=== PATIENT | female | born 1980 | race Caucasian/White ===

== ENCOUNTER 2017-11-26 19:09 | Emergency (ER) | payer SELFPAY ==
[~2017-11-26 19:09] MED LIST: ACE3 PO; CLIN300C99 PO; KET10 PO; METH-543 PO; OXYC-865 PO; PER PO
--- NOTE | 2017-11-26 19:28 | ER Report ---
History and Physical Time Seen By MD: 19:28 Hx. of Stated Complaint: ear infection for a month. been on 3 diff antibiotic and a steroid. nothing helping. too painful to sleep HPI/ROS CHIEF COMPLAINT: ear and throat pain on the right HISTORY OF PRESENT ILLNESS: This is a 37 year old female. She has had neck and right ear pain for a month. She has been on 3 courses of antibiotics, Augmentin , Cefdinir, and Doxycycline as well as some prednisone. Not getting better. Having some increased pain and swelling in right neck/throat area. Too painful to sleep. No drainage from ear. Some pain with movement of the ear. No pain in mouth. No fever or chills now. Having some nausea. REVIEW OF SYSTEMS: Respiratory: No cough, no dyspnea. Cardiovascular: No chest pain, no palpitations. Gastrointestinal: No vomiting, no abdominal pain. Musculoskeletal: No other pain. Allergies: Coded Allergies: hydrocodone (Verified Allergy, Intermediate, MIGRAINE HEADACHES, 11/26/17) Home Meds Active Scripts Ondansetron (ZOFRAN ODT) 4 Mg Tab.rapdis, 4 MG PO Q6H Y for NAUSEA/VOMITING, # 20 TAB.JUSTUS 0 Refills Prov:ANDREWS MCMANUS MD 11/26/17 Oxycodone Hcl/Acetaminophen (PERCOCET 5-325 MG TABLET) 1 Each Tablet, 1 EACH PO Q4H Y for PAIN, #12 TAB 0 Refills Prov:ANDREWS MCMANUS MD 11/26/17 Discontinued Scripts Oxycodone Hcl/Acetaminophen (PERCOCET 5-325 MG TABLET) 1 Each Tablet, 1-2 EACH PO Q4H Y for PAIN, #20 TAB Prov:NICKY ROGERS DO 02/20/16 Methocarbamol (ROBAXIN-750) 750 Mg Tablet, 1-2 MG PO TID Y for muscle spasm relief, #20 Prov:NICKY ROGERS DO 02/20/16 Reviewed Nurses Notes: Yes Hx Smoking: No Smoking Status: Former Smoker Hx Substance Use Disorder: No Hx Alcohol Use: No Constitutional Vital Sign - Last 24 Hours 11/26/17 11/26/17 11/26/17 19:17 20:30 22:00 Temp 98.0 Pulse 85 71 82 Resp 14 16 14 B/P (MAP) 143/98 149/97 (114) 144/96 (112) Pulse Ox 97 95 97 O2 Delivery Room Air Room Air Physical Exam General Appearance: The patient is alert, has no immediate need for airway protection and no current signs of toxicity. Eyes: Pupils equal and round no injection. ENT: Normal oral mucosa. Moist mucous membranes. Normal posterior oropharynx. Normal nasal. Tympanic membranes are normal, no redness, bulging, or drainage. Neck: Neck is supple, tender lymphadenopathy in the right cervical change. Respiratory: Chest is non tender, lungs are clear to auscultation. Cardiac: regular rate and rhythm Musculoskeletal: No musculoskeletal pain. Skin: No rashes or lesions. DIFFERENTIAL DIAGNOSIS: After history and physical exam differential diagnosis was considered for neck and ear pain, suspect infection (bacterial versus viral) , versus other mass or lymphadenopathy. Medical Decision Making Data Points Result Diagram: 11/26/17194811/26/171948 Laboratory Hematology Test 11/26/17 19:49 Red Blood Count 4.70 M/uL (4.17-5.56) Mean Corpuscular Volume 91.4 fL (80.0-96.0) Mean Corpuscular Hemoglobin 32.1 pg (26.0-33.0) Mean Corpuscular Hemoglobin Concent 35.1 g/dL (32.0-36.0) Red Cell Distribution Width 13.4 % (11.5-14.5) Mean Platelet Volume 9.9 fL (7.2-11.1) Neutrophils (%) (Auto) 52.6 % (39.4-72.5) Lymphocytes (%) (Auto) 38.1 % (17.6-49.6) Monocytes (%) (Auto) 6.7 % (4.1-12.4) Eosinophils (%) (Auto) 1.5 % (0.4-6.7) Basophils (%) (Auto) 1.1 % (0.3-1.4) Nucleated RBC Relative Count (auto) 0.0 /100WBC Neutrophils # (Auto) 3.0 K/uL (2.0-7.4) Lymphocytes # (Auto) 2.1 K/uL (1.3-3.6) Monocytes # (Auto) 0.4 K/uL (0.3-1.0) Eosinophils # (Auto) 0.1 K/uL (0.0-0.5) Basophils # (Auto) 0.1 K/uL (0.0-0.1) Nucleated RBC Absolute Count (auto) 0.00 K/uL Sodium Level 138 mmol/L (137-145) Potassium Level 3.6 mmol/L (3.5-5.0) Chloride Level 105 mmol/L (98-107) Carbon Dioxide Level 23 mmol/L (22-31) Blood Urea Nitrogen 8 mg/dl (7-18) Creatinine 0.60 mg/dl (0.52-1.04) Glomerular Filtration Rate Calc > 60.0 Random Glucose 79 mg/dl (75-110) Calcium Level 9.4 mg/dl (8.4-10.2) Total Bilirubin 0.6 mg/dl (0.2-1.3) Aspartate Amino Transf (AST/SGOT) 26 U/L (0-35) Alanine Aminotransferase (ALT/SGPT) 36 U/L (0-56) Alkaline Phosphatase 61 U/L (0-126) Total Protein 7.3 g/dl (6.3-8.2) Albumin 4.0 g/dl (3.5-5.0) Chemistry Test 11/26/17 19:49 White Blood Count 5.6 k/uL (4.5-11.0) Red Blood Count 4.70 M/uL (4.17-5.56) Hemoglobin 15.1 g/dL (12.0-16.0) Hematocrit 43.0 % (34.0-47.0) Mean Corpuscular Volume 91.4 fL (80.0-96.0) Mean Corpuscular Hemoglobin 32.1 pg (26.0-33.0) Mean Corpuscular Hemoglobin Concent 35.1 g/dL (32.0-36.0) Red Cell Distribution Width 13.4 % (11.5-14.5) Platelet Count 223 K/uL (150-450) Mean Platelet Volume 9.9 fL (7.2-11.1) Neutrophils (%) (Auto) 52.6 % (39.4-72.5) Lymphocytes (%) (Auto) 38.1 % (17.6-49.6) Monocytes (%) (Auto) 6.7 % (4.1-12.4) Eosinophils (%) (Auto) 1.5 % (0.4-6.7) Basophils (%) (Auto) 1.1 % (0.3-1.4) Nucleated RBC Relative Count (auto) 0.0 /100WBC Neutrophils # (Auto) 3.0 K/uL (2.0-7.4) Lymphocytes # (Auto) 2.1 K/uL (1.3-3.6) Monocytes # (Auto) 0.4 K/uL (0.3-1.0) Eosinophils # (Auto) 0.1 K/uL (0.0-0.5) Basophils # (Auto) 0.1 K/uL (0.0-0.1) Nucleated RBC Absolute Count (auto) 0.00 K/uL Glomerular Filtration Rate Calc > 60.0 Calcium Level 9.4 mg/dl (8.4-10.2) Total Bilirubin 0.6 mg/dl (0.2-1.3) Aspartate Amino Transf (AST/SGOT) 26 U/L (0-35) Alanine Aminotransferase (ALT/SGPT) 36 U/L (0-56) Alkaline Phosphatase 61 U/L (0-126) Total Protein 7.3 g/dl (6.3-8.2) Albumin 4.0 g/dl (3.5-5.0) EKG/Imaging Imaging EXAMINATION: CT neck with IV contrast HISTORY: Right neck and ear pain. Neck lymphadenopathy/swelling. COMPARISON: None. TECHNIQUE: Spiral scan was obtained from the orbits through the upper chest during injection of nonionic iodinated intravenous contrast. Sagittal and coronal reformatted images are also submitted. CONTRAST: 75 mL of IV Isovue-370 One of the following dose optimization techniques was utilized in the performance of this exam: Automated exposure control; adjustment of the mA and/ or kV according to the patient's size; or use of an iterative reconstruction technique. Specific details can be referenced in the facility's radiology CT exam operational policy. FINDINGS: Masses/lesions: Right neck adenopathy described below. No other discrete soft tissue mass or fluid collection in the neck. No soft tissue gas. The parotid and submandibular glands are unremarkable. Normal CT appearance of the thyroid. Airway: There is mild symmetric enlargement of the palatine tonsils bilaterally , without evidence of intratonsillar or peritonsillar abscess. The airway is patent and normal in caliber. No retropharyngeal soft tissue thickening. Vessels: There is narrowing of the upper right internal jugular vein by adjacent adenopathy. Carotid arteries are patent. Musculoskeletal/body wall: Negative. Normal alignment along the cervical spine. Lymph nodes: There are multiple enlarged right-sided level II cervical nodes, measuring up to 2.0 x 1.4 cm (image 34). There are additional enlarged level III cervical lymph nodes on the right measuring up to 1.9 x 1.0 cm (image 41). There are scattered subcentimeter lymph nodes along the left neck, without any pathologically enlarged lymph nodes on the left. Visualized orbits/brain/paranasal sinuses: The partially visualized intracranial structures are unremarkable. Orbital structures are unremarkable. The paranasal sinuses and mastoid air cells are unopacified. The middle ear cavities are unopacified. Upper chest: Negative. IMPRESSION: 1. There are multiple enlarged right-sided level II and level III lymph nodes which may be reactive but are nonspecific. 2. Mild symmetric enlargement of the palatine tonsils, without evidence of intratonsillar or peritonsillar abscess. Report Dictated By: Kartik Medina MD at 11/26/2017 8:53 PM ED Course/Re-evaluation Clinical Indication for ER IV: Hydration, IV Access ED Course Given Morphine for pain and Zofran for nausea. Labs obtained and negative. CT scan shows lymphadenopathy, but no other problems. Given Percocet and Zofran and will have her see ENT after the weekend. No further antibiotics given at this time. Decision to Disposition Date: Nov 26, 2017 Decision to Disposition Time: 21:44 Depart Departure Latest Vital Signs Vital Signs Date Time Temp Pulse Resp B/P (MAP) Pulse Ox O2 Delivery O2 Flow Rate FiO2 11/26/17 22:00 82 14 144/96 (112) 97 Room Air 11/26/17 19:17 98.0 Impression: Primary Impression: Cervical lymphadenopathy Condition: Condition Unchanged Disposition: HOME OR SELF-CARE Referrals: MARI GOULD MD (PCP) New Scripts Ondansetron (ZOFRAN ODT) 4 Mg Tab.rapdis 4 MG PO Q6H Y for NAUSEA/VOMITING, #20 TAB.JUSTUS 0 Refills Prov: ANDREWS MCMANUS MD 11/26/17 Oxycodone Hcl/Acetaminophen (PERCOCET 5-325 MG TABLET) 1 Each Tablet 1 EACH PO Q4H Y for PAIN, #12 TAB 0 Refills Prov: ANDREWS MCMANUS MD 11/26/17 Patient Instructions: Lymphadenopathy (ED) Additional Instructions: Your pain is caused by some enlarged lymph nodes in your neck. We do not know why they are enlarged and recommend follow-up with ENT. You can call Dr. Medina on Wednesday morning to make an appointment. Take Percocet 5/325, one every 4 hours as needed for pain. Ibuprofen 200mg over the counter tablets, take 4 tablets every 8 hours. Zofran 4mg, one every 6 hours as needed for nausea. Increase fluid intake over the weekend. ANDREWS MCMANUS MD Nov 26, 2017 19:28
[2017-11-26] MEDS ORDERED: NS(*) 0.9% 1000 ML BAG 1,000 ML IV ONE (19:35)
[2017-11-26] MEDS ORDERED: MORPHINE 4 MG/ML SDV IVP ONE (19:35)
[2017-11-26] MEDS ORDERED: ONDANSETRON 4 MG/2 ML VIAL IVP ONE (19:35)
[2017-11-26 19:57] LABS: PLATELET COUNT, AUTOMATED 223 K/uL (150-450)
[2017-11-26] MEDS ORDERED: IOPAMIDOL 76% 75 ML INFUS BTL 75 ML ONE (20:26)
--- NOTE | 2017-11-26 21:11 | RADIOLOGY IMAGING REPORT ---
FACILITY: [facility] PATIENT NAME: Beba Plascencia : 1980 MR: [id number] V: [id number] EXAM DATE: ORDERING PHYSICIAN: ANDREWS MCMANUS TECHNOLOGIST: Location: [facility] Patient: Beba Plascencia : 1980 Visit/Account:[id number] Date of Sevice: 11/26/2017 EXAMINATION: CT neck with IV contrast HISTORY: Right neck and ear pain. Neck lymphadenopathy/swelling. COMPARISON: None. TECHNIQUE: Spiral scan was obtained from the orbits through the upper chest during injection of non ionic iodinated intravenous contrast. Sagittal and coronal reformatted images are also submitted. CONTRAST: 75 mL of IV Isovue-370 One of the following dose optimization techniques was utilized in the performance of this exam: Autom ated exposure control; adjustment of the mA and/or kV according to the patient's size; or use of an i terative reconstruction technique. Specific details can be referenced in the facility's radiology C T exam operational policy. FINDINGS: Masses/lesions: Right neck adenopathy described below. No other discrete soft tissue mass or fluid c ollection in the neck. No soft tissue gas. The parotid and submandibular glands are unremarkable. Nor mal CT appearance of the thyroid. Airway: There is mild symmetric enlargement of the palatine tonsils bilaterally, without evidence of intratonsillar or peritonsillar abscess. The airway is patent and normal in caliber. No retropharyng eal soft tissue thickening. Vessels: There is narrowing of the upper right internal jugular vein by adjacent adenopathy. Carotid arteries are patent. Musculoskeletal/body wall: Negative. Normal alignment along the cervical spine. Lymph nodes: There are multiple enlarged right-sided level II cervical nodes, measuring up to 2.0 x 1 .4 cm (image 34). There are additional enlarged level III cervical lymph nodes on the right measuring up to 1.9 x 1.0 cm (image 41). There are scattered subcentimeter lymph nodes along the left neck, wi thout any pathologically enlarged lymph nodes on the left. Visualized orbits/brain/paranasal sinuses: The partially visualized intracranial structures are unrem arkable. Orbital structures are unremarkable. The paranasal sinuses and mastoid air cells are unopaci fied. The middle ear cavities are unopacified. Upper chest: Negative. IMPRESSION: 1. There are multiple enlarged right-sided level II and level III lymph nodes which may be reactive b ut are nonspecific. 2. Mild symmetric enlargement of the palatine tonsils, without evidence of intratonsillar or peritons illar abscess. Report Dictated By: Kartik Medina MD at 11/26/2017 8:53 PM Report E-Signed By: Kartik Medina MD at 11/26/2017 9:06 PM WSN:[id number]
[2017-11-26] MEDS ORDERED: ONDANSETRON 4 MG ODT TH SL ONE (21:40)
[2017-11-26] MEDS ORDERED: oxyCODONE/ACETAMIN 5/325MG TH 2 TAB/BOTTLE PO ONE (21:40)
[2017-11-26] MEDS ORDERED: OXYC-865 PO (21:47)
[2017-11-26] MEDS ORDERED: ONDA4TAB PO (21:47)
[2017-11-26 22:00] VITALS: BP 144/96
== END 2017-11-26 21:58 | disposition home or self-care (01) ==
LOC: ER 19:15
DX: R59.0 Localized enlarged lymph nodes (principal)
CPT/HCPCS: 70491; 85025; 87040; 96361; 96374; 96375; 99284; J2270; J2405; J7030; Q9967; S0119; 82040; 82247; 82310; 82374; 82435; 82565; 82947; 84075; 84132; 84155; 84295; 84450; 84460; 84520

== ENCOUNTER → 2017-12-30 | Outpatient (CLI) | payer SELFPAY ==
[~2017-12-30] MED LIST changes: +ACET-3017 PO; +IBUP800T37 PO; +ONDA4TAB PO
--- NOTE | 2017-12-30 16:35 | RADIOLOGY IMAGING REPORT ---
FACILITY: [facility] PATIENT NAME: Beba Plascencia : 1980 MR: [id number] V: [id number] EXAM DATE: ORDERING PHYSICIAN: SHIV GALDAMEZ TECHNOLOGIST: Location: [facility] [place] Patient: Beba Plascencia : 1980 Visit/Account:[id number] Date of Sevice: 12/30/2017 EXAMINATION: CT Chest With Contrast 12/30/2017 3:40 PM HISTORY: Malignant neoplasm of tonsil TECHNIQUE: Spiral scan was obtained through the chest during injection of nonionic iodinated intrav enous contrast. Contrast: 75 mL of IV Isovue 370. One of the following dose optimization techniques was utilized in the performance of this exam: Autom ated exposure control; adjustment of the mA and/or kV according to the patient's size; or use of an i terative reconstruction technique. Specific details can be referenced in the facility's radiology C T exam operational policy. COMPARISON STUDIES: CT neck 11/26/2017. FINDINGS: Lungs / pleura: negative Mediastinum / safia: Prevascular tissue density consistent with residual thymus. Heart / pericardium: negative Vessels: negative Musculoskeletal / Body wall: negative Lymph node assessment: 1.1 cm right level 3 cervical lymph node is stable to slightly smaller from neck CT. No mediastinal or hilar adenopathy. Lower neck: negative Upper abdomen: Incidental focal fat or perfusional variation in the left lobe along the fissure for l igamentum teres. Prior cholecystectomy. IMPRESSION: 1. No evidence of metastatic disease in the chest. 2. Visualized right cervical adenopathy is stable to slightly diminished comparing with November. Report Dictated By: Indra Goldsmith MD at 12/30/2017 4:24 PM Report E-Signed By: Indra Goldsmith MD at 12/30/2017 4:31 PM WSN:[email or web address]
== END ==
LOC: RAD 15:29
PROVIDERS: ATTEND Internal Medicine Hematology
DX: R59.0 Localized enlarged lymph nodes (principal)
CPT/HCPCS: 71260

== ENCOUNTER 2018-01-17 10:45 | Outpatient (RCR) | payer SELFPAY ==
--- NOTE | 2018-01-10 14:12 | PT INITIAL EVALUATION ---
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 Pt underwent surgical excision of R tonsils and a large soft tissue mass on the R neck on December 16 including affected lymph nodes. Furthermore, Beba is to start both chemotherapy as well as radiation therapy treatment today (01/10/18) for continued oncological treatment. Pt presents to physical therapy for oncology rehabilitation as well as for treatment of R neck and shoulder pain s/p surgical intervention. Pain is located along R jaw and cheek into the neck and R shoulder and is neuropathic in nature described as shooting and sharp/intense. Pain is worse in the evenings rated as 10/10 at night and then better throughout the day rated between a 1-4/10 never going away completely. Pt reports neck stiffness with difficulty driving from turning head. Pt is starting Cisplatin chemotherapy at a frequency of 1x/week for 7 cycles with radiation daily. Pt is still working throughout treatment for [employer]. Pt enjoys gardening and spending time with her grandchildren. REHAB PROBLEM LIST: Increased Pain Decreased ROM Decreased Strength Decreased Endurance Decreased Function Decreased ADL's Decreased Mobility PREVIOUS MEDICAL HISTORY: See EMR OBJECTIVE: Posture: Forward head posture with decreased head mobility movement of body. ROM: Cervical ROM: flexion: moderate restrictions, ext: moderate restrictions, L SB: 15 degrees, R SB: 29 degrees, L rotation: 42 degrees, R rotation 45 degrees. Shoulder ROM (degrees): flexion: L 160, R 138, abd: L: 170, R 75 with pain in shoulder and neck, ER: L 80, R 62, IR: B T4 spinal level. Strength: R shoulder: flexion: 3+/5, abd: 2/5 Palpation: Pt has incision along the lateral-anterior aspect of the R neck. Incision is healing well without any redness or warmth. Incision has moderate restrictions to mobility throughout. Sensation: Pt has decreased sensation along R neck, cheek and jaw. Special Tests: Head and Neck QOL Questionnaire: moderate restrictions with chewing and mouth and jaw pain, "a lot" of restrictions with shoulder and neck pain. Mobility: ECOG Performance Status: Grade 1 Other Objective Findings: FACT-G: PWB: , SWB: , EWB: , FWB: , Total: 72/108 ASSESSMENT: Beba shows signs and symptoms consistent with diagnosis of SCC of the R cervical and tonsillar region s/p surgical intervention resulting in decreased mobility, pain and overall decreased function as outlined by the above listed deficits. Physical therapy is indicated for this patient to improve functional ability to perform ADL's as well as maintain function with ongoing oncological treatment. It is my impression that this patient would benefit from FOOD SERVER services though secondary to patient preferences with financial burden services were declined unless further decline occurs. Short Term Goals In 4 weeks pt will improve cervical ROM to minimal restrictions in all directions for improved function with ADL's. In 4 weeks pt will improve R shoulder ROM to equal to that of the contralateral side for improved function with ADL's. In 2 MO pt will improve R shoulder strength to equal to that of the contralateral side for improved function with ADL's. In 2 MO pt will maintain ECOG performance status of grade 2 or less for maintained function with ADL's with ongoing oncological care and decreased side -effects of treatment. In 2 MO pt will improve FACT-G to > 80/108 for improved function with ADLs and maintenance of general well-being with ongoing treatment. Patient's Goals Improve shoulder and neck mobility and decrease pain. PLAN: Patient to be seen for Manual Therapy/STM/MET Strengthening/condition Ice/Heat Range of Motion Spinal Stabilization Ultrasound Stretching Iontophoresis Neuromuscular Re-ed Closed Chain Program Electrical Stim Posture/Body mechanics Biofeedback Home Exercise Program Mech./Manual Traction Therapeutic Activities 1x/Week for 2 Months If you have any questions, comments, or concerns about this report or plan, please contact me at . Thank you, Aleshia Rodríguez, PT, DPT, CLT MTDD
[~2018-01-17 10:45] MED LIST changes: +B6/F1TAB ASDIRECTED; +DEXA2TAB7 PO; +DOCU-416 PO; +LORA-1455 PO; +ONDA8TAB91 PO; +PROC10TA4 PO
--- NOTE | 2018-01-31 12:03 | PT PLAN OF CARE ---
Physician: JARETH Ashton, OCN Patient is being seen: 2x/MO Therapist: Aleshia Rodríguez, PT, DPT, CLT Medical Diagnosis: Head and Neck Cancer, Squamous Cell Carcinoma of Right Tonsil and Neck Treatment Diagnosis: Head and Neck Cancer, Squamous Cell Carcinoma of Right Tonsil and Neck Date of Onset: 12/16/17 Date of Initial Evaluation: 01/10/18 Date patient was last seen: 01/31/18 Number of treatments: 3 Number of cancellations/No shows: 0 INTERVENTIONS: Manual Therapy/STM/MET Strengthening/condition Ice/Heat Range of Motion Spinal Stabilization Ultrasound Stretching Iontophoresis Neuromuscular Re-ed Closed Chain Program Electrical Stim Posture/Body mechanics Biofeedback Home Exercise Program Mech./Manual Traction Therapeutic Activities GOALS: In 4 weeks pt will improve cervical ROM to minimal restrictions in all directions for improved function with ADL's. MET In 4 weeks pt will improve R shoulder ROM to equal to that of the contralateral side for improved function with ADL's. In Progress In 2 MO pt will improve R shoulder strength to equal to that of the contralateral side for improved function with ADL's. In Progress In 2 MO pt will maintain ECOG performance status of grade 2 or less for maintained function with ADL's with ongoing oncological care and decreased side -effects of treatment. In Progress In 2 MO pt will improve FACT-G to > 80/108 for improved function with ADLs and maintenance of general well-being with ongoing treatment. In Progress PATIENT'S GOAL: Improve shoulder and neck mobility and decrease pain. Status of Patient's Goals: 1/5 MET, 4/5 Progressing Patient Compliance: Excellent Prognosis: Good Reasons for continuing therapy: Beba shows significant gains in cervical ROM with associated improved mobility and decreased pain. Incisional mobility shows good gains with minimal irritation of the surrounding tissue from radiation. Pt' s spouse educated on assisting with manual stretches to improve mobility as well as pt educated on progressing towards AAROM of the shoulder to initiate strengthening with mobility. Further PT to monitor for shoulder progression as well as maintain ROM in the neck. Posture: Forward head posture with decreased head mobility movement of body. ROM: Cervical ROM: flexion: minimal restrictions, ext: full with stretch, L SB : 45 degrees, R SB: 45 degrees, L rotation: 55 degrees, R rotation 55 degrees. Shoulder ROM (degrees): flexion: L 160, R 145, abd: L: 170, R 142 with pain in neck, ER: L 80, R 72, IR: B T4 spinal level. Strength: R shoulder: flexion: 3+/5, abd: 2/5 Palpation: Pt has incision along the lateral-anterior aspect of the R neck. Incision is healing well without any redness or warmth. Incision has moderate restrictions to mobility throughout. Special Tests: Head and Neck QOL Questionnaire: moderate restrictions with chewing and mouth and jaw pain, "a lot" of restrictions with shoulder and neck pain. Mobility: ECOG Performance Status: Grade 1 Other Objective Findings: FACT-G (EVAL): PWB: , SWB: , EWB: , FWB : , Total: 72/108 FACT-G 01/31/18: PWB: , SWB: , EWB: , FWB: , Total: 74/ 108 If you have any questions, comments, or concerns about this report or plan, please contact me at . Thank you, Aleshia Rodríguez, PT, DPT, CLT MTDD
[2018-02-07] MEDS ORDERED: NYST15PO4 TP (09:00)
[2018-02-07] MEDS ORDERED: AZIT-17 PO (09:00)
[2018-02-07] MEDS ORDERED: FENT1PAT ASDIRECTED (09:00)
[2018-02-07] MEDS ORDERED: FLUC200T56 PO (09:00)
== END 2018-01-17 18:00 | disposition home or self-care (01) ==
LOC: PT 10:45
PROVIDERS: ATTEND Nurse Practitioner Family
DX: C09.9 Malignant neoplasm of tonsil, unspecified (principal); C76.0 Malignant neoplasm of head, face and neck; M25.511 Pain in right shoulder; M43.6 Torticollis; R68.84 Jaw pain
CPT/HCPCS: 97162

== ENCOUNTER 2018-02-15 13:21 | Observation (INO) | payer SELFPAY ==
[~2018-02-15] VITALS: Ht 160 cm; Wt 76.2 kg
[~2018-02-15 13:21] MED LIST changes: +AZIT-17 PO; +FENT1PAT ASDIRECTED; +FLUC200T56 PO; +NYST15PO4 TP
[2018-02-15] MEDS ORDERED: ENOXAPARIN 100 MG/ML SYR SC SCH (13:45)
[2018-02-15] MEDS ORDERED: MORPHINE 4 MG/ML SDV IVP ONE (13:45)
[2018-02-15 14:11] LABS: INR 1.29
--- NOTE | 2018-02-15 14:28 | ER Report ---
History and Physical Time Seen By MD: 13:33 Hx. of Stated Complaint: CLOT IN LEFT LEG HPI/ROS CHIEF COMPLAINT: DVT left lower extremity HISTORY OF PRESENT ILLNESS: Patient is a 38-year-old female who was seen in oncology clinic today scheduled for radiation therapy. She complained of left lower extremity pain and swelling over the past few days. She was sent for a Doppler ultrasound of left lower extremity which revealed an iliofemoral DVT. Patient denies any chest pain or shortness of breath. She denies any dyspnea. No prior history of DVT or PE. Patient is also currently receiving cisplatin chemotherapy which increases risk for hypercoagulability. 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 Cardiovascular: No chest pain, no palpitations. Gastrointestinal: No vomiting, no abdominal pain. Musculoskeletal: No back pain. Lower extremity swelling and pain Allergies: Coded Allergies: hydrocodone (Verified Allergy, Intermediate, MIGRAINE HEADACHES, 11/26/17) Home Meds Active Scripts Nystatin 100,000 Unit/Gm Top Powder (NYSTATIN 100,000 UNIT/GM TOP POWDER) 15 Gm Powder, 15 GM TP 3-4XD for 30 Days, TUBE Prov:ELVIRA EMLTON-Alex, ONC 02/07/18 Fluconazole (FLUCONAZOLE) 200 Mg Tablet, 400 MG PO QDAY for 90 Days, TAB Prov:ELVIRA MELTON, ONC 02/07/18 Fentanyl (Fentanyl) 1 Each Patch.td72, 25 MCG ASDIRECTED DIRECTED for 7 Days Prov:ELVIRA MELTON, ONC 02/07/18 B6/Fa/B12/Co Q10/Herb No.225 (HEALTHY HEART COMPLEX TABLET) 1 Each Tablet, 10 BOT ASDIRECTED 1-2XD for 10 Days, BOTTLE Prov:ELVIRA MELTON, ONC 01/10/18 Docusate Sodium (COLACE) 100 Mg Capsule, 100 MG PO 1-2XD for 30 Days, CAPSULE Prov:ELVIRA MELTON, ONC 01/10/18 Reported Medications Lorazepam (ATIVAN) 0.5 Mg Tablet, 0.5 MG PO Q4-6H, #30 TAB 1 Refill 01/05/18 Ondansetron Hcl (ZOFRAN) 8 Mg Tablet, 8 MG PO Q12H, #30 TAB 3 Refills 01/05/18 Prochlorperazine Maleate (Compazine) 10 Mg Tablet, PO for Nausea, #30 TAB 01/05/18 Ibuprofen (IBUPROFEN) 800 Mg Tablet, 1 TAB PO Q8H, TAB 12/23/17 Acetaminophen With Codeine # 3 (TYLENOL WITH CODEINE #3 TABLET) 1 Each Tablet, 1 EACH PO PRN, TAB 12/23/17 Discontinued Scripts Azithromycin (Z-PACK) 250 Mg Tablet, 0 PO QDAY, #6 DOSE-PACK Prov:ELVIRA MELTON MACHINE MOLDER-C, ONC 02/07/18 Past Medical/Surgical History History of stage IV squamous cell carcinoma that is HPV positive to the t onsillar area currently undergoing chemotherapy and radiation therapy Hx Smoking: Yes Smoking Status: Former Smoker Hx Substance Use Disorder: No Hx Alcohol Use: No Constitutional Vital Sign - Last 24 Hours 02/15/18 13:32 Temp 98.1 Pulse 74 Resp 18 B/P (MAP) 125/71 Pulse Ox 98 O2 Delivery Room Air Physical Exam General Appearance: The patient is alert, has no immediate need for airway protection and no current signs of toxicity. Eyes: Pupils equal and round no injection. Respiratory: Chest is non tender, lungs are clear to auscultation. Cardiac: regular rate and rhythm [ ] Gastrointestinal: Abdomen is soft and non tender, no masses, bowel sounds normal. Musculoskeletal: Neck: Neck is supple and non tender. Extremities have full range of motion; left lower extremity is markedly increased in diameter and tender with positive Homans sign Skin: No rashes or lesions. Medical Decision Making Data Points Laboratory Hematology Test 02/15/18 13:56 Chemistry Test 02/15/18 13:56 Coagulation Test 02/15/18 13:56 ED Course/Re-evaluation ED Course 02/15/2018 2:28:44 pm I spoke with Dr. Bustamante who is on-call for oncology history physical exam was reviewed. Concern is the patient has a fairly large left lower Dennis and the DVT along with her comorbidity of squamous cell cancer. Plan at this time will be 1 m/kg of subcutaneous Lovenox admission to the hospital and further workup Decision to Disposition Date: Feb 15, 2018 Decision to Disposition Time: 14:28 Depart Departure Latest Vital Signs Vital Signs Date Time Temp Pulse Resp B/P (MAP) Pulse Ox O2 Delivery O2 Flow Rate FiO2 02/15/18 13:32 98.1 74 18 125/71 98 Room Air Impression: Primary Impression: DVT (deep venous thrombosis) Condition: Condition Unchanged Disposition: Admitted from ER (to Dr Silverio) Referrals: MINERVA GARCIA MD (PCP) Problem Qualifiers Primary Impression: DVT (deep venous thrombosis) DVT location: lower extremity Affected thrombotic vein of extremity: iliac Chronicity: acute Laterality: left Qualified Codes: I82.422 - Acute embolism and thrombosis of left iliac vein WILFRED HOOK MD Feb 15, 2018 14:28
[2018-02-15 14:34] VITALS: BP 114/69
[2018-02-15] MEDS ORDERED: FLUSH 10 ML SYR IVP PRN (14:50)
[2018-02-15] MEDS ORDERED: ONDANSETRON 4 MG/2 ML VIAL IVP PRN (14:50)
[2018-02-15] MEDS ORDERED: INFLUENZA VIRUS VAC 0.5 ML SYR IM ONLY ONE (14:50)
[2018-02-15] MEDS ORDERED: POTA20TA94 PO (15:14)
[2018-02-15] MEDS ORDERED: [UNRECOGNIZED DRUG - OTHER] PO (15:14)
[2018-02-15] MEDS ORDERED: NYST100016 PO (15:14)
[2018-02-15] MEDS ORDERED: SANCUSOPT TD (15:14)
[2018-02-15] MEDS ORDERED: DEX4 PO (15:14)
[2018-02-15] MEDS ORDERED: ACET12.53 PO (15:14)
[2018-02-15] MEDS ORDERED: MAGN250T34 PO (15:14)
[2018-02-15] MEDS ORDERED: LORazepam 0.5 MG TAB PO PRN (15:30)
[2018-02-15] MEDS ORDERED: ENOX120D5 SQ (15:51)
[2018-02-15] MEDS ORDERED: DEXAMETHASONE 4 MG TAB PO PRN (16:00)
[2018-02-15] MEDS ORDERED: MAGNESIUM OXIDE 400 MG TAB PO ONE (16:00)
[2018-02-15] MEDS ORDERED: ENOXAPARIN 100 MG/ML SYR SC ONE (16:00)
[2018-02-15] MEDS ORDERED: ACETAMINOPHEN 325 MG TAB PO PRN (16:00)
[2018-02-15] MEDS ORDERED: ENOXAPARIN 40 MG/0.4ML SYR SC ONE (16:00)
[2018-02-15] MEDS: POTASSIUM CHL 20 MEQ TABCR PO SCH (16:25)
--- NOTE | 2018-02-15 16:28 | History & Physical ---
History of Present Illness Chief Complaint L leg swelling History of Present Illness 38F presented with several days L leg swelling. PMHx significant for SCC of the throat undergoing cisplatin and radiation therapy. Noted during infusion today that she had decrease in color of L leg in addition to swelling, notified nurse at infusion center who recommended she come to ER. US positive in ER for proximal DVT involving L Femoral and Iliac veins. Admitted for initiation of Lovenox. Pt is self pay and was scheduled to have radiation tomorrow at 0830, discussed with CM from cancer center who arranged for 1230 radiation and will work on getting Lovenox subsidy. She expects 2 weeks at least until this could be completed, sent script to pharmacy for 2 weeks so patient can investigate cost. Denies [place] [facility]. History Problems: (1) Mucositis (ulcerative) due to antineoplastic therapy (2) Squamous cell carcinoma of tonsil Home Meds Active Scripts Enoxaparin Sodium (LOVENOX) 120 Mg/0.8 Ml Disp.syrin, 120 MG SQ DAILY for 14 Days, #14 SYR Prov:MARK JUDD DO 02/15/18 Fluconazole (FLUCONAZOLE) 200 Mg Tablet, 400 MG PO QDAY for 90 Days, TAB Prov:ELVIRA MELTON, ONC 02/07/18 Fentanyl (Fentanyl) 1 Each Patch.td72, 25 MCG ASDIRECTED DIRECTED for 7 Days Prov:ELVIRA MELTON, ONC 02/07/18 B6/Fa/B12/Co Q10/Herb No.225 (HEALTHY HEART COMPLEX TABLET) 1 Each Tablet, 10 BOT ASDIRECTED 1-2XD for 10 Days, BOTTLE Prov:ELVIRA MELTON, ONC 01/10/18 Docusate Sodium (COLACE) 100 Mg Capsule, 100 MG PO 1-2XD for 30 Days, CAPSULE Prov:ELVIRA MELTON, ONC 01/10/18 Reported Medications Magnesium Oxide (MAGNESIUM) 250 Mg Tablet, 250 MG PO DAILY 02/15/18 Potassium Chloride (POTASSIUM CHLORIDE) 20 Meq Tab.er.prt, 1 TAB PO BID 02/15/18 Nystatin (Nystatin) 100,000 Unit/Ml Oral.susp, 4 ML PO TID 02/15/18 [magic mouthwash MCK] No Conflict Check, 15 ML PO Q4H PRN for PAIN lidocaine/maalox 50/50 viscous 02/15/18 Granisetron Hcl (SANCUSO) 3.1 Mg/24 Hr Patch.td24, 3.1 MG TD DAILY supposed to start 02/16 per pt report 02/15/18 Dexamethasone 4 Mg Tab (DEXAMETHASONE 4 MG TAB) 4 Mg Tab, 4 MG PO Q4H PRN for NAUSEA, TAB 02/15/18 Acetaminophen with Codeine (Acetamin-Codein 300-30 mg/12.5) 12.5 Ml Solution, 2- 5 ML PO Q6H PRN for PAIN 02/15/18 Lorazepam (ATIVAN) 0.5 Mg Tablet, 1-2 TAB PO Q6H PRN for ANXIETY, #30 TAB 1 Refill 01/05/18 Prochlorperazine Maleate (Compazine) 10 Mg Tablet, 1 TAB PO Q8H for Nausea, #30 TAB 01/05/18 Ibuprofen (IBUPROFEN) 800 Mg Tablet, 1 TAB PO Q8H, TAB 12/23/17 Discontinued Reported Medications Ondansetron Hcl (ZOFRAN) 8 Mg Tablet, 8 MG PO Q12H, #30 TAB 3 Refills 01/05/18 Acetaminophen With Codeine # 3 (TYLENOL WITH CODEINE #3 TABLET) 1 Each Tablet, 1 EACH PO PRN, TAB 12/23/17 Discontinued Scripts Nystatin 100,000 Unit/Gm Top Powder (NYSTATIN 100,000 UNIT/GM TOP POWDER) 15 Gm Powder, 15 GM TP 3-4XD for 30 Days, TUBE Prov:ELVIRA MELTON, ONC 02/07/18 Azithromycin (Z-PACK) 250 Mg Tablet, 0 PO QDAY, #6 DOSE-PACK Prov:ELVIRA MELTON-Alex, ONC 02/07/18 Allergies: Coded Allergies: hydrocodone (Verified Allergy, Intermediate, MIGRAINE HEADACHES, 11/26/17) Hx Smoking: Yes Smoking Status: Former Smoker Hx Alcohol Use: No Hx Substance Use Disorder: Yes (stopped most 1997; edible THC tried a couple weeks ago) Social Drug Use: Former Social Drugs: Marijuana, Meth, Cocaine Review of Systems All Systems Reviewed/Normal: Yes, Except as Noted Constitutional: Weight Loss; No Fever Gastrointestinal: Constipation, Other (odonophagia) Musculoskeletal: Pain (L leg swelling) Exam Vital Signs Vital Signs Date Time Temp Pulse Resp B/P (MAP) Pulse Ox O2 Delivery O2 Flow Rate FiO2 02/15/18 15:15 95 Room Air 02/15/18 14:34 98.2 72 16 114/69 (84) General Appearance: Alert, Awake, No Acute Distress Neuro: No Gross deficits Eyes: PERRLA ENT: Other (erythema of oropharynx) Neck: No Masses Cardiovascular: Normal Rhythm & Peripheral Pulses Respiratory: No Respiratory Distress, Clear to Auscultation GI: Abd Soft and Non-Tender (+ BS) Lymph: Cervical Nodes Benign Musculoskeletal: No Weakness/Pain (other than L leg) Extremities: Soft and Non Tender, Warm, Pulses, Perfused, Edema (asymetric L) Integumentary: Skin Intact without Lesion / Mass Psych: Alert & Oriented X3, Appropriate Mood & Affect Assessment and Plan Problems: (1) DVT (deep venous thrombosis) Status: Acute Assessment & Plan: US demonstrates extensive proximal DVT of L femoral and iliac veins. Given active cancer and chemotherapy Lovenox is Rx of choice. Begin 1.5mg/kg daily. Coordinate with cancer center to try and assist in funding for Lovenox. Anticipate if Rx available discharge home tomorrow. (2) Thrombocytopenia Assessment & Plan: Likely 2/2 chemotherapy may also be component of activation and depletion from acute DVT. Monitor with initiation anticoagulation therapy. (3) Mucositis (ulcerative) due to antineoplastic therapy Assessment & Plan: Mucositis and inflamation 2/2 radiation and chemotherapy. She is on chronic therapy with magic mouthwash and prophylactic fluconazole. (4) Squamous cell carcinoma of tonsil Assessment & Plan: Undergoing current therapy with cisplatin and radiation. Last chemo today, rescheduled radiation tomorrow from 0830 to 1230 anticipate her going to cancer center after discharge. Outpatient regimen for pain and n/v continued. (5) Hypokalemia Assessment & Plan: Mild. Sequelae of chemotherapy, on chronic supplementation. Venous Thromboembolism Antithrombotics Is Pt On Any Antithrombotics?: Yes Exam Sepsis Risk: No Definite Risk Problem Qualifiers (1) DVT (deep venous thrombosis): DVT location: lower extremity Affected thrombotic vein of extremity: iliac Chronicity: acute Laterality: left Qualified Codes: I82.422 - Acute embolism and thrombosis of left iliac vein MARK JUDD DO Feb 15, 2018 16:28
[2018-02-15] MEDS ORDERED: MAGIC MOUTHWASH PO ONE (17:00)
[2018-02-15] MEDS: DOCUSATE SODIUM 100 MG CAP PO SCH (21:00)
[2018-02-15] MEDS: FLUCONAZOLE 100 MG TAB PO SCH (21:21)
[2018-02-15] MEDS: NYSTATIN 5 ML UDCUP PO SCH (21:21)
[2018-02-15] MEDS: ACETA/CODEIN ELIX 120-12MG/5ML PO PRN (21:26)
[2018-02-15] MEDS: MAGIC MOUTHWASH PO PRN (21:27)
[2018-02-15 21:35] VITALS: BP 122/81
[2018-02-16] MEDS: PROCHLORPERAZINE MAL 5 MG TAB PO PRN ×2 (02:03→10:07)
[2018-02-16] MEDS: MAGIC MOUTHWASH PO PRN ×3 (02:03→10:07)
[2018-02-16 02:07] VITALS: BP 139/98
[2018-02-16] MEDS: ACETA/CODEIN ELIX 120-12MG/5ML PO PRN (05:41)
[2018-02-16 06:20] LABS: PLATELET COUNT, AUTOMATED 95 K/uL (150-450)
[2018-02-16 07:34] VITALS: BP 126/84
[2018-02-16] MEDS: POTASSIUM CHL 20 MEQ TABCR PO SCH (08:00)
--- NOTE | 2018-02-16 08:22 | Hospitalist Depart ---
Discharge Summary Reason for Hosp/Final Diag: (1) DVT (deep venous thrombosis) Status: Acute Hospital Course & Plan: US demonstrated extensive proximal DVT of left femoral and iliac veins. As she has active cancer and current chemotherapy, she was started on subcutaneous Lovenox 1.5mg/kg daily. Oncology may decide to t ransition her to an oral anticoagulant in the future. She was able to obtain a two week supply through her pharmacy and will work on assistance with the [facility]. She will need to have daily CBC for next few days as she has mild thrombocytopenia (most likely related to her chemotherapy). (2) Thrombocytopenia Hospital Course & Plan: Likely secondary to chemotherapy. May also be component of depletion from acute DVT. Monitor with initiation anticoagulation therapy. (3) Mucositis (ulcerative) due to antineoplastic therapy Hospital Course & Plan: Mucositis and inflammation secondary to radiation and chemotherapy. She is on therapy with magic mouthwash and prophylactic fluconazole. (4) Squamous cell carcinoma of tonsil Hospital Course & Plan: Undergoing current therapy with cisplatin and daily radiation. Last chemotherapy yesterday. She will be discharged today and will follow up closely with [facility]/Dr. Addy Box. (5) Hypokalemia Hospital Course & Plan: Mild. She is on chronic supplementation. Monitor lab. Departure Weight (Pounds): 168 Weight (Ounces): 8.0 Result Diagram: 02/16/1855702/16/18557 Item Value Date Time White Blood Count 4.4 k/uL L 02/15/18 08 Hemoglobin 12.3 g/dL 02/15/18 08 Hematocrit 35.0 % 02/15/18 08 Platelet Count 104 K/uL L 02/15/18 0817 Sodium Level 136 mmol/L L 02/15/18 08 Potassium Level 3.4 mmol/L L 02/15/18 08 Chloride Level 100 mmol/L 02/15/18816 Carbon Dioxide Level 25 mmol/L 02/15/18 08 Blood Urea Nitrogen 21 mg/dl H 02/15/18 0817 Creatinine 0.60 mg/dl 02/15/18 08 Glomerular Filtration Rate Calc > 60.0 02/15/18816 Random Glucose 95 mg/dl 02/15/18 08 Calcium Level 9.7 mg/dl 02/15/18 0817 Phosphorus Level 3.2 mg/dl 02/15/18 0817 Magnesium Level 1.9 mg/dl 02/15/18 0817 Total Bilirubin 0.8 mg/dl 02/15/18 0817 Aspartate Amino Transf (AST/SGOT) 21 U/L 02/15/18 0817 Alanine Aminotransferase (ALT/SGPT) 45 U/L 02/15/18 0817 Alkaline Phosphatase 53 U/L 02/15/18 0817 Total Protein 6.8 g/dl 02/15/18 0817 Albumin 4.0 g/dl 02/15/18 0817 Prothrombin Time 16.2 seconds H 02/15/18 1356 Prothromb Time International Ratio 1.29 02/15/18 1356 Activated Partial Thromboplast Time 25 seconds 02/15/18 1356 Imaging PATIENT NAME: Beba Plascencia : 1980 MR: [id number] V: [id number] EXAM DATE: ORDERING PHYSICIAN: JEREMÍAS RUTLEDGE TECHNOLOGIST: Location: [facility] [place] Patient: Beba Plascencia : 1980 Visit/Account:[id number] Date of Sevice: 02/15/2018 Venous Doppler ultrasound left lower extremity Indication: Left leg pain and swelling.. Comparison: None Available Findings: Duplex Doppler and color flow imaging was performed. There is diffuse intraluminal thrombus seen in the deep venous system of the left leg including the distal left iliac, common femoral, femoral, popliteal, posterior tibial, peroneal and anterior tibial veins. No significant blood flow or compressibility. These appear to be occluded. There is also extension into the greater saphenous vein. Subcutaneous tissues are unremarkable. IMPRESSION: 1. Diffuse occluding deep venous thrombus in the left leg from the distal iliac vein through the common femoral, femoral, popliteal and into the veins of the calf. There is extension into the greater saphenous vein. I called report to JEREMÍAS RUTLEDGE at 02/15/2018 2:02 PM. Report Dictated By: Juan Alberto Stanton at 02/15/2018 1:57 PM Report E-Signed By: Juan Alberto Stanton at 02/15/2018 2:03 PM [id number] Condition: Improved Discharge: Home, Self Care Follow-Up Labs: Other (CBC daily for next 5-7 days, BMP in 3-5 days) Time Spent: > 30 min Discharge Instructions Home Meds Active Scripts Enoxaparin Sodium (LOVENOX) 120 Mg/0.8 Ml Disp.syrin, 120 MG SQ DAILY for 14 Days, #14 SYR Prov:MARK JUDD DO 02/15/18 Fluconazole (FLUCONAZOLE) 200 Mg Tablet, 400 MG PO QDAY for 90 Days, TAB Prov:ELVIRA MELTON, ONC 02/07/18 Fentanyl (Fentanyl) 1 Each Patch.td72, 25 MCG ASDIRECTED DIRECTED for 7 Days Prov:ELVIRA MELTON, ONC 02/07/18 Docusate Sodium (COLACE) 100 Mg Capsule, 100 MG PO 1-2XD for 30 Days, CAPSULE Prov:ELVIRA MELTON, ONC 01/10/18 Reported Medications Magnesium Oxide (MAGNESIUM) 250 Mg Tablet, 250 MG PO DAILY 02/15/18 Potassium Chloride (POTASSIUM CHLORIDE) 20 Meq Tab.er.prt, 1 TAB PO BID 02/15/18 Nystatin (Nystatin) 100,000 Unit/Ml Oral.susp, 4 ML PO TID 02/15/18 [magic mouthwash MCK] No Conflict Check, 15 ML PO Q4H PRN for PAIN lidocaine/maalox 50/50 viscous 02/15/18 Granisetron Hcl (SANCUSO) 3.1 Mg/24 Hr Patch.td24, 3.1 MG TD DAILY supposed to start 02/16 per pt report 02/15/18 Dexamethasone 4 Mg Tab (DEXAMETHASONE 4 MG TAB) 4 Mg Tab, 4 MG PO Q4H PRN for NAUSEA, TAB 02/15/18 Acetaminophen with Codeine (Acetamin-Codein 300-30 mg/12.5) 12.5 Ml Solution, 2- 5 ML PO Q6H PRN for PAIN 02/15/18 Lorazepam (ATIVAN) 0.5 Mg Tablet, 1-2 TAB PO Q6H PRN for ANXIETY, #30 TAB 1 Refill 01/05/18 Prochlorperazine Maleate (Compazine) 10 Mg Tablet, 1 TAB PO Q8H for Nausea, #30 TAB 01/05/18 Discontinued Reported Medications Ibuprofen (IBUPROFEN) 800 Mg Tablet, 1 TAB PO Q8H, TAB 12/23/17 Ondansetron Hcl (ZOFRAN) 8 Mg Tablet, 8 MG PO Q12H, #30 TAB 3 Refills 01/05/18 Acetaminophen With Codeine # 3 (TYLENOL WITH CODEINE #3 TABLET) 1 Each Tablet, 1 EACH PO PRN, TAB 12/23/17 Discontinued Scripts B6/Fa/B12/Co Q10/Herb No.225 (HEALTHY HEART COMPLEX TABLET) 1 Each Tablet, 10 BOT ASDIRECTED 1-2XD for 10 Days, BOTTLE Prov:ELVIRA MELTON, ONC 01/10/18 Nystatin 100,000 Unit/Gm Top Powder (NYSTATIN 100,000 UNIT/GM TOP POWDER) 15 Gm Powder, 15 GM TP 3-4XD for 30 Days, TUBE Prov:ELVIRA MELTON, ONC 02/07/18 Azithromycin (Z-PACK) 250 Mg Tablet, 0 PO QDAY, #6 DOSE-PACK Prov:ELVIRA MELTON, ONC 02/07/18 Follow up Referrals: Hematology and Oncology @ [facility] with SHIV GALDAMEZ MD Diet: Regular (as tolerated) Activity: As Tolerated, No Exertion Special Instructions: Elevate left lower extremity several times daily. Copies to: SHIV GALDAMEZ MD; JEREMÍSA RUTLEDGE MD ; Venous Thromboembolism Antithrombotics Is Pt On Any Antithrombotics?: Yes Problem Qualifiers (1) DVT (deep venous thrombosis): DVT location: lower extremity Affected thrombotic vein of extremity: iliac Chronicity: acute Laterality: left Qualified Codes: I82.422 - Acute embo lism and thrombosis of left iliac vein OSWALDO SCHMIDT MD Feb 16, 2018 08:22
[2018-02-16 08:39] VITALS: Ht 160 cm; Wt 76.2 kg
[2018-02-16] MEDS: DOCUSATE SODIUM 100 MG CAP PO SCH (09:00)
[2018-02-16] MEDS ORDERED: ENOXAPARIN 100 MG/ML SYR SC SCH (09:00)
[2018-02-16] MEDS ORDERED: GRANISETRON HCL TD SCH (09:00)
[2018-02-16] MEDS: NYSTATIN 5 ML UDCUP PO SCH (09:00)
[2018-02-16] MEDS: FLUCONAZOLE 100 MG TAB PO SCH (09:00)
[2018-02-16] MEDS ORDERED: ENOXAPARIN SC SCH (11:00)
== END 2018-02-16 08:01 | disposition home or self-care (01) ==
LOC: ER 13:30 → MED 14:10 → INTOOBSV 14:10
PROVIDERS: ADMIT Internal Medicine; ATTEND Internal Medicine
DX: I82.422 Acute embolism and thrombosis of left iliac vein (principal); D69.6 Thrombocytopenia, unspecified; K12.30 Oral mucositis (ulcerative), unspecified; C09.9 Malignant neoplasm of tonsil, unspecified; E87.6 Hypokalemia
CPT/HCPCS: 85025; 85610; 85730; 96374; 99284; G0378; J1650; J2270; Q0164; 82040; 82247; 82310; 82374; 82435; 82565; 82947; 84075; 84132; 84155; 84295; 84450; 84460; 84520

== ENCOUNTER 2018-03-02 08:05 | Outpatient (RCR) | payer SELFPAY ==
--- NOTE | 2017-12-29 10:11 | TOBIN CONSULT ---
EVENT DATE: December 28, 2017 ONCOLOGY DIAGNOSIS Squamous cell carcinoma of the right tonsil, status post right tonsillectomy and selective lymph node excision on 12/16/2017. Tumor is measured at 1.3 cm with perineural invasion. Tumor involvement of the deep and lateral margins. Simultaneous excision of large soft tissue mass from the right neck measuring 2.4 x 1.4 x 1 cm with pathologic evidence of squamous cell carcinoma replacing a lymph node. Stage [id number] (probable IV-A). PET/CT scan is pending later this week. ONCOLOGY HISTORY Patient is a pleasant 37-year-old female from the [facility] who is referred to me by Dr. Castillo and Dr. Smith for oncologic recommendations related to a newly diagnosed head/neck malignancy. According to the patient, she had an atypical episode in 2014 with presentation of right cervical lymphadenopathy. That surprisingly responded to steroids and antibiotics at that juncture. She did have some residual lymph nodes in the right neck. Recently at the end of September 2017, the patient noticed increased swelling of lymph nodes in the right neck. This quickly became the size of a golf ball and according to the patient she could feel multiple lymph nodes in the right neck, which were extremely hard The mass also produced referred ear pain. She was not aware of any throat pain or any visible mass in the back of the throat. The patient had a CT scan of the neck on 11/26 at [facility]. No discrete mass was noted in the area of the tonsil. However, there was some mild asymmetry. Multiple enlarged right sided level 2 cervical lymph nodes were appreciated, measuring 2 x 1.4 cm and level 3 lymph node at 1.9 x 1.0 cm. Multiple smaller lymph nodes were also noted in the neck. Left neck revealed no significant lymphadenopathy. The lymphadenopathy did produce some impingement along the right internal jugular vein. Carotid arteries are patent. The patient was seen by Dr. Smith, who she also saw originally in 2014. He advised the patient to undergo surgery and she subsequently had bilateral tonsillectomy performed on 12/16/2017 as well as excision of the right neck mass. Findings were notable for squamous cell carcinoma measuring 1.3 cm of the right tonsil. This appeared to be HPV mediated. Tumor was extending to the deep and lateral margins and perineural invasion was present. Additional specimen submitted revealed squamous cell carcinoma in the right neck lymph node with replacement of the lymph node and extension into soft tissues. Additional right neck mass was submitted, which was listed as necrotic material. Left tonsil was benign. The patient is recovering from her recent procedure, which was approximately ten days ago. She has seen Dr. Castillo on 12/23/2017 and preparation is underway for radiation and concurrent cisplatin. The patient denies any weight loss. She is presently eating soft foods. She is using Tylenol #3 at night for throat pain and ibuprofen 400 mg every four hours during the day. She has tried Percocet in the past but states this caused nausea and vomiting. She denies any altered taste or xerostomia. She has seen her dentist within the last year and will make contact with her dentist again for fluoride treatment consideration at my request. CURRENT MEDICATIONS 1, Ibuprofen p.r.n. 2. Tylenol #3 liquid at bedtime p.r.n. PAST MEDICAL HISTORY Unremarkable except as listed above. PAST SURGICAL HISTORY * Prior cholecystectomy. * Prior tubal ligation. FAMILY HISTORY Notable for mother who had uterine carcinoma in her 30s; she did well with surgery. Maternal great grandmother had ovarian carcinoma and subsequently . SOCIAL HISTORY The patient is and lives in [place]. She has three children. She is seen in accompaniment with her . 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 She did smoke 1/2 to 1 pack per day for six years; however, quit smoking 15 years ago in 2002. Rare alcohol use. ALLERGIES OXYCODONE (nausea and vomiting). REVIEW OF SYSTEMS No recent weight loss. She does have right ear pain and right neck sensitivity. Right throat sensitivity at this time. She is eating soft foods. No respiratory complaints. No chest pain or palpitations. No GI complaints. No swelling of extremities. She denies anxiety or depression. PHYSICAL EXAMINATION GENERAL: The patient is a pleasant 37-year-old female of medium build. VITALS: Weight 191, blood pressure 134/94, pulse 74, respirations 16, O2 saturation 96% on room air. HEENT: Post surgical changes in the posterior oropharynx with whitish mucosal membranes at the sites of the right and left tonsil as expected at this juncture. Tongue was unremarkable. Buccal mucosa, throat and mouth are unremarkable. NECK: Right neck exam reveals 4-5 cm incision, which is healing nicely. There is soft tissue swelling below the incision at this time. I could not palpate any discrete lymphadenopathy. Left neck was benign. LUNGS: Clear bilaterally. HEART: Regular rate and rhythm, no audible murmur. ABDOMEN: Soft. No gross organomegaly, mass or tenderness. NEUROLOGICAL: Grossly intact. 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 She appears to have stage IV-A disease since she had multiple lymph nodes of the right neck at presentation. This appears to be a T1 tumor in terms of size, which was occult. The tumor has several adverse features including perineural invasion as well as extracapsular extension from the lymph node. PLAN 1. The patient will have a staging PET/CT scan on Wednesday of this week at [facility]. This will be for treatment planning. (not done due to lack of financial resourses I am told, I will see if I can help patient by moving the study to [place].if patient agreeable). 2. Radiation simulation aquaplast mass fabrication will take place over the noon hour today. 3. In two weeks, the patient will start a combination of external beam radiotherapy and weekly cisplatin. 4. I will proceed to 50 Gy covering the regional lymph nodes and primary site in approximately 28 fractions. I will then do two field reductions to take the tumor site and boost areas at risk to approximately 66-70 Gy. The patient was informed the treatment course will take approximately seven to eight weeks to fully complete. The patient was informed of potential acute late side effects. The main side effects include mucositis and xerostomia with altered taste for the first 6 months. Taste should recover within three to nine months. I will use IMRT to decrease dose to opposite parotid gland. She will seek out her dentist for fluoride treatments. I reviewed the details of the typical radiation plan and she appears to be well informed and would like to proceed with therapy. Signed consent was obtained. She is scheduled to have a PICC line placed next Wednesday and laboratory studies. Start in 2-3 weeks to allow further healing. Probability of cure would typically be on the order of 70-80% for this stage of squamous cell carcinoma of the tonsil. Since the tumor is HPV related, the cure rates are commonly 10% higher. Present NCCN up-to-date literature was reviewed as part of the consultation today. I also reviewed her initial diagnostic radiographic studies with her and her today. Thank you for the referral and the excellent records which accompanied the patient today for review. cc: Dr. Luis TINEO
--- NOTE | 2018-01-24 12:03 | Medical Nutrition Therapy ---
Nutrition Anthropometrics Height (Inches): 63 (pt stated) Weight (Pounds): 182 (patient stated, wt prior to surgery 210 lbs) Hx Weight Loss: Yes (lost 8 lbs in past month ) Nutritional Education Nutrition Education Topic: Other (nutrition and cancer treatment ) Learning Readiness: Interested Teaching Methods: Discussion, Handout Response to Teaching: Verbalize understanding Teaching Recipient: Patient Nutrition Counseling: Provided handout on Nutrition and Cancer Treatment, reviewed section on loss appetite and encouraged patient to review other sections that pertain to her nutrition impact symptoms. Patient states she is experiencing issues with constipation, diarrhea, nausea and poor appetite, no taste and jaw pain with eating hard, chewy foods Nutrition Monitoring & Eval Nutrition Goals: Eat 90-100% Meal, Drink > 2 liters/day Nutritional Goals Comment: Patient is trying a whey protein supplement and states she likes it and tolerating it well. Encouraged her to make every bite as nutritionally dense as possible, adding soft foods such as cheese and peanut butter. Nutrition Follow-Up: Taking Snack Supplement, Fair Intake Nutrition Monitoring: I will monitor nutrition impact symptoms and provide additional education and recommendations as needed RD Patient Assessment Time: [address] Assessment Type: RD Education Patient Nutrition Acuity: 2-Moderate Nutritional Comment: I encouraged patient to call or let Cancer Center RN know if she would like to discuss any nutrition questions or issues. SAUNDRA MENESES RDN, VERNA Jan 24, 2018 12:02
[2018-01-27 08:31] VITALS: BP 124/80
--- NOTE | 2018-02-04 10:51 | Medical Nutrition Therapy ---
Nutritional Education Learning Readiness: Interested Teaching Methods: Discussion, Handout Response to Teaching: Verbalize understanding Teaching Recipient: Patient Nutrition Counseling: Provided additional nutrition information on sore mouth and throat issues. Patient states she is mostly getting calories/protein from nutrition supplements, eating very little. Nutrition Monitoring & Eval Nutrition Goals: Eat 90-100% Meal, Drink > 2 liters/day Nutritional Goals Comment: Recommended at least 2000 ariane/day, maintain current weight Nutrition Follow-Up: Taking Snack Supplement, Poor Intake Nutrition Monitoring: patient continues to lose weight, patient states she is taking 3 nutrition drinks/day with little po intake, encouraged her to take 5 nutrition drinks/day if not able to eat due to mouth/throat issues, each nutrition drink is about 200-[address] Patient Assessment Time: [address] Assessment Type: RD Education Patient Nutrition Acuity: 1-High Nutritional Comment: I encouraged patient to call or let Cancer Center staff know if she would like to discuss any nutrition questions or issues. SAUNDRA MENESES RDN, VERNA Feb 04, 2018 10:50
--- NOTE | 2018-02-15 10:00 | Medical Nutrition Therapy ---
Nutrition Monitoring & Eval Nutrition Follow-Up: Taking Snack Supplement Nutrition Monitoring: Patient states she is only gettng calories from her nutrition supplement drinks. She stated she is getting around 600 calories per day (3 drinks/day). RD Patient Assessment Time: 15 minutes (brief visit to discuss PO intake, <5 min ) Patient Nutrition Acuity: 1-High Nutritional Comment: I encouraged patient to call or let Cancer Center staff know if she would like to discuss any nutrition questions or issues. SAUNDRA MENESES RDN, VERNA Feb 15, 2018 10:00
--- NOTE | 2018-02-15 14:07 | RADIOLOGY IMAGING REPORT ---
FACILITY: [facility] PATIENT NAME: Beba Plascencia : 1980 MR: [id number] V: [id number] EXAM DATE: ORDERING PHYSICIAN: JEREMÍAS RUTLEDGE TECHNOLOGIST: Location: [facility] [place] Patient: Beba Plascencia : 1980 Visit/Account:[id number] Date of Sevice: 02/15/2018 Venous Doppler ultrasound left lower extremity Indication: Left leg pain and swelling.. Comparison: None Available Findings: Duplex Doppler and color flow imaging was performed. There is diffuse intraluminal thrombu s seen in the deep venous system of the left leg including the distal left iliac, common femoral, fem oral, popliteal, posterior tibial, peroneal and anterior tibial veins. No significant blood flow or c ompressibility. These appear to be occluded. There is also extension into the greater saphenous vein. Subcutaneous tissues are unremarkable. IMPRESSION: 1. Diffuse occluding deep venous thrombus in the left leg from the distal iliac vein through the comm on femoral, femoral, popliteal and into the veins of the calf. There is extension into the greater s aphenous vein. I called report to JEREMÍAS RUTLEDGE at 02/15/2018 2:02 PM. Report Dictated By: Juan Alberto Stanton at 02/15/2018 1:57 PM Report E-Signed By: Juan Alberto Stanton at 02/15/2018 2:03 PM WSN:[id number]
[2018-02-16 08:39] VITALS: Ht 160 cm; Wt 82.6 kg
--- NOTE | 2018-02-18 16:22 | ONCOLOGY FOLLOW UP NOTE ---
EVENT DATE: February 18, 2018 DIAGNOSIS Right tonsillar squamous cell carcinoma. CHIEF COMPLAINT The patient is here today for her seventh week of cisplatin therapy, concurrent with radiation therapy for the treatment of right tonsillar carcinoma with right neck adenopathy. ONCOLOGY HISTORY Patient is a 37-year-old female who presented in 2014 with right cervical adenopathy, treated with steroid at that time with improvement. For the last few months lately, she presented again with hard right neck mass which was tender and hard in consistency. The patient was found to have asymmetry of the right tonsil. She had excisional biopsy of the deep neck mass and bilateral tonsillectomy done on December 16, 2017, by Dr. Smith. Pathology from surgery came back positive for invasive squamous cell carcinoma present in the edge of the specimen from the right neck mass. 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 There was perineural invasion present. Bilateral soft tissue neck was negative for malignancy, and the left tonsil was also negative for carcinoma. Tumor size was 1.3 cm. Lymph node invasion not identified. The tumor was staged as bT1. According to the pathologist, the soft tissue mass was not clear if those are replaced lymph nodes or not because they are entirely placed. The patient had CT of neck done on November 26, 2017, which showed multiple enlarged, right-sided level 2 and level 3 lymph nodes which could be reactive. There was mild symmetric enlargement of the palatine tonsils without evidence of intratonsillar or peritonsillar abscess. PET CT scan done on the December did reveal abnormal metabolic uptake in the right lingual tonsil, right cervical chain lymph nodes, and soft tissue posterior to the angle of the mandible on the right side, consistent with her squamous cell carcinoma. No evidence of metastasis in the chest, abdomen, and pelvis. Normal appearance of the left side of the neck. Patient started the chemoradiation on the December with weekly cisplatin therapy. HISTORY OF PRESENT ILLNESS Patient is here today for followup of her right tonsillar squamous cell carcinoma on chemoradiation with cisplatin weekly. Patient developed extensive DVT of the left lower extremity recently. She is currently on Lovenox shots. She is complaining of resolving pain in her left lower extremity and swelling. She bruises easily. She has nausea and the patient will start Sancuso patches today. She has also constipation. She has some right back pain lately. PAST MEDICAL HISTORY Insignificant. PAST SURGICAL HISTORY 1. Cholecystectomy. 2. Tubal ligation. FAMILY HISTORY Mother had uterine cancer. Maternal great grandmother had ovarian cancer. SOCIAL HISTORY The patient is with three children. She works in an office for a store. She quit smoking in 2002 after half to one pack a day for six years. She seldom drinks alcohol. No abuse of illicit drugs. CURRENT MEDICATIONS 1. Ibuprofen. 2. Aleve. ALLERGIES HYDROCODONE causes nausea and vomiting. REVIEW OF SYSTEMS CONSTITUTIONAL: No appetite or weight change. No fever, chills, or sweating. No recent infection. HEENT: Ears: No tinnitus or hearing problem. Nose: No nasal discharge or epistaxis. Throat: No sore throat or mouth ulcers. Eyes: No diplopia or visual changes. RESPIRATORY: No shortness of breath. She has cough with mucoid sputum. CARDIOVASCULAR: No chest pain, orthopnea, or paroxysmal nocturnal dyspnea (PND). No edema. No palpitations. GASTROINTESTINAL: She has nausea. No vomiting. She has also constipation. GENITOURINARY: Patient has had heavy periods for years, and she has been seen by a transfer car operator drier, and she was offered uterine ablation, but the patient refused the procedure. As per patient, she has had heavy periods for a total of seven days every month. MUSCULOSKELETAL: No pain in the muscles, joints or bones. She has right back pain. NEUROLOGICAL: No tingling or numbness in the hands or feet. She has occasional headache. No convulsions. HEMATOLOGIC/LYMPHATIC: She bruises easily. She is weak, tired, and fatigued. No enlarged lymph nodes. SKIN: No skin rash or lumps. PSYCHIATRIC: No anxiety or depression. PHYSICAL EXAMINATION GENERAL: Looks stable. Well developed, well nourished, and in no acute distress. VITAL SIGNS: Blood pressure 97/61, pulse 74 per minute, respirations 16 per minute, temperature 98.2, pulse ox 94% on room air. HEENT: Head: Atraumatic. No sinus tenderness to palpation. Eyes: No icterus or conjunctivitis. Mouth and Throat: No oral thrush or mucositis. NECK: Right cervical lymphadenopathy is noted and is getting better. LUNGS: Clear to auscultation and percussion bilaterally. HEART: Regular rate and rhythm. No gallops, murmurs, clicks, or rubs. ABDOMEN: Soft and lax. No tenderness. No hepatosplenomegaly. No masses. EXTREMITIES: No cyanosis, clubbing, or edema. There is swelling in the left lower extremity, but with oft calf. There are some varicosities and bruises noticed in her left lower extremity. LYMPHATICS: No peripheral lymphadenopathy. NEUROLOGICAL: Conscious, alert, and oriented times three. No focal motor or sensory deficits. PSYCHIATRIC: Mood and affect appear normal. SKIN: No skin rash, bruise, or purpuric eruption. DIAGNOSTIC DATA CBC showed white count 3.3, hemoglobin 11.2, hematocrit 31.7, platelets 105,000. Chem panel is totally normal except sodium 134, potassium 3.3, BUN 19, total protein 6. Her magnesium was normal at 1.9. Ultrasound of the left lower extremity on February 15, 2018 showed diffuse occluding thrombus of the left leg from the distal iliac vein through the common femoral, popliteal, into the veins of the calf and the greater saphenous vein. ASSESSMENT 1. Right tonsillar squamous cell carcinoma, human papillomavirus-mediated, with right neck adenopathy, status post excisional biopsy of the soft tissue mass and bilateral tonsillectomy done December 16, 2017. PET/CT scan done on January 07, 2018 did reveal abnormal metabolic uptake in the right lingual tonsil, right cervical chain lymph nodes and soft tissue posterior to the angle of the mandible on the right side. There is no evidence of systemic metastasis, with normal appearance of the left side of the neck. Patient started chemoradiation with cisplatin weekly together with radiation therapy on January 10, 2018. She received six courses so far and she is due for her seventh course on February 21, 2018. Her treatment is complicated with DVT left lower extremity and stomatitis, and electrolyte disturbances, but generally she is tolerated treatment well so far. I am planning to proceed with her chemotherapy s scheduled. I will see her in two weeks from now with CBC, chem panel and magnesium level. 2. Chemistry-induced vomiting. I am planning to start Sancuso patches today to be applied for a week. 3. Deep venous thrombosis, left lower extremity by Doppler ultrasound done on February 15, 2018. I am planning to continue Lovenox b.i.d. for at least three months. 4. Hypopotassemia. I am planning to continue potassium chloride supplement. 20 mEq daily. PLAN 1. Cisplatin week #7.. 2. Patient to return in two weeks with CBC, chem panel, and magnesium level. 3. Patient to contact us for any new concerns or complaints. KANNAND
--- NOTE | 2018-02-28 10:26 | Oncology Progress Note ---
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 - 09/2017 For the last few months lately she presented again with hard right neck mass, which was tender and hard in consistency. The patient was found to have asymmetry of the right tonsil. -- December 16, 2017 She had excisional biopsy of the deep neck mass and bilateral tonsillectomy done on December 16, [address] Smith. Pathology from surgery came back positive for invasive squamous cell carcinoma present in the edge of the specimen from the right neck mass. 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 There was perineural invasion present. Bilateral soft tissue neck was negative for malignancy and the left tonsil was also negative for carcinoma. Tumor size was 1.3 cm. Lymph node invasion not identified. - The tumor was staged as bT1. According to the pathologist, the soft tissue mass was not clear if those are replaced lymph nodes or not because they are entirely placed. - November 26, [address] of neck done on November 26, 2017, which showed multiple enlarged right sided level 2 and level 3 lymph nodes, which could be reactive. There was mild symmetric enlargement of the palatine tonsils without evidence of intratonsillar or peritonsillar abscess. Treatment Treatment Planned is curative weekly Cisplatin and XRT for 7-8 weeks. 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 Currently on treatment with Cisplatin and XRT.Patient completed 7 cycles of cisplatin plus 34 Fx of XRT till date. Goal is to administer one more cycle of cisplatin for a total of 8 cycles to match with the weekly radiation treatment. 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 Patient is seen at infusion clinic for her weekly treatment. She is AAOX4, hemodynamically stable. , afebrile, she reports nausea, vomiting, and stomach upset coupled with the inability to keep any foods/liquids down in the last 4 weeks particularly in the last 2-3 days. She is experiencing ,mucositis, odynophagia, fatigue and nausea. She has had very poor oral intake, weight loss, and " feeling miserable" On exam buccal mucositis accentuated. She was instructed to continue to take nystatin, viscous lidocaine, antinausea, pudding, pain medication, antacid, and fluconazole daily, we will also implement aggressive Iv fluid hydration with D1 NS Daily ( 02/28-03/04/18) in order to stabilize patient for possible treatment of cisplatin on Wednesday03/04/18 as well as aggressive symptom management. Patient had a DVT on 02/18/18 on Lovenox Sc injections daily, she is to to continue thorough oral care. Living Conditions With family. Social/Occupational History Social History: Social History This is a 38 Yr old White female, she is M and has [] Children Hx Smoking: Yes Smoking Status: Former Smoker Allergies & Medications Allergies: Coded Allergies: hydrocodone (Verified Allergy, Intermediate, MIGRAINE HEADACHES, 11/26/17) Home Meds Active Scripts Enoxaparin Sodium (LOVENOX) 120 Mg/0.8 Ml Disp.syrin, 120 MG SQ DAILY for 14 Days, #14 SYR Prov:MARK JUDD DO 02/15/18 Fluconazole (FLUCONAZOLE) 200 Mg Tablet, 400 MG PO QDAY for 90 Days, TAB Prov:ELVIRA MELTON, ONC 02/07/18 Fentanyl (Fentanyl) 1 Each Patch.td72, 25 MCG ASDIRECTED DIRECTED for 7 Days Prov:ELVIRA MELTON, ONC 02/07/18 Docusate Sodium (COLACE) 100 Mg Capsule, 100 MG PO 1-2XD for 30 Days, CAPSULE Prov:ELVIRA MELTON, ONC 01/10/18 Reported Medications Magnesium Oxide (MAGNESIUM) 250 Mg Tablet, 250 MG PO DAILY 02/15/18 Potassium Chloride (POTASSIUM CHLORIDE) 20 Meq Tab.er.prt, 1 TAB PO BID 02/15/18 Nystatin (Nystatin) 100,000 Unit/Ml Oral.susp, 4 ML PO TID 02/15/18 [magic mouthwash MCK] No Conflict Check, 15 ML PO Q4H PRN for PAIN lidocaine/maalox 50/50 viscous 02/15/18 Granisetron Hcl (SANCUSO) 3.1 Mg/24 Hr Patch.td24, 3.1 MG TD DAILY supposed to start 02/16 per pt report 02/15/18 Dexamethasone 4 Mg Tab (DEXAMETHASONE 4 MG TAB) 4 Mg Tab, 4 MG PO Q4H PRN for NAUSEA, TAB 02/15/18 Acetaminophen with Codeine (Acetamin-Codein 300-30 mg/12.5) 12.5 Ml Solution, 2- 5 ML PO Q6H PRN for PAIN 02/15/18 Lorazepam (ATIVAN) 0.5 Mg Tablet, 1-2 TAB PO Q6H PRN for ANXIETY, #30 TAB 1 Refill 01/05/18 Prochlorperazine Maleate (Compazine) 10 Mg Tablet, 1 TAB PO Q8H for Nausea, #30 TAB 01/05/18 Review of Systems Constitution: Positive for Appetite/Weight Change HEENT: THROAT: Sore Throat, THROAT: Mouth Ulcers, OTHER Respiratory: No Cough, No Expectoration, No Hemoptysis, No Shortness of Breath, No OTHER Cardiovascular: No Chest Pain, No Orthopnea, No Edema, No Palpitations, No OTHER Gastrointestinal: Vomitting, Swallowing Difficulties Gentiourinary: No Hematuria, No Dysuria, No Nocturia, No Other Musculoskeletal: No Muscle Pain, No Joint Pain, No Bone Pain, No Other Hematological: Fatigue Skin: Other Psychiatric: Anxiety Vital Signs Vital Signs Temperature: 98.4 Pulse: 66 BP Systolic: 100 BP Diastolic: 80 Respiratory Rate: 16 O2 SAT: 98 O2 Delivery: RAir Height (feet) Height (inches) 63 Weight lb: 182 Weight oz: Weight Kg (Hao): Pain: 5 ( mouth/ odynophagia) ECOG-1 Physical Exam General: Looks Stable, Well Developed, Other HEENT: HEAD:Atraumatic Neck: Other Lungs: Clear to Auscultation, Percussion Bilaterally Heart: Regular Rate and Rhythm Abdomen: Soft and Nontender Skin: Moderate Errythema, Other (with desquamation to right neck area) Breast: No Masses Assessment and Plan Assessment and Plan Beba Plaza is a 37 year old woman who has 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 Currently on treatment with Cisplatin and XRT.Patient completed 7 cycles of cisplatin plus 34 Fx of XRT till date. Goal is to administer one more cycle of cisplatin for a total of 8 cycles to match with the weekly radiation treatment. 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 Patient is seen at infusion clinic for her weekly treatment. She is AAOX4, hemodynamically stable. , afebrile, she reports nausea, vomiting, and stomach upset coupled with the inability to keep any foods/liquids down in the last 4 weeks particularly in the last 2-3 days. She is experiencing ,mucositis, odynophagia, fatigue and nausea. She has had very poor oral intake, significant weight loss, and " feeling miserable" On exam buccal mucositis accentuated. Labs reviewed with cytopenias today. DIAGNOSTIC DATA. Reviewed Per [facility]; within acceptable parameters, cytopenias reveals, and Na+ of 132 ASSESSMENT 1. 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 Currently treatment with weekly Cisplatin s/p C7/D1 today 02/25/2018. goal is curative with symptom management. along with 34/39 Fx of XRT. PLAN 1. Hold today's cisplatin cycle, due to pronounced mucositis/ odynophagia, pain, cytopenias and dehydration, as well as extreme fatigue, and weakness. Patient to receive Fx34/29 XRT today. vigorous Iv hydration D5 [id number] plus 1Liter of NS infuse over 3 hours, total of 2Litres today. 2. Right neck Pain/Odynophagia. on tylenol #3 elixir and tabs Q4hrs PRN. 3. Anticipating acute /delay nausea, vomiting. antiemetic medications at home, we will provide vigorous hydration and antiemetic support. 4. Anticipatory Treatment side effects of Oral mucosa. mucositis, odynophobia, taste changing, xerostomia. ppfx fluconazole, nystatin, Zpack, PPis ( nexium) meticulous and thorough oral care hygiene education provided, viscous lidocaine, and may use aloe vera juice for swish and spit. last inserter on board.. 5. Electrolyte imbalance. labs within acceptable parameters. we will monitor and replete lytes accordingly. Patient receives K+20meq; plus Mag 4 g after cisplatin infusion 6. Elevated Blood Pressure. Resolved 7. Constipation or diarrhea. patient to take Colace or Imodium PRN. 8. PRN IV hydration D5 +NS 1-2 liter PRN while going through poor oral intake this week. If patient nauseated and miserable. please check labs for el ectrolyte imbalance and or Neutropenia. 9. PT on Board 10. Good oral care 11. Dry skin moderate right neck erythema with mild dry desquamation. radiation induced. Initiate Silvadene 1% cream to apply BID#50grams. 12. RTC PRN. -Education, patient instructed to go to ER immediately and or call Clinic if any Difficulty Swallowing, Shortness of Breath, Temp >/=100.4, fevers, chills, cardiac type chest pain, bleeding, excessive bruising, headaches, blurry vision, dizziness, abdominal pain, difficulty swallowing, and pain unrelieved by medication. TIME SPENT: 20 minutes 15 > minutes includes but not limited to discussion, counselling and co-ordination~ of care. Discussion with other health care providers, record review, review of lab work, diagnostic tests. Plan discussed extensively with patient. All the questions answered today. Thank you for the opportunity to be involved in the care of Beba Plascencia. Billing Level: Return visit 3 CC Copies to: ; ELVIRA MELTON, ONC Feb 28, 2018 10:26
[~2018-03-02] VITALS: Ht 160 cm; Wt 82.6 kg
[~2018-03-02 08:05] MED LIST changes: +ACET12.53 PO; +DEX4 PO; +ENOX120D5 SQ; +MAGN250T34 PO; +NYST100016 PO; +POTA20TA94 PO; +SANCUSOPT TD; +[UNRECOGNIZED DRUG - OTHER] PO
[2018-03-05] MEDS ORDERED: FLUC200T56 PO (09:40)
[2018-03-05] MEDS ORDERED: DOCU-416 PO (09:40)
[2018-03-09] MEDS ORDERED: METO-224 PO (16:05)
[2018-03-21] MEDS ORDERED: PROC10TA4 PO (10:20)
[2018-03-21] MEDS ORDERED: ONDA4TAB PO (10:20)
[2018-03-22] MEDS ORDERED: ESOM40CA42 PO (13:11)
[2018-03-22] MEDS ORDERED: SUCR1TAB51 PO (13:16)
[2018-03-22] MEDS ORDERED: LORA-1455 PO (13:16)
== END 2018-03-27 ==
LOC: RAON 08:05
PROVIDERS: ATTEND Radiology Radiation Oncology
DX: Z51.0 Encounter for antineoplastic radiation therapy (principal); C09.9 Malignant neoplasm of tonsil, unspecified; R59.0 Localized enlarged lymph nodes; Z87.891 Personal history of nicotine dependence; I82.422 Acute embolism and thrombosis of left iliac vein
CPT/HCPCS: 77280; 77290; 77300; 77301; 77334; 77336; 77338; 77386

== ENCOUNTER 2018-03-05 06:07 | Inpatient (IN) | payer SELFPAY ==
[~2018-03-05] VITALS: Ht 160 cm; Wt 73.5 kg
--- NOTE | 2018-03-05 06:10 | ER Report ---
History and Physical Time Seen By MD: 06:10 (FRANKIE QUISPE DO) HPI/ROS CHIEF COMPLAINT: Dehydration, nausea, vomiting HISTORY OF PRESENT ILLNESS: Patient is a 38-year-old female here with complaints of nausea, vomiting, dehydration, and the decreased urine output in the setting of radiation and chemotherapy for squamous cell carcinoma of the right tonsil and lymph nodes. Patient reports that she has been unable to keep down any food for the past week and has been unable to keep down small amounts of fluids each day. Reports that her last radiation therapy was last Wednesday and her last protein shake was around that time. She denies fevers, chills, chest pain, shortness breath, abdominal pain but endorses weakness, nausea, vomiting, decreased urine outputs, no significant bowel movements. She also notes that she has been vomiting so many times that she has been having severe irritation and bleeding of her posterior oropharynx. Patient reports that she takes Compazine, Ativan, dexamethasone at home without significant relief of symptoms. She has not taken anything this morning however her last Compazine was taken last night which she vomited. Patient is tachycardic but normotensive at time of reevaluation, mentating appropriately but appearing extremely weak. Patient also reports that she is on Lovenox for DVT treatment. REVIEW OF SYSTEMS: Constitutional: No fever, no chills. Eyes: No discharge. ENT: + sore throat. Cardiovascular: No chest pain, no palpitations. Respiratory: No cough, no shortness of breath. Gastrointestinal: No abdominal pain, + nausea and vomiting. Genitourinary: No hematuria, + decreased urine output Musculoskeletal: No back pain. Skin: No rashes. Neurological: No headache. (FRANKIE QUISPE DO) Allergies: Coded Allergies: hydrocodone (Verified Allergy, Intermediate, MIGRAINE HEADACHES, 11/26/17) Home Meds Active Scripts Enoxaparin Sodium (LOVENOX) 120 Mg/0.8 Ml Disp.syrin, 120 MG SQ DAILY for 14 Days, #14 SYR Prov:SHARRI BRANCHMARK 02/15/18 Reported Medications Fluconazole (FLUCONAZOLE) 200 Mg Tablet, 200 MG PO QODAY 03/05/18 Docusate Sodium (COLACE) 100 Mg Capsule, 100 MG PO BID PRN for CONSTIPATION, CAPSULE 03/05/18 Potassium Chloride (POTASSIUM CHLORIDE) 20 Meq Tab.er.prt, 1 TAB PO BID 02/15/18 Nystatin (Nystatin) 100,000 Unit/Ml Oral.susp, 4 ML PO TID 02/15/18 [magic mouthwash MCK] No Conflict Check, 15 ML PO Q4H PRN for PAIN lidocaine/maalox 50/50 viscous 02/15/18 Dexamethasone 4 Mg Tab (DEXAMETHASONE 4 MG TAB) 4 Mg Tab, 4 MG PO Q4H PRN for NAUSEA, TAB 02/15/18 Acetaminophen with Codeine (Acetamin-Codein 300-30 mg/12.5) 12.5 Ml Solution, 2- 5 ML PO Q6H PRN for PAIN 02/15/18 Lorazepam (ATIVAN) 0.5 Mg Tablet, 1-2 TAB PO Q6H PRN for ANXIETY, #30 TAB 1 Refill 01/05/18 Prochlorperazine Maleate (Compazine) 10 Mg Tablet, 1 TAB PO Q8H for Nausea, #30 TAB 01/05/18 Discontinued Reported Medications Magnesium Oxide (MAGNESIUM) 250 Mg Tablet, 250 MG PO DAILY 02/15/18 Granisetron Hcl (SANCUSO) 3.1 Mg/24 Hr Patch.td24, 3.1 MG TD DAILY supposed to start 02/16 per pt report 02/15/18 Discontinued Scripts Fluconazole (FLUCONAZOLE) 200 Mg Tablet, 400 MG PO QDAY for 90 Days, TAB Prov:ELVIRA MELTON, ONC 02/07/18 Fentanyl (Fentanyl) 1 Each Patch.td72, 25 MCG ASDIRECTED DIRECTED for 7 Days Prov:ELVIRA MELTON, ONC 02/07/18 Docusate Sodium (COLACE) 100 Mg Capsule, 100 MG PO 1-2XD for 30 Days, CAPSULE Prov:ELVIRA MELTON, ONC 01/10/18 Hx Smoking: Yes Smoking Status: Former Smoker Hx Substance Use Disorder: No Hx Alcohol Use: No (FRANKIE QUISPE DO) Constitutional Vital Sign - Last 24 Hours 03/05/18 03/05/18 03/05/18 03/05/18 06:11 06:12 06:37 06:42 Pulse 105 76 70 Resp 14 B/P (MAP) 122/81 (95) 122/81 Pulse Ox 97 94 98 03/05/18 03/05/18 03/05/18 03/05/18 07:00 07:12 07:30 07:33 Temp 98.5 Pulse 73 B/P (MAP) 111/71 (84) 121/72 (88) Pulse Ox 97 03/05/18 03/05/18 07:42 08:00 Pulse 73 B/P (MAP) 124/58 (80) Pulse Ox 98 ([facility], ROSWELLANDREWS MD) Physical Exam General Appearance: The patient is alert, has no immediate need for airway protection and no signs of toxicity. Ill-appearing Eyes: Pupils equal and round no pallor or injection. ENT, Mouth: Dry mucous membranes, blood in the posterior oropharynx Respiratory: There are no retractions, lungs are clear to auscultation. Cardiovascular: Tachycardic, regular rhythm Gastrointestinal: Abdomen is soft and non tender, no masses, bowel sounds normal. Neurological: No focal neurological deficits, generally weak appearing Skin: Warm and dry, no rashes. Musculoskeletal: Neck is supple non tender. Extremities are nontender, nonswollen and have full range of motion. DIFFERENTIAL DIAGNOSIS: After history and physical exam differential diagnosis was considered for dehydration, electrolyte abnormality, pancreatitis, adverse chemotherapy reaction, malignancy effect, infection (FRANKIE QUISPE DO) Medical Decision Making Data Points Result Diagram: 03/05/18 0648 03/05/18 0648 Laboratory Hematology Test 03/05/18 06:24 03/05/18 06:48 Urine Transitional Epithelial Cells Many /LPF (NONE-FEW) Urine Hyaline Casts Many /LPF (NONE-FEW) Red Blood Count 3.01 M/uL (4.17-5.56) Mean Corpuscular Volume 97.5 fL (80.0-96.0) Mean Corpuscular Hemoglobin 33.9 pg (26.0-33.0) Mean Corpuscular Hemoglobin Concent 34.8 g/dL (32.0-36.0) Red Cell Distribution Width 16.9 % (11.5-14.5) Mean Platelet Volume 8.4 fL (7.2-11.1) Neutrophils (%) (Auto) 60.1 % (39.4-72.5) Lymphocytes (%) (Auto) 17.8 % (17.6-49.6) Monocytes (%) (Auto) 20.6 % (4.1-12.4) Eosinophils (%) (Auto) 0.4 % (0.4-6.7) Basophils (%) (Auto) 1.1 % (0.3-1.4) Nucleated RBC Relative Count (auto) 0.1 /100WBC Neutrophils # (Auto) 0.5 K/uL (2.0-7.4) Lymphocytes # (Auto) 0.2 K/uL (1.3-3.6) Monocytes # (Auto) 0.2 K/uL (0.3-1.0) Eosinophils # (Auto) 0.0 K/uL (0.0-0.5) Basophils # (Auto) 0.0 K/uL (0.0-0.1) Nucleated RBC Absolute Count (auto) 0.00 K/uL Peripheral Blood Smear Yes Y/N Prothrombin Time 15.8 seconds (12.0-14.4) Prothromb Time International Ratio 1.25 Activated Partial Thromboplast Time 24 seconds (23-35) Sodium Level 135 mmol/L (137-145) Potassium Level 3.1 mmol/L (3.5-5.0) Chloride Level 101 mmol/L (98-107) Carbon Dioxide Level 22 mmol/L (22-31) Blood Urea Nitrogen 8 mg/dl (7-18) Creatinine 0.50 mg/dl (0.52-1.04) Glomerular Filtration Rate Calc > 60.0 Random Glucose 68 mg/dl (75-110) Calcium Level 8.6 mg/dl (8.4-10.2) Total Bilirubin 0.6 mg/dl (0.2-1.3) Aspartate Amino Transf (AST/SGOT) 19 U/L (0-35) Alanine Aminotransferase (ALT/SGPT) 38 U/L (0-56) Alkaline Phosphatase 54 U/L (0-126) Total Protein 5.7 g/dl (6.3-8.2) Albumin 3.2 g/dl (3.5-5.0) Lipase 76 U/L (23-300) Human Chorionic Gonadotropin, Qual Negative (NEGATIVE) Chemistry Test 03/05/18 06:24 03/05/18 06:48 Urine Transitional Epithelial Cells Many /LPF (NONE-FEW) Urine Hyaline Casts Many /LPF (NONE-FEW) White Blood Count 0.8 k/uL (4.5-11.0) Red Blood Count 3.01 M/uL (4.17-5.56) Hemoglobin 10.2 g/dL (12.0-16.0) Hematocrit 29.3 % (34.0-47.0) Mean Corpuscular Volume 97.5 fL (80.0-96.0) Mean Corpuscular Hemoglobin 33.9 pg (26.0-33.0) Mean Corpuscular Hemoglobin Concent 34.8 g/dL (32.0-36.0) Red Cell Distribution Width 16.9 % (11.5-14.5) Platelet Count 107 K/uL (150-450) Mean Platelet Volume 8.4 fL (7.2-11.1) Neutrophils (%) (Auto) 60.1 % (39.4-72.5) Lymphocytes (%) (Auto) 17.8 % (17.6-49.6) Monocytes (%) (Auto) 20.6 % (4.1-12.4) Eosinophils (%) (Auto) 0.4 % (0.4-6.7) Basophils (%) (Auto) 1.1 % (0.3-1.4) Nucleated RBC Relative Count (auto) 0.1 /100WBC Neutrophils # (Auto) 0.5 K/uL (2.0-7.4) Lymphocytes # (Auto) 0.2 K/uL (1.3-3.6) Monocytes # (Auto) 0.2 K/uL (0.3-1.0) Eosinophils # (Auto) 0.0 K/uL (0.0-0.5) Basophils # (Auto) 0.0 K/uL (0.0-0.1) Nucleated RBC Absolute Count (auto) 0.00 K/uL Peripheral Blood Smear Yes Y/N Prothrombin Time 15.8 seconds (12.0-14.4) Prothromb Time International Ratio 1.25 Activated Partial Thromboplast Time 24 seconds (23-35) Glomerular Filtration Rate Calc > 60.0 Calcium Level 8.6 mg/dl (8.4-10.2) Total Bilirubin 0.6 mg/dl (0.2-1.3) Aspartate Amino Transf (AST/SGOT) 19 U/L (0-35) Alanine Aminotransferase (ALT/SGPT) 38 U/L (0-56) Alkaline Phosphatase 54 U/L (0-126) Total Protein 5.7 g/dl (6.3-8.2) Albumin 3.2 g/dl (3.5-5.0) Lipase 76 U/L (23-300) Human Chorionic Gonadotropin, Qual Negative (NEGATIVE) Coagulation Test 03/05/18 06:48 Prothrombin Time 15.8 seconds Prothromb Time International Ratio 1.25 Activated Partial Thromboplast Time 24 seconds Urinalysis Test 03/05/18 06:24 Urine Transitional Epithelial Cells Many /LPF (NONE-FEW) Urine Hyaline Casts Many /LPF (NONE-FEW) (ANDREWS ARGUELLO MD) Microbiology Microbiology Date/Time Source Procedure Growth Status 03/05/18 08:10 Blood Blood Culture - Preliminary NO GROWTH SO FAR, SET LATE. REINCUBATED Resulted (ANDREWS ARGUELLO MD) ED Course/Re-evaluation ED Course Patient is a 38-year-old female here with complaints of nausea, vomiting, dehydration as she is unable to tolerate oral intake for the past week or so in the setting of squamous cell carcinoma of the tonsillar lymph nodes. Patient reports that she has only been able to tolerate small quantities of water daily. She reports having her last radiation treatment last week. Patient also reports that she is on Lovenox for DVT treatment. Patient does have a PICC line in place. Patient appears significantly dehydrated at time of reevaluation, as she has been unable to keep down food or fluids. Patient was found to be mildly tachycardic at time of evaluation but normotensive. Patient was given initially 1 L normal saline bolus, Magic mouthwash, Zofran. Patient was signed out to Dr. Arguello. (FRANKIE QUISPE DO) Clinical Indication for ER IV: Hydration, IV Access ED Course I reviewed this patient with Dr. Quispe at sign-out at shift change and assumed care. Labs have returned, showing pancytopenia with significant neutropenia toda y, absolute neutrophil count is 480. She is afebrile. She does look like she has urinary tract infection. We'll go ahead and get blood cultures and runny urine culture. We'll start her on Rocephin 1g IV. We'll also provide some morphine for pain relief and given a second liter of normal saline at this time. Discussed the case with Dr. Silverio, who accepted the patient for admission. Decision to Disposition Date: Mar 05, 2018 Decision to Disposition Time: 08:06 (ANDREWS ARGUELLO MD) Depart Departure Latest Vital Signs Vital Signs Date Time Temp Pulse Resp B/P (MAP) Pulse Ox O2 Delivery O2 Flow Rate FiO2 03/05/18 08:00 124/58 (80) 03/05/18 07:42 73 98 03/05/18 07:33 98.5 03/05/18 06:12 14 (ANDREWS ARGUELLO MD) Impression: Primary Impression: Urinary tract infection Additional Impressions: Squamous cell carcinoma of tonsil Neutropenia Pancytopenia due to chemotherapy Condition: Condition Unchanged Disposition: Admitted from ER Referrals: MINERVA GARCIA MD (PCP) Problem Qualifiers Primary Impression: Urinary tract infection Urinary tract infection type: acute cystitis Hematuria presence: without hematuria Qualified Codes: N30.00 - Acute cystitis without hematuria Additional Impressions: Neutropenia Neutropenia type: secondary to cancer chemotherapy Qualified Codes: D70.1 - Agranulocytosis secondary to cancer chemotherapy; T45.1X5A - Adverse effect of antineoplastic and immunosuppressive drugs, initial encounter FRANKIE QUISPE DO Mar 05, 2018 06:10 ANDREWS ARGUELLO MD Mar 05, 2018 07:07
[2018-03-05] MEDS ORDERED: NS(*) 0.9% 1000 ML BAG 1,000 ML IV ONE ×2 (06:18→08:00)
[2018-03-05] MEDS ORDERED: ONDANSETRON 4 MG/2 ML VIAL IVP ONE (06:20)
[2018-03-05] MEDS ORDERED: MAG HYD/AL HYD/SIMETH 30ML UDC PO ONE (06:35)
[2018-03-05] MEDS ORDERED: LIDOCAINE 2% VISC SLN 15ML UDC PO ONE (06:35)
[2018-03-05 06:59] LABS: PLATELET COUNT, AUTOMATED 107 K/uL (150-450)
[2018-03-05 07:08] LABS: INR 1.25
[2018-03-05] MEDS ORDERED: MORPHINE 4 MG/ML SDV IVP ONE (08:00)
[2018-03-05 09:18] VITALS: BP 125/79
[2018-03-05] MEDS ORDERED: DOCU-416 PO (09:40)
[2018-03-05] MEDS ORDERED: FLUC200T56 PO (09:40)
[2018-03-05] MEDS ORDERED: PROCHLORPERAZINE MAL 5 MG TAB PO PRN (09:50)
[2018-03-05] MEDS ORDERED: ENOXAPARIN 100 MG/ML SYR SC SCH (09:50)
[2018-03-05] MEDS ORDERED: DEXAMETHASONE 4 MG TAB PO PRN (09:50)
[2018-03-05] MEDS ORDERED: LORazepam 0.5 MG TAB PO PRN (09:50)
[2018-03-05] MEDS ORDERED: ACETA/CODEIN ELIX 120-12MG/5ML PO PRN (09:50)
[2018-03-05] MEDS ORDERED: FLUSH 10 ML SYR IVP PRN (09:50)
[2018-03-05] MEDS ORDERED: ONDANSETRON 4 MG/2 ML VIAL IVP PRN (09:50)
[2018-03-05] MEDS: NS(*) 0.9% 1000 ML BAG 1,000 ML IV PRN ×2 (10:24→19:48)
[2018-03-05] MEDS: KCL (*) 20 MEQ/100 ML PREMIX 100 ML IV SCH ×2 (10:24→11:46)
[2018-03-05] MEDS: MAGIC MOUTHWASH PO PRN ×2 (11:47→16:54)
[2018-03-05] MEDS ORDERED: KETOROLAC 30 MG/ML VIAL IVP ONE (13:00)
[2018-03-05 13:16] VITALS: Ht 160 cm; Wt 73.5 kg
[2018-03-05] MEDS: NYSTATIN 5 ML UDCUP PO SCH ×2 (13:22→20:51)
[2018-03-05] MEDS: METOCLOPRAMIDE 10 MG/2 ML SDV IVP PRN ×2 (13:34→20:51)
--- NOTE | 2018-03-05 14:27 | Medical Nutrition Therapy ---
Nutrition Anthropometrics Height (Inches): 63.00 Height (Calculated Centimeters: 160.610819 Weight (Pounds): 162 Weight (Calculated Kilograms): 73.709 Guille Nutrition Score: Very Poor Guille Nutrition Risk Score: 18 Dietary Referral Nutrition Risk Factors: Unplanned Loss >10lbs Nutrition Risk Comment: chemo, rad Physical Findings Physical Appearance: Overweight BMI 25-29 Skin Appearance Skin Appearance: Edema Edema Location Modifier: Left Edema Location: Leg Type of Edema: Degree of Edema: Gastrointestinal Symptoms GI Symtoms: Nausea Tube Present: Bowel Sounds: Recent Bowel Pattern: Stool Characteristics: Nutritional Diagnosis Nutritional Risk Acuity 2: Unintended Wt Loss >5%/mo Nutritional Risk Acuity 3: Nausea, Cancer Past Medical History: Hx of mucositis and squamous cell carcinoma of tonsils Nutritional Acuity: 1-High Nutrition Diagnosis: Inadequate Food Intake Nutrition Etiology: Physiological Causes Nutrition Problem/Etiology/Sym: Inadequate oral intake related to physiological causes as evidenced by ongoing nausea, vomiting and sore throat. Energy Requirement: 1918 ([id number] (HB x 1.3-1.5 AF)) Protein Requirement: 73 (73-87 (1-1.2 g/kg)) Fluid Requirement: 2190 (30 ml/kg) Diet Type: Diet as Tolerated ELEAZAR/REG Nutrition Intervention: Cont diet as ordered, Encourage intake Drug/Nutrition Recommendations: Patient Taking K+ Diet Comment To [facility]: OFFER NUTR SUPPL ADD PRO POWDER TO APPROPRIATE FOODS Nutrition Monitoring & Eval RD Patient Assessment Time: [address] Assessment Type: RD Assessment Patient Nutrition Acuity: 1-High Follow Up Date: Mar 06, 2018 Nutritional Comment: 03/05 Pt admitted with N/V and dehydration secondary to treatment for squamous cell carcinoma of the tonsils. Has lost over 27# since December due to radiation treatment of the neck area resulting in sore throat. Most recently she hasn't been able to keep food down. I met with her and Dr. Almazan Still to talk about options for getting nutrition. We talked about trying to swallow the mouth wash to numb her throat as an option to get food down her throat. We also want to try a magic cup and ice cream to see if the temperature will help. We'll try a protein shake tomorrow. Will have [facility]'s add protein poweder to appropriate foods. She says she doesn't tolerate Ensure or Boost, but is willing to try anything that will work. If she is unable to meet nutr needs, may need to consider nutrition support in the form of TF or TPN. Will follow up with pt tomorrow. -LORRAINE GREENE Mar 05, 2018 14:27
--- NOTE | 2018-03-05 16:10 | History & Physical ---
History of Present Illness Chief Complaint N/V, mouth and throat pain, dehydration History of Present Illness 38F presented with n/v, dehydration and throat and mouth pain. 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 Last chemotherapy was cisplatin based completed on 02.21 and radiation therapy 03.04. Progressively worsening n/v and pain not controlled with home medications, noted documented weight loss 27lb and reported weight loss 40lb. Labs demonstrate pancytopenia and dehydration. Urine output reportedly decreased. Of note she is on Lovenox for DVT. History Problems: (1) Mucositis (ulcerative) due to antineoplastic therapy (2) Chemotherapy induced nausea and vomiting (3) Squamous cell carcinoma of tonsil Home Meds Active Scripts Enoxaparin Sodium (LOVENOX) 120 Mg/0.8 Ml Disp.syrin, 120 MG SQ DAILY for 14 Days, #14 SYR Prov:MARK JUDD DO 02/15/18 Reported Medications Fluconazole (FLUCONAZOLE) 200 Mg Tablet, 200 MG PO QODAY 03/05/18 Docusate Sodium (COLACE) 100 Mg Capsule, 100 MG PO BID PRN for CONSTIPATION, CAPSULE 03/05/18 Potassium Chloride (POTASSIUM CHLORIDE) 20 Meq Tab.er.prt, 1 TAB PO BID 02/15/18 Nystatin (Nystatin) 100,000 Unit/Ml Oral.susp, 4 ML PO TID 02/15/18 [magic mouthwash MCK] No Conflict Check, 15 ML PO Q4H PRN for PAIN lidocaine/maalox 50/50 viscous 02/15/18 Dexamethasone 4 Mg Tab (DEXAMETHASONE 4 MG TAB) 4 Mg Tab, 4 MG PO Q4H PRN for NAUSEA, TAB 02/15/18 Acetaminophen with Codeine (Acetamin-Codein 300-30 mg/12.5) 12.5 Ml Solution, 2- 5 ML PO Q6H PRN for PAIN 02/15/18 Lorazepam (ATIVAN) 0.5 Mg Tablet, 1-2 TAB PO Q6H PRN for ANXIETY, #30 TAB 1 Refill 01/05/18 Prochlorperazine Maleate (Compazine) 10 Mg Tablet, 1 TAB PO Q8H for Nausea, #30 TAB 01/05/18 Discontinued Reported Medications Magnesium Oxide (MAGNESIUM) 250 Mg Tablet, 250 MG PO DAILY 02/15/18 Granisetron Hcl (SANCUSO) 3.1 Mg/24 Hr Patch.td24, 3.1 MG TD DAILY supposed to start 02/16 per pt report 02/15/18 Discontinued Scripts Fluconazole (FLUCONAZOLE) 200 Mg Tablet, 400 MG PO QDAY for 90 Days, TAB Prov:EPIFANIOGRISGUSTAVO GRANDEAustin FRIEDMAN, ONC 02/07/18 Fentanyl (Fentanyl) 1 Each Patch.td72, 25 MCG ASDIRECTED DIRECTED for 7 Days Prov:JOHNATHANVANIAHARJINDERELVIRA, ONC 02/07/18 Docusate Sodium (COLACE) 100 Mg Capsule, 100 MG PO 1-2XD for 30 Days, CAPSULE Prov:ELVIRA MELTON ELDER, ONC 01/10/18 Allergies: Coded Allergies: hydrocodone (Verified Allergy, Intermediate, MIGRAINE HEADACHES, 11/26/17) Patient History: FH: HTN (hypertension) Hx Smoking: Yes Smoking Status: Former Smoker Caffeine Intake: Coffee Caffeine/Cups Per Day: 2 Hx Alcohol Use: No Hx Substance Use Disorder: No (stopped most 1997; edible THC tried a couple weeks ago) Social Drug Use: Former Social Drugs: Marijuana, Meth, Cocaine Review of Systems All Systems Reviewed/Normal: Yes, Except as Noted Constitutional: Weight Loss Gastrointestinal: Nausea, Vomiting, Other (odynophagia) Genitourinary: No Dysuria, No Hematuria Exam Vital Signs Vital Signs Date Time Temp Pulse Resp B/P (MAP) Pulse Ox O2 Delivery O2 Flow Rate FiO2 03/05/18 10:44 100 Room Air 03/05/18 09:18 98.8 86 20 125/79 (94) General Appearance: Alert, Awake, No Acute Distress, Afebrile Neuro: No Gross deficits Eyes: PERRLA ENT: Normal (+ erythema ) Neck: No Masses Cardiovascular: Normal Rhythm & Peripheral Pulses Respiratory: No Respiratory Distress GI: Abd Soft and Non-Tender Musculoskeletal: No Weakness/Pain Extremities: Soft and Non Tender, Warm, Pulses, Perfused; No Edema Integumentary: Skin Intact without Lesion / Mass (Erythema of dermis on neck) Psych: Alert & Oriented X3 Medical Decision Making Data Points Result Diagram: 03/05/18 0648 03/05/18 0648 Assessment and Plan Problems: (1) Chemotherapy induced nausea and vomiting Assessment & Plan: Recent cisplatin chemotherapy and radiation. Will begin IV Zofran and Reglan. Progress to olanzapine rescue therapy if refractory. IV fluid hydration. Nutrition to see patient given significant weight loss and nutrition concern. Compazine could be resumed if able to tolerate PO. Holding fluconazole PPx while giving Zofran 2/2 interaction and QT prolongation. (2) Pancytopenia due to chemotherapy Status: Acute Assessment & Plan: ANC 400 WBC 0.8, will monitor. May consider use of Neupogen if slow to respond. Neutropenic precautions, will hold off on Flu vaccine given likely poor immune response. (3) DVT (deep venous thrombosis) Status: Acute Assessment & Plan: Continue 1.5mg/kg Lovenox while inpatient. (4) Mucositis (ulcerative) due to antineoplastic therapy Assessment & Plan: Will use magic mouthwash and nystatin while inpatient. Hold fluconazole as above. (5) Squamous cell carcinoma of tonsil Assessment & Plan: Post chemotherapy and 33 treatments radiation. Reports may be complete with radiation due to intolerance pending CT result. Follow up with heme/onc and rad/onc. (6) Malnutrition Assessment & Plan: Secondary to nausea/vomiting and pain. Nutrition input appreciated. Venous Thromboembolism Antithrombotics Is Pt On Any Antithrombotics?: Yes (therapeutic Lovenox) Exam Sepsis Risk: No Definite Risk HARRELL MARK BRANCH DO Mar 05, 2018 15:43
[2018-03-05 16:55] VITALS: BP 128/84
[2018-03-05] MEDS: ONDANSETRON 4 MG/2 ML VIAL IVP PRN ×2 (18:00→23:57)
[2018-03-05 19:30] VITALS: BP 112/66
[2018-03-05] MEDS: LORazepam 2 MG/ML VIAL IVP PRN (19:34)
[2018-03-05] MEDS: DOCUSATE SODIUM 100 MG CAP PO SCH (20:51)
[2018-03-05] MEDS: HYDROmorphone HCL 2 MG/ML SDV IVP PRN (20:59)
[2018-03-05 23:52] VITALS: BP 116/76
[2018-03-06] MEDS: HYDROmorphone HCL 2 MG/ML SDV IVP PRN ×3 (00:14→22:32)
[2018-03-06] MEDS: METOCLOPRAMIDE 10 MG/2 ML SDV IVP PRN ×4 (03:06→21:13)
[2018-03-06 03:11] VITALS: BP 115/70
[2018-03-06] MEDS: MAGIC MOUTHWASH PO PRN (03:15)
[2018-03-06] MEDS: NS(*) 0.9% 1000 ML BAG 1,000 ML IV PRN ×2 (05:13→20:46)
[2018-03-06] MEDS ORDERED: VANCOMYCIN(*) 1 GM VIAL 2 GM in NS(*) 0.9% 250 ML BAG 250 ML IVPB ONE (05:40)
[2018-03-06] MEDS ORDERED: VANCOMYCIN(*) 1 GM VIAL 2 GM in NS(*) 0.9% 500 ML BAG 500 ML IVPB ONE (05:55)
[2018-03-06 06:00] LABS: PLATELET COUNT, AUTOMATED 94 K/uL (150-450)
[2018-03-06] MEDS: ONDANSETRON 4 MG/2 ML VIAL IVP PRN ×3 (06:07→18:07)
[2018-03-06 07:39] VITALS: BP 117/70
[2018-03-06] MEDS ORDERED: ENOXAPARIN 100 MG/ML SYR SC SCH (09:00)
[2018-03-06] MEDS ORDERED: cefTRIAXone(*) 2 GM VIAL 2 GM in NS(*) 0.9% 100 ML ADDVANT BAG 100 ML IVPB SCH (09:00)
[2018-03-06] MEDS ORDERED: FLUCONAZOLE 200 MG/100ML PRMIX 100 ML IVPB SCH (09:00)
[2018-03-06] MEDS ORDERED: cefTRIAXone 2 GM VIAL IVP SCH (09:00)
[2018-03-06] MEDS: ENOXAPARIN SC SCH (09:18)
[2018-03-06] MEDS: NYSTATIN 5 ML UDCUP PO SCH ×3 (09:19→20:46)
[2018-03-06] MEDS: DOCUSATE SODIUM 100 MG CAP PO SCH ×3 (09:19→21:00)
[2018-03-06] MEDS ORDERED: ACETAMINOPHEN(*)1000 MG/100 ML 100 ML IVPB PRN (09:45)
[2018-03-06] MEDS ORDERED: FILGRASTIM 300 MCG/ML VIAL SC ONE (09:45)
[2018-03-06] MEDS ORDERED: INFLUENZA VIRUS VAC 0.5ML SYR IM ONLY ONE (09:50)
--- NOTE | 2018-03-06 10:03 | Hospitalist Progress Note ---
Subjective Progress Notes Subjective The patient continues to have nausea, but hasn't vomited since admission. She still has too much pain to eat or drink much. Physical Exam Vital Signs Date Time Temp Pulse Resp B/P (MAP) Pulse Ox O2 Delivery O2 Flow Rate FiO2 03/06/18 07:56 96 03/06/18 07:44 Room Air 03/06/18 07:39 98.9 100 14 117/70 (86) 03/06/18 03:11 1.0 Intake and Output 03/06/18 07:00 Intake Total 3590 ml Output Total 200 ml Balance 3390 ml Intake Oral 60 ml IV Total 3530 ml Output Emesis 200 ml # Voids 5 General Appearance: Alert, Awake, No Acute Distress ENT: Other (mild erythema and whitish areas on soft palate. No plaques) Cardiovascular: Regular Rate and Rhythm Respiratory: Clear to Auscultation GI: Soft and Non-Tender (No BS) Result Diagram: 03/06/18 0541 03/06/18 0541 Assessment and Plan Problems: (1) Chemotherapy induced nausea and vomiting Assessment & Plan: Recent cisplatin chemotherapy and radiation. On IV Zofran and Reglan. Continue IV fluid hydration. Nutrition to see patient given significant weight loss and nutrition concern. Compazine could be resumed if able to tolerate PO. Holding fluconazole prophylaxis while giving Zofran 2/2 interaction and QT prolongation. IV Tylenol and Dilaudid for pain. The patient had improvement with Toradol, but because of the full dose Lovenox and thrombocytopenia, she is at too high of a bleeding risk. (2) Pancytopenia due to chemotherapy Status: Acute Assessment & Plan: ANC 600 WBC 0.9, will monitor. Will give a dose of Neupogen. Neutropenic precautions, will hold off on Flu vaccine given likely poor immune response. (3) Gram-positive cocci bacteremia Status: Acute Assessment & Plan: 1 of 2 blood cultures from admission is growing GPC. On Vancomycin, currently. Trough tomorrow. (4) Urinary tract infection Status: Acute Assessment & Plan: Pyuria and hematuria on UA. Culture from ER growing GNR. Asymptomatic and afebrile. Ceftriaxone started secondary to the neutropenia. (5) DVT (deep venous thrombosis) Status: Acute Assessment & Plan: Continue 1.5mg/kg Lovenox while inpatient. (6) Mucositis (ulcerative) due to antineoplastic therapy Assessment & Plan: Will use magic mouthwash and nystatin while inpatient. Hold fluconazole as above. (7) Squamous cell carcinoma of tonsil Assessment & Plan: She received Cisplatin treatments (last on 02/21, per records) and 33-34 treatments radiation. The radiation and possibly the chemotherapy treatments were stopped short secondary to intolerance. (8) Malnutrition Assessment & Plan: Secondary to nausea/vomiting and pain. Nutrition input appreciated. Exam Sepsis Risk: No Definite Risk Problem Qualifiers (1) Urinary tract infection: Urinary tract infection type: acute cystitis Hematuria presence: without hematuria Qualified Codes: N30.00 - Acute cystitis without hematuria STEFFEN SQUIRES MD Mar 06, 2018 10:03
[2018-03-06 12:11] VITALS: BP 117/77
--- NOTE | 2018-03-06 12:24 | Medical Nutrition Therapy ---
Nutrition Anthropometrics Height (Inches): 63.00 Height (Calculated Centimeters: 160.422076 Weight (Pounds): 162 Weight (Calculated Kilograms): 73.709 Guille Nutrition Score: Very Poor Guille Nutrition Risk Score: 18 Dietary Referral Nutrition Risk Factors: Unplanned Loss >10lbs Nutrition Risk Comment: chemo, rad Physical Findings Physical Appearance: Overweight BMI 25-29 Skin Appearance Skin Appearance: Edema Edema Location Modifier: Left Edema Location: Leg Type of Edema: Degree of Edema: Gastrointestinal Symptoms GI Symtoms: Nausea, Vomiting Tube Present: Bowel Sounds: Recent Bowel Pattern: Stool Characteristics: Nutritional Diagnosis Nutritional Risk Acuity 2: Unintended Wt Loss >5%/mo Nutritional Risk Acuity 3: Nausea, Cancer Past Medical History: Hx of mucositis and squamous cell carcinoma of tonsils Nutritional Acuity: 1-High Nutrition Diagnosis: Inadequate Food Intake Nutrition Etiology: Physiological Causes Nutrition Problem/Etiology/Sym: Inadequate oral intake related to physiological causes as evidenced by ongoing nausea, vomiting and sore throat. Energy Requirement: 1918 (2276-9085 (HB x 1.3-1.5 AF)) Protein Requirement: 73 (73-87 (1-1.2 g/kg)) Fluid Requirement: 2190 (30 ml/kg) Diet Type: Diet as Tolerated ELEAZAR/REG Nutrition Intervention: Cont diet as ordered, Encourage intake Drug/Nutrition Recommendations: Patient Taking K+ Diet Comment To [facility]: OFFER NUTR SUPPL-MAGIC CUP ADD PRO POWDER TO APPROPRIATE FOODS Nutrition Monitoring & Eval RD Patient Assessment Time: [address] Assessment Type: RD Re-Assessment Patient Nutrition Acuity: 1-High Follow Up Date: Mar 07, 2018 Nutritional Comment: 03/05 Pt admitted with N/V and dehydration secondary to treatment for squamous cell carcinoma of the tonsils. Has lost over 27# since December due to radiation treatment of the neck area resulting in sore throat. Most recently she hasn't been able to keep food down. I met with her and Dr. Almazan Still to talk about options for getting nutrition. We talked about trying to swallow the mouth wash to numb her throat as an option to get food down her throat. We also want to try a magic cup and ice cream to see if the temperature will help. We'll try a protein shake tomorrow. Will have RSA's add protein poweder to appropriate foods. She says she doesn't tolerate Ensure or Boost, but is willing to try anything that will work. If she is unable to meet nutr needs, may need to consider nutrition support in the form of TF or TPN. Will follow up with pt tomorrow. -ISAAC 03/06 I spent 30-45 minutes with pt trying different foods. She has been tolerating ice chips well and says the cold feels good on her throat. She attempted a chocolate/vanilla shake with me, but the strong flavors were too much. She was only able to get a spoonfull down. We tried a mixed coyle magic cup, which seemed to go better. She is very cautious, but willing to try almost anything. We didn't want to power so I left a cup of plain kittitian yogurt in the med/surg fridge. I'd like her to try that next. She also has vanilla kittitian yogurt and vanilla pudding in the fridge with her name on it. If she is unable to get much down today, I recommend nutrition support. She may not be a good candidate for an NG tube d/t her sensitive throat, so a PEG tube may be the better option. Could also try PPN or TPN, but the risk of infection is a concern. RD will remain available for consult in either direction. -LORRAINE GREENE Mar 06, 2018 12:24
[2018-03-06] MEDS: PANTOPRAZOLE SOD 40 MG IV VIAL IVP SCH (14:18)
[2018-03-06] MEDS ORDERED: VANCOMYCIN(*) 1 GM VIAL 1 GM, VANCOMYCIN (*) 0.5 GM VIAL 0.25 GM in NS(*) 0.9% 250 ML B... IVPB SCH (18:00)
[2018-03-06] MEDS: LORazepam 2 MG/ML VIAL IVP PRN (19:27)
[2018-03-06 19:30] VITALS: BP 117/82
[2018-03-07] MEDS: ONDANSETRON 4 MG/2 ML VIAL IVP PRN ×2 (00:11→06:13)
[2018-03-07 00:14] VITALS: BP 124/84
[2018-03-07] MEDS: METOCLOPRAMIDE 10 MG/2 ML SDV IVP PRN ×3 (03:08→19:55)
[2018-03-07 03:12] VITALS: BP 124/86
[2018-03-07 05:49] LABS: PLATELET COUNT, AUTOMATED 99 K/uL (150-450)
[2018-03-07] MEDS: NS(*) 0.9% 1000 ML BAG 1,000 ML IV PRN (06:13)
[2018-03-07] MEDS ORDERED: VANCOMYCIN(*) 1 GM VIAL 1.75 GM in NS(*) 0.9% 250 ML BAG 250 ML IVPB SCH (07:00)
[2018-03-07 07:17] VITALS: BP 116/78
[2018-03-07] MEDS: LORazepam 2 MG/ML VIAL IVP PRN (07:41)
[2018-03-07] MEDS: KCL/D1/2NS 20 MEQ 1000 ML 1,000 ML IV PRN ×2 (07:41→19:06)
[2018-03-07] MEDS ORDERED: NS(*) 0.9% 250 ML BAG 250 ML ONE (08:06)
[2018-03-07] MEDS: VANCOMYCIN(*) 1 GM VIAL 1.75 GM in NS(*) 0.9% 250 ML BAG 250 ML IVPB SCH ×2 (08:13→19:50)
[2018-03-07] MEDS ORDERED: methylPREDNIS SUCC 125 MG/2ML IVP ONE (08:20)
[2018-03-07] MEDS: DOCUSATE SODIUM 100 MG CAP PO SCH ×2 (09:00→21:40)
[2018-03-07] MEDS: NYSTATIN 5 ML UDCUP PO SCH ×3 (09:02→21:37)
[2018-03-07] MEDS: PANTOPRAZOLE SOD 40 MG IV VIAL IVP SCH (09:02)
[2018-03-07] MEDS: ENOXAPARIN SC SCH (09:03)
--- NOTE | 2018-03-07 09:18 | Hospitalist Progress Note ---
Subjective Progress Notes Subjective This patient presented with a sore throat secondary to radiation therapy. She reports that she still can not swallow anything besides water. Patient Complains of: Cardiovascular: No: Chest Pain Respiratory: No: Shortness of Breath Physical Exam Vital Signs Date Time Temp Pulse Resp B/P (MAP) Pulse Ox O2 Delivery O2 Flow Rate FiO2 03/07/18 07:48 96 03/07/18 07:48 Room Air 03/07/18 07:17 99.3 110 20 116/78 (91) 03/07/18 03:12 1.0 Intake and Output 03/07/18 07:00 Intake Total 2492.5 ml Balance 2492.5 ml Intake Oral 250 ml IV Total 2242.5 ml # Voids 6 # Emeses 1 ENT: Oropharynx Clear, Tonsils Normal Cardiovascular: Regular Rate and Rhythm Respiratory: Clear to Auscultation Result Diagram: 03/07/1851703/07/18517 Item Value Date Time Urine Culture - Final Complete 03/05/18 0810 Clean Catch Midstream Ur Escherichia Coli Blood Culture - Final Resulted 03/05/18 0810 Blood Blood Culture - Preliminary Resulted 03/05/18 0832 Blood NO GROWTH AFTER 1 DAY, REINCUBATED Assessment and Plan Problems: (1) Pharyngitis Assessment & Plan: Her main complaint is sore throat, which is believed to be secondary to radiation treatments. A throat swab was not done at admission. She is using Magic Mouthwash, but not having much symptom relief. We will try a dose of steroids today. (2) Chemotherapy induced nausea and vomiting Assessment & Plan: She did complete a course of cisplatin and radiation therapy. We are treating her with antiemetics. (3) Pancytopenia due to chemotherapy Status: Acute Assessment & Plan: Her counts are improving after a dose of Neupogen. (4) Gram-positive cocci bacteremia Status: Acute Assessment & Plan: One of her blood cultures is showing growth of a gram positive cocci. She is receiving vancomycin. We will continue this for now, but suspect that her culture is contaminated. (5) Urinary tract infection Status: Acute Assessment & Plan: Her initial urine showed large leukocytes, but was a contaminated sample. A repeat urine was also contaminated, but had clearing of the leukocytes. A culture is growing gram negative rods. She received a dose of ceftriaxone yesterday, but this has now been discontinued. She has been asymptomatic from a urinary perspective. (6) DVT (deep venous thrombosis) Status: Acute Assessment & Plan: She is on chronic treatment with warfarin. (7) Squamous cell carcinoma of tonsil Assessment & Plan: She received Cisplatin treatments (last on 02/21, per records) and 33-34 treatments radiation. The radiation and possibly the chemotherapy treatments were stopped short secondary to intolerance. (8) Malnutrition Assessment & Plan: Secondary to nausea/vomiting and pain. Nutrition input appreciated. Exam Sepsis Risk: No Definite Risk Problem Qualifiers (1) Urinary tract infection: Urinary tract infection type: acute cystitis Hematuria presence: without hematuria Qualified Codes: N30.00 - Acute cystitis without hematuria BAILEY FRANCO DO Mar 07, 2018 09:18
[2018-03-07 12:01] VITALS: BP 113/76
--- NOTE | 2018-03-07 13:57 | Medical Nutrition Therapy ---
Nutrition Anthropometrics Height (Inches): 63.00 Height (Calculated Centimeters: 160.070446 Weight (Pounds): 162 Weight (Calculated Kilograms): 73.709 BMI: 28.8 Guille Nutrition Score: Very Poor Guille Nutrition Risk Score: 18 Dietary Referral Nutrition Risk Factors: Unplanned Loss >10lbs Nutrition Risk Comment: chemo, rad Physical Findings Physical Appearance: Overweight BMI 25-29 Skin Appearance Skin Appearance: Edema Edema Location Modifier: Left Edema Location: Leg Type of Edema: Degree of Edema: Gastrointestinal Symptoms GI Symtoms: Nausea Tube Present: Bowel Sounds: Recent Bowel Pattern: Stool Characteristics: Nutrition/Food History Decreased Appetite Nutritional Diagnosis Nutritional Risk Acuity 2: Unintended Wt Loss >5%/mo Nutritional Risk Acuity 3: Nausea, Cancer Past Medical History: Hx of mucositis and squamous cell carcinoma of tonsils Nutritional Acuity: 1-High Nutrition Diagnosis: Inadequate Food Intake Nutrition Etiology: Physiological Causes Nutrition Problem/Etiology/Sym: Inadequate oral intake related to physiological causes as evidenced by ongoing nausea, vomiting and sore throat. Energy Requirement: 1918 (3324-7469 (HB x 1.3-1.5 AF)) Protein Requirement: 73 (73-87 (1-1.2 g/kg)) Fluid Requirement: 2190 (30 ml/kg) Diet Type: Diet as Tolerated ELEAZAR/REG Nutrition Intervention: Cont diet as ordered, Encourage intake Drug/Nutrition Recommendations: Patient Taking K+ Diet Comment To [facility]: OFFER NUTR SUPPL-MAGIC CUP ADD PRO POWDER TO APPROPRIATE FOODS Nutritional Support Recommended Enteral / Parental: TPN Tube Feeding Supplement Streng: Full Recommended Rate: 65ml/hr final rate Recommended Duration: 24 Recommended Calories: 1373 Recommended Protein: 78 Recommended Lipids Calories: 500 Total Recommended Calories: 1873 Nutrition Monitoring & Eval RD Patient Assessment Time: [address] Assessment Type: RD Re-Assessment Patient Nutrition Acuity: 1-High Follow Up Date: Mar 09, 2018 Nutritional Comment: 03/05 Pt admitted with N/V and dehydration secondary to treatment for squamous cell carcinoma of the tonsils. Has lost over 27# since December due to radiation treatment of the neck area resulting in sore throat. Most recently she hasn't been able to keep food down. I met with her and Dr. Almazan Still to talk about options for getting nutrition. We talked about trying to swallow the mouth wash to numb her throat as an option to get food down her throat. We also want to try a magic cup and ice cream to see if the temperature will help. We'll try a protein shake tomorrow. Will have RSA's add protein poweder to appropriate foods. She says she doesn't tolerate Ensure or Boost, but is willing to try anything that will work. If she is unable to meet nutr needs, may need to consider nutrition support in the form of TF or TPN. Will follow up with pt tomorrow. -EK 03/06 I spent 30-45 minutes with pt trying different foods. She has been tolerating ice chips well and says the cold feels good on her throat. She attempted a chocolate/vanilla shake with me, but the strong flavors were too much. She was only able to get a spoonfull down. We tried a mixed coyle magic cup, which seemed to go better. She is very cautious, but willing to try almost anything. We didn't want to power so I left a cup of plain algerian yogurt in the med/surg fridge. I'd like her to try that next. She also has vanilla algerian yogurt and vanilla pudding in the fridge with her name on it. If she is unable to get much down today, I recommend nutrition support. She may not be a good candidate for an NG tube d/t her sensitive throat, so a PEG tube may be the better option. Could also try PPN or TPN, but the risk of infection is a concern. RD will remain available for consult in either direction. -EK 03/07. Spoke with pt. Pt did not want to try algerian yogurt, as her mouth contained gel and did not want to thicken mouth feel further. Reported trying jello this morning, went down fine, but came back up. Pt reports all foods shes tried, she cannot keep down. In addition, pt was given apple sauce today, seemed hesitant to try as she was afraid it would also come up. Mentioned to pt TPN may be considered if she cont to to have poor intake. TF may also be considered via PEG for when pt is discharged from the hospital. Currently, recommend TPN, 65ml/hr final rate. Providing pt with 1373 kcal, plus 500 kcal lipids, for a total of 1873 kcal. This meets 97% kcal needs and 106% protein needs. Pt at high risk for refeeding syndrome due to very low intake over time. Monitor phophorus, potassium magnesium levels when TPN is initiated. Will cont to monitor. TROY VALENTINE Mar 07, 2018 13:05
[2018-03-07 15:05] VITALS: BP 111/80
[2018-03-07 18:41] VITALS: BP 121/82
[2018-03-07] MEDS: HYDROmorphone HCL 2 MG/ML SDV IVP PRN (21:38)
[2018-03-08] MEDS: METOCLOPRAMIDE 10 MG/2 ML SDV IVP PRN (02:18)
[2018-03-08] MEDS: HYDROmorphone HCL 2 MG/ML SDV IVP PRN (02:27)
[2018-03-08 02:34] VITALS: BP 111/76
[2018-03-08 07:07] LABS: PLATELET COUNT, AUTOMATED 111 K/uL (150-450)
[2018-03-08 07:42] VITALS: BP 111/74
[2018-03-08] MEDS: KCL/D1/2NS 20 MEQ 1000 ML 1,000 ML IV PRN ×2 (08:02→18:23)
[2018-03-08] MEDS: PANTOPRAZOLE SOD 40 MG IV VIAL IVP SCH (08:15)
[2018-03-08] MEDS: DOCUSATE SODIUM 100 MG CAP PO SCH (08:16)
[2018-03-08] MEDS: NYSTATIN 5 ML UDCUP PO SCH ×4 (08:16→21:36)
[2018-03-08] MEDS: ENOXAPARIN SC SCH (08:16)
[2018-03-08] MEDS: METOCLOPRAMIDE 10 MG/2 ML SDV IVP SCH ×3 (08:56→21:34)
[2018-03-08] MEDS: DOCUSATE SOD LIQ 100 MG/10 ML UDC PO SCH ×2 (09:00→21:34)
--- NOTE | 2018-03-08 09:06 | Hospitalist Progress Note ---
Subjective Progress Notes Subjective She reports persistent nausea as well as painful swallowing (although some minor improvements). No fever. Physical Exam Vital Signs Date Time Temp Pulse Resp B/P (MAP) Pulse Ox O2 Delivery O2 Flow Rate FiO2 03/08/18 07:45 97 Room Air 03/08/18 07:42 98.6 96 16 111/74 (86) 03/07/18 12:01 1.0 Intake and Output 03/08/18 07:00 Intake Total 1617 ml Balance 1617 ml Intake Oral 100 ml IV Total 1517 ml # Voids 5 # Emeses 1 General Appearance: Alert, Awake Cardiovascular: Regular Rate and Rhythm Respiratory: Clear to Auscultation GI: Soft and Non-Tender Extremities: Warm, Perfused Result Diagram: 03/08/1865503/08/18655 Assessment and Plan Problems: (1) Pharyngitis Assessment & Plan: Her main complaint is continued sore throat, which is believed to be secondary to radiation treatments. Unfortunately, a throat swab was not done at admission. She is using Magic Mouthwash, but not having much symptom relief. We did try a dose of steroids yesterday and she may have had some slight improvements. Will continue with symptomatic therapy. (2) Chemotherapy induced nausea and vomiting Assessment & Plan: She did just complete a course of cisplatin and radiation therapy. Will with antiemetics and IV fluids. If she cannot resume oral intake may need to consider TPN. (3) Pancytopenia due to chemotherapy Status: Acute Assessment & Plan: Her counts are slowly improving after a dose of Neupogen. ANC is now approximately 1500. (4) Gram-positive cocci bacteremia Status: Acute Assessment & Plan: One of her blood cultures is showing growth of a gram positive cocci. She is receiving vancomycin. We will continue this for now, but suspect this is a contaminant. (5) Urinary tract infection Status: Acute Assessment & Plan: Her initial urine showed large leukocytes, but it appears it was a contaminated sample. A repeat urine also appeared to be contaminated, but had clearing of the leukocytes. The initial culture is growing E. coli. She was initially placed on IV Rocephin. She has been asymptomatic from a urinary perspective. (6) DVT (deep venous thrombosis) Status: Acute Assessment & Plan: She is on chronic treatment with Lovenox as per oncology. (7) Squamous cell carcinoma of tonsil Assessment & Plan: She received Cisplatin treatments (last on 02/21, per records ) and 33-34 treatments radiation. (8) Malnutrition Assessment & Plan: Secondary to nausea/vomiting and pain. Nutrition input appreciated. Exam Sepsis Risk: No Definite Risk Problem Qualifiers (1) Urinary tract infection: Urinary tract infection type: acute cystitis Hematuria presence: without hematuria Qualified Codes: N30.00 - Acute cystitis without hematuria OSWALDO SCHMIDT MD Mar 08, 2018 09:06
--- NOTE | 2018-03-08 09:38 | Antimicrobial Stewardship ---
Antimicrobial Time Out Antimicrobial Stewardship MD Service: Hospitalist Indications: Other (Neutropenic, R/O UTI, (+) Blood Cx) Antimicrobial Used Vancomycin + Ceftriaxone Start Date: Mar 06, 2018 Culture Results: Yes (Urine Cx- (+) E.coli--> Contaminated specimen (+ squamous epi), Blood Cx 1 of 2 (+) S. warneri --> contaminant) Eligible for PO Conversion Eligable for PO Conversion: No Reviewed with Provider Reviewed w/ Provider on Rounds: Yes Date Reviewed w/ Provider: Mar 08, 2018 Comments Comments 38 yo F who presented with N/V and inability to swallow or eat secondary to radiation therapy for a squamous cell cancer of the tonsil. She is s/p 6-7 weeks of concurrent radiation and chemotherapy with cisplatin. Pt with significant mucositis and neutropenia without fever. Upon admission a urinalysis and culture were completed along with blood cultures. 1. UTI- Urine culture growing e coli, contaminated specimen. Pt is asymptomatic and afebrile, received one dose of Ceftriaxone and then was discontinued. Mo nitor for symptoms and repeat UA if symptomatic or febrile. WBC increasing with time and one dose of neupogen. 2. Positive Blood Cx - GPC in 1 of 2 cultures, growing S. Warneri, contaminant. Monitor closely. D/C all antibiotics. Suzanne Angel, PharmD, BCOP SUZANNE ANGEL Mar 08, 2018 09:38
[2018-03-08 15:05] VITALS: BP 116/77
[2018-03-08] MEDS: LORazepam 2 MG/ML VIAL IVP PRN (17:52)
[2018-03-08 19:38] VITALS: BP 116/71
[2018-03-09] MEDS: METOCLOPRAMIDE 10 MG/2 ML SDV IVP SCH ×3 (03:18→15:32)
[2018-03-09 03:23] VITALS: BP 124/86
[2018-03-09] MEDS: KCL/D1/2NS 20 MEQ 1000 ML 1,000 ML IV PRN (04:25)
[2018-03-09 06:09] LABS: PLATELET COUNT, AUTOMATED 117 K/uL (150-450)
[2018-03-09 07:21] VITALS: BP 114/70
[2018-03-09] MEDS ORDERED: FILGRASTIM 300 MCG/ML VIAL SC SCH (09:00)
[2018-03-09] MEDS: PANTOPRAZOLE SOD 40 MG IV VIAL IVP SCH (09:45)
[2018-03-09] MEDS: NYSTATIN 5 ML UDCUP PO SCH ×2 (09:45→14:46)
[2018-03-09] MEDS: ENOXAPARIN SC SCH (09:46)
[2018-03-09] MEDS: DOCUSATE SOD LIQ 100 MG/10 ML UDC PO SCH (09:47)
[2018-03-09 10:56] VITALS: BP 108/76
--- NOTE | 2018-03-09 12:19 | Hospitalist Progress Note ---
Subjective Progress Notes Subjective This patient was admitted for difficulty swallowing. She wishes to try oral intake today. Patient Complains of: Cardiovascular: No: Chest Pain Respiratory: No: Shortness of Breath Physical Exam Vital Signs Date Time Temp Pulse Resp B/P (MAP) Pulse Ox O2 Delivery O2 Flow Rate FiO2 03/09/18 10:56 98.6 93 20 108/76 (87) 99 Room Air 03/07/18 12:01 1.0 Intake and Output 03/09/18 07:00 Intake Total 2918 ml Output Total 800 ml Balance 2118 ml IV Total 2918 ml Output Urine Total 800 ml # Voids 4 # Emeses 5 Cardiovascular: Regular Rate and Rhythm Respiratory: Clear to Auscultation Result Diagram: 03/09/18 0603/09/18 06 Assessment and Plan Problems: (1) Pharyngitis Assessment & Plan: Her main complaint is continued sore throat, which is be lieved to be secondary to radiation treatments. Unfortunately, a throat swab was not done at admission. She is using Magic Mouthwash, but not having much symptom relief. We did try a dose of steroids, but this did not help much either. She wishes to try oral intake today. We may consider discharge if she can tolerate this, but may need to consider a form of supplemental nutrition if unsuccessful. (2) Chemotherapy induced nausea and vomiting Assessment & Plan: She did just complete a course of cisplatin and radiation therapy. Her nausea improved with Reglan. (3) Pancytopenia due to chemotherapy Status: Acute Assessment & Plan: Her counts have been low since admission. She received a dose of Neupogen earlier in the admission and we will be repeating this today. (4) Gram-positive cocci bacteremia Status: Acute Assessment & Plan: One of her blood cultures was positive for Staph warneri, which is believed to be a contaminant. (5) Urinary tract infection Status: Acute Assessment & Plan: Her initial urine showed large leukocytes, but it was a contaminated sample. A repeat urine also appeared to be contaminated, but had clearing of the leukocytes. The initial culture is growing E. coli. She received a dose of ceftriaxone, but this has since been discontinued since it does not appear that she is infected. (6) DVT (deep venous thrombosis) Status: Acute Assessment & Plan: She is on chronic treatment with Lovenox as per oncology. (7) Squamous cell carcinoma of tonsil Assessment & Plan: She received Cisplatin treatments (last on 02/21, per records) and 33-34 treatments radiation. (8) Malnutrition Assessment & Plan: Secondary to nausea/vomiting and pain. Nutrition input appreciated. Exam Sepsis Risk: Sepsis Risk Problem Qualifiers (1) Urinary tract infection: Urinary tract infection type: acute cystitis Hematuria presence: without hematuria Qualified Codes: N30.00 - Acute cystitis without hematuria BAILEY FRANCO DO Mar 09, 2018 12:19
[2018-03-09 14:17] VITALS: BP 116/85
[2018-03-09] MEDS ORDERED: METO-224 PO (16:05)
--- NOTE | 2018-03-09 16:09 | Hospitalist Depart ---
Discharge Summary Reason for Hosp/Final Diag: (1) Pharyngitis Hospital Course & Plan: Her main complaint is continued sore throat, which is believed to be secondary to radiation treatments. Unfortunately, a throat swab was not done at admission. She is using Magic Mouthwash, but not having much symptom relief. We did try a dose of steroids, but this did not help much either. She did tolerate oral intake today. (2) Chemotherapy induced nausea and vomiting Hospital Course & Plan: She did just complete a course of cisplatin and radiation therapy. Her nausea improved with Reglan. (3) Pancytopenia due to chemotherapy Status: Acute Hospital Course & Plan: Her counts have been low since admission. She received a dose of Neupogen earlier in the admission and we repeated a dose today. She will need to follow up in the cancer center tomorrow for a CBC, and may require an additional dose of Neupogen. (4) Gram-positive cocci bacteremia Status: Acute Hospital Course & Plan: One of her blood cultures was positive for Staph warneri, which is believed to be a contaminant. (5) Urinary tract infection Status: Acute Hospital Course & Plan: Her initial urine showed large leukocytes, but it was a contaminated sample. A repeat urine also appeared to be contaminated, but had clearing of the leukocytes. The initial culture is growing E. coli. She received a dose of ceftriaxone, but this has since been discontinued since it does not appear that she is infected. (6) DVT (deep venous thrombosis) Status: Acute Hospital Course & Plan: She is on chronic treatment with Lovenox as per oncology. (7) Squamous cell carcinoma of tonsil Hospital Course & Plan: She received Cisplatin treatments (last on 02/21, per records) and 33-34 treatments radiation. (8) Malnutrition Hospital Course & Plan: Secondary to nausea/vomiting and pain. Nutrition input appreciated. Departure Latest Vital Signs Vital Signs 03/07/18 03/09/18 12:01 14:17 Temp 98.5 Pulse 94 Resp 20 B/P (MAP) 116/85 (95) Pulse Ox 97 O2 Delivery Room Air O2 Flow Rate 1.0 Weight (Pounds): 162 Weight (Ounces): 8.0 Result Diagram: 03/09/18 0600 03/09/18 06 Condition: Improved Discharge: Home, Self Care Discharge Instructions Home Meds Active Scripts Metoclopramide Hcl (METOCLOPRAMIDE HCL) 10 Mg Tablet, 10 MG PO Q6H PRN for NAUSEA, #30 TAB Prov:BAILEY FRANCO DO 03/09/18 Enoxaparin Sodium (LOVENOX) 120 Mg/0.8 Ml Disp.syrin, 120 MG SQ DAILY for 14 Days, #14 SYR Prov:MARK JUDD DO 02/15/18 Reported Medications Fluconazole (FLUCONAZOLE) 200 Mg Tablet, 200 MG PO QODAY 03/05/18 Docusate Sodium (COLACE) 100 Mg Capsule, 100 MG PO BID PRN for CONSTIPATION, CAPSULE 03/05/18 Potassium Chloride (POTASSIUM CHLORIDE) 20 Meq Tab.er.prt, 1 TAB PO BID 02/15/18 Nystatin (Nystatin) 100,000 Unit/Ml Oral.susp, 4 ML PO TID 02/15/18 [magic mouthwash MCK] No Conflict Check, 15 ML PO Q4H PRN for PAIN lidocaine/maalox 50/50 viscous 02/15/18 Dexamethasone 4 Mg Tab (DEXAMETHASONE 4 MG TAB) 4 Mg Tab, 4 MG PO Q4H PRN for NAUSEA, TAB 02/15/18 Acetaminophen with Codeine (Acetamin-Codein 300-30 mg/12.5) 12.5 Ml Solution, 2- 5 ML PO Q6H PRN for PAIN 02/15/18 Lorazepam (ATIVAN) 0.5 Mg Tablet, 1-2 TAB PO Q6H PRN for ANXIETY, #30 TAB 1 Refill 01/05/18 Discontinued Reported Medications Prochlorperazine Maleate (Compazine) 10 Mg Tablet, 1 TAB PO Q8H for Nausea, #30 TAB 01/05/18 Magnesium Oxide (MAGNESIUM) 250 Mg Tablet, 250 MG PO DAILY 02/15/18 Granisetron Hcl (SANCUSO) 3.1 Mg/24 Hr Patch.td24, 3.1 MG TD DAILY supposed to start 02/16 per pt report 02/15/18 Discontinued Scripts Fluconazole (FLUCONAZOLE) 200 Mg Tablet, 400 MG PO QDAY for 90 Days, TAB Prov:ELVIRA MELTON, ONC 02/07/18 Fentanyl (Fentanyl) 1 Each Patch.td72, 25 MCG ASDIRECTED DIRECTED for 7 Days Prov:ELVIRA MELTON, ONC 02/07/18 Docusate Sodium (COLACE) 100 Mg Capsule, 100 MG PO 1-2XD for 30 Days, CAPSULE Prov:ELVIRA MELTON ELDER, ONC 01/10/18 Diet: Regular Activity: As Tolerated Copies to: SHIV GALDAMEZ MD ; Venous Thromboembolism Antithrombotics Is Pt On Any Antithrombotics?: Yes (therapeutic Lovenox) Problem Qualifiers (1) Urinary tract infection: Urinary tract infection type: acute cystitis Hematuria presence: without hematuria Qualified Codes: N30.00 - Acute cystitis without hematuria BAILEY FRANCO DO Mar 09, 2018 16:09
== END 2018-03-09 18:00 | disposition home or self-care (01) | DRG 809 ==
LOC: ER 06:46 → MED 08:27
PROVIDERS: ADMIT Internal Medicine; ATTEND Internal Medicine
DX: D61.810 Antineoplastic chemotherapy induced pancytopenia (principal); N30.00 Acute cystitis without hematuria; C77.9 Secondary and unspecified malignant neoplasm of lymph node, unspecified; I82.402 Acute embolism and thrombosis of unspecified deep veins of left lower extremity; E46 Unspecified protein-calorie malnutrition; J02.9 Acute pharyngitis, unspecified; C09.9 Malignant neoplasm of tonsil, unspecified; K12.31 Oral mucositis (ulcerative) due to antineoplastic therapy; T45.1X5A Adverse effect of antineoplastic and immunosuppressive drugs, initial encounter; B96.20 Unspecified Escherichia coli [E. coli] as the cause of diseases classified elsewhere; E86.0 Dehydration; Z68.28 Body mass index [BMI] 28.0-28.9, adult; Z90.49 Acquired absence of other specified parts of digestive tract; Z87.891 Personal history of nicotine dependence
CPT/HCPCS: 36415; 80202; 81001; 82040; 82247; 82310; 82374; 82435; 82565; 82947; 83690; 84075; 84132; 84155; 84295; 84450; 84460; 84520; 84703; 85025; 85610; 85730; 87040; 87077; 87088; 87186; 96361; 96374; 96375; 99284; C9113; J0131; J0696; J1170; J1442; J1650; J1885; J2060; J2270; J2405; J2765; J2930; J3370; J3480; J7030; J7040; J7050; Q0163

== ENCOUNTER 2018-03-21 08:37 | Outpatient (RCR) | payer SELFPAY ==
[2017-12-23 08:44] VITALS: BP 149/97
--- NOTE | 2017-12-23 11:15 | ONCOLOGY CONSULTATION ---
EVENT DATE: December 23, [address] 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 ONCOLOGY HISTORY Patient is a 37-year-old female who presented in 2014 with right cervical adenopathy, treated with steroid at that time with improvement. For the last few months lately she presented again with hard right neck mass, which was tender and hard in consistency. The patient was found to have asymmetry of the right tonsil. She had excisional biopsy of the deep neck mass and bilateral tonsillectomy done on December 16, [address] Smith. Pathology from surgery came back positive for invasive squamous cell carcinoma present in the edge of the specimen from the right neck mass. 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 There was perineural invasion present. Bilateral soft tissue neck was negative for malignancy and the left tonsil was also negative for carcinoma. Tumor size was 1.3 cm. Lymph node invasion not identified. The tumor was staged as bT1. According to the pathologist, the soft tissue mass was not clear if those are replaced lymph nodes or not because they are entirely placed. The patient had CT of neck done on November 26, 2017, which showed multiple enlarged right sided level 2 and level 3 lymph nodes, which could be reactive. There was mild symmetric enlargement of the palatine tonsils without evidence of intratonsillar or peritonsillar abscess. PAST MEDICAL HISTORY Insignificant. PAST SURGICAL HISTORY 1. Cholecystectomy. 2. Tubal ligation. FAMILY HISTORY Mother had uterine cancer. Maternal great grandmother had ovarian cancer. SOCIAL HISTORY The patient is with three children. She works in an office for a store. She quit smoking in 2002 after half to one pack a day for six years. She seldom drinks alcohol. No abuse of illicit drugs. CURRENT MEDICATIONS 1. Ibuprofen. 2. Aleve. ALLERGIES HYDROCODONE (causes nausea and vomiting). REVIEW OF SYSTEMS CONSTITUTIONAL: No appetite or weight change. No fever, chills or sweating. No recent infection. HEENT: Ears: No tinnitus or hearing problem. Nose: No nasal discharge or epistaxis. Throat: She had some sore throat after her recent surgery. No mouth ulcers. Eyes: No diplopia or visual changes. RESPIRATORY: No shortness of breath. No cough, expectoration or hemoptysis. CARDIOVASCULAR: No chest pain, orthopnea, or paroxysmal nocturnal dyspnea (PND) . No edema. No palpitations. GASTROINTESTINAL: No nausea or vomiting. She has diarrhea occasionally after her cholecystectomy. No constipation. No change in bowel movements. No heartburn or swallowing difficulties. No abdominal pain. No jaundice. No hematemesis, melena or rectal bleeding. GENITOURINARY: Patient has had heavy periods for years, and she has been seen by a lucerne farmer, and she was offered uterine ablation, but the patient refused the procedure. As per patient, she has had heavy periods for a total of seven days every month. MUSCULOSKELETAL: No pain in the muscles, joints or bones. NEUROLOGICAL: No tingling or numbness in the hands or feet. She has occasional headache. No convulsions. HEMATOLOGIC/LYMPHATIC: No bleeding or easy bruising. No weakness or fatigue. No enlarged lymph nodes. SKIN: No skin rash or lumps. PSYCHIATRIC: No anxiety or depression. PHYSICAL EXAMINATION GENERAL: Looks stable. Well-developed, well-nourished, and in no acute distress. VITAL SIGNS: Blood pressure 149/97, pulse 92 per minute, respirations 16 per minute, temperature 96.8, pulse ox 95% on room air. HEENT: Head: Atraumatic. No sinus tenderness to palpation. Eyes: No icterus or conjunctivitis. Mouth and Throat: No oral thrush or mucositis. NECK: Supple. No cervical or supraclavicular lymphadenopathy. LUNGS: Clear to auscultation and percussion bilaterally. HEART: Regular rate and rhythm. No gallops, murmurs, clicks or rubs. ABDOMEN: Soft and lax. No tenderness. No hepatosplenomegaly. No masses. EXTREMITIES: No cyanosis, clubbing or edema. LYMPHATICS: No peripheral lymphadenopathy. NEUROLOGICAL: Conscious, alert and oriented times three. No focal motor or sensory deficits. PSYCHIATRIC: Mood and affect appear normal. SKIN: No skin rash, bruise or purpuric eruption. 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 I had a long discussion with the patient today regarding the management, which would include chemoradiation. I am planning to use cisplatin as radiosensitizer during her radiation therapy. I talked to her about weekly cisplatin during radiation therapy. I spent a long time with the patient and her regarding the side effects expected from chemotherapy including nephrotoxicity, autotoxicity, neurotoxicity , electrolyte wasting with the treatment. Nausea and vomiting is also common with cisplatin but we have good antiemetic currently to control that kind of reaction. For administration of chemotherapy, I am planning to place PICC line as the patient will have the treatment only for seven to eight weeks. I am planning to get PET/CT scan and I am planning to refer the patient to the radiation oncologist. I called the radiation oncologist to start chemoradiation whenever they are ready. The patient is only about one week since her surgery and she will be due for her treatment within the next two weeks or so,. I spent a long time with the patient and her and I answered all their questions for their satisfaction today. PLAN 1. PET/CT scan. 2. PICC line prior to starting cisplatin therapy. 3. Cisplatin weekly during radiation therapy. 4. Radiation therapy consultation. 5. CBC, chem panel and magnesium to be done weekly starting the dose of the first dose of chemotherapy. 6. Patient is to return on a weekly basis after starting chemotherapy with CBC , chem panel and magnesium level. 7. Patient is to contact us for any new concerns or complaints. MTDD
--- NOTE | 2018-01-05 15:44 | RADIOLOGY IMAGING REPORT ---
FACILITY: [facility] PATIENT NAME: Beba Plascencia : 1980 MR: [id number] V: [id number] EXAM DATE: ORDERING PHYSICIAN: SHIV GALDAMEZ TECHNOLOGIST: Location: [facility] [place] Patient: Beba Plascencia : 1980 Visit/Account:[id number] Date of Sevice: 01/05/2018 Exam type: PICC LINE PLACEMENT, PICC LINE INSERTION History: Need for IV chemotherapy Comparison: None. Findings: Informed consent was obtained. Patient's left arm was prepped and draped in usual sterile fashion. Local anesthesia was accomplished with 1% lidocaine. Utilizing both sonographic and fluoroscopic gabriella dance a 38 cm long trimmed 4 Arabic single lumen power PICC was inserted via the patent left basilic vein with the distal tip resting in superior vena cava. The PICC line was flushed with 5 mL of salin e flush. Proximal portion PICC line was adhered to the patient's arm the sterile dressing. The proc edure was accomplished without apparent complication. Sonographic images were saved to PACS. The fl uoroscopy dose area product was 24.87 micro-Griffith per meter squared IMPRESSION: 1. Successful placement of a 38 cm long trimmed 4 Arabic single lumen power PICC inserted via the pa tent left basilic vein with the distal tip in superior vena cava. Report Dictated By: Corinna Arizmendi MD at 01/05/2018 3:36 PM Report E-Signed By: Corinna Arizmendi MD at 01/05/2018 3:39 PM WSN:[email or web address]
--- NOTE | 2018-01-05 15:45 | RADIOLOGY IMAGING REPORT ---
FACILITY: [facility] - [place] PATIENT NAME: Beba Plascencia : 1980 MR: [id number] V: [id number] EXAM DATE: ORDERING PHYSICIAN: SHIV GALDAMEZ TECHNOLOGIST: Location: Patient: Beba Plascencia : 1980 Visit/Account:[id number] Date of Sevice: 01/05/2018 Exam type: PICC LINE PLACEMENT, PICC LINE INSERTION History: Need for IV chemotherapy Comparison: None. Findings: Informed consent was obtained. Patient's left arm was prepped and draped in usual sterile fashion. Local anesthesia was accomplished with 1% lidocaine. Utilizing both sonographic and fluoroscopic gabriella dance a 38 cm long trimmed 4 Japanese single lumen power PICC was inserted via the patent left basilic vein with the distal tip resting in superior vena cava. The PICC line was flushed with 5 mL of salin e flush. Proximal portion PICC line was adhered to the patient's arm the sterile dressing. The proc edure was accomplished without apparent complication. Sonographic images were saved to PACS. The fl uoroscopy dose area product was 24.87 micro-Griffith per meter squared IMPRESSION: 1. Successful placement of a 38 cm long trimmed 4 Japanese single lumen power PICC inserted via the pa tent left basilic vein with the distal tip in superior vena cava. Report Dictated By: Corinna Arizmendi MD at 01/05/2018 3:36 PM Report E-Signed By: Corinna Arizmendi MD at 01/05/2018 3:39 PM WSN:[email or web address]
--- NOTE | 2018-01-05 18:07 | Pharmacy Note ---
Pharmacy Note Note: Clinical Pharmacist Note: Chemotherapy Education Visit Date: 01/05/18 Chemotherapy Regimen: Cisplatin weekly x 7 weeks with Concurrent Radiation therapy The regimen includes cisplatin. The schedule of treatment administration was explained in detail to the patient in regards to lab visits, timing and sequence of premedications and chemotherapy , followed by any supportive medications to be given. Discussed the purpose of the PICC and why we administer chemotherapy through a PICC. PICC to be placed on January 05, 2018. Patient's diagnosis, treatment plan, and intent of treatment along with goals are outlined on the signed consent form, that was reviewed and signed at the end of this appointment. The goal is curative treatment (recovery from disease) . The potential for drug/drug interaction and drug/food interactions were explained to the patient. Patient was instructed to report any new medications to the office. A medication reconciliation was reviewed by the pharmacist today. Recommend discontinuing ibuprofen and aleve while undergoing therapy. We reviewed and discussed toxicities of supportive care medications and how to appropriately use supportive medications including the schedule of anti- emetics. These medications include the following: Take home medications: dexamethasone, ondansetron, prochlorperazine, lorazepam Pre-medications: fosaprepitant, palonosetron, dexamethasone We have also discussed the potential for long and short term side effects of chemotherapy including, but not limited to the side effects outlined below: -Low WBCs or neutropenia: Patient may experience bone marrow toxicity that would increase their risk for infection. Patient is aware to look for signs and symptoms of infection (e.g. fever of higher than 100.4F, chills, sore throat , etc.) and knows what number to call and when to contact the clinic. Advised patient of things they can do such as wash hands with soap and water often, avoid people who are sick, and avoid crowds during times of low blood counts ( typically 7-10 days post chemotherapy). Discussed the need for pegfilgrastim with dose dense AC to reduce the risk of neutropenia. - Low RBCs or anemia: Anemia is when you don't have enough red blood cells to carry oxygen through your body, which causes fatigue, weakness, lightheadedness , pale skin, SOB, or headaches. Discussed the importance of getting enough restful sleep at night and eating a diet rich in iron. Lab values will be closely monitored to check your RBCs. Advised patient to contact the clinic if they have a fast heart rate, dizziness, or lightheadedness. -Low platelet counts or thrombocytopenia: Patient may experience low platelets which can lead to increased risk of bleeding, easy bruising, black or bloody stools, or small red or purple spots on the skin. Platelets help blood to clot and if your platelets are low enough, bleeding may not stop after a few minutes. Excessive bleeding or bruising, red spots on your skin or new onset headaches require a phone call to the clinic. - Fatigue (feeling tired): Some patients may experience fatigue, or feel tired , weak, low energy, drained or exhausted. You will experience fatigue after chemotherapy, but the amounts for each person and chemotherapy will differ. Advised patient to stay active as much as they can with light exercise, take short naps if needed, get a restful night of sleep, and eat a well-balanced diet. Call the clinic if you are unable to get out of bed or do typical daily activities, have shortness of breath, or have trouble walking small distances. -Nausea or vomiting: Most patients may experience some level of nausea ( feeling queasy or sick to your stomach) or vomiting. Advised patient to take their anti-nausea medications as prescribed, drink plenty of fluids, eat several small meals throughout the day, eat bland easy to digest foods, and speak to our marine architect if they have questions. Call the clinic if the nausea or vomiting is not eased by your medications and lasts 12 hours or longer, or if unable to eat or drink, or keep medicines down. - Appetite changes (eating less or more): You may experience a decrease or increase in your appetite that might last a day, weeks or months. Advised patient to set a schedule for eating and drink high protein drinks to maintain calories. Ask your doctor or nurse for a marine architect consult to help manage your appetite changes or if you have concerns about your appetite changes. Contact the clinic if you notice a change in weight and if you are unable to take in more than a few bites of food or sips of liquid at mealtimes. Favorite foods may also taste different or may not be pleasing. -Hair loss or alopecia: Hair loss typically begins 2-3 weeks after the first chemotherapy treatment and can range from thinning to full body hair loss, and can occur anywhere on your body. Your hair may come out a little at a time or in clumps and your scalp may feel tender before the hair falls out. In the meantime, you can cut your hair or choose a wig- protect your head and wear sunscreen and mild shampoo and brushes. The hair will usually grow back about 2 -3 months after you finish chemotherapy and may be a different texture or color when it returns. -Mouth sores and oral care (mucositis or stomatitis): Patient was informed that they may experience taste changes, dry mouth, and potential mouth sores due to the chemotherapy. The best way to prevent and treat mouth sores is to do routine mouth care each day. If mouth sores occur, use mouth rinses with baking soada, alst and warm water after meals and before bed (dissolve 2 TBSP of baking soda and 1/2 tsp of salt in 8 oz of warm water--swish and spit). Avoid mouthwashes with alcohol and spicy food if mouth sores exist. If dry mouth occurs, sucking on ice chips or sugar free hard candy can help. -Neuropathy (numbness-pins and needles-tingling): Patient may experience acute and chronic neuropathy that can potentially be irreversible due to the chemotherapy. The patient is advised to report symptoms to the clinic if they experience burning, tingling, and numbness in the hands, feet, face or mouth. -Sexual and Reproductive Health: There is an increased risk of chemotherapy exposure to your partner when you are on chemo. When sexually active, wear a protective barrier while on chemotherapy. It is important to use control measures while on chemotherapy. Ask your provider when it might be safe again to try for . If you are , consult with your provider to determine if it is safe to breastfeed. -Infertility: Risk for infertility secondary to chemotherapy was screened at today's appointment. Infertility was briefly discussed and was of no concern to the patient at this time. Pt has a history of tubal ligation. -Hepatotoxicity: There is a risk of toxicity to your liver. Your lab work will be watched closely to determine if this is occurring and any required dose adjustments will be made at that time. -Secondary Malignancies: There is a risk of secondary malignancies such as acute myelogenous leukemia (AML) and myelodysplastic syndromes (MDS) and typically occurs within 1-3 years of treatment, but may occur at any time. -Extravasation: The patient is receiving a vesicant as part of her chemotherapy regimen. While the risk of extravasation with a PICC is very low, there is still a risk. Discussed what a vesicant is and that extravasation of a vesicant can lead to severe local tissue injury and necrosis requiring surgical intervention and possible skin grafting. Patient was educated to report any pain or burning at the PICC site ASHISH. -Other Toxicities: Electrolyte changes, nephrotoxicity. Patient will be monitored closely for toxicities listed. Lab work will be reviewed weekly and the patient will be notified with these changes and if there are changes, may need additional follow up and testing. Patient was given the Standard Chemotherapy Education Binder with appropriate phone numbers and we reviewed symptoms that would prompt a call to the clinic. Upcoming appointments were discussed and patient knows to follow up at the help desk consultant to get print outs of their schedule and the processes to change/ cancel an appointment. Consent was reviewed with the patient and signed in my presence. The treating physician will review and sign the consent. Allergies were reviewed: hydrocodone At the end of this discussion, the patient verbalized understanding of the provided education and information and all of her questions were answered to her satisfaction. Patient knows how to reach me if further questions or concerns come up. Time spent with the patient: 90 minutes, with all 90 minutes being spent counseling on the detailed information above. Suzanne Angel, PharmD, BCOP SUZANNE ANGEL Dec 30, 2017 15:16
[2018-01-06 11:36] VITALS: BP 131/85
[2018-01-06 11:44] LABS: PLATELET COUNT, AUTOMATED 250 K/uL (150-450)
[2018-01-10 08:30] VITALS: BP 146/92
[2018-01-10] MEDS: NS(*) 0.9% 1000 ML BAG 1,000 ML IV PRN (08:50)
[2018-01-10] MEDS: PALONOSETRON 0.25 MG/5 ML VIAL IVP PRN (09:50)
[2018-01-10] MEDS: DEXAMETHASONE SOD(*) 10MG/ML 10 MG in NS(*) 0.9% 50 ML BAG 50 ML IVP PRN (09:51)
[2018-01-10] MEDS: FOSAPREPITANT DIM 150 MG/5 ML 150 MG in NS(*) 0.9% 250 ML BAG 245 ML IVPB PRN (10:16)
[2018-01-10] MEDS: MAGNESIUM SUL IV PRN (12:07)
[2018-01-10] MEDS: KCL IV PRN (12:07)
[2018-01-10] MEDS: [UNRECOGNIZED DRUG - OTHER] IV PRN (12:07)
[2018-01-10 14:21] VITALS: BP 144/93
--- NOTE | 2018-01-10 14:37 | Oncology Progress Note ---
History of Present Illness Evaluation Evaluation Date: Jan 10, 2018 Evaluation Time: 09:45 Primary Care Provider Primary Care Provider: Luis Burrows PA-C Accompanied by Accompanied by: Friend-Coworker Last seen by : Charu 12/23/2017 Chief Complaint Chief Complaint Initiation of cisplatin treatment C1/D1 for Squamous cell carcinoma of the right tonsil with right neck adenopathy Oncology History Oncology History - 2014 Patient is a 37-year-old female who presented in 2014 with right cervical adenopathy, treated with steroid at that time with improvement. - 09/2017 For the last few months lately she presented again with hard right neck mass, which was tender and hard in consistency. The patient was found to have asymmetry of the right tonsil. -- December 16, 2017 She had excisional biopsy of the deep neck mass and bilateral tonsillectomy done on December 16, [address] Smith. Pathology from surgery came back positive for invasive squamous cell carcinoma present in the edge of the specimen from the right neck mass. 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 There was perineural invasion present. Bilateral soft tissue neck was negative for malignancy and the left tonsil was also negative for carcinoma. Tumor size was 1.3 cm. Lymph node invasion not identified. - The tumor was staged as bT1. According to the pathologist, the soft tissue mass was not clear if those are replaced lymph nodes or not because they are entirely placed. - November 26, [address] of neck done on November 26, 2017, which showed multiple enlarged right sided level 2 and level 3 lymph nodes, which could be reactive. There was mild symmetric enlargement of the palatine tonsils without evidence of intratonsillar or peritonsillar abscess. Treatment Treatment - Planned is curative weekly Cisplatin and XRT for 7-8 weeks. - 01/10/2018 Cisplatin C1/D1 HPI HPI Beba Plaza is a 37 year old woman who has Right tonsillar squamous cell carcinoma with right neck adenopathy 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 Currently initiating treatment with weekly Cisplatin and XRT. 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 Patient is seen at infusion clinic for her first dose of Cisplatin chemotherapy today, accompany by her friend. She is awake, alert, oriented to time, place, date and person. She reports being in her usual state of health. except tingling, numbness, and pain to the right neck. On physical exam, surgical incision site clean dry intact, minor swelling and erythema s/p bilateral tonsillectomy on 12/16/2017. Patient denies any fevers at home, night sweats, chills, no easy bruising, no bleeding, no dark stools, no dizziness, no headaches, reports some discomfort swallowing, and pain to right neck level 10 (0-10 scale) mostly at night alleviated by narcotic, tylenol#3 elixir. She denies any hematuria, no odynophagia, and reports minor constipation. no changes in weight baseline. we reviewed her recent CT scan prior to initiating treatment, a copy of report given to patient, she had insightful questions in regards to treatment plan and expected side effects, which I believe were answered to her satisfaction. other than tubal ligation and cholecystectomy, no other PMH. off note, per patient approximately 2-3 months ago a hard tender mass appeared on her right neck She reports the mass was originally the size of a golf-ball. Initially patient presented in 2014 with right cervical adenopathy which was treated with steroids and antibiotics at the time which significant improvement. The patient was found to have asymmetry of the right tonsil. 2018 Pathology from surgery came back positive for invasive squamous cell carcinoma present in the edge of the specimen from the right neck mass. 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 There was perineural invasion present. Bilateral soft tissue neck was negative for malignancy and the left tonsil was also negative for carcinoma. Tumor size was 1.3 cm. Lymph node invasion not identified. The tumor was staged [id number]. According to the pathologist, the soft tissue mass was not clear if those are replaced lymph nodes or not because they are entirely placed. The patient had CT of neck done on November 26, 2017, which showed multiple enlarged right sided level 2 and level 3 lymph nodes, which could be reactive. There was mild symmetric enlargement of the palatine tonsils without evidence of intratonsillar or peritonsillar abscess. Living Conditions Lives with her and three children. aged 22,20,14 years old. Diagnostic Studies Result Diagram: 01/06/18 1130 01/06/18 1130 Social/Occupational History Social History: Social History This is a 37 Yr old White female, she is M and has [] Children Hx Smoking: Yes Smoking Status: Former Smoker Allergies & Medications Allergies: Coded Allergies: hydrocodone (Verified Allergy, Intermediate, MIGRAINE HEADACHES, 11/26/17) Home Meds Active Scripts B6/Fa/B12/Co Q10/Herb No.225 (HEALTHY HEART COMPLEX TABLET) 1 Each Tablet, 10 BOT ASDIRECTED 1-2XD for 10 Days, BOTTLE Prov:ELVIRA MELTON, ONC 01/10/18 Docusate Sodium (COLACE) 100 Mg Capsule, 100 MG PO 1-2XD for 30 Days, CAPSULE Prov:ELVIRA MELTON, ONC 01/10/18 Reported Medications Lorazepam (ATIVAN) 0.5 Mg Tablet, 0.5 MG PO Q4-6H, #30 TAB 1 Refill 01/05/18 Ondansetron Hcl (ZOFRAN) 8 Mg Tablet, 8 MG PO Q12H, #30 TAB 3 Refills 01/05/18 Prochlorperazine Maleate (Compazine) 10 Mg Tablet, PO for Nausea, #30 TAB 01/05/18 Ibuprofen (IBUPROFEN) 800 Mg Tablet, 1 TAB PO Q8H, TAB 12/23/17 Acetaminophen With Codeine # 3 (TYLENOL WITH CODEINE #3 TABLET) 1 Each Tablet, 1 EACH PO PRN, TAB 12/23/17 Discontinued Reported Medications Dexamethasone (DEXAMETHASONE) 2 Mg Tablet, 4 MG PO 2 TABS PO DAILY ON D, #6 TAB 3 Refills 01/05/18 Discontinued Scripts Ondansetron (ZOFRAN ODT) 4 Mg Tab.rapdis, 4 MG PO Q6H Y for NAUSEA/VOMITING, # 20 TAB.JUSTUS 0 Refills Prov:ANDREWS MCMANUS MD 11/26/17 Review of Systems Constitution: Denies Appetite/Weight Change, Denies Fever/Chills/Sweating, Denies Recent Infection, Denies Other HEENT: OTHER (right neck pain) Respiratory: No Cough, No Expectoration, No Hemoptysis, No Shortness of Breath , No OTHER Cardiovascular: No Chest Pain, No Orthopnea, No Edema, No Palpitations, No OTHER Gastrointestinal: No Nausea, No Vomitting, No Diarrehea, Constipation, No Heart Burn, No Swallowing Difficulties, No Abdominal Pain, No Other Gentiourinary: No Hematuria, No Dysuria, No Nocturia, No Other Musculoskeletal: No Muscle Pain, No Joint Pain, No Bone Pain, No Other Hematological: No Bleeding, No Weakness, No Enlarged Lyph Nodes, No Bruising, No Fatigue, No Other Skin: No Skin Rash, No Lumps, No Erythema, No Dry Skin, No Moist Skin, No Other Psychiatric: Anxiety Vital Signs Vital Signs Temperature: 97.6 Pulse: 71 BP Systolic: 146 BP Diastolic: 92 Respiratory Rate: 14 O2 SAT: 97 O2 Delivery: Height (feet) Height (inches) 63.20 Weight lb: 220 Weight oz: Weight Kg (Hao): Pain: 2 Physical Exam General: Looks Stable, Well Developed, Well Nourished, Other (In no acute distress) HEENT: HEAD:Atraumatic, No EYES: Conjuctivitis, No EYES: Icterus, No MOUTH: Mucocitis, No MOUTH: Oral Thrush, No SINUS: Tenderness to Palpation, No Other Neck: Other (right neck adenopathy) Lungs: Clear to Auscultation, Percussion Bilaterally Heart: Regular Rate and Rhythm, No Gallops, No Murmurs, No Clicks, No Rubs, No Other Abdomen: Soft and Nontender, No Hepatosplenomegaly, No Masses, No Other Extremities: No Cyanosis, No Clubbing, No Edema, No Other Lymphatics: No Peripheral Lymphadenopathy, No Other Psychiatric: No Mood appears normal, No Affect appears normal, No Other Skin: No Skin Rashes, No Bruising, No Purpura, No Moist Desquamation, No Dry Desquamation, No Errythema, No Mild Errythema, No Moderate Errythema, No Severe Errythema, No Induration, No Other Breast: No No Masses, No No Nipple Discharge, No No Skin Changes, No Other Assessment and Plan Assessment and Plan Beba Plaza is a 37 year old woman who has Right tonsillar squamous cell carcinoma with right neck adenopathy 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 Currently initiating treatment with weekly Cisplatin and XRT. 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 Smith. Patient is seen at infusion clinic today for her first cycle of weekly cisplatin +XRT. She is Hemodynamically stable, no complains besides right neck numbness, and pain at night. DIAGNOSTIC DATA 01/06/2018 WBC 5.0; hemoglobin 14.0; hematocrit 39.6; ANC 3.2; E UN 12; creatinine 0.60; calcium 9.2; magnesium 2.0; potassium 3.9; LFTs within normal limits EXAMINATION: CT neck with IV contrast 11/26/2017 HISTORY: Right neck and ear pain. Neck lymphadenopathy/swelling. COMPARISON: None. TECHNIQUE: Spiral scan was obtained from the orbits through the upper chest during injection of nonionic iodinated intravenous contrast. Sagittal and coronal reformatted images are also submitted. CONTRAST: 75 mL of IV Isovue-[id number] One of the following dose optimization techniques was utilized in the performance of this exam: Automated exposure control; adjustment of the mA and/ or kV according to the patient's size; or use of an iterative reconstruction technique. Specific details can be referenced in the facility's radiology CT exam operational policy. FINDINGS: Masses/lesions: Right neck adenopathy described below. No other discrete soft tissue mass or fluid collection in the neck. No soft tissue gas. The parotid and submandibular glands are unremarkable. Normal CT appearance of the thyroid. Airway: There is mild symmetric enlargement of the palatine tonsils bilaterally , without evidence of intratonsillar or peritonsillar abscess. The airway is patent and normal in caliber. No retropharyngeal soft tissue thickening. Vessels: There is narrowing of the upper right internal jugular vein by adjacent adenopathy. Carotid arteries are patent. Musculoskeletal/body wall: Negative. Normal alignment along the cervical spine. Lymph nodes: There are multiple enlarged right-sided level II cervical nodes, measuring up to 2.0 x 1.4 cm (image 34). There are additional enlarged level III cervical lymph nodes on the right measuring up to 1.9 x 1.0 cm (image 41). There are scattered subcentimeter lymph nodes along the left neck, without any pathologically enlarged lymph nodes on the left. Visualized orbits/brain/paranasal sinuses: The partially visualized intracranial structures are unremarkable. Orbital structures are unremarkable. The paranasal sinuses and mastoid air cells are unopacified. The middle ear cavities are unopacified. Upper chest: Negative. IMPRESSION: 1. There are multiple enlarged right-sided level II and level III lymph nodes which may be reactive but are nonspecific. 2. Mild symmetric enlargement of the palatine tonsils, without evidence of intratonsillar or peritonsillar abscess. Report Dictated By: Kartik Medina MD at 11/26/2017 8:53 PM ASSESSMENT 1. 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 Currently initiating treatment with weekly Cisplatin C/D1 today 01/10/2018. goal is curative with symptom management. 2. Right neck Pain. on tylenol #3 elixir and tabs Q4hrs PRN. 3. Anticipating acute /delay nausea, vomiting. antiemetic medications at home, we will provide vigorous hydration and antiemetic support. 4. Anticipatory Treatment side effects of Oral mucosa. mucositis, odynophobia, taste changing, xerostomia. ppfx fluconazole, meticulous and thorough oralcare hygiene education provided, nutrition consult on board. 5. Constipation or diarrhea. patient to take Colace or Imodium PRN. 6. Elevated Blood Pressure. today's Bp is 146/92-71, we will continue to monitor closely Plan #1 the goal of treatment is curative patient will be having cisplatin weekly plus radiation therapy #2 CBC, chem panel and magnesium #2a. Pain management. with Tylenol #3 both tabs and elixir. #3 Management of nausea, vomiting. #4 preventing mucositis with prophylaxis of fluconazole and thorough oral hygiene, she has viscous lidocaine, and may use aloe vera juice for swish and spit. #5 nutrition consult for education on types of foods to eat during the treatment #6 patient to continue to keep hydrated and take sips of water in between meals to prevent xerostomia, and increase dehydration #7 Meticulous oral hygiene and oral care #8 Maintain a regular bowel regimen with colace, sennokot, miralax daily PRN #9 Patient was instructed to check and record Blood Pressure and antiemetic intake of medications at home. #10 RTC PRN. -Education, patient instructed to go to ER immediately and or call Clinic if any Difficulty Swallowing, Shortness of Breath, Temp >/=100.4, fevers, chills, cardiac type chest pain, bleeding, excessive bruising, headaches, blurry vision , dizziness, abdominal pain, difficulty swallowing, and pain unrelieved by medication. TIME SPENT: 45 minutes 40 > minutes includes but not limited to discussion, counselling and co-ordination~ of care. Discussion with other health care providers, record review, review of lab work, diagnostic tests. Plan discussed extensively with patient. All the questions answered today. Thank you for the opportunity to be involved in the care of Billing Level: Return visit 5 CC Copies to: SHIV GALDAMEZ MD-ELVIRA CHANDRA, ONC Jan 10, 2018 14:37
[2018-01-11] MEDS: KCL IV PRN (09:24)
[2018-01-11] MEDS: [UNRECOGNIZED DRUG - OTHER] IV PRN (09:24)
[2018-01-11] MEDS: MAGNESIUM SUL IV PRN (09:24)
[2018-01-11 09:30] VITALS: BP 138/91
[2018-01-11 12:20] VITALS: BP 143/104
--- NOTE | 2018-01-12 13:39 | Oncology Note ---
Social/Occupational History Social History: Social History This is a 37 Yr old White female, she is M and has [] Children Hx Smoking: Yes Smoking Status: Former Smoker Allergies & Medications Allergies: Coded Allergies: hydrocodone (Verified Allergy, Intermediate, MIGRAINE HEADACHES, 11/26/17) Home Meds Active Scripts B6/Fa/B12/Co Q10/Herb No.225 (HEALTHY HEART COMPLEX TABLET) 1 Each Tablet, 10 BOT ASDIRECTED 1-2XD for 10 Days, BOTTLE Prov:ELVIRA MELTON-Alex, ONC 01/10/18 Docusate Sodium (COLACE) 100 Mg Capsule, 100 MG PO 1-2XD for 30 Days, CAPSULE Prov:ELVIRA MELTON, ONC 01/10/18 Reported Medications Lorazepam (ATIVAN) 0.5 Mg Tablet, 0.5 MG PO Q4-6H, #30 TAB 1 Refill 01/05/18 Ondansetron Hcl (ZOFRAN) 8 Mg Tablet, 8 MG PO Q12H, #30 TAB 3 Refills 01/05/18 Prochlorperazine Maleate (Compazine) 10 Mg Tablet, PO for Nausea, #30 TAB 01/05/18 Ibuprofen (IBUPROFEN) 800 Mg Tablet, 1 TAB PO Q8H, TAB 12/23/17 Acetaminophen With Codeine # 3 (TYLENOL WITH CODEINE #3 TABLET) 1 Each Tablet, 1 EACH PO PRN, TAB 12/23/17 Discontinued Reported Medications Dexamethasone (DEXAMETHASONE) 2 Mg Tablet, 4 MG PO 2 TABS PO DAILY ON D, #6 TAB 3 Refills 01/05/18 Discontinued Scripts Ondansetron (ZOFRAN ODT) 4 Mg Tab.rapdis, 4 MG PO Q6H Y for NAUSEA/VOMITING, # 20 TAB.JUSTUS 0 Refills Prov:ANDREWS MCMANUS MD 11/26/17 Evaluation Date: Jan 11, 2018 Evaluation Time: 08:10 Primary Care Provider Primary Care Provider: Luis Burrows PA-C HPI Beba Plaza is a 37 year old woman who has 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 s/p C1/D1 Cisplatin and XRT. 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 Patient is seen at infusion clinic for her first dose of Cisplatin chemotherapy today, accompany by her friend. She is awake, alert, oriented to time, place, date and person. She presents to clinic today with extreme nausea, not relieved by compazine that she took this am. She denies vomiting, Vitals stable. AAOX4, hemodynamically stable.Patient denies any fevers at home, night sweats, chills, no easy bruising, no bleeding, no dark stools, no dizziness, no headaches, reports some discomfort swallowing, and pain to right neck level 10 (0-10 scale) mostly at night alleviated by narcotic , tylenol#3 elixir. She denies any hematuria, no odynophagia, and reports minor constipation.other than tubal ligation and cholecystectomy, no other PMH. off note, per patient approximately 2-3 months ago a hard tender mass appeared on her right neck She reports the mass was originally the size of a golf-ball. Initially patient presented in 2014 with right cervical adenopathy which was treated with steroids and antibiotics at the time which significant improvement. The patient was found to have asymmetry of the right tonsil. 2018 Pathology from surgery came back positive for invasive squamous cell carcinoma present in the edge of the specimen from the right neck mass. 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 There was perineural invasion present. Bilateral soft tissue neck was negative for malignancy and the left tonsil was also negative for carcinoma. Tumor size was 1.3 cm. Lymph node invasion not identified. The tumor was staged [id number]. According to the pathologist, the soft tissue mass was not clear if those are replaced lymph nodes or not because they are entirely placed. The patient had CT of neck done on November 26, 2017, which showed multiple enlarged right sided level 2 and level 3 lymph nodes, which could be reactive. There was mild symmetric enlargement of the palatine tonsils without evidence of intratonsillar or peritonsillar abscess. ASSESSMENT 1. 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 Currently initiating treatment with weekly Cisplatin C/D1 today 01/10/2018. goal is curative with symptom management. 2. Right neck Pain. on tylenol #3 elixir and tabs Q4hrs PRN. 3. Anticipating acute /delay nausea, vomiting. antiemetic medications at home, we will provide vigorous hydration and antiemetic support. 4. Anticipatory Treatment side effects of Oral mucosa. mucositis, odynophobia, taste changing, xerostomia. ppfx fluconazole, meticulous and thorough oralcare hygiene education provided, nutrition consult on board. 5. Constipation or diarrhea. patient to take Colace or Imodium PRN. 6. Elevated Blood Pressure. today's Bp is 131/98-91, respiration 16, O2 sat 93 % Room Air.we will continue to monitor closely Plan #1 the goal of treatment is curative patient will be having cisplatin weekly plus radiation therapy #2 HARVEY. Please admin 1Liter NS +20meq, Reglan 10mg IV x1 dose. infuse reglan over 15 minutes.Lorazepam 1mg IV x1 Now. for nausea management. patient Please take dexamethasone for nausea in the next 48 hours as prescribed. #2a. Continue Pain management. with Tylenol #3 both tabs and elixir. #3 Management of nausea, vomiting. #4 preventing mucositis with prophylaxis of fluconazole and thorough oral hygiene, she has viscous lidocaine, and may use aloe vera juice for swish and spit. #5 nutrition consult for education on types of foods to eat during the treatment #6 patient to continue to keep hydrated and take sips of water in between meals to prevent xerostomia, and increase dehydration #7 Meticulous oral hygiene and oral care #8 Maintain a regular bowel regimen with colace, sennokot, miralax daily PRN #9 Patient was instructed to check and record Blood Pressure and antiemetic intake of medications at home. #10. PT and Nutrition consult tito bañuelos. #11. RTC PRN. -Education, patient instructed to go to ER immediately and or call Clinic if any Difficulty Swallowing, Shortness of Breath, Temp >/=100.4, fevers, chills, cardiac type chest pain, bleeding, excessive bruising, headaches, blurry vision , dizziness, abdominal pain, difficulty swallowing, and pain unrelieved by medication. TIME SPENT: 20 minutes 15 > minutes includes but not limited to discussion, counselling and co-ordination~ of care. Discussion with other health care providers, record review, review of lab work, diagnostic tests. Plan discussed extensively with patient. All the questions answered today. Thank you for the opportunity to be involved in the care of Billing Level: Return visit 3 ELVIRA MELTON, ONC Jan 12, 2018 13:39
[2018-01-13 08:51] VITALS: BP 145/115
[2018-01-13 09:02] VITALS: BP 138/92
[2018-01-14 09:49] VITALS: BP 149/93
--- NOTE | 2018-01-14 14:41 | [facility] ONCOLOGY NOTE ---
EVENT DATE: January 14, 2018 DIAGNOSIS Right tonsillar squamous cell carcinoma. CHIEF COMPLAINT The patient is here today for her second week of cisplatin concurrent with radiation therapy for the treatment of her right tonsillar carcinoma with right neck adenopathy. ONCOLOGY HISTORY Patient is a 37-year-old female who presented in 2014 with right cervical adenopathy, treated with steroid at that time with improvement. For the last few months lately, she presented again with hard right neck mass which was tender and hard in consistency. The patient was found to have asymmetry of the right tonsil. She had excisional biopsy of the deep neck mass and bilateral tonsillectomy done on December 16, 2017, by Dr. Smith. Pathology from surgery came back positive for invasive squamous cell carcinoma present in the edge of the specimen from the right neck mass. The right tonsil showed human papillomavirus -mediated squamous cell carcinoma, and the tumor was present in the deep and lateral margins. There was perineural invasion present. Bilateral soft tissue neck was negative for malignancy, and the left tonsil was also negative for carcinoma. Tumor size was 1.3 cm. Lymph node invasion not identified. The tumor was staged as bT1. According to the pathologist, the soft tissue mass was not clear if those are replaced lymph nodes or not because they are entirely placed. The patient had CT of neck done on November 26, 2017, which showed multiple enlarged, right-sided level 2 and level 3 lymph nodes which could be reactive. There was mild symmetric enlargement of the palatine tonsils without evidence of intratonsillar or peritonsillar abscess. PET CT scan done on the December did reveal abnormal metabolic uptake in the right lingual tonsil, right cervical chain lymph nodes, and soft tissue posterior to the angle of the mandible on the right side, consistent with her squamous cell carcinoma. No evidence of metastasis in the chest, abdomen, and pelvis. Normal appearance of the left side of the neck. Patient started the chemoradiation on the December with weekly cisplatin therapy. HISTORY OF PRESENT ILLNESS Patient is here today for her week #2 of cisplatin concurrent with radiation therapy for her right tonsillar carcinoma. She did fine after her first dose of chemotherapy except for some nausea. She has also nasal discharge and sneezing. She has cough with mucoid sputum. She has also occasional diarrhea. Other than that she is really doing very well so far. PAST MEDICAL HISTORY Insignificant. PAST SURGICAL HISTORY 1. Cholecystectomy. 2. Tubal ligation. FAMILY HISTORY Mother had uterine cancer. Maternal great grandmother had ovarian cancer. SOCIAL HISTORY The patient is with three children. She works in an office for a store. She quit smoking in 2002 after half to one pack a day for six years. She seldom drinks alcohol. No abuse of illicit drugs. CURRENT MEDICATIONS 1. Ibuprofen. 2. Aleve. ALLERGIES HYDROCODONE (causes nausea and vomiting). REVIEW OF SYSTEMS CONSTITUTIONAL: No appetite or weight change. No fever, chills, or sweating. No recent infection. HEENT: Ears: No tinnitus or hearing problem. Nose: She has nasal discharge and sneezing. Throat: She had some sore throat after her recent surgery. No mouth ulcers. Eyes: No diplopia or visual changes. RESPIRATORY: No shortness of breath. She has cough with mucoid sputum. CARDIOVASCULAR: No chest pain, orthopnea, or paroxysmal nocturnal dyspnea (PND) . No edema. No palpitations. GASTROINTESTINAL: She has occasional nausea and diarrhea. No constipation. No change in bowel movements. No heartburn or swallowing difficulties. No abdominal pain. No jaundice. No hematemesis, melena or rectal bleeding. GENITOURINARY: Patient has had heavy periods for years, and she has been seen by a site acquisition specialist, and she was offered uterine ablation, but the patient refused the procedure. As per patient, she has had heavy periods for a total of seven days every month. MUSCULOSKELETAL: No pain in the muscles, joints or bones. NEUROLOGICAL: No tingling or numbness in the hands or feet. She has occasional headache. No convulsions. HEMATOLOGIC/LYMPHATIC: No bleeding or easy bruising. No weakness or fatigue. No enlarged lymph nodes. SKIN: No skin rash or lumps. PSYCHIATRIC: No anxiety or depression. PHYSICAL EXAMINATION GENERAL: Looks stable. Well developed, well nourished, and in no acute distress. VITAL SIGNS: Blood pressure 149/93, pulse 79 per minute, respirations 16 per minute, temperature 96.9, pulse ox 96% on room air. HEENT: Head: Atraumatic. No sinus tenderness to palpation. Eyes: No icterus or conjunctivitis. Mouth and Throat: No oral thrush or mucositis. NECK: Right cervical lymphadenopathy is noted and is getting better. LUNGS: Clear to auscultation and percussion bilaterally. HEART: Regular rate and rhythm. No gallops, murmurs, clicks, or rubs. ABDOMEN: Soft and lax. No tenderness. No hepatosplenomegaly. No masses. EXTREMITIES: No cyanosis, clubbing or edema. LYMPHATICS: No peripheral lymphadenopathy. NEUROLOGICAL: Conscious, alert, and oriented times three. No focal motor or sensory deficits. PSYCHIATRIC: Mood and affect appear normal. SKIN: No skin rash, bruise, or purpuric eruption. DIAGNOSTIC DATA CBC showed white count 5, hemoglobin 14, hematocrit 39.6, platelets 250,000. Chem panel is totally normal as well as magnesium level. ASSESSMENT Right tonsillar squamous cell carcinoma, human papillomavirus-mediated, with right neck adenopathy, status post excisional biopsy of the soft tissue mass and bilateral tonsillectomy done December 16, 2017. PET CT scan done on the December did reveal abnormal metabolic uptake in the right lingual tonsil, right cervical chain lymph nodes, and soft tissue posterior to the angle of the mandible on the right side. No evidence of systemic metastasis with normal appearance of the left side of the neck. Patient started chemoradiation with cisplatin weekly together with radiation therapy on the December. She tolerated the first week very well except for frequent nausea. She is using antiemetic with control. I am planning to proceed with her second week of cisplatin as per schedule. I will see her in a week with CBC, chem panel, and magnesium level. PLAN 1. Cisplatin week #2. 2. Patient returning in one week with CBC, chem panel, and magnesium level. 3. Patient to contact us for any new concerns or complaints. MTDD
[2018-01-17] MEDS: NS(*) 0.9% 1000 ML BAG 1,000 ML IV PRN (08:22)
[2018-01-17 08:23] VITALS: BP 113/88
[2018-01-17] MEDS: PALONOSETRON 0.25 MG/5 ML VIAL IVP PRN (09:20)
[2018-01-17] MEDS: DEXAMETHASONE SOD(*) 10MG/ML 10 MG in NS(*) 0.9% 50 ML BAG 50 ML IVP PRN (09:20)
[2018-01-17] MEDS: NS(*) 0.9% 500 ML BAG 500 ML IV PRN (09:21)
[2018-01-17] MEDS: FOSAPREPITANT DIM 150 MG/5 ML 150 MG in NS(*) 0.9% 250 ML BAG 245 ML IVPB PRN (09:47)
[2018-01-17] MEDS: MAGNESIUM SUL IV PRN (11:47)
[2018-01-17] MEDS: [UNRECOGNIZED DRUG - OTHER] IV PRN (11:47)
[2018-01-17] MEDS: KCL IV PRN (11:47)
[2018-01-20 09:26] VITALS: BP 125/89
[2018-01-24 08:19] VITALS: BP 126/64
[2018-01-24] MEDS: DEXAMETHASONE SOD(*) 10MG/ML 10 MG in NS(*) 0.9% 50 ML BAG 50 ML IVP PRN (09:11)
[2018-01-24] MEDS: PALONOSETRON 0.25 MG/5 ML VIAL IVP PRN (09:12)
[2018-01-24] MEDS: NS(*) 0.9% 1000 ML BAG 1,000 ML IV PRN (09:13)
--- NOTE | 2018-01-24 09:28 | Oncology Progress Note ---
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 - 09/2017 For the last few months lately she presented again with hard right neck mass, which was tender and hard in consistency. The patient was found to have asymmetry of the right tonsil. -- December 16, 2017 She had excisional biopsy of the deep neck mass and bilateral tonsillectomy done on December 16, [address] Smith. Pathology from surgery came back positive for invasive squamous cell carcinoma present in the edge of the specimen from the right neck mass. 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 There was perineural invasion present. Bilateral soft tissue neck was negative for malignancy and the left tonsil was also negative for carcinoma. Tumor size was 1.3 cm. Lymph node invasion not identified. - The tumor was staged as bT1. According to the pathologist, the soft tissue mass was not clear if those are replaced lymph nodes or not because they are entirely placed. - November 26, [address] of neck done on November 26, 2017, which showed multiple enlarged right sided level 2 and level 3 lymph nodes, which could be reactive. There was mild symmetric enlargement of the palatine tonsils without evidence of intratonsillar or peritonsillar abscess. Treatment Treatment - Planned is curative weekly Cisplatin and XRT for 7-8 weeks. 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 C3/D1 Cisplatin and XRT. 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 Patient is seen at infusion clinic for her weekly treatment. She is AAOX4, hemodynamically stable. reports being in her usual state of health. She had some visual changes, seeing floaters, she was instructed to see and Military Technology Manager she informs me that she has an appointment today.No changes in her baseline, nausea, bowel regimen and pain well controlled per treatment plan. She reports no new issues. On exam oral mucositis noted. She was instructed to continue to take fluconazole daily. Off note, per patient approximately 2-3 months ago a hard tender mass appeared on her right neck She reports the mass was originally the size of a golf-ball. Initially patient presented in 2014 with right cervical adenopathy which was treated with steroids and antibiotics at the time which significant improvement. The patient was found to have asymmetry of the right tonsil. 2018 Pathology from surgery came back positive for invasive squamous cell carcinoma present in the edge of the specimen from the right neck mass. 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 There was perineural invasion present. Bilateral soft tissue neck was negative for malignancy and the left tonsil was also negative for carcinoma. Tumor size was 1.3 cm. Lymph node invasion not identified. The tumor was staged [id number]. According to the pathologist, the soft tissue mass was not clear if those are replaced lymph nodes or not because they are entirely placed. The patient had CT of neck done on November 26, 2017, which showed multiple enlarged right sided level 2 and level 3 lymph nodes, which could be reactive. There was mild symmetric enlargement of the palatine tonsils without evidence of intratonsillar or peritonsillar abscess. Living Conditions Lives with kids, and grandkids. Diagnostic Studies Result Diagram: 01/24/18 0815 01/24/18 0815 Social/Occupational History Social History: Social History This is a 37 Yr old White female, she is M and has [] Children Hx Smoking: Yes Smoking Status: Former Smoker Allergies & Medications Allergies: Coded Allergies: hydrocodone (Verified Allergy, Intermediate, MIGRAINE HEADACHES, 11/26/17) Home Meds Active Scripts B6/Fa/B12/Co Q10/Herb No.225 (HEALTHY HEART COMPLEX TABLET) 1 Each Tablet, 10 BOT ASDIRECTED 1-2XD for 10 Days, BOTTLE Prov:ELVIRA MELTON, ONC 01/10/18 Docusate Sodium (COLACE) 100 Mg Capsule, 100 MG PO 1-2XD for 30 Days, CAPSULE Prov:ELVIRA MELTON MANAGER ANALYSIS-C, ONC 01/10/18 Reported Medications Lorazepam (ATIVAN) 0.5 Mg Tablet, 0.5 MG PO Q4-6H, #30 TAB 1 Refill 01/05/18 Ondansetron Hcl (ZOFRAN) 8 Mg Tablet, 8 MG PO Q12H, #30 TAB 3 Refills 01/05/18 Prochlorperazine Maleate (Compazine) 10 Mg Tablet, PO for Nausea, #30 TAB 01/05/18 Ibuprofen (IBUPROFEN) 800 Mg Tablet, 1 TAB PO Q8H, TAB 12/23/17 Acetaminophen With Codeine # 3 (TYLENOL WITH CODEINE #3 TABLET) 1 Each Tablet, 1 EACH PO PRN, TAB 12/23/17 Review of Systems Constitution: Denies Appetite/Weight Change, Denies Fever/Chills/Sweating, Denies Recent Infection, Denies Other HEENT: OTHER (peeling sensation of mouth) Respiratory: No Cough, No Expectoration, No Hemoptysis, No Shortness of Breath , No OTHER Cardiovascular: No Chest Pain, No Orthopnea, No Edema, No Palpitations, No OTHER Gastrointestinal: No Nausea, No Vomitting, No Diarrehea, Constipation, No Heart Burn, No Swallowing Difficulties, No Abdominal Pain, No Other Gentiourinary: No Hematuria, No Dysuria, No Nocturia, No Other Musculoskeletal: No Muscle Pain, No Joint Pain, No Bone Pain, No Other Hematological: No Bleeding, No Weakness, No Enlarged Lyph Nodes, No Bruising, No Fatigue, No Other Skin: No Skin Rash, No Lumps, No Erythema, No Dry Skin, No Moist Skin, No Other Psychiatric: Anxiety Vital Signs Vital Signs Temperature: 98.6 Pulse: 87 BP Systolic: 126 BP Diastolic: 64 Respiratory Rate: 16 O2 SAT: 96 O2 Delivery: Height (feet) Height (inches) 63.20 Weight lb: 220 Weight oz: Weight Kg (Hao): Pain: 1 Physical Exam General: Looks Stable, Well Developed, Well Nourished, Other (In no acute distress) HEENT: HEAD:Atraumatic, No EYES: Conjuctivitis, No EYES: Icterus, No MOUTH: Mucocitis, No MOUTH: Oral Thrush, No SINUS: Tenderness to Palpation, Other ( mucositis) Neck: Other (right neck adenopathy) Lungs: Clear to Auscultation, Percussion Bilaterally Heart: Regular Rate and Rhythm, No Gallops, No Murmurs, No Clicks, No Rubs, No Other Abdomen: Soft and Nontender, No Hepatosplenomegaly, No Masses, No Other Extremities: No Cyanosis, No Clubbing, No Edema, No Other Lymphatics: No Peripheral Lymphadenopathy, No Other Psychiatric: No Mood appears normal, No Affect appears normal, No Other Skin: No Skin Rashes, No Bruising, No Purpura, No Moist Desquamation, No Dry Desquamation, No Errythema, No Mild Errythema, No Moderate Errythema, No Severe Errythema, No Induration, No Other Breast: No No Masses, No No Nipple Discharge, No No Skin Changes, No Other Assessment and Plan Assessment and Plan Beba Plaza is a 37 year old woman who has 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 C3/D1 Cisplatin and XRT. 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 Patient is seen at infusion clinic for her weekly treatment. She is AAOX4, hemodynamically stable. reports being in her usual state of health. She had some visual changes, seeing floaters ( long standing history of myopia, and uses corrective glasses, she was instructed to see and Military Technology Manager last Wednesday, she informs me that she has an appointment today.No changes in her baseline, nausea, bowel regimen and pain well controlled per treatment plan. She reports no new issues. On exam oral mucositis noted. She was instructed to continue to take fluconazole daily. patient is doing very well with inor side effects toxicities, she does take zofran, compazine, ativan and Dexamethaosne for nausea especially the day after cisplatin. Appetite and weight with no changes. No signs of infections, no abdominal pain. She continues to work, and perform al her ADLS with no restrictions. ASSESSMENT 1. 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 Currently initiating treatment with weekly Cisplatin C3/D1 today 01/24/2018. goal is curative with symptom management. 2. Right neck Pain. on tylenol #3 elixir and tabs Q4hrs PRN. patient only taking pain medication at night once daily. 3. Anticipating acute /delay nausea, vomiting. antiemetic medications at home, we will provide vigorous hydration and antiemetic support. 4. Anticipatory Treatment side effects of Oral mucosa. mucositis, odynophobia, taste changing, xerostomia. ppfx fluconazole, PPis ( nexium) meticulous and thorough oralcare hygiene education provided, nutrition consult on board. 5. Electrolyte imbalance. labs within acceptable parameters. K=3.4; we will monitor and replete lytes accordingly. patient to have K+20meq; plus Mag 4 g after cisplatin infusion 6. Elevated Blood Pressure. Resolving. today's Bp is 126/64-87, respiration 16 , O2 sat 94% Room Air.we will continue to monitor closely 7. Constipation or diarrhea. patient to take Colace or Imodium PRN. Plan #1 Proceed with weekly cisplatin plus radiation therapy. C3/D1 today 2017. #2 HARVEY. Please admin 1Liter NS +20meq, Reglan 10mg IV x1 dose. infuse reglan over 15 minutes.Lorazepam 1mg IV x1 Now. for nausea management. patient Please take dexamethasone for nausea in the next 48 hours as prescribed. #2a. Continue Pain management. with Tylenol #3 both tabs and elixir. #3 Management of nausea, vomiting. #4 preventing mucositis with prophylaxis of fluconazole and thorough oral hygiene, she has viscous lidocaine, and may use aloe vera juice for swish and spit. #5 nutrition consult for education on types of foods to eat during the treatment #6 patient to continue to keep hydrated and take sips of water in between meals to prevent xerostomia, and increase dehydration #7 Meticulous oral hygiene and oral care #8 Maintain a regular bowel regimen with colace, sennokot, miralax daily PRN #9 Patient to take Nexium with dexamethasone #10. PT on Board #11. Nutrition consult pending, patient was given printed and verbal information in regards to nutrition and prevention and management of expected side effects #12. RN to cath flow Picc PRN #13. Patient to take fluconzaole daily, take Mag supplement OTC daily, and take Potassium chloride 10meq Daily. 14.Patient to see an guitar instructor today 315. RTC PRN. -Education, patient instructed to go to ER immediately and or call Clinic if any Difficulty Swallowing, Shortness of Breath, Temp >/=100.4, fevers, chills, cardiac type chest pain, bleeding, excessive bruising, headaches, blurry vision , dizziness, abdominal pain, difficulty swallowing, and pain unrelieved by medication. TIME SPENT: 20 minutes 15 > minutes includes but not limited to discussion, counselling and co-ordination~ of care. Discussion with other health care providers, record review, review of lab work, diagnostic tests. Plan discussed extensively with patient. All the questions answered today. Thank you for the opportunity to be involved in the care of Billing Level: Return visit 3 ELVIRA MELTON, ONC Jan 24, 2018 09:27
[2018-01-24] MEDS: FOSAPREPITANT DIM 150 MG/5 ML 150 MG in NS(*) 0.9% 250 ML BAG 245 ML IVPB PRN (09:34)
[2018-01-24] MEDS: [UNRECOGNIZED DRUG - OTHER] IV PRN (11:23)
[2018-01-24] MEDS: MAGNESIUM SUL IV PRN (11:23)
[2018-01-24] MEDS: KCL IV PRN (11:23)
[2018-01-28 08:49] VITALS: BP 115/86
--- NOTE | 2018-01-28 14:17 | [facility] ONCOLOGY NOTE ---
EVENT DATE: January 28, 2018 DIAGNOSIS Right tonsillar squamous cell carcinoma. CHIEF COMPLAINT The patient is here today for her fourth week of cisplatin therapy concurrent with radiation therapy for the treatment of her right tonsillar carcinoma with right neck adenopathy. ONCOLOGY HISTORY Patient is a 37-year-old female who presented in 2014 with right cervical adenopathy, treated with steroid at that time with improvement. For the last few months lately, she presented again with hard right neck mass which was tender and hard in consistency. The patient was found to have asymmetry of the right tonsil. She had excisional biopsy of the deep neck mass and bilateral tonsillectomy done on December 16, 2017, by Dr. Smith. Pathology from surgery came back positive for invasive squamous cell carcinoma present in the edge of the specimen from the right neck mass. The right tonsil showed human papillomavirus -mediated squamous cell carcinoma, and the tumor was present in the deep and lateral margins. There was perineural invasion present. Bilateral soft tissue neck was negative for malignancy, and the left tonsil was also negative for carcinoma. Tumor size was 1.3 cm. Lymph node invasion not identified. The tumor was staged as bT1. According to the pathologist, the soft tissue mass was not clear if those are replaced lymph nodes or not because they are entirely placed. The patient had CT of neck done on November 26, 2017, which showed multiple enlarged, right-sided level 2 and level 3 lymph nodes which could be reactive. There was mild symmetric enlargement of the palatine tonsils without evidence of intratonsillar or peritonsillar abscess. PET CT scan done on the December did reveal abnormal metabolic uptake in the right lingual tonsil, right cervical chain lymph nodes, and soft tissue posterior to the angle of the mandible on the right side, consistent with her squamous cell carcinoma. No evidence of metastasis in the chest, abdomen, and pelvis. Normal appearance of the left side of the neck. Patient started the chemoradiation on the December with weekly cisplatin therapy. HISTORY OF PRESENT ILLNESS Patient is here today for week #4 of cisplatin concurrent with radiation therapy for her right tonsillar carcinoma. She is doing very well currently. Her right neck mass is shrinking very well currently. She is complaining of occasional nausea, under control with antinausea pills. She has some fatigue, but other than that, she is really doing very well so far. PAST MEDICAL HISTORY Insignificant. PAST SURGICAL HISTORY 1. Cholecystectomy. 2. Tubal ligation. FAMILY HISTORY Mother had uterine cancer. Maternal great grandmother had ovarian cancer. SOCIAL HISTORY The patient is with three children. She works in an office for a store. She quit smoking in 2002 after half to one pack a day for six years. She seldom drinks alcohol. No abuse of illicit drugs. CURRENT MEDICATIONS 1. Ibuprofen. 2. Aleve. ALLERGIES HYDROCODONE causes nausea and vomiting. REVIEW OF SYSTEMS CONSTITUTIONAL: No appetite or weight change. No fever, chills, or sweating. No recent infection. HEENT: Ears: No tinnitus or hearing problem. Nose: She has nasal discharge and sneezing. Throat: She had some sore throat after her recent surgery. No mouth ulcers. Eyes: No diplopia or visual changes. RESPIRATORY: No shortness of breath. She has cough with mucoid sputum. CARDIOVASCULAR: No chest pain, orthopnea, or paroxysmal nocturnal dyspnea (PND) . No edema. No palpitations. GASTROINTESTINAL: Patient has occasional nausea. No constipation. No change in bowel movements. No heartburn or swallowing difficulties. No abdominal pain. No jaundice. No hematemesis, melena or rectal bleeding. GENITOURINARY: Patient has had heavy periods for years, and she has been seen by a explosion welder, and she was offered uterine ablation, but the patient refused the procedure. As per patient, she has had heavy periods for a total of seven days every month. MUSCULOSKELETAL: No pain in the muscles, joints or bones. NEUROLOGICAL: No tingling or numbness in the hands or feet. She has occasional headache. No convulsions. HEMATOLOGIC/LYMPHATIC: No bleeding or easy bruising. She is weak, tired, and fatigued. No enlarged lymph nodes. SKIN: No skin rash or lumps. PSYCHIATRIC: No anxiety or depression. PHYSICAL EXAMINATION GENERAL: Looks stable. Well developed, well nourished, and in no acute distress. VITAL SIGNS: Blood pressure 115/86, pulse 78 per minute, respirations 16 per minute, temperature 97.5, pulse ox 98% on room air. HEENT: Head: Atraumatic. No sinus tenderness to palpation. Eyes: No icterus or conjunctivitis. Mouth and Throat: No oral thrush or mucositis. NECK: Right cervical lymphadenopathy is noted and is getting better. LUNGS: Clear to auscultation and percussion bilaterally. HEART: Regular rate and rhythm. No gallops, murmurs, clicks, or rubs. ABDOMEN: Soft and lax. No tenderness. No hepatosplenomegaly. No masses. EXTREMITIES: No cyanosis, clubbing, or edema. LYMPHATICS: No peripheral lymphadenopathy. NEUROLOGICAL: Conscious, alert, and oriented times three. No focal motor or sensory deficits. PSYCHIATRIC: Mood and affect appear normal. SKIN: No skin rash, bruise, or purpuric eruption. DIAGNOSTIC DATA CBC showed white count 6.4, hemoglobin 13.5, hematocrit 37.8, platelets 196, 000. Chem panel is totally normal except potassium 3.4. Magnesium is normal at 1.9. ASSESSMENT Right tonsillar squamous cell carcinoma, human papillomavirus-mediated, with right neck adenopathy, status post excisional biopsy of the soft tissue mass and bilateral tonsillectomy done December 16, 2017. PET/CT scan done on the December did reveal abnormal metabolic uptake in the right lingual tonsil, right cervical chain lymph nodes, and soft tissue posterior to the angle of the mandible on the right side. There is no evidence of systemic metastasis with normal appearance of the left side of the neck. Patient started chemoradiation with cisplatin weekly together with radiation therapy on the December. She finished three courses so far of cisplatin, and she is due for her fourth course on the January. She responded very well to treatment so far , her right neck mass nearly about to disappear. I am planning to proceed with her fourth course as scheduled. I will see her in a week with CBC, chemistry panel, and magnesium level. She is doing really very well currently. PLAN 1. Cisplatin week #4. 2. Patient to return in one week with CBC, chem panel, and magnesium level. 3. Patient to contact us for any new concern or complaints. MTDD
[2018-01-31] MEDS: NS(*) 0.9% 1000 ML BAG 1,000 ML IV PRN (09:24)
[2018-01-31 09:29] VITALS: BP 122/71
[2018-01-31] MEDS: PALONOSETRON 0.25 MG/5 ML VIAL IVP PRN (10:09)
[2018-01-31] MEDS: DEXAMETHASONE SOD(*) 10MG/ML 10 MG in NS(*) 0.9% 50 ML BAG 50 ML IVP PRN (10:12)
[2018-01-31] MEDS: FOSAPREPITANT DIM 150 MG/5 ML 150 MG in NS(*) 0.9% 250 ML BAG 245 ML IVPB PRN (10:33)
[2018-01-31] MEDS: MAGNESIUM SUL IV PRN (12:22)
[2018-01-31] MEDS: KCL IV PRN (12:22)
[2018-01-31] MEDS: [UNRECOGNIZED DRUG - OTHER] IV PRN (12:22)
[2018-01-31 14:30] VITALS: BP 121/69
[2018-02-07] MEDS: NS(*) 0.9% 1000 ML BAG 1,000 ML IV PRN (08:23)
[2018-02-07 08:24] VITALS: BP 111/77
[2018-02-07 08:35] LABS: PLATELET COUNT, AUTOMATED 109 K/uL (150-450)
--- NOTE | 2018-02-07 09:16 | Oncology Progress Note ---
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 - 09/2017 For the last few months lately she presented again with hard right neck mass, which was tender and hard in consistency. The patient was found to have asymmetry of the right tonsil. -- December 16, 2017 She had excisional biopsy of the deep neck mass and bilateral tonsillectomy done on December 16, [address] Smith. Pathology from surgery came back positive for invasive squamous cell carcinoma present in the edge of the specimen from the right neck mass. 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 There was perineural invasion present. Bilateral soft tissue neck was negative for malignancy and the left tonsil was also negative for c arcinoma. Tumor size was 1.3 cm. Lymph node invasion not identified. - The tumor was staged as bT1. According to the pathologist, the soft tissue mass was not clear if those are replaced lymph nodes or not because they are entirely placed. - November 26, [address] of neck done on November 26, 2017, which showed multiple enlarged right sided level 2 and level 3 lymph nodes, which could be reactive. There was mild symmetric enlargement of the palatine tonsils without evidence of intratonsillar or peritonsillar abscess. Treatment Treatment - Planned is curative weekly Cisplatin and XRT for 7-8 weeks. 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 C5/D1 Cisplatin and XRT. 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 Patient is seen at infusion clinic for her weekly treatment. She is AAOX4, hemodynamically stable. , afebrile, she reports being in her usual state of health, experiencing ,mucositis, fatigue and nausea. She had some visual changes, seeing floaters, she recently saw an an Accessibility Lift Technician and all is good, she is picking up her Rx glasses today.No changes in her baseline, nausea, bowel regimen and pain well controlled per treatment plan. She reports no new issues. On exam buccal mucositis accentuated. She was instructed to continue to take fluconazole daily, we will also add nystatin, Zpack, and to continue thorough oral care. Off note, per patient approximately 2-3 months ago a hard tender mass appeared on her right neck She reports the mass was originally the size of a golf-ball. Initially patient presented in 2014 with right cervical adenopathy which was treated with steroids and antibiotics at the time which significant improvement. The patient was found to have asymmetry of the right tonsil. 2018 Pathology from surgery came back positive for invasive squamous cell carcinoma present in the edge of the specimen from the right neck mass. 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 There was perineural invasion present. Bilateral soft tissue neck was negative for malignancy and the left tonsil was also negative for carcinoma. Tumor size was 1.3 cm. Lymph node invasion not identified. The tumor was staged [id number]. According to the pathologist, the soft tissue mass was not clear if those are replaced lymph nodes or not because they are entirely placed. The patient had CT of neck done on November 26, 2017, which showed multiple enlarged right sided level 2 and level 3 lymph nodes, which could be reactive. There was mild symmetric enlargement of the palatine tonsils without evidence of intratonsillar or peritonsillar abscess. Diagnostic Studies Result Diagram: 02/07/1881502/07/1816 Social/Occupational History Social History: Social History This is a 37 Yr old White female, she is M and has [] Children Hx Smoking: Yes Smoking Status: Former Smoker Allergies & Medications Allergies: Coded Allergies: hydrocodone (Verified Allergy, Intermediate, MIGRAINE HEADACHES, 11/26/17) Home Meds Active Scripts Nystatin 100,000 Unit/Gm Top Powder (NYSTATIN 100,000 UNIT/GM TOP POWDER) 15 Gm Powder, 15 GM TP 3-4XD for 30 Days, TUBE Prov:ELVIRA MELTON ELDER, ONC 02/07/18 Azithromycin (Z-PACK) 250 Mg Tablet, 0 PO QDAY, #6 DOSE-PACK Prov:ELVIRA MELTON ELDER, ONC 02/07/18 Fluconazole (FLUCONAZOLE) 200 Mg Tablet, 400 MG PO QDAY for 90 Days, TAB Prov:ELVIRA MELTON RAFI-Alex, ONC 02/07/18 Fentanyl (Fentanyl) 1 Each Patch.td72, 25 MCG ASDIRECTED DIRECTED for 7 Days Prov:ELVIRA MELTON ELDER, ONC 02/07/18 B6/Fa/B12/Co Q10/Herb No.225 (HEALTHY HEART COMPLEX TABLET) 1 Each Tablet, 10 BOT ASDIRECTED 1-2XD for 10 Days, BOTTLE Prov:ELVIRA MELTON ELDER, ONC 01/10/18 Docusate Sodium (COLACE) 100 Mg Capsule, 100 MG PO 1-2XD for 30 Days, CAPSULE Prov:ELVIRA MELTON ELDER, ONC 01/10/18 Reported Medications Lorazepam (ATIVAN) 0.5 Mg Tablet, 0.5 MG PO Q4-6H, #30 TAB 1 Refill 01/05/18 Ondansetron Hcl (ZOFRAN) 8 Mg Tablet, 8 MG PO Q12H, #30 TAB 3 Refills 01/05/18 Prochlorperazine Maleate (Compazine) 10 Mg Tablet, PO for Nausea, #30 TAB 01/05/18 Ibuprofen (IBUPROFEN) 800 Mg Tablet, 1 TAB PO Q8H, TAB 12/23/17 Acetaminophen With Codeine # 3 (TYLENOL WITH CODEINE #3 TABLET) 1 Each Tablet, 1 EACH PO PRN, TAB 12/23/17 Review of Systems Constitution: Denies Appetite/Weight Change, Denies Fever/Chills/Sweating, Denies Recent Infection, Denies Other HEENT: OTHER (mouth sores) Respiratory: No Cough, No Expectoration, No Hemoptysis, No Shortness of Breath, No OTHER Cardiovascular: No Chest Pain, No Orthopnea, No Edema, No Palpitations, No OTHER Gastrointestinal: No Nausea, No Vomitting, No Diarrehea; Constipation; No Heart Burn, No Swallowing Difficulties, No Abdominal Pain, No Other Gentiourinary: No Hematuria, No Dysuria, No Nocturia, No Other Musculoskeletal: No Muscle Pain, No Joint Pain, No Bone Pain, No Other Hematological: No Bleeding, No Weakness, No Enlarged Lyph Nodes, No Bruising, No Fatigue, No Other Skin: No Skin Rash, No Lumps, No Erythema, No Dry Skin, No Moist Skin, No Other Psychiatric: Anxiety Vital Signs Vital Signs Temperature: 98.6 Pulse: 81 BP Systolic: 111 BP Diastolic: 77 Respiratory Rate: 16 O2 SAT: 96 O2 Delivery: Height (feet) Height (inches) 63.20 Weight lb: 182 Weight oz: Weight Kg (Hao): Pain: 5 Physical Exam General: Looks Stable, Well Developed, Well Nourished, Other (In no acute distress) HEENT: HEAD:Atraumatic; No EYES: Conjuctivitis, No EYES: Icterus, No MOUTH: Mucocitis, No MOUTH: Oral Thrush, No SINUS: Tenderness to Palpation; Other (mucositis) Neck: Other (right neck adenopathy) Lungs: Clear to Auscultation, Percussion Bilaterally Heart: Regular Rate and Rhythm; No Gallops, No Murmurs, No Clicks, No Rubs, No Other Abdomen: Soft and Nontender; No Hepatosplenomegaly, No Masses, No Other Extremities: No Cyanosis, No Clubbing, No Edema, No Other Lymphatics: No Peripheral Lymphadenopathy, No Other Psychiatric: No Mood appears normal, No Affect appears normal, No Other Skin: No Skin Rashes, No Bruising, No Purpura, No Moist Desquamation, No Dry Desquamation, No Errythema, No Mild Errythema, No Moderate Errythema, No Severe Errythema, No Induration, No Other Breast: No No Masses, No No Nipple Discharge, No No Skin Changes, No Other Assessment and Plan Assessment and Plan Beba Plaza is a 37 year old woman who has 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 C5/D1 Cisplatin and XRT. 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 Patient is seen at infusion clinic for her weekly treatment. She is AAOX4, hemodynamically stable. , afebrile, she reports being in her usual state of health, experiencing ,mucositis, fatigue and nausea. She had some visual changes, seeing floaters, she recently saw an an Accessibility Lift Technician and all is good, she is picking up her Rx glasses today.No changes in her baseline, nausea, bowel regimen and pain well controlled per treatment plan. She reports no new issues. On exam buccal mucositis accentuated on right buccal mucosa and hard palate. She was instructed to continue to take fluconazole daily, we will also add nystatin, Zpack, and to continue thorough oral care. DIAGNOSTIC DATA. Reviewed Per [employer]; within acceptable parameters except platelets of 109K. ASSESSMENT 1. 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 Currently initiating treatment with weekly Cisplatin C5/D1 today 02/07/2018. goal is curative with symptom management. PLAN 2. Right neck Pain. on tylenol #3 elixir and tabs Q4hrs PRN. patient only taking pain medication at night once daily. patient was also started on fentanyl patch 25m Q [address] Bustamante. she has not have to use it. 3. Anticipating acute /delay nausea, vomiting. antiemetic medications at home, we will provide vigorous hydration and antiemetic support. 4. Anticipatory Treatment side effects of Oral mucosa. mucositis, odynophobia, taste changing, xerostomia. ppfx fluconazole, nystatin, Zpack, PPis ( nexium) meticulous and thorough oral care hygiene education provided, viscous lidocaine, and may use aloe vera juice for swish and spit. employment instructional associate saw patient last wek . 5. Electrolyte imbalance. labs within acceptable parameters. we will monitor and replete lytes accordingly. patient receives K+20meq; plus Mag 4 g after cisplatin infusion 6. Elevated Blood Pressure. Resolved 7. Constipation or diarrhea. patient to take Colace or Imodium PRN. 8. PRN IV hydration 1 liter NS on 02/09/18; and IV hydration 1liter Ns=20meq On Wednesday02/11/18. If patient nauseated and miserable. please check labs for electrolyte imbalance and or Neutropenia. 9. PT on Board 10. Good oral assessment and mentoring. 11. RTC PRN. -Education, patient instructed to go to ER immediately and or call Clinic if any Difficulty Swallowing, Shortness of Breath, Temp >/=100.4, fevers, chills, ca rdiac type chest pain, bleeding, excessive bruising, headaches, blurry vision, dizziness, abdominal pain, difficulty swallowing, and pain unrelieved by medication. TIME SPENT: 20 minutes 15 > minutes includes but not limited to discussion, counselling and co-ordination~ of care. Discussion with other health care providers, record review, review of lab work, diagnostic tests. Plan discussed extensively with patient. All the questions answered today. Thank you for the opportunity to be involved in the care of Beba Plascencia. Billing Level: Return visit 3 ELVIRA MELTON, ONC Feb 07, 2018 09:16
[2018-02-07] MEDS: PALONOSETRON 0.25 MG/5 ML VIAL IVP PRN (09:17)
[2018-02-07] MEDS: DEXAMETHASONE SOD(*) 10MG/ML 10 MG in NS(*) 0.9% 50 ML BAG 50 ML IVP PRN (09:18)
[2018-02-07] MEDS: NS(*) 0.9% 500 ML BAG 500 ML IV PRN (09:19)
[2018-02-07] MEDS: FOSAPREPITANT DIM 150 MG/5 ML 150 MG in NS(*) 0.9% 250 ML BAG 245 ML IVPB PRN (09:42)
[2018-02-07] MEDS: KCL IV PRN (11:26)
[2018-02-07] MEDS: MAGNESIUM SUL IV PRN (11:26)
[2018-02-07] MEDS: [UNRECOGNIZED DRUG - OTHER] IV PRN (11:26)
[2018-02-10 08:36] VITALS: BP 106/71
[2018-02-11 08:07] VITALS: BP 100/72
--- NOTE | 2018-02-11 10:31 | [facility] ONCOLOGY NOTE ---
EVENT DATE: February 11, 2018 DIAGNOSIS Right tonsillar squamous cell carcinoma. CHIEF COMPLAINT The patient is here today for her sixth week of cisplatin therapy concurrent with radiation therapy for the treatment of right tonsillar carcinoma with right neck adenopathy. ONCOLOGY HISTORY Patient is a 37-year-old female who presented in 2014 with right cervical adenopathy, treated with steroid at that time with improvement. For the last few months lately, she presented again with hard right neck mass which was tender and hard in consistency. The patient was found to have asymmetry of the right tonsil. She had excisional biopsy of the deep neck mass and bilateral tonsillectomy done on December 16, 2017, by Dr. Smith. Pathology from surgery came back positive for invasive squamous cell carcinoma present in the edge of the specimen from the right neck mass. 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 There was perineural invasion present. Bilateral soft tissue neck was negative for malignancy, and the left tonsil was also negative for carcinoma. Tumor size was 1.3 cm. Lymph node invasion not identified. The tumor was staged as bT1. According to the pathologist, the soft tissue mass was not clear if those are replaced lymph nodes or not because they are entirely placed. The patient had CT of neck done on November 26, 2017, which showed multiple enlarged, right-sided level 2 and level 3 lymph nodes which could be reactive. There was mild symmetric enlargement of the palatine tonsils without evidence of intratonsillar or peritonsillar abscess. PET CT scan done on the December did reveal abnormal metabolic uptake in the right lingual tonsil, right cervical chain lymph nodes, and soft tissue posterior to the angle of the mandible on the right side, consistent with her squamous cell carcinoma. No evidence of metastasis in the chest, abdomen, and pelvis. Normal appearance of the left side of the neck. Patient started the chemoradiation on the December with weekly cisplatin therapy. HISTORY OF PRESENT ILLNESS Patient is doing fine and tolerating treatment very well except she has some nasal discharge, sore throat, cough. She has also lately in the last week nausea and vomiting at least once daily. She has also constipation. She is weak, tired and fatigued. PAST MEDICAL HISTORY Insignificant. PAST SURGICAL HISTORY 1. Cholecystectomy. 2. Tubal ligation. FAMILY HISTORY Mother had uterine cancer. Maternal great grandmother had ovarian cancer. SOCIAL HISTORY The patient is with three children. She works in an office for a store. She quit smoking in 2002 after half to one pack a day for six years. She seldom drinks alcohol. No abuse of illicit drugs. CURRENT MEDICATIONS 1. Ibuprofen. 2. Aleve. ALLERGIES HYDROCODONE causes nausea and vomiting. REVIEW OF SYSTEMS CONSTITUTIONAL: No appetite or weight change. No fever, chills, or sweating. No recent infection. HEENT: Ears: No tinnitus or hearing problem. Nose: She has nasal discharge. Throat: She has sore throat. Eyes: No diplopia or visual changes. RESPIRATORY: No shortness of breath. She has cough with mucoid sputum. CARDIOVASCULAR: No chest pain, orthopnea, or paroxysmal nocturnal dyspnea (PND). No edema. No palpitations. GASTROINTESTINAL: She has daily nausea and vomiting now after her last dose of chemotherapy. She has also constipation. GENITOURINARY: Patient has had heavy periods for years, and she has been seen by a produce sorter, and she was offered uterine ablation, but the patient refused the procedure. As per patient, she has had heavy periods for a total of seven days every month. MUSCULOSKELETAL: No pain in the muscles, joints or bones. NEUROLOGICAL: No tingling or numbness in the hands or feet. She has occasional headache. No convulsions. HEMATOLOGIC/LYMPHATIC: She is weak, tired, and fatigued. No enlarged lymph nodes. SKIN: No skin rash or lumps. PSYCHIATRIC: No anxiety or depression. PHYSICAL EXAMINATION GENERAL: Looks stable. Well developed, well nourished, and in no acute distress. VITAL SIGNS: Blood pressure 100/72, pulse 88 per minute, respirations 16 per minute, temperature 98.2, pulse ox 96% on room air. HEENT: Head: Atraumatic. No sinus tenderness to palpation. Eyes: No icterus or conjunctivitis. Mouth and Throat: No oral thrush or mucositis. NECK: Right cervical lymphadenopathy is noted and is getting better. LUNGS: Clear to auscultation and percussion bilaterally. HEART: Regular rate and rhythm. No gallops, murmurs, clicks, or rubs. ABDOMEN: Soft and lax. No tenderness. No hepatosplenomegaly. No masses. EXTREMITIES: No cyanosis, clubbing, or edema. LYMPHATICS: No peripheral lymphadenopathy. NEUROLOGICAL: Conscious, alert, and oriented times three. No focal motor or sensory deficits. PSYCHIATRIC: Mood and affect appear normal. SKIN: No skin rash, bruise, or purpuric eruption. DIAGNOSTIC DATA CBC showed white count 4.8, hemoglobin 13.9, hematocrit 38.5, platelets 109,000. Chem panel is totally normal except sodium 136. Serum magnesium is normal at 2.1. ASSESSMENT Right tonsillar squamous cell carcinoma, human papillomavirus-mediated, with right neck adenopathy, status post excisional biopsy of the soft tissue mass and bilateral tonsillectomy done December 16, 2017. PET/CT scan done on the January 07, 2018 did reveal abnormal metabolic uptake in the right lingual tonsil, right cervical chain lymph nodes and soft tissue posterior to the angle of the mandible on the right side. There is no evidence of systemic metastasis with normal appearance of the left side of the neck. Patient started chemoradiation with cisplatin weekly together with radiation therapy on January 10, 2018. She received five courses so far and she is due for her sixth course on February 12, 2018. She is tolerating treatment very well except for some sore throat and for the last week she has had nausea and vomiting, which is most probably due to the effect of cisplatin. The patient does not have insurance and they cannot afford [employer] but we will try to see if there are any vouchers to be given to the patient. If not, then we will try to prescribe for her scopolamine patches. I explained that to the patient. The patient is agreeable to the plan of management. I am planing to see her again in a week with CBC, chem panel and magnesium level. PLAN 1. Cisplatin week #6. 2. Patient to return in one week with CBC, chem panel, and magnesium level. 3. Patient to contact us for any new concerns or complaints. MTDD
[2018-02-15 08:29] VITALS: BP 110/70
[2018-02-15] MEDS: NS(*) 0.9% 1000 ML BAG 1,000 ML IV PRN (09:10)
[2018-02-15] MEDS: PALONOSETRON 0.25 MG/5 ML VIAL IVP PRN (09:10)
[2018-02-15] MEDS: DEXAMETHASONE SOD(*) 10MG/ML 10 MG in NS(*) 0.9% 50 ML BAG 50 ML IVP PRN (09:11)
[2018-02-15] MEDS: NS(*) 0.9% 500 ML BAG 500 ML IV PRN (09:34)
[2018-02-15] MEDS: FOSAPREPITANT DIM 150 MG/5 ML 150 MG in NS(*) 0.9% 250 ML BAG 245 ML IVPB PRN (09:34)
[2018-02-15] MEDS: MAGNESIUM SUL IV PRN (11:26)
[2018-02-15] MEDS: [UNRECOGNIZED DRUG - OTHER] IV PRN (11:26)
[2018-02-15] MEDS: KCL IV PRN (11:26)
[2018-02-18] MEDS: NS(*) 0.9% 1000 ML BAG 1,000 ML IV PRN (08:18)
[2018-02-18 08:19] VITALS: BP 97/61
[2018-02-18 08:47] LABS: PLATELET COUNT, AUTOMATED 105 K/uL (150-450)
[2018-02-21 08:26] VITALS: BP 96/67
[2018-02-21] MEDS: NS(*) 0.9% 1000 ML BAG 1,000 ML IV PRN (08:37)
[2018-02-21] MEDS: DEXAMETHASONE SOD(*) 10MG/ML 10 MG in NS(*) 0.9% 50 ML BAG 50 ML IVP PRN (09:06)
[2018-02-21] MEDS: PALONOSETRON 0.25 MG/5 ML VIAL IVP PRN (09:06)
[2018-02-21] MEDS: FOSAPREPITANT DIM 150 MG/5 ML 150 MG in NS(*) 0.9% 250 ML BAG 245 ML IVPB PRN (10:06)
[2018-02-21] MEDS: NS(*) 0.9% 500 ML BAG 500 ML IV PRN (10:06)
[2018-02-21 11:25] VITALS: BP 119/84
[2018-02-21] MEDS: KCL IV PRN (11:49)
[2018-02-21] MEDS: MAGNESIUM SUL IV PRN (11:49)
[2018-02-21] MEDS: [UNRECOGNIZED DRUG - OTHER] IV PRN (11:49)
[2018-02-24 08:30] VITALS: BP 108/81
[2018-02-25 08:29] LABS: PLATELET COUNT, AUTOMATED 151 K/uL (150-450)
[2018-02-25 08:31] VITALS: BP 101/72
[2018-02-25] MEDS: NS(*) 0.9% 1000 ML BAG 1,000 ML IV PRN ×2 (08:31→09:38)
--- NOTE | 2018-02-25 10:59 | [facility] ONCOLOGY NOTE ---
EVENT DATE: February 25, 2018 DIAGNOSIS Right tonsillar squamous cell carcinoma. CHIEF COMPLAINT The patient is here today for her eighth week of cisplatin therapy, concurrent with radiation therapy for the treatment of right tonsillar carcinoma with right neck adenopathy. ONCOLOGY HISTORY Patient is a 37-year-old female who presented in 2014 with right cervical adenopathy, treated with steroid at that time with improvement. For the last few months lately, she presented again with hard right neck mass which was tender and hard in consistency. The patient was found to have asymmetry of the right tonsil. She had excisional biopsy of the deep neck mass and bilateral tonsillectomy done on December 16, 2017, by Dr. Smith. Pathology from surgery came back positive for invasive squamous cell carcinoma present in the edge of the specimen from the right neck mass. 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 There was perineural invasion present. Bilateral soft tissue neck was negative for malignancy, and the left tonsil was also negative for carcinoma. Tumor size was 1.3 cm. Lymph node invasion not identified. The tumor was staged as bT1. According to the pathologist, the soft tissue mass was not clear if those are replaced lymph nodes or not because they are entirely placed. The patient had CT of neck done on November 26, 2017, which showed multiple enlarged, right-sided level 2 and level 3 lymph nodes which could be reactive. There was mild symmetric enlargement of the palatine tonsils without evidence of intratonsillar or peritonsillar abscess. PET CT scan done on the December did reveal abnormal metabolic uptake in the right lingual tonsil, right cervical chain lymph nodes, and soft tissue posterior to the angle of the mandible on the right side, consistent with her squamous cell carcinoma. No evidence of metastasis in the chest, abdomen, and pelvis. Normal appearance of the left side of the neck. Patient started the chemoradiation on the December with weekly cisplatin therapy. HISTORY OF PRESENT ILLNESS Patient is here today for followup of her right tonsillar squamous cell carcinoma on chemoradiation with cisplatin weekly. This will be her eighth and last week of cisplatin. Patient developed extensive DVT of the left lower extremity recently. She is currently on Lovenox shots. She is complaining of significant vomiting and she did not respond to Sancuso patches. Her stool has started to be softer but she still is having some constipation. She has a bloody nose sometimes when she blows her nose. She has also chills. She has easy bruising and fatigue. She cannot eat well or drink well because of her vomiting and stomatitis too. PAST MEDICAL HISTORY Insignificant. PAST SURGICAL HISTORY 1. Cholecystectomy. 2. Tubal ligation. FAMILY HISTORY Mother had uterine cancer. Maternal great grandmother had ovarian cancer. SOCIAL HISTORY The patient is with three children. She works in an office for a store. She quit smoking in 2002 after half to one pack a day for six years. She seldom drinks alcohol. No abuse of illicit drugs. CURRENT MEDICATIONS 1. Ibuprofen. 2. Aleve. ALLERGIES HYDROCODONE causes nausea and vomiting. REVIEW OF SYSTEMS CONSTITUTIONAL: She has chills. HEENT: Ears: No tinnitus or hearing problem. Nose: She has occasional epistaxis. Throat: No sore throat or mouth ulcers. Eyes: No diplopia or visual changes. RESPIRATORY: No shortness of breath. She has cough with mucoid sputum. CARDIOVASCULAR: No chest pain, orthopnea, or paroxysmal nocturnal dyspnea (PND). No edema. No palpitations. GASTROINTESTINAL: She continues to have significant vomiting. GENITOURINARY: Patient has had heavy periods for years, and she has been seen by a flower planter, and she was offered uterine ablation, but the patient refused the procedure. As per patient, she has had heavy periods for a total of seven days every month. MUSCULOSKELETAL: No pain in the muscles, joints or bones. She has right back pain. NEUROLOGICAL: No tingling or numbness in the hands or feet. She has occasional headache. No convulsions. HEMATOLOGIC/LYMPHATIC: She bruises easily. She is weak, tired, and fatigued. SKIN: No skin rash or lumps. PSYCHIATRIC: No anxiety or depression. PHYSICAL EXAMINATION GENERAL: Looks stable. Well developed, well nourished, and in no acute distress. VITAL SIGNS: Blood pressure 101/72, pulse 82 per minute, respirations 17 per minute, temperature 97.1, pulse ox 97% on room air. HEENT: Head: Atraumatic. No sinus tenderness to palpation. Eyes: No icterus or conjunctivitis. Mouth and Throat: No oral thrush or mucositis. NECK: Right cervical lymphadenopathy is noted and is getting better. LUNGS: Clear to auscultation and percussion bilaterally. HEART: Regular rate and rhythm. No gallops, murmurs, clicks, or rubs. ABDOMEN: Soft and lax. No tenderness. No hepatosplenomegaly. No masses. EXTREMITIES: No cyanosis, clubbing, or edema. There is swelling in the left lower extremity, but with oft calf. There are some varicosities and bruises noticed in her left lower extremity. LYMPHATICS: No peripheral lymphadenopathy. NEUROLOGICAL: Conscious, alert, and oriented times three. No focal motor or sensory deficits. PSYCHIATRIC: Mood and affect appear normal. SKIN: No skin rash, bruise, or purpuric eruption. DIAGNOSTIC DATA CBC showed white count 2.1, hemoglobin 13, hematocrit 37.1, platelets 151,000. ANC is 1.7. Chem panel is totally normal except AST 36, ALT 67. Other parameters are normal. ASSESSMENT 1. Right tonsillar squamous cell carcinoma, human papillomavirus-mediated, with right neck adenopathy, status post excisional biopsy of the soft tissue mass and bilateral tonsillectomy done December 16, 2017. PET/CT scan done on January 07, 2018 did reveal abnormal metabolic uptake in the right lingual tonsil, right cervical chain lymph nodes and soft tissue posterior to the angle of the mandible on the right side. There is no evidence of systemic metastasis with normal appearance of the left side of the neck. Patient started chemoradiation with cisplatin weekly together with radiation therapy on January 10, 2018. She has received seven courses so far and she is planned to have her eighth and last course of cisplatin February 28, 2018. Her treatment is complicated with DVT of the left lower extremity, stomatitis, electrolyte disturbances and significant nausea and vomiting. I advised the patient if she will not be able to take the last course of cisplatin we will hold it and I will see her in a week with CBC, chem panel and magnesium level. 2. Chemistry-induced vomiting. Patient did not respond to Sancuso patches. I am planning to take the patches off now. I am planning to give her Zofran 16 mg intravenously. I will start Sancuso patches 1.5 mg every 72 hours together with the other antiemetics with Ativan, compazine, Zofran and Decadron. 3. Deep venous thrombosis, left lower extremity by Doppler ultrasound done on February 15, 2018. She is currently on Lovenox twice daily. I will continue for at least three months. 4. Dehydration. I am planning to infuse 2-liters of normal saline today. PLAN 1. Cisplatin week #8 as per schedule.. 2. Patient to return in one week with CBC, chem panel, and magnesium level. 3. Scopolamine patch 1.5 mg every 72 hours. 4. Continue other antiemetics as needed. 5. Patient to contact us for any new concerns or complaints. < MTDD
[2018-02-25 11:43] VITALS: BP 114/68
[2018-02-28 08:29] VITALS: BP 100/66
[2018-02-28] MEDS: NS(*) 0.9% 1000 ML BAG 1,000 ML IV PRN (08:40)
[2018-02-28] MEDS: D5NS(*) 1000 ML BAG 1,000 ML IV PRN (10:11)
[2018-02-28 12:14] VITALS: BP 113/71
[2018-03-02] MEDS: D5NS(*) 1000 ML BAG 1,000 ML IV PRN (08:20)
[2018-03-02 08:24] VITALS: BP 115/79
[2018-03-02] MEDS: PALONOSETRON 0.25 MG/5 ML VIAL IVP PRN (08:47)
[2018-03-05 13:16] VITALS: Ht 160.5 cm; Wt 72.3 kg
[2018-03-11 09:15] VITALS: BP 95/68
[2018-03-11 09:26] LABS: PLATELET COUNT, AUTOMATED 168 K/uL (150-450)
[2018-03-11] MEDS: FILGRASTIM 480 MCG/1.6 ML VIAL SC PRN (10:19)
[2018-03-12] MEDS: FILGRASTIM 480 MCG/1.6 ML VIAL SC PRN (09:53)
[2018-03-12 10:18] VITALS: BP 105/70
[2018-03-12 12:11] VITALS: BP 111/83
[2018-03-13] MEDS: FILGRASTIM 480 MCG/1.6 ML VIAL SC PRN (09:39)
[2018-03-13 09:42] VITALS: BP 112/82
[2018-03-14 08:57] VITALS: BP 116/75
[2018-03-14 09:04] LABS: PLATELET COUNT, AUTOMATED 217 K/uL (150-450)
[~2018-03-21] VITALS: Ht 160.5 cm; Wt 72.3 kg
[~2018-03-21 08:37] MED LIST changes: +ALTEPLASE RECOMB 2 MG VIAL IVP PRN; +CISPLATIN IVPB ONE; +D5 1/2 NS(*) 1000 ML BAG 1,000 ML IV PRN; +DEXTROSE 5%(*) 100 ML BAG 100 ML IVPB PRN; +IOPAMIDOL 76% 75 ML INFUS BTL 75 ML ONE; +KCL IV PRN; +KCL/NS* 20 MEQ/1000 ML PREMIX 1,000 ML IV ONE; +KCL/NS* 20 MEQ/1000 ML PREMIX 1,000 ML IV SCH; +LORazepam 2 MG/ML VIAL IVP ONE; +MAGNESIUM SUL IV PRN; +METO-224 PO; +METOCLOPRAMIDE 10 MG/2 ML SDV IVP ONE; +NS 0.9% IVPB ONE; +NS(*) 0.9% 100 ML BAG 100 ML IVPB PRN; +ONDANSETRON IVPB ONE; +WATER FOR INJ,STERILE 20 ML IVP PRN; +[UNRECOGNIZED DRUG - OTHER] IV PRN
[2018-03-21 08:55] VITALS: BP 101/62
[2018-03-21 09:14] LABS: PLATELET COUNT, AUTOMATED 372 K/uL (150-450)
[2018-03-21] MEDS ORDERED: PROC10TA4 PO (10:20)
[2018-03-21] MEDS ORDERED: ONDA4TAB PO (10:20)
[2018-03-22] MEDS ORDERED: ESOM40CA42 PO (13:11)
[2018-03-22] MEDS ORDERED: SUCR1TAB51 PO (13:16)
[2018-03-22] MEDS ORDERED: LORA-1455 PO (13:16)
== END 2018-03-22 ==
LOC: SPU 08:37
PROVIDERS: ATTEND Internal Medicine Hematology
DX: Z51.11 Encounter for antineoplastic chemotherapy (principal); C09.9 Malignant neoplasm of tonsil, unspecified; R59.0 Localized enlarged lymph nodes; Z87.891 Personal history of nicotine dependence
CPT/HCPCS: 36415; 36569; 76937; 83735; 84100; 85025; 85027; 96361; 96365; 96366; 96367; 96372; 96374; 96375; 96413; 99202; 99212; C1751; J1100; J1442; J1453; J2060; J2405; J2469; J2765; J2997; J3475; J3480; J7030; J7040; J7042; J7050; J9060; Q9967; 36592; 82040; 82247; 82310; 82374; 82435; 82565; 82947; 84075; 84132; 84155; 84295; 84450; 84460; 84520; 96360

== ENCOUNTER 2018-03-21 10:03 | Inpatient (IN) | payer SELFPAY ==
[2018-03-05 13:16] VITALS: Ht 160 cm; Wt 66.7 kg
[2018-03-21] VITALS (12 sets, daily range): BP systolic 94–117; BP diastolic 57–93
[~2018-03-21] VITALS: Ht 160 cm; Wt 66.7 kg
[~2018-03-21 10:03] MED LIST changes: -ALTEPLASE RECOMB 2 MG VIAL IVP PRN; -CISPLATIN IVPB ONE; -D5 1/2 NS(*) 1000 ML BAG 1,000 ML IV PRN; -DEXTROSE 5%(*) 100 ML BAG 100 ML IVPB PRN; -IOPAMIDOL 76% 75 ML INFUS BTL 75 ML ONE; -KCL IV PRN; -KCL/NS* 20 MEQ/1000 ML PREMIX 1,000 ML IV ONE; -KCL/NS* 20 MEQ/1000 ML PREMIX 1,000 ML IV SCH; -LORazepam 2 MG/ML VIAL IVP ONE; -MAGNESIUM SUL IV PRN; -METOCLOPRAMIDE 10 MG/2 ML SDV IVP ONE; -NS 0.9% IVPB ONE; -NS(*) 0.9% 100 ML BAG 100 ML IVPB PRN; -ONDANSETRON IVPB ONE; -WATER FOR INJ,STERILE 20 ML IVP PRN; -[UNRECOGNIZED DRUG - OTHER] IV PRN
--- NOTE | 2018-03-21 10:10 | ER Report ---
History and Physical Time Seen By MD: 10:10 HPI/ROS CHIEF COMPLAINT: hypokalemia, hypomagnesemia HISTORY OF PRESENT ILLNESS: Patient is status post chemotherapy for squamous cell cancer of the head and neck. Her last chemotherapy was 3 weeks ago and she is now completed her course of chemotherapy. However, patient's course has been complicated by decreased ability to take by mouth, frequent vomiting, and electrolyte abnormalities. Today she was seen at the oncology center and noted to have hypo-Caroline mat and hypomagnesemia. Patient is also experiencing palpitations and mild tightness in the mid chest. She states that she has had the palpitations primarily for the last day and has had somewhat similar symptoms in the past. Patient does have a left DVT for which she is getting Lovenox injections nightly. Patient does feel slightly short of breath with exertion. She has never had pulmonary embolism. REVIEW OF SYSTEMS: Constitutional: No fever, no chills. Eyes: No discharge. ENT: No sore throat. Cardiovascular: above Respiratory: mild sob on exertion Gastrointestinal: vomiting x 1 daily Genitourinary: No hematuria. Musculoskeletal: No back pain. Skin: No rashes. Neurological: No headache. Remainder of the 14 system rev: Yes Allergies: Coded Allergies: hydrocodone (Verified Allergy, Intermediate, MIGRAINE HEADACHES, 03/21/18) Home Meds Active Scripts Enoxaparin Sodium (LOVENOX) 120 Mg/0.8 Ml Disp.syrin, 120 MG SQ DAILY for 14 Days, #14 SYR Prov:MARK JUDD DO 02/15/18 Reported Medications Prochlorperazine Maleate (Compazine) 10 Mg Tablet, 0.5 TAB PO DAILY 03/21/18 Ondansetron (ZOFRAN ODT) 4 Mg Tab.rapdis, 4 MG PO BID, TAB.JUSTUS 03/21/18 Docusate Sodium (COLACE) 100 Mg Capsule, 100 MG PO DAILY PRN for CONSTIPATION, CAPSULE 03/05/18 Lorazepam (ATIVAN) 0.5 Mg Tablet, 1-2 TAB PO Q6H PRN for ANXIETY, #30 TAB 1 Refill 01/05/18 Discontinued Reported Medications Fluconazole (FLUCONAZOLE) 200 Mg Tablet, 200 MG PO QODAY 03/05/18 Potassium Chloride (POTASSIUM CHLORIDE) 20 Meq Tab.er.prt, 1 TAB PO BID 02/15/18 Nystatin (Nystatin) 100,000 Unit/Ml Oral.susp, 4 ML PO TID 02/15/18 [magic mouthwash MCK] No Conflict Check, 15 ML PO Q4H PRN for PAIN lidocaine/maalox 50/50 viscous 02/15/18 Dexamethasone 4 Mg Tab (DEXAMETHASONE 4 MG TAB) 4 Mg Tab, 4 MG PO Q4H PRN for NAUSEA, TAB 02/15/18 Acetaminophen with Codeine (Acetamin-Codein 300-30 mg/12.5) 12.5 Ml Solution, 2- 5 ML PO Q6H PRN for PAIN 02/15/18 Discontinued Scripts Metoclopramide Hcl (METOCLOPRAMIDE HCL) 10 Mg Tablet, 10 MG PO Q6H PRN for NAUSEA, #30 TAB Prov:BAILEY FRANCO DO 03/09/18 Reviewed Nurses Notes: Yes Old Medical Records Reviewed: Yes Hx Smoking: Yes Smoking Status: Former Smoker Hx Substance Use Disorder: No Hx Alcohol Use: No Constitutional Vital Sign - Last 24 Hours 03/21/18 03/21/18 03/21/18 03/21/18 10:09 10:09 10:33 11:00 Temp 98.6 Pulse 110 99 Resp 16 9 B/P (MAP) 112/80 112/80 (91) 103/72 (82) Pulse Ox 100 99 O2 Delivery Room Air 03/21/18 03/21/18 03/21/18 03/21/18 11:03 11:30 11:33 11:45 Pulse 95 88 91 Resp 11 6 10 B/P (MAP) 114/80 (91) Pulse Ox 98 100 96 03/21/18 03/21/18 03/21/18 03/21/18 12:00 12:15 12:30 12:45 Pulse 90 90 98 92 Resp 21 14 10 8 B/P (MAP) 97/71 (80) 94/78 (83) Pulse Ox 100 100 100 98 03/21/18 03/21/18 03/21/18 03/21/18 13:00 13:15 13:30 13:45 Pulse 95 95 93 Resp 16 12 14 11 B/P (MAP) 102/61 (75) 102/64 (77) Pulse Ox 100 99 96 100 03/21/18 03/21/18 03/21/18 03/21/18 14:00 14:15 14:30 14:44 Pulse 95 93 96 Resp 14 12 B/P (MAP) 99/69 (79) 100/68 (79) Pulse Ox 99 100 100 03/21/18 03/21/18 03/21/18 14:45 15:00 15:15 Pulse 99 101 97 Resp 15 12 9 B/P (MAP) 106/82 (90) Pulse Ox 100 100 99 Intake and Output 03/21/18 03/21/18 03/22/18 15:00 23:00 07:00 Intake Total 50 ml Balance 50 ml Physical Exam General Appearance: The patient is alert, has no immediate need for airway protection and no signs of toxicity. Eyes: Pupils equal and round no pallor or injection. ENT, Mouth: Mucous membranes are moist. Respiratory: There are no retractions, lungs are clear to auscultation. Cardiovascular: Regular rate and rhythm. Gastrointestinal: Abdomen is soft and non tender, no masses, bowel sounds normal. Neurological: alert, oriented, nad Skin: Warm and dry, no rashes. Musculoskeletal: Extremities are nontender, nonswollen and have full range of motion. DIFFERENTIAL DIAGNOSIS: After history and physical exam differential diagnosis was considered for electrolyte emergency, PE/ acs/ arrhythmia, or other emergent etiology or complication. Medical Decision Making Data Points Result Diagram: 03/22/1850903/22/18509 Laboratory EKG/Imaging EKG Interpretation 12 lead EKG: Rhythm: sinus tachycardia; rate 101 Pearl: normal QRS: normal ST segments: st depressions II, III, avF, V5-6 QT 490 Rpt ekg's; NSR, improving st depressions however QT - 528-525 Monitor Interpretation: Sinus Tachycardia Imaging X-ray: chest was obtained. I viewed the images myself on the PACS system. My interpretation of the images is: NACPD. The radiologist interpretation had no clinically significant variation from this interpretation. ED Course/Re-evaluation Clinical Indication for ER IV: Hydration ED Course Patient presents with hypokalemia, hypomagnesemia and dehydration, malnutrition due to vomiting as complication of chemotherapy. She also presents with pal pitations and borderline tachycardia. ED evaluation for electrolyte abnormalities, malnutrition, as well as PE given history of DVT and palpitations. Patient's symptoms improved with repletion, however repeat labwork shows worsening hypokalemia and EKG shows increased QT despite repletion. At this point, patient requires continued telemetry and admission for further repletion and nutrition. While I considered PE, her symptoms do improve with repletion and at this point recommend further repletion. Consider inpatient echo or further imaging if patient becomes symptomatic. Decision to Disposition Date: Mar 21, 2018 Decision to Disposition Time: 15:07 Critical Care Time I spent a total of 65 minutes of critical care time in obtaining history, performing a physical exam, bedside monitoring of interventions, collecting and interpreting tests and discussion with consultants but not including time spent performing procedures - life threatening electrolyte emergency Depart Departure Latest Vital Signs Vital Signs Date Time Temp Pulse Resp B/P (MAP) Pulse Ox O2 Delivery O2 Flow Rate FiO2 03/21/18 15:15 97 9 99 03/21/18 15:00 106/82 (90) 03/21/18 10:09 98.6 Room Air Impression: Primary Impression: Hypokalemia Additional Impressions: Palpitations Prolonged QT interval Condition: Critical Disposition: Admitted from ER Referrals: MINERVA GARCIA MD (PCP) Additional Instructions: I recommend potassium (20 meq twice daily) and magnesium (64 meq twice daily) supplementation. I understand these pills can be difficult to keep down. The highest postassium containing foods are as follows: 1 cup acorn squash - 23 meq 1 baked potato with skin - 22 1 cup spinach - 21 1 cup lentils - 19 1 cup kidney beans - 18 watermelon - 14 1/2 cup raisins -14 1 cup plain yogurt - 14 1 cup orange juice - 13 1 banana - 12 1 cup 1% milk - 9 Problem Qualifiers WILFRED PHELPS MD Mar 21, 2018 10:10
[2018-03-21] MEDS ORDERED: PROC10TA4 PO (10:20)
[2018-03-21] MEDS ORDERED: ONDA4TAB PO (10:20)
--- NOTE | 2018-03-21 10:24 | EKG ---
FACILITY: [facility] PATIENT NAME: SAÚL SPARROW : [id number] MR: [id number] V: [id number] EXAM DATE: ORDERING PHYSICIAN: WILFRED PHELPS TECHNOLOGIST: SERGIO Reyes Reason : Blood Pressure : / mmHG Vent. Rate : 101 BPM Atrial Rate : 101 BPM P-R Int : 148 ms QRS Dur : 092 ms QT Int : 378 ms P-R-T Axes : 060 067 013 degrees QTc Int : 490 ms Sinus tachycardia Otherwise normal ECG No previous ECGs available Confirmed by BAILEY FRANCO ([id number]) on 03/21/2018 4:46:10 PM Referred By: Confirmed By:BAILEY FRANCO
[2018-03-21] MEDS ORDERED: MAGNESIUM SUL* 2 GM/50 ML IVPB 50 ML IVPB ONE (10:30)
[2018-03-21] MEDS ORDERED: LR(*) 1000 ML BAG 1,000 ML VA PRN (10:30)
[2018-03-21] MEDS: PROCHLORPERAZINE MAL 5 MG TAB PO ONE ×2 (10:30→10:47)
[2018-03-21] MEDS ORDERED: KCL (*) 20 MEQ/100 ML PREMIX 100 ML IV SCH (11:10)
[2018-03-21] MEDS ORDERED: POTASSIUM CHL 20 MEQ TABCR PO ONE (12:05)
[2018-03-21] MEDS ORDERED: ONDANSETRON 4 MG/2 ML VIAL IVP ONE (12:20)
--- NOTE | 2018-03-21 12:45 | EKG ---
FACILITY: [facility] PATIENT NAME: SAÚL SPARROW : [id number] MR: [id number] V: [id number] EXAM DATE: ORDERING PHYSICIAN: WILFRED PHELPS TECHNOLOGIST: RAMOS Reyes Reason : REPEAT EKG Blood Pressure : / mmHG Vent. Rate : 096 BPM Atrial Rate : 096 BPM P-R Int : 150 ms QRS Dur : 092 ms QT Int : 418 ms P-R-T Axes : 063 072 042 degrees QTc Int : 528 ms Normal sinus rhythm Prolonged QT Abnormal ECG When compared with ECG of 21-MAR-2018 10:19, No significant change was found Confirmed by BAILEY FRANCO ([id number]) on 03/21/2018 4:46:24 PM Referred By: MATTIE Confirmed By:BAILEY FRANCO
--- NOTE | 2018-03-21 13:28 | RADIOLOGY IMAGING REPORT ---
FACILITY: [facility] - [place] PATIENT NAME: Beba Plascencia : 1980 MR: [id number] V: [id number] EXAM DATE: ORDERING PHYSICIAN: WILFRED PHELPS TECHNOLOGIST: Location: [facility] [place] Patient: Beba Plascencia : 1980 Visit/Account:[id number] Date of Sevice: 03/21/2018 CHEST SINGLE AP Additional pertinent History: SOB COMPARISON STUDIES: None FINDINGS: Support lines and catheters: EKG wire leads Lungs and Pleura: Lung simpson well expanded with no infiltrates or consolidations. No parenchymal ma ss lesions are seen. There are no effusions Heart and vasculature: Negative. Leigha and Mediastinum: Negative. Bones and Chest wall: Negative. Upper Abdomen: Negative. IMPRESSION: 1. Negative chest Report Dictated By: Mahesh Mackay MD at 03/21/2018 1:23 PM Report E-Signed By: Mahesh Mackay MD at 03/21/2018 1:24 PM WSN:LUH
--- NOTE | 2018-03-21 14:30 | EKG ---
FACILITY: [facility] - [place] PATIENT NAME: SAÚL SPARROW : [id number] MR: [id number] V: [id number] EXAM DATE: ORDERING PHYSICIAN: WILFRED PHELPS TECHNOLOGIST: RAMOS Reyes Reason : REPEAT EKG Blood Pressure : / mmHG Vent. Rate : 095 BPM Atrial Rate : 095 BPM P-R Int : 162 ms QRS Dur : 092 ms QT Int : 418 ms P-R-T Axes : 058 066 045 degrees QTc Int : 525 ms Normal sinus rhythm Prolonged QT Abnormal ECG When compared with ECG of 21-MAR-2018 12:35, Nonspecific T wave abnormality, improved in Inferior leads Confirmed by BAILEY FRANCO ([id number]) on 03/21/2018 4:46:35 PM Referred By: MATTIE Confirmed By:BAILEY FRANCO
[2018-03-21] MEDS ORDERED: KCL (*) 20 MEQ/100 ML PREMIX 100 ML IV ONE (16:25)
[2018-03-21] MEDS ORDERED: INFLUENZA VIRUS VAC 0.5ML SYR IM ONLY ONE (16:35)
--- NOTE | 2018-03-21 16:54 | History & Physical ---
History of Present Illness Chief Complaint Low potassium History of Present Illness This patient was sent to the emergency room after she was found to have a low potassium on lab monitoring. She has a history of squamous cell carcinoma of the tonsils and has been unable to swallow much over the last several weeks. History Problems: (1) Squamous cell carcinoma of tonsil (2) Chemotherapy induced nausea and vomiting (3) Mucositis (ulcerative) due to antineoplastic therapy (4) Pancytopenia due to chemotherapy Status: Acute (5) Neutropenia Status: Acute Home Meds Active Scripts Enoxaparin Sodium (LOVENOX) 120 Mg/0.8 Ml Disp.syrin, 120 MG SQ DAILY for 14 Days, #14 SYR Prov:SHARRI BRANCHMARK DO 02/15/18 Reported Medications Prochlorperazine Maleate (Compazine) 10 Mg Tablet, 0.5 TAB PO DAILY 03/21/18 Ondansetron (ZOFRAN ODT) 4 Mg Tab.rapdis, 4 MG PO BID, TAB.JUSTUS 03/21/18 Docusate Sodium (COLACE) 100 Mg Capsule, 100 MG PO DAILY PRN for CONSTIPATION, CAPSULE 03/05/18 Lorazepam (ATIVAN) 0.5 Mg Tablet, 1-2 TAB PO Q6H PRN for ANXIETY, #30 TAB 1 Refill 01/05/18 Discontinued Reported Medications Fluconazole (FLUCONAZOLE) 200 Mg Tablet, 200 MG PO QODAY 03/05/18 Potassium Chloride (POTASSIUM CHLORIDE) 20 Meq Tab.er.prt, 1 TAB PO BID 02/15/18 Nystatin (Nystatin) 100,000 Unit/Ml Oral.susp, 4 ML PO TID 02/15/18 [magic mouthwash K] No Conflict Check, 15 ML PO Q4H PRN for PAIN lidocaine/maalox 50/50 viscous 02/15/18 Dexamethasone 4 Mg Tab (DEXAMETHASONE 4 MG TAB) 4 Mg Tab, 4 MG PO Q4H PRN for NAUSEA, TAB 02/15/18 Acetaminophen with Codeine (Acetamin-Codein 300-30 mg/12.5) 12.5 Ml Solution, 2- 5 ML PO Q6H PRN for PAIN 02/15/18 Discontinued Scripts Metoclopramide Hcl (METOCLOPRAMIDE HCL) 10 Mg Tablet, 10 MG PO Q6H PRN for NAUSEA, #30 TAB Prov:BAILEY FRANCO DO 03/09/18 Allergies: Coded Allergies: hydrocodone (Verified Allergy, Intermediate, MIGRAINE HEADACHES, 03/21/18) Patient History: FH: HTN (hypertension) Hx Smoking: Yes Smoking Status: Former Smoker Caffeine Intake: Coffee Caffeine/Cups Per Day: 2 Hx Alcohol Use: No Hx Substance Use Disorder: No (stopped most 1997; edible THC tried a couple weeks ago) Social Drug Use: Former Social Drugs: Marijuana, Meth, Cocaine Review of Systems All Systems Reviewed/Normal: Yes, Except as Noted Constitutional: Weight Loss Gastrointestinal: Nausea Exam Vital Signs Vital Signs Date Time Temp Pulse Resp B/P (MAP) Pulse Ox O2 Delivery O2 Flow Rate FiO2 03/21/18 15:45 96 8 96 03/21/18 15:30 102/70 (81) 03/21/18 10:09 98.6 Room Air Neuro: No Gross deficits Eyes: PERRLA Cardiovascular: Regular Rate and Rhythm Respiratory: Clear to Auscultation GI: Abd Soft and Non-Tender Extremities: No Edema Integumentary: No Cyanosis Medical Decision Making Data Points Result Diagram: 03/21/18 1348 EKG / Imaging EKG Interpretation EKG reviewed. Assessment and Plan Problems: (1) Hypokalemia Assessment & Plan: She did present with a profoundly low potassium level and a prolonged QT interval. We will replace her potassium overnight in the ICU. A repeat electrolyte panel is ordered for later tonight. (2) Prolonged QT interval Status: Acute (3) Hypomagnesemia Assessment & Plan: She received a dose of magnesium in the emergency room. A repeat level is ordered for later tonight. (4) DVT (deep venous thrombosis) Status: Acute Assessment & Plan: She is on chronic treatment with Lovenox. (5) Squamous cell carcinoma of tonsil Assessment & Plan: She is followed through the cancer center. (6) Neutropenia Status: Acute Assessment & Plan: Her last dose of Neupogen was 03/13. We will repeat a CBC in the morning. (7) Unspecified severe protein-calorie malnutrition Assessment & Plan: She has had difficulty maintaining her diet since her surgery and radiation treatments. We will see if home TPN might be an option. Social work has been consulted. Venous Thromboembolism Antithrombotics Is Pt On Any Antithrombotics?: Yes Exam Sepsis Risk: No Definite Risk BAILEY FRANCO DO Mar 21, 2018 16:54
[2018-03-21] MEDS ORDERED: LR(*) 1000 ML BAG 1,000 ML IV PRN (17:00)
[2018-03-21] MEDS ORDERED: LORazepam 2 MG/ML VIAL IVP ONE (20:30)
[2018-03-21] MEDS ORDERED: ENOXAPARIN 100 MG/ML SYR SC SCH (21:00)
[2018-03-22] VITALS (14 sets, daily range): BP systolic 87–126; BP diastolic 53–94
[2018-03-22 05:37] LABS: PLATELET COUNT, AUTOMATED 268 K/uL (150-450)
[2018-03-22] MEDS ORDERED: PROCHLORPERAZINE MAL 5 MG TAB PO PRN (08:05)
[2018-03-22] MEDS ORDERED: POTASSIUM CHL PWDR 20 MEQ PKT PO SCH (09:00)
[2018-03-22] MEDS ORDERED: PANTOPRAZOLE SOD 40 MG TABEC PO SCH (09:00)
--- NOTE | 2018-03-22 11:08 | Medical Nutrition Therapy ---
Nutrition Anthropometrics Height (Inches): 63.00 Height (Calculated Centimeters: 160.982431 Weight (Pounds): 147 Weight (Calculated Kilograms): 66.678 BMI: 26 Guille Nutrition Score: Very Poor Guille Nutrition Risk Score: 20 Dietary Referral Nutrition Risk Factors: Unplanned Loss >10lbs Nutrition Risk Comment: chemo, rad Physical Findings Physical Appearance: Overweight BMI 25-29 Skin Appearance Skin Appearance: Edema Edema Location Modifier: Edema Location: Type of Edema: Degree of Edema: Gastrointestinal Symptoms GI Symtoms: Nausea, Heartburn Tube Present: Bowel Sounds: Recent Bowel Pattern: Stool Characteristics: Nutrition/Food History Difficulty Swallowing, > 10 lb Wt Loss/1 Month N/V Nutritional Diagnosis Nutritional Risk Acuity 1: Malnutrition Nutritional Risk Acuity 2: Unintended Wt Loss >5%/mo Nutritional Risk Acuity 3: Nausea, Cancer Past Medical History: Hx of mucositis and squamous cell carcinoma of tonsils Nutritional Acuity: 1-High Nutrition Diagnosis: Inadequate Food Intake, Involuntary Wt. Loss Nutrition Etiology: Physiological Causes Nutrition Problem/Etiology/Sym: AEB poor intake with N/V, 73# (33%) wt loss in 4 months Energy Requirement: 2049 (M- StJ X 1.2 SF) Protein Requirement: 75 (68- 79 (1-1.2gm/kg)) Fluid Requirement: 1980 (30ml/kg) Diet Type: Diet as Tolerated ELEAZAR/REG Nutrition Intervention: Cont diet as ordered, Encourage intake, Between meal supplement Food Dislikes: NO CITRUS OR ACIDIC FOODS Additional Diet Restrictions: OFFER MAGIC CUP Diet Comment To [facility]: PUT PROTEIN POWDER IN APPROPRIATE FOODS Nutrition Monitoring & Eval Nutrition Goals: Eat 75-100% Meal RD Patient Assessment Time: [address] Assessment Type: RD Assessment Patient Nutrition Acuity: 1-High Follow Up Date: Mar 25, 2018 Nutritional Comment: 03/22 Pt admitted with hypokalemia and cont N/V. Pt with recent dx of Ca to tonsils. Pt reporting swallowing issues are resolved however cont have issues with N/V. Ate muffin and yogurt at [facility] and was taking small sips of fort milkshake snack. Pt has dx malnutrition. Concern for refeeding syndrome however Mg was WNR. K+ cont low at 3.2 but has improved from 2.3. Hgb 8.7, Hct 21.5. Obtained a few food preferences. Will cont to work with pt on providing foods pt can tolerate. Pt may need enteral or parenteral nutrition to maintain positive nutritional status. WENDY SALMON Mar 22, 2018 11:08
[2018-03-22] MEDS ORDERED: SUCRALFATE 1 GM TAB PO ONE (11:20)
[2018-03-22] MEDS ORDERED: ESOM40CA42 PO (13:11)
[2018-03-22] MEDS ORDERED: SUCR1TAB51 PO (13:16)
[2018-03-22] MEDS ORDERED: LORA-1455 PO (13:16)
--- NOTE | 2018-03-22 13:29 | Hospitalist Depart ---
Discharge Summary Reason for Hosp/Final Diag: (1) Hypokalemia Status: Acute Hospital Course & Plan: She did present with a profoundly low potassium level and a prolonged QT interval. She had been off her outpatient KCL because she had trouble with the pills. She has received replacement in the hospital and is near normal. She tried the powder form, but didn't like it. She thinks that she can tolerate the pills at home, so is to take it twice daily. BMP in about a week through the Cancer [facility]. (2) Prolonged QT interval Status: Acute Hospital Course & Plan: Secondary to Zofran. It has been stopped and the QTc has normalized. She has been instructed to stop the medication. (3) Hypomagnesemia Hospital Course & Plan: She received a dose of magnesium in the emergency room. Mg levels have been normal since admission. (4) DVT (deep venous thrombosis) Status: Acute Hospital Course & Plan: She is on chronic treatment with Lovenox. (5) Squamous cell carcinoma of tonsil Hospital Course & Plan: She is followed through the cancer center. (6) Neutropenia Status: Acute Hospital Course & Plan: Her last dose of Neupogen was 03/13. She hasn't had chemotherapy in a couple of weeks. She will get a follow up CBC through the Cancer Center in about a week. (7) Unspecified severe protein-calorie malnutrition Hospital Course & Plan: She has had difficulty maintaining her diet since her surgery and radiation treatments. She is slowly improving her oral intake, but is limited by nausea after eating. Will try Carafate before meals with either Compazine or Ativan. (8) Dysuria Status: Acute Hospital Course & Plan: She had burning last night, but that has resolved this morning. UA this morning showed pyuria with 20 wbc, but many SCE. Because she is afebrile and now asymptomatic, will not treat. Departure Weight (Pounds): 147 Weight (Ounces): 8.0 Result Diagram: 03/22/1850903/22/18509 Item Value Date Time Urine Leukocyte Esterase Small H 03/22/18 0830 Urine RBC <1 /HPF 03/22/18 0830 Urine WBC 20 /HPF 03/22/18 0830 Urine Squamous Epithelial Cells Many /LPF H 03/22/18 0830 Urine Transitional Epithelial Cells Few /LPF 03/22/18 0830 Urine Bacteria Many /HPF H 03/22/18 0830 Urine Mucus None /HPF 03/22/18 0830 Urine Nitrite Negative 03/22/18 0830 Neutrophils % (Manual) 30 % L 03/22/18 0510 Band Neutrophils % 10 % 03/22/18 0510 Lymphocytes % (Manual) 28 % 03/22/18 05 Atypical Lymphocytes % 8 % 03/22/18 05 Monocytes % (Manual) 21 % H 03/22/18 0510 White Blood Count 1.7 k/uL *L 03/22/18 0510 Hemoglobin 8.7 g/dL *L 03/22/18 0510 Platelet Count 268 K/uL 03/22/18 05 Potassium Level 2.3 mmol/L *L 03/21/18 1348 Potassium Level 3.6 mmol/L 03/21/181950 Potassium Level 3.2 mmol/L L 03/22/18 05 Sodium Level 129 mmol/L L 03/22/18 05 Sodium Level 130 mmol/L L 03/21/181950 Sodium Level 128 mmol/L L 03/21/18 1348 Blood Urea Nitrogen 7 mg/dl 03/21/18 1348 Blood Urea Nitrogen 6 mg/dl L 03/21/181950 Blood Urea Nitrogen 5 mg/dl L 03/22/18 0510 Creatinine 0.70 mg/dl 03/22/18 05 Creatinine 0.70 mg/dl 03/21/181950 Creatinine 0.70 mg/dl 03/21/18 1348 Imaging CXR - 1. Negative chest EKG ECG this morning had a QTc of about 460 and she was in a NSR Vent. Rate : 095 BPM Atrial Rate : 095 BPM P-R Int : 162 ms QRS Dur : 092 ms QT Int : 418 ms P-R-T Axes : 058 066 045 degrees QTc Int : 525 ms Normal sinus rhythm Prolonged QT Abnormal ECG When compared with ECG of 21-MAR-2018 12:35, Nonspecific T wave abnormality, improved in Inferior leads Confirmed by BAILEY FRANCO ([id number]) on 03/21/2018 4:46:35 PM Vent. Rate : 096 BPM Atrial Rate : 096 BPM P-R Int : 150 ms QRS Dur : 092 ms QT Int : 418 ms P-R-T Axes : 063 072 042 degrees QTc Int : 528 ms Normal sinus rhythm Prolonged QT Abnormal ECG When compared with ECG of 21-MAR-2018 10:19, No significant change was found Confirmed by BAILEY FRANCO ([id number]) on 03/21/2018 4:46:24 PM Vent. Rate : 101 BPM Atrial Rate : 101 BPM P-R Int : 148 ms QRS Dur : 092 ms QT Int : 378 ms P-R-T Axes : 060 067 013 degrees QTc Int : 490 ms Sinus tachycardia Otherwise normal ECG No previous ECGs available Confirmed by BAILEY FRANCO ([id number]) on 03/21/2018 4:46:10 PM Condition: Improved Discharge: Home Discharge Instructions Home Meds Active Scripts Sucralfate (SUCRALFATE) 1 Gm Tablet, 1 GM PO ACHS, #28 1 Refill Prov:STEFFEN SQUIRES MD 03/22/18 Lorazepam (ATIVAN) 0.5 Mg Tablet, 1-2 TAB PO Q6H PRN for nausea, #30 TAB Prov:STEFFEN SQUIRES MD 03/22/18 Enoxaparin Sodium (LOVENOX) 120 Mg/0.8 Ml Disp.syrin, 120 MG SQ DAILY for 14 Days, #14 SYR Prov:MARK JUDD DO 02/15/18 Reported Medications Esomeprazole Magnesium (NEXIUM) 40 Mg Capsule.dr, 1 CAP PO QDAY, CAP 03/22/18 Prochlorperazine Maleate (Compazine) 10 Mg Tablet, 0.5-1 TAB PO Q8H PRN for nausea 03/21/18 Docusate Sodium (COLACE) 100 Mg Capsule, 100 MG PO DAILY PRN for CONSTIPATION, CAPSULE 03/05/18 Discontinued Reported Medications Ondansetron (ZOFRAN ODT) 4 Mg Tab.rapdis, 4 MG PO BID, TAB.JUSTUS 03/21/18 Fluconazole (FLUCONAZOLE) 200 Mg Tablet, 200 MG PO QODAY 03/05/18 Potassium Chloride (POTASSIUM CHLORIDE) 20 Meq Tab.er.prt, 1 TAB PO BID 02/15/18 Nystatin (Nystatin) 100,000 Unit/Ml Oral.susp, 4 ML PO TID 02/15/18 [magic mouthwash MCK] No Conflict Check, 15 ML PO Q4H PRN for PAIN lidocaine/maalox 50/50 viscous 02/15/18 Dexamethasone 4 Mg Tab (DEXAMETHASONE 4 MG TAB) 4 Mg Tab, 4 MG PO Q4H PRN for NAUSEA, TAB 02/15/18 Acetaminophen with Codeine (Acetamin-Codein 300-30 mg/12.5) 12.5 Ml Solution, 2- 5 ML PO Q6H PRN for PAIN 02/15/18 Discontinued Scripts Metoclopramide Hcl (METOCLOPRAMIDE HCL) 10 Mg Tablet, 10 MG PO Q6H PRN for NAUSEA, #30 TAB Prov:BAILEY FRANCO DO 03/09/18 Activity: As Tolerated Special Instructions: Follow up with the [facility] of 03/28 to get labs (i.e. BMP/CBC) Go to the ER for fevers, chills, easy bruising, or worsening nausea/vomiting Copies to: SHIV GALDAMEZ MD ; Venous Thromboembolism Antithrombotics Is Pt On Any Antithrombotics?: Yes STEFFEN SQUIRES MD Mar 22, 2018 13:29
[2018-03-22] MEDS ORDERED: LORazepam 0.5 MG TAB PO ONE (14:30)
--- NOTE | 2018-03-22 14:43 | EKG ---
[place] [facility] [place] NAME: SAÚL SPARROW : [id number] MR: [id number] V: [id number] EXAM DATE: ORDERING PHYSICIAN: STEFFEN SQUIRES TECHNOLOGIST: SERGIO Reyes Reason : Blood Pressure : / mmHG Vent. Rate : 092 BPM Atrial Rate : 092 BPM P-R Int : 152 ms QRS Dur : 088 ms QT Int : 374 ms P-R-T Axes : 061 069 039 degrees QTc Int : 462 ms Normal sinus rhythm Normal ECG When compared with ECG of 21-MAR-2018 14:25, QT has shortened Confirmed by STEFFEN SQUIRES ([id number]) on 03/22/2018 8:29:39 PM Referred By: TAVIA Confirmed By:STEFFEN SQUIRES
== END 2018-03-22 14:53 | disposition home or self-care (01) | DRG 640 ==
LOC: ER 10:18 → MED 15:23 → ICU 16:00
PROVIDERS: ADMIT Family Medicine; ATTEND Family Medicine
DX: E87.6 Hypokalemia (principal); E43 Unspecified severe protein-calorie malnutrition; I82.502 Chronic embolism and thrombosis of unspecified deep veins of left lower extremity; I45.81 Long QT syndrome; E86.0 Dehydration; T45.0X5A Adverse effect of antiallergic and antiemetic drugs, initial encounter; E83.42 Hypomagnesemia; C09.9 Malignant neoplasm of tonsil, unspecified; D70.1 Agranulocytosis secondary to cancer chemotherapy; Z68.26 Body mass index [BMI] 26.0-26.9, adult; Z88.5 Allergy status to narcotic agent; Z87.891 Personal history of nicotine dependence; Z90.49 Acquired absence of other specified parts of digestive tract
CPT/HCPCS: 36415; 71045; 81001; 82310; 82374; 82435; 82565; 82947; 83735; 84132; 84295; 84520; 85025; 93005; 96365; 96367; 96375; 99291; J1650; J2060; J2405; J3475; J3480; J7120; Q0164

== ENCOUNTER → 2018-03-24 | Outpatient (CLI) | payer SELFPAY ==
[2018-03-05 13:16] VITALS: BMI 28.7
[~2018-03-24] MED LIST changes: +ESOM40CA42 PO; +SUCR1TAB51 PO
[2018-03-24 10:16] VITALS: BP 136/60
[2018-03-24 10:19] LABS: PLATELET COUNT, AUTOMATED 412 K/uL (150-450)
--- NOTE | 2018-03-24 11:23 | Pharmacy Note ---
Pharmacy Note Date Provider Notified: Mar 24, 2018 Time Provider Notified: 11:15 Provider Notified: Dr. Hunter Cohen Note: 38 yo F who presented [facility] the [facility] for follow up labs, post inpatient stay for hypokalemia, QTc prolongation, and neutropenia. Pt reported an inability to swallow her carafate tablets. Discussed with Dr. Cohen switching her to Carafate suspension. Dr. Cohen authorized Carafate suspension 10 ml po prior to meals and at bedtime, 280mL with no refills to be called in to her pharmacy ([place], [place]). Suzanne Angel, PharmD, BCOP SUZANNE ANGEL Mar 24, 2018 11:23
== END ==
LOC: SPU 10:01
PROVIDERS: ATTEND Internal Medicine
DX: D70.9 Neutropenia, unspecified (principal)
CPT/HCPCS: 36415; 85025

== ENCOUNTER 2018-04-12 13:26 | Inpatient (IN) | payer SELFPAY ==
[~2018-04-12] VITALS: Ht 160 cm; Wt 65.8 kg
[2018-04-12] MEDS ORDERED: DEXTROSE 50% 50 ML SYR IVP ONE (13:35)
[2018-04-12] MEDS ORDERED: NS(*) 0.9% 1000 ML BAG 1,000 ML IV ONE (13:35)
--- NOTE | 2018-04-12 13:35 | ER Report ---
History and Physical Time Seen By MD: 13:35 HPI/ROS CHIEF COMPLAINT: Confusion, weakness, nausea, vomiting, dehydration HISTORY OF PRESENT ILLNESS: Patient is a 38-year-old female with a history of malignancy here with complaints as today history of confusion, weakness, dehydration, decreased oral intake due to nausea and vomiting. Patient reports that she has been unable to take some of her medications due to persistent nausea and vomiting and has had decreased oral intake including food and fluids. Patient is afebrile, tachycardic at time of evaluation. Patient complains of increased fatigue and weakness. REVIEW OF SYSTEMS: Constitutional: No fever, no chills. Eyes: No discharge. ENT: No sore throat. Cardiovascular: No chest pain, no palpitations. Respiratory: No cough, no shortness of breath. Gastrointestinal: No abdominal pain, + nausea/ vomiting. Genitourinary: No hematuria. Musculoskeletal: No back pain. Skin: No rashes. Neurological: No headache. Allergies: Coded Allergies: hydrocodone (Verified Allergy, Intermediate, MIGRAINE HEADACHES, 04/12/18) Home Meds Active Scripts Lorazepam (ATIVAN) 0.5 Mg Tablet, 1-2 TAB PO Q6H PRN for nausea, #30 TAB Prov:STEFFEN SQUIRES MD 03/22/18 Enoxaparin Sodium (LOVENOX) 120 Mg/0.8 Ml Disp.syrin, 120 MG SQ DAILY for 14 Days, #14 SYR Prov:MARK JUDD DO 02/15/18 Reported Medications Esomeprazole Magnesium (NEXIUM) 40 Mg Capsule.dr, 1 CAP PO QDAY, CAP 03/22/18 Prochlorperazine Maleate (Compazine) 10 Mg Tablet, 0.5-1 TAB PO Q8H PRN for nausea 03/21/18 Docusate Sodium (COLACE) 100 Mg Capsule, 100 MG PO DAILY PRN for CONSTIPATION, CAPSULE 03/05/18 Discontinued Scripts Sucralfate (SUCRALFATE) 1 Gm Tablet, 1 GM PO ACHS, #28 1 Refill Prov:STEFFEN SQUIRES MD 03/22/18 Hx Smoking: Yes Smoking Status: Former Smoker Hx Substance Use Disorder: No Hx Alcohol Use: No Constitutional Vital Sign - Last 24 Hours 04/12/18 04/12/18 04/12/18 04/12/18 13:26 13:32 13:38 13:39 Temp 98.0 Pulse ??? 121 Resp 20 B/P (MAP) 118/96 (103) 115/74 (88) 115/74 Pulse Ox 97 O2 Delivery Room Air 04/12/18 04/12/18 04/12/18 04/12/18 13:41 13:56 14:11 14:13 Pulse 122 125 117 Resp 35 29 15 B/P (MAP) 113/78 (90) Pulse Ox 96 99 98 O2 Delivery Room Air Room Air Room Air 04/12/18 04/12/18 04/12/18 04/12/18 14:30 14:33 14:38 14:53 Pulse 110 110 101 Resp 24 22 14 B/P (MAP) 103/68 (80) Pulse Ox 100 100 100 O2 Delivery Room Air 04/12/18 04/12/18 04/12/18 04/12/18 15:00 15:08 15:13 15:28 Pulse 104 102 102 Resp 18 22 21 B/P (MAP) 114/89 (97) Pulse Ox 100 100 100 O2 Delivery Room Air 04/12/18 04/12/18 04/12/18 04/12/18 15:30 15:43 15:48 16:00 Pulse 105 103 Resp 15 18 B/P (MAP) 104/93 (97) 107/84 (92) Pulse Ox 100 100 04/12/18 16:03 Pulse 107 Resp 15 Pulse Ox 100 Intake and Output 04/12/18 04/12/18 04/13/18 15:00 23:00 07:00 Intake Total 1000 ml Balance 1000 ml Physical Exam General Appearance: alert, well hydrated, has no immediate need for airway protection and no signs of toxicity. NAD Eyes: No conjunctival injection, no drainage. ENT, mouth: TMs are clear bilaterally, no injection, no evidence of serous otitis. Throat: There is no erythema or exudates, no tonsillar hypertrophy. Respiratory: There are no retractions, lungs are clear to auscultation. Cardiac: + tachycardic Gastrointestinal: Abdomen is soft, no masses, no apparent tenderness. Neurological: Alert, appropriate and interactive. The child is moving all extremities and appropriate for age. Skin: No rashes, no nodules on palpation. Musculoskeletal: Neck: Supple, non tender, no lymphadenopathy. Extremities: No swelling, normal range of motion [DIFFERENTIAL DIAGNOSIS: After history and physical exam differential diagnosis was considered for] [ ] Medical Decision Making Data Points Result Diagram: 04/13/18 0548 04/13/18 0000 Laboratory Hematology Test 04/12/18 13:54 04/12/18 14:05 04/12/18 14:52 Whole Blood Glucose 126 mg/DL (75-110) Thyroid Stimulating Hormone (TSH) 1.13 uIU/ml (0.46-4.68) Human Chorionic Gonadotropin, Qual Negative (NEGATIVE) Serum Alcohol < 10 mg/dl Carboxyhemoglobin 0.0 % (< 5.0) Ammonia < 9 UMOL/L (9-33) Lipase 215 U/L (23-300) Chemistry Test 04/12/18 13:54 04/12/18 14:05 04/12/18 14:52 Whole Blood Glucose 126 mg/DL (75-110) Thyroid Stimulating Hormone (TSH) 1.13 uIU/ml (0.46-4.68) Human Chorionic Gonadotropin, Qual Negative (NEGATIVE) Serum Alcohol < 10 mg/dl Carboxyhemoglobin 0.0 % (< 5.0) Ammonia < 9 UMOL/L (9-33) Lipase 215 U/L (23-300) Toxicology Test 04/12/18 14:05 Serum Alcohol < 10 mg/dl EKG/Imaging EKG Interpretation Test Reason : WEAKNESS Blood Pressure : / mmHG Vent. Rate : 112 BPM Atrial Rate : 112 BPM P-R Int : 146 ms QRS Dur : 100 ms QT Int : 366 ms P-R-T Axes : 074 073 268 degrees QTc Int : 499 ms Sinus tachycardia Right atrial enlargement ST and T wave abnormality, consider inferolateral ischemia QTc prolonged When compared with ECG of 22-MAR-2018 11:25, ST now depressed in Inferior leads ST now depressed in Lateral leads T wave inversion now evident in Inferior leads T wave inversion now evident in Lateral leads QTc prolonged Confirmed by STEFFEN SQUIRES ([id number]) on 04/12/2018 6:13:12 PM Referred By: NAINA Confirmed By:STEFFEN SQUIRES Monitor Interpretation: Sinus Tachycardia Imaging Location: [facility] Patient: Beba Plascencia : 1980 Visit/Account:[id number] Date of Sevice: 04/12/2018 CHEST SINGLE AP Indication: Altered mental status.. Comparison: 03/21/2018. Findings: Cardiomediastinal silhouette and pulmonary vessels within normal limits. There is no focal infiltrate or lobar consolidation. No pneumothorax or pleural effusion. No nodule. Upper abdomen is unremarkable. No acute bony abnormality. EXAMINATION: Head CT without intravenous contrast HISTORY: Headache, blurry vision, weakness. Altered mental status. COMPARISON: None. TECHNIQUE: Contiguous axial images were obtained from the skull base to the vertex without intravenous contrast. Sagittal and coronal reformatted images are also submitted. One of the following dose optimization techniques was utilized in the performance of this exam: Automated exposure control; adjustment of the mA and/or kV according to the patient's size; or use of an iterative reconstruction technique. Specific details can be referenced in the facility's radiology CT exam operational policy. FINDINGS: Brain and intracranial structures: Ventricles, sulci, and cisterns are normal in size. Griffith-white matter differentiation is maintained. No midline shift, acute hemorrhage, acute infarct, or mass. Calvarium / scalp: Negative. Skull base / visualized face: Nasal septal spur on the left. Visualized sinuses / orbits: Negative. IMPRESSION: No CT evidence of acute intracranial pathology. ED Course/Re-evaluation ED Course Patient is a 38-year-old female here with complaints of confusion, general malaise, decreased appetite, decreased by mouth intake due to nausea and vomiting in the setting of malignancy of the tonsil status post chemotherapy and radiation therapy. Patient was noted to be tachycardic at time of evaluation, examining as dehydrated. Patient was also noted to be hypokalemic and was repleted with 40 mEq of oral potassium. Patient was hydrated with 1 L normal saline bolus. CT imaging of the head was completed due to patient report of confusion for the past 2 days in the setting of malignancy. Chest x-ray showed no acute injury thoracic infections or fluids. Due to the patient's history, signs of dehydration, patient was discussed with hospitalist on-call Dr. Squires who accepted the patient to his service. Patient was stable at time of admission. Decision to Disposition Date: Apr 12, 2018 Decision to Disposition Time: 16:20 Depart Departure Latest Vital Signs Vital Signs Date Time Temp Pulse Resp B/P (MAP) Pulse Ox O2 Delivery O2 Flow Rate FiO2 04/12/18 16:03 107 15 100 04/12/18 16:00 107/84 (92) 04/12/18 15:08 Room Air 04/12/18 13:26 98.0 Impression: Primary Impression: Dehydration Additional Impressions: Confusion Hypokalemia Condition: Improved Disposition: Admitted from ER Referrals: MINERVA GARCIA MD (PCP) [facility]A Problem Qualifiers FRANKIE CHEW DO Apr 12, 2018 13:35
--- NOTE | 2018-04-12 14:01 | EKG ---
FACILITY: [facility] [place] PATIENT NAME: SAÚL SPARROW : [id number] MR: [id number] V: [id number] EXAM DATE: ORDERING PHYSICIAN: FRANKIE CHEW TECHNOLOGIST: RAMOS Reyes Reason : WEAKNESS Blood Pressure : / mmHG Vent. Rate : 112 BPM Atrial Rate : 112 BPM P-R Int : 146 ms QRS Dur : 100 ms QT Int : 366 ms P-R-T Axes : 074 073 268 degrees QTc Int : 499 ms Sinus tachycardia Right atrial enlargement ST and T wave abnormality, consider inferolateral ischemia QTc prolonged When compared with ECG of 22-MAR-2018 11:25, ST now depressed in Inferior leads ST now depressed in Lateral leads T wave inversion now evident in Inferior leads T wave inversion now evident in Lateral leads QTc prolonged Confirmed by STEFFEN SQUIRES ([id number]) on 04/12/2018 6:13:12 PM Referred By: NAINA Confirmed By:STEFFEN SQUIRES
[2018-04-12 14:40] LABS: PLATELET COUNT, AUTOMATED 324 K/uL (150-450)
--- NOTE | 2018-04-12 14:49 | RADIOLOGY IMAGING REPORT ---
[place] [facility] [place]: Beba Plascencia : 1980 MR: [id number] V: [id number] EXAM DATE: ORDERING PHYSICIAN: FRANKIE CHEW TECHNOLOGIST: [place] [facility] [place]: Beba Plascencia : 1980 Visit/Account:[id number] Date of Sevice: 04/12/2018 CHEST SINGLE AP Indication: Altered mental status.. Comparison: 03/21/2018. Findings: Cardiomediastinal silhouette and pulmonary vessels within normal limits. There is no focal infiltrate or lobar consolidation. No pneumothorax or pleural effusion. No nodule. Upper abdomen is unremarkable. No acute bony abnormality. IMPRESSION: 1. No acute cardiopulmonary process. Report Dictated By: Juan Alberto Stanton at 04/12/2018 2:44 PM Report E-Signed By: Juan Alberto Stanton at 04/12/2018 2:45 PM WSN:[id number]
[2018-04-12] MEDS ORDERED: POTASSIUM CHL PWDR 20 MEQ PKT PO ONE (14:50)
--- NOTE | 2018-04-12 14:53 | RADIOLOGY IMAGING REPORT ---
FACILITY: [facility] - [place] PATIENT NAME: Beba Plascencia : 1980 MR: [id number] V: [id number] EXAM DATE: ORDERING PHYSICIAN: FRANKIE CHEW TECHNOLOGIST: Location: [facility] [place] Patient: Beba Plascencia : 1980 Visit/Account:[id number] Date of Sevice: 04/12/2018 EXAMINATION: Head CT without intravenous contrast HISTORY: Headache, blurry vision, weakness. Altered mental status. COMPARISON: None. TECHNIQUE: Contiguous axial images were obtained from the skull base to the vertex without intraven ous contrast. Sagittal and coronal reformatted images are also submitted. One of the following dose optimization techniques was utilized in the performance of this exam: Autom ated exposure control; adjustment of the mA and/or kV according to the patient's size; or use of an i terative reconstruction technique. Specific details can be referenced in the facility's radiology C T exam operational policy. FINDINGS: Brain and intracranial structures: Ventricles, sulci, and cisterns are normal in size. Griffith-white ma tter differentiation is maintained. No midline shift, acute hemorrhage, acute infarct, or mass. Calvarium / scalp: Negative. Skull base / visualized face: Nasal septal spur on the left. Visualized sinuses / orbits: Negative. IMPRESSION: No CT evidence of acute intracranial pathology. Report Dictated By: Louis Paez MD at 04/12/2018 2:42 PM Report E-Signed By: Louis Paez MD at 04/12/2018 2:49 PM WSN:[id number]
[2018-04-12 17:11] VITALS: BP 116/80
[2018-04-12] MEDS ORDERED: LORazepam 2 MG/ML VIAL IVP PRN (17:15)
--- NOTE | 2018-04-12 17:57 | History & Physical ---
History of Present Illness History of Present Illness 38yo female with SCC of tonsil who is status post chemo/radiation came to the ER for n/v/mild confusion. She hasn't had chemo/radiation for about 5 weeks. She was in the hospital for hypokalemia from n/v from 03/21 to 03/22. She was noted to have neutropenia. Since that admission, she was, initially, able to eat and drink. However, she has progressively having more nausea and vomiting, so hasn't been able to eat much. Compazine helps some. Her has noticed that she repeats herself at times. She denies throat pain, fevers, diarrhea. In the ER, she received a 1/2 amp of D50, a liter of fluid and 40meq of oral KCL. 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 Home Meds Active Scripts Lorazepam (ATIVAN) 0.5 Mg Tablet, 1-2 TAB PO Q6H PRN for nausea, #30 TAB Prov:STEFFEN SQUIRES MD 03/22/18 Enoxaparin Sodium (LOVENOX) 120 Mg/0.8 Ml Disp.syrin, 120 MG SQ DAILY for 14 Days, #14 SYR Prov:MARK JUDD DO 02/15/18 Reported Medications Esomeprazole Magnesium (NEXIUM) 40 Mg Capsule.dr, 1 CAP PO QDAY, CAP 03/22/18 Prochlorperazine Maleate (Compazine) 10 Mg Tablet, 0.5-1 TAB PO Q8H PRN for nausea 03/21/18 Docusate Sodium (COLACE) 100 Mg Capsule, 100 MG PO DAILY PRN for CONSTIPATION, CAPSULE 03/05/18 Discontinued Scripts Sucralfate (SUCRALFATE) 1 Gm Tablet, 1 GM PO ACHS, #28 1 Refill Prov:STEFFEN SQUIRES MD 03/22/18 Allergies: Coded Allergies: hydrocodone (Verified Allergy, Intermediate, MIGRAINE HEADACHES, 04/12/18) Patient History: FH: HTN (hypertension) Hx Smoking: Yes Smoking Status: Former Smoker Caffeine Intake: Coffee Caffeine/Cups Per Day: 2 Hx Alcohol Use: No Hx Substance Use Disorder: No (stopped most 1997; edible THC tried a couple weeks ago) Social Drug Use: Former Social Drugs: Marijuana, Meth, Cocaine Review of Systems All Systems Reviewed/Normal: Yes, Except as Noted Exam Vital Signs Vital Signs Date Time Temp Pulse Resp B/P (MAP) Pulse Ox O2 Delivery O2 Flow Rate FiO2 04/12/18 17:00 108/85 (93) 04/12/18 16:53 119 15 100 04/12/18 15:08 Room Air 04/12/18 13:26 98.0 General Appearance: Alert, Awake, No Acute Distress Neuro: No Gross deficits Eyes: PERRLA ENT: Moist Mucous Membranes Cardiovascular: Other (Tachy, regular) Respiratory: Clear to Auscultation, Other GI: Abd Soft and Non-Tender : No CVA Tenderness Extremities: No Edema Integumentary: No Jaundice, No Cyanosis Medical Decision Making Data Points Result Diagram: 04/12/18 1405 04/12/18 1405 Item Value Date Time Ammonia < 9 UMOL/L L 04/12/18 1452 Magnesium Level 2.4 mg/dl H 04/12/18 1405 White Blood Count 3.8 k/uL L 04/12/18 1405 Hemoglobin 13.6 g/dL 04/12/18 1405 Platelet Count 324 K/uL 04/12/18 1405 Neutrophils (%) (Auto) 75.9 % H 04/12/18 1405 Lymphocytes (%) (Auto) 11.2 % L 04/12/18 1405 Monocytes (%) (Auto) 11.9 % 04/12/18 1405 Eosinophils (%) (Auto) 0.3 % L 04/12/18 1405 Basophils (%) (Auto) 0.7 % 04/12/18 1405 Human Chorionic Gonadotropin, Qual Negative 04/12/18 1405 Thyroid Stimulating Hormone (TSH) 1.13 uIU/ml 04/12/18 1405 Albumin 4.4 g/dl 04/12/18 1405 Total Protein 7.2 g/dl 04/12/18 1405 Troponin I 0.032 ng/ml 04/12/18 1405 Total Bilirubin 1.6 mg/dl H 04/12/18 1405 Aspartate Amino Transf (AST/SGOT) 89 U/L H 04/12/18 1405 Alanine Aminotransferase (ALT/SGPT) 139 U/L H 04/12/18 1405 Potassium Level 3.3 mmol/L L 04/04/18 1025 Potassium Level 2.6 mmol/L *L 04/12/18 1405 Blood Urea Nitrogen 12 mg/dl 04/04/18 1025 Blood Urea Nitrogen 20 mg/dl H 04/12/18 1405 Creatinine 0.70 mg/dl 04/04/18 1025 Creatinine 0.70 mg/dl 04/12/18 1405 Random Glucose 120 mg/dl H 04/12/18 1405 Calcium Level 10.0 mg/dl 04/12/18 1405 Carboxyhemoglobin 0.0 % 04/12/18 1452 EKG / Imaging EKG Interpretation Sinus tachy, QTc prolonged, new ST-T abnormality in the inf/lat leads Imaging CXR - 1. No acute cardiopulmonary process. Head CT - No CT evidence of acute intracranial pathology. Assessment and Plan Problems: (1) Nausea & vomiting Status: Acute Assessment & Plan: Long standing issue since being on chemo/radiation. However, her last treatment appears to have been 02/21. It is unclear why she continues to have problems. Will hydrate, replace potassium, give IV Protonix, check a liver US and likely talk with Oncology. Phenergan and Ativan for nausea. (2) Hypokalemia Status: Acute Assessment & Plan: Secondary to n/v. Will have K in fluids and give IV 40mEq. Recheck in the morning. (3) ECG abnormality Status: Acute Assessment & Plan: She has some ST-T abnormalities, that are likely related to the hypopkalemia. However, she has ST-T changes in the inf/lat leads that are consistent with ischemia. She has no worrisome symptoms and troponin is negative. Will repeat the ECG and troponin in the morning. Will watch on telemetry. (4) LFT elevation Status: Acute Assessment & Plan: AST/ALT have been consistently elevated since 03/21. T bilirubin has been elevated since 04/04. Will follow and get a RUQ US. Abd exam is benign. Lipase is normal (5) DVT (deep venous thrombosis) Status: Chronic Assessment & Plan: Continue chronic Lovenox. 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 Bustamante and Anna. She is scheduled to see Dr. Galdamez in two days. Copies to: SHIV GALDAMEZ MD; JEREMÍAS BUSTAMANTE MD ; Venous Thromboembolism Antithrombotics Is Pt On Any Antithrombotics?: Yes Exam Sepsis Risk: No Definite Risk STEFFEN SQUIRES MD Apr 12, 2018 17:57
[2018-04-12] MEDS: KCL/D1/2NS 20 MEQ 1000 ML 1,000 ML IV PRN (18:22)
[2018-04-12] MEDS: KCL (*) 20 MEQ/100 ML PREMIX 100 ML IV SCH ×2 (18:22→22:30)
[2018-04-12 18:45] VITALS: BP 116/87
[2018-04-12] MEDS: PROMETHAZINE 25 MG/ML 1 ML AMP IVP PRN (20:09)
[2018-04-12] MEDS: PANTOPRAZOLE SOD 40 MG IV VIAL IVP SCH (20:26)
[2018-04-12] MEDS ORDERED: ENOXAPARIN 100 MG/ML SYR SC SCH (21:00)
[2018-04-12 22:38] VITALS: BP 109/75
[2018-04-12] MEDS: ENOXAPARIN 100 MG/ML SYR SC SCH (23:34)
[2018-04-13] MEDS: KCL/D1/2NS 20 MEQ 1000 ML 1,000 ML IV PRN ×3 (03:45→23:28)
[2018-04-13 04:05] VITALS: BP 110/79
--- NOTE | 2018-04-13 05:40 | EKG ---
FACILITY: [facility] PATIENT NAME: SAÚL SPARROW : [id number] MR: [id number] V: [id number] EXAM DATE: ORDERING PHYSICIAN: STEFFEN SQUIRES TECHNOLOGIST: JEM Reyes Reason : EKG CHANGES Blood Pressure : / mmHG Vent. Rate : 092 BPM Atrial Rate : 092 BPM P-R Int : 154 ms QRS Dur : 100 ms QT Int : 418 ms P-R-T Axes : 067 076 -09 degrees QTc Int : 516 ms Normal sinus rhythm Abnormal QRS-T angle, consider primary T wave abnormality Prolonged QT Abnormal ECG When compared with ECG of 12-APR-2018 13:52, Nonspecific T wave abnormality has replaced inverted T waves in Inferior leads T wave inversion no longer evident in Lateral leads Confirmed by STEFFEN SQUIRES ([id number]) on 04/13/2018 6:56:22 AM Referred By: Confirmed By:STEFFEN SQUIRES
[2018-04-13 06:31] LABS: PLATELET COUNT, AUTOMATED 228 K/uL (150-450)
[2018-04-13 06:57] VITALS: BP 117/81
[2018-04-13] MEDS ORDERED: ENOXAPARIN 100 MG/ML SYR SC SCH (09:00)
[2018-04-13] MEDS: PANTOPRAZOLE SOD 40 MG IV VIAL IVP SCH ×2 (09:15→21:30)
[2018-04-13] MEDS: PROMETHAZINE 25 MG/ML 1 ML AMP IVP PRN ×2 (09:49→16:23)
--- NOTE | 2018-04-13 10:45 | Hospitalist Progress Note ---
Subjective Progress Notes Subjective This patient was admitted for dehydration and electrolyte abnormalities. She had no acute events overnight. Patient Complains of: Cardiovascular: No: Chest Pain Respiratory: No: Shortness of Breath Physical Exam Vital Signs Date Time Temp Pulse Resp B/P (MAP) Pulse Ox O2 Delivery O2 Flow Rate FiO2 04/13/18 09:28 99 Room Air 04/13/18 06:57 98.3 93 16 117/81 (93) Intake and Output0 04/13/18 06:59 Intake Total 2200 ml Balance 2200 ml Intake IV Total 2200 ml # Emeses 2 Cardiovascular: Regular Rate and Rhythm Respiratory: Clear to Auscultation Result Diagram: 04/13/18 0548 04/13/18 0000 Monitor Interpretation: Sinus Tachycardia Assessment and Plan Problems: (1) Nausea & vomiting Status: Acute Assessment & Plan: This is a long standing issue since being on chemo/radiation. She is receiving antiemetics with no resolution of her symptoms. She does have elevated liver enzymes. A liver ultrasound is pending. (2) Hypokalemia Status: Acute Assessment & Plan: She is receiving IV potassium. Her levels have improved. (3) ECG abnormality Status: Acute Assessment & Plan: She did have ST-T abnormalities. These have resolved with replacement of her potassium. (4) LFT elevation Status: Acute Assessment & Plan: A liver ultrasound is pending as above. (5) DVT (deep venous thrombosis) Status: Chronic Assessment & Plan: Continue chronic Lovenox. 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 Bustamante and Anna. She is scheduled to see Dr. Castillo in two days. Exam Sepsis Risk: No Definite Risk BAILEY FRANCO DO Apr 13, 2018 10:45
[2018-04-13 11:01] VITALS: BP 115/90
--- NOTE | 2018-04-13 11:05 | RADIOLOGY IMAGING REPORT ---
[facility] PATIENT NAME: Beba Plascencia : 1980 MR: [id number] V: [id number] EXAM DATE: ORDERING PHYSICIAN: STEFFEN SUQIRES TECHNOLOGIST: Location: [facility] [place] Patient: Beba Plascencia : 1980 Visit/Account:[id number] Date of Sevice: 04/13/2018 LIVER HISTORY: elevated LFT/nausea, vomiting and diarrhea, previous cholecystectomy COMPARISON: None. FINDINGS: Gallbladder: Surgically absent Liver: Negative. Common duct: Normal, 3.7 mm diameter. Pancreas: Partially obscured by bowel, visualized aspects unremarkable. Right kidney: Right kidney appears unremarkable measuring 9.5 cm in length Upper abdominal aorta and IVC: Patent. Ascites: None visualized. IMPRESSION: Postsurgical changes from a cholecystectomy otherwise unremarkable right upper quadrant ultrasound Report Dictated By: Corinna Arizmendi MD at 04/13/2018 10:39 AM Report E-Signed By: Corinna Arizmendi MD at 04/13/2018 11:02 AM WSN:[email or web address]
[2018-04-13 14:25] VITALS: Ht 160 cm; Wt 65.8 kg
[2018-04-13 16:21] VITALS: BP 115/86
[2018-04-13 19:26] VITALS: BP 123/94
[2018-04-13] MEDS: ENOXAPARIN 100 MG/ML SYR SC SCH (21:31)
[2018-04-13 23:18] VITALS: BP 118/85
[2018-04-14] MEDS: PROMETHAZINE 25 MG/ML 1 ML AMP IVP PRN (01:54)
[2018-04-14 03:28] VITALS: BP 117/83
[2018-04-14 08:30] VITALS: BP 121/90
[2018-04-14] MEDS: PANTOPRAZOLE SOD 40 MG IV VIAL IVP SCH ×2 (08:47→21:09)
[2018-04-14] MEDS: KCL/D1/2NS 20 MEQ 1000 ML 1,000 ML IV PRN ×2 (08:47→19:18)
[2018-04-14] MEDS ORDERED: INFLUENZA VIRUS VAC 0.5ML SYR IM ONLY ONE (09:00)
--- NOTE | 2018-04-14 12:50 | Hospitalist Progress Note ---
Subjective Progress Notes Subjective She reported that she felt weak and confused this morning. Staff said she knew the month and year. The patient reports continued nausea, but hasn't vomited since the evening of 04/12. Physical Exam Vital Signs Date Time Temp Pulse Resp B/P (MAP) Pulse Ox O2 Delivery O2 Flow Rate FiO2 04/14/18 08:47 Room Air 04/14/18 08:30 97.4 100 20 121/90 (100) 100 Intake and Output 04/14/18 06:59 Intake Total 1360 ml Balance 1360 ml Intake Oral 360 ml IV Total 1000 ml # Voids 2 General Appearance: Alert, Awake, Other (Appears a bit anxious) Neuro: No Gross deficits (Knows month, year, events leading to admission, events of the night and day) Result Diagram: 04/13/18 0548 04/14/18 0547 Monitor Interpretation: Sinus Tachycardia Assessment and Plan Problems: (1) Nausea & vomiting Status: Acute Assessment & Plan: Long standing issue since being on chemo/radiation. However, her last treatment appears to have been 02/21. It is unclear why she continues to have problems. Liver US was unremarkable. After discussion with Oncology, will get an MRI of the brain. If that is normal, then will consider an EGD and/or evaluation by Psychiatry for anxiety (i.e. her feels like for the last two weeks that she has a lot separation anxiety from him and wonders if the nausea could be related). (2) Hypokalemia Status: Acute Assessment & Plan: She is receiving IV potassium. Her levels have improved. (3) ECG abnormality Status: Acute Assessment & Plan: She did have ST-T abnormalities and QTc prolongation. These have improved, but not resolved with replacement of her potassium. Will get another ECG tomorrow. Troponin was initially normal and then just into the borderline region. Will repeat tomorrow. (4) LFT elevation Status: Acute Assessment & Plan: A liver ultrasound was unremarkable. (5) DVT (deep venous thrombosis) Status: Chronic Assessment & Plan: Continue chronic Lovenox. 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 Bustamante and Anna. [facility] is in the hospital. Exam Sepsis Risk: No Definite Risk STEFFEN SQUIRES MD Apr 14, 2018 12:50
--- NOTE | 2018-04-14 15:02 | RADIOLOGY IMAGING REPORT ---
FACILITY: [facility] PATIENT NAME: Beba Plascencia : 1980 MR: [id number] V: [id number] EXAM DATE: ORDERING PHYSICIAN: STEFFEN SQUIRES TECHNOLOGIST: Location: [facility] [place] Patient: Beba Plascencia : 1980 Visit/Account:[id number] Date of Sevice: 04/14/2018 EXAMINATION: MRI Brain without intravenous contrast HISTORY: Squamous cell carcinoma of the tonsil. Nausea. Confusion. COMPARISON: Head CT dated 04/12/2018. TECHNIQUE: Multi-planar, multi-sequence brain MRI was performed without IV contrast administration. FINDINGS: Brain volume: Normal. Sagittal midline structures: Negative. Ventricles: Negative. Acute ischemic changes: None. Hemorrhage: None. Masses / edema: None. Griffith-white: FLAIR hyperintensity in the periaqueductal griffith matter and bilateral posterior medial carolina lamus. White matter: Negative. Vessels: Negative. Extra-axial: Negative. Calvarium / scalp: Negative. Skull base: Negative. Visualized sinuses / orbits: Leftward nasal septal deviation. Visualized upper neck: Negative. IMPRESSION: FLAIR hyperintensity in the periaqueductal griffith matter and bilateral posterior medial carolina lamus suspicious for Wernicke encephalopathy. Alternatively this could be a drug reaction related to chemotherapy or autoimmune encephalitis given the history of cancer. Results were called to STEFFEN SQUIRES at 04/14/2018 2:48 PM. Report Dictated By: Ken Piña MD at 04/14/2018 2:39 PM Report E-Signed By: Ken Piña MD at 04/14/2018 2:57 PM WSN:[id number]
[2018-04-14] MEDS ORDERED: CYANOCOBALAMIN 1000MCG/ML VIAL IM ONLY ONE (15:05)
[2018-04-14] MEDS ORDERED: FOLIC ACID 50 MG/10 ML 1ML INJ IV ONE (15:05)
[2018-04-14] MEDS ORDERED: THIAMINE HCL 200 MG/2 ML INJ IVP ONE (15:05)
[2018-04-14 15:09] VITALS: BP 128/97
--- NOTE | 2018-04-14 15:25 | Miscellaneous Provider Note ---
Miscellaneous Provider Note Note MRI - FLAIR hyperintensity in the periaqueductal koenig matter and bilateral posterior medial thalamus suspicious for Wernicke encephalopathy. Alternatively this could be a drug reaction related to chemotherapy or autoimmune encephalitis given the history of cancer. 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 Will check B12/Folate/Prealbumin. STEFFEN SQUIRES MD Apr 14, 2018 15:25
--- NOTE | 2018-04-14 16:31 | Medical Nutrition Therapy ---
Nutrition Anthropometrics Height (Inches): 63.00 Height (Calculated Centimeters: 160.801213 Weight (Pounds): 135 Weight (Calculated Kilograms): 61.462 BMI: 24 Hx Weight Loss: Yes (162# 03/05/18) Guille Nutrition Score: Very Poor Guille Nutrition Risk Score: 17 Dietary Referral Nutrition Risk Factors: Unplanned Loss >10lbs Nutrition Risk Comment: chemo, rad Nutrition/Food History poor intake past month Nutritional Diagnosis Nutritional Risk Acuity 1: Malnutrition Nutritional Risk Acuity 2: Unintended Wt Loss >5%/mo, Pr Appetite > 3d Nutritional Risk Acuity 3: Nausea Past Medical History: Hx of mucositis and squamous cell carcinoma of tonsils Nutritional Acuity: 1-High Nutrition Diagnosis: Involuntary Wt. Loss Nutrition Etiology: Physiological Causes Nutrition Problem/Etiology/Sym: AEB 17% wt loss/ 1 month Energy Requirement: 2288 (M- St J X 1.4 SF) Protein Requirement: 90 (1.5 gm/kg) Fluid Requirement: 1830 (30ml/kg) Nutrition Intervention: Incr diet as tolerated Additional Diet Restrictions: PROVIDE CLEAR LIQUID NUTR SUPPLMENT Diet Comment To RSA: SOFTER TEXTURES MAY BE EASIER FOR PT TO EAT Nutrition Monitoring & Eval Nutrition Goals: Eat 75-100% Meal RD Patient Assessment Time: [address] Assessment Type: RD Assessment Patient Nutrition Acuity: 2-Moderate Follow Up Date: Apr 16, 2018 Nutritional Comment: 04/13 Pt admitted with dx malnutriton with N/V, poor intake > 3 day, and 17% wt loss/1 month. Pt is 1 month s/p chemo tx for Ca of tonsils. Alb 3.1, hgb 11.3, Hct 33. K+ 3.6. Will provide clear liquid nutr supplment while on clears. Cont to monitor. JUAN FRANCISCO 04/14 Pt cont on clear liquid diet but has only taken a few bites of jellow and sips of juice. Provided Ensure clear and encouraged pt to try. Pt took a few sips and will see if she can tolerate it. Pt states last month "was rough". Pt states softer textures may be easier swallowed. Pt couldn't identify any specific foods that are easy for her to eat. Pt may need nutrtion support to meet nutritional needs. Cont to monitor and encourage intake. WENDY BARRERA Apr 14, 2018 16:31
[2018-04-14 19:32] VITALS: BP 113/81
[2018-04-14] MEDS: ENOXAPARIN 100 MG/ML SYR SC SCH (21:09)
[2018-04-14] MEDS: THIAMINE HCL 200 MG/2 ML INJ IVP SCH (23:14)
[2018-04-14 23:17] VITALS: BP 104/66
[2018-04-15] VITALS (7 sets, daily range): BP systolic 90–107; BP diastolic 64–75
[2018-04-15] MEDS: KCL/D1/2NS 20 MEQ 1000 ML 1,000 ML IV PRN ×2 (03:37→14:03)
[2018-04-15 05:47] LABS: PLATELET COUNT, AUTOMATED 188 K/uL (150-450)
--- NOTE | 2018-04-15 06:20 | EKG ---
FACILITY: [facility] [place] PATIENT NAME: SAÚL SPARROW : [id number] MR: [id number] V: [id number] EXAM DATE: ORDERING PHYSICIAN: STEFFEN SQUIRES TECHNOLOGIST: OSCAR Test Reason : ? long QT Blood Pressure : / mmHG Vent. Rate : 085 BPM Atrial Rate : 085 BPM P-R Int : 138 ms QRS Dur : 090 ms QT Int : 386 ms P-R-T Axes : 072 075 061 degrees QTc Int : 459 ms Normal sinus rhythm ST and T wave abnormality, consider inferior ischemia Abnormal ECG When compared with ECG of 13-APR-2018 05:18, ST now depressed in Anterior leads Inverted T waves have replaced nonspecific T wave abnormality in Inferior leads Nonspecific T wave abnormality now evident in Anterior leads QT has shortened Confirmed by Gallo Rosenbaum ([id number]) on 04/15/2018 8:38:14 PM Referred By: Confirmed By:Gallo Suggs
[2018-04-15] MEDS: THIAMINE HCL 200 MG/2 ML INJ IVP SCH ×3 (06:23→23:17)
[2018-04-15] MEDS: PANTOPRAZOLE SOD 40 MG IV VIAL IVP SCH ×2 (09:46→20:45)
--- NOTE | 2018-04-15 12:19 | Hospitalist Progress Note ---
Subjective Progress Notes Subjective 38F with AMS. Improved but remains cloudy. Discussed meeting her nutritional needs and if she has any signs depression associated with treatment. Patient Complains of: Gastrointestinal: Nausea Physical Exam Vital Signs Date Time Temp Pulse Resp B/P (MAP) Pulse Ox O2 Delivery O2 Flow Rate FiO2 04/15/18 11:40 97.4 99 14 98/72 (81) 99 Room Air Intake and Output 04/15/18 07:00 Intake Total 3024 ml Balance 3024 ml IV Total 3024 ml # Voids 11 # Bowel Movements 1 General Appearance: Awake, No Acute Distress Neuro: No Gross deficits Eyes: PERRLA ENT: Other (some mucous and mild mucosal irritation) Neck: No Masses Cardiovascular: Normal Rhythm & Peripheral Pulses Respiratory: No Respiratory Distress GI: Soft and Non-Tender Musculoskeletal: No Weakness/Pain Extremities: Soft and Non Tender, Warm, Pulses, Perfused; No Edema Integumentary: Skin Intact without Lesion / Mass Result Diagram: 04/15/1851404/15/18514 Monitor Interpretation: Sinus Tachycardia Assessment and Plan Problems: (1) Nausea & vomiting Status: Acute Assessment & Plan: Long standing issue since being on chemo/radiation. However, her last treatment appears to have been 02/21. It is unclear why she continues to have problems. Liver US was unremarkable. After discussion with Oncology, MRI of the brain ordered. MRI shows possible Wernicke's encephalopathy, likely from malnutrition associated with chemo/radiation side effects. May consider an EGD and/or evaluation by Psychiatry for anxiety (i.e. her feels like for the last two weeks that she has a lot separation anxiety from him and wonders if the nausea could be related). (2) Hypokalemia Status: Acute Assessment & Plan: She received IV potassium. Her levels improved. (3) Malnutrition Assessment & Plan: Secondary to poor intake, this has been ongoing problem and does not appear to be improving. Altered mucosa and taste may be side effect up to 9 months post radiation. May need to consider G/J-tube to provide sufficient nutrition in the short/mid term. (4) ECG abnormality Status: Acute Assessment & Plan: She did have ST-T abnormalities and QTc prolongation. These have improved, but not resolved with replacement of her potassium. ECG QTc improved, now with some nonspecific T wave changes. Troponin was initially normal and then just into the borderline region, repeat WNL. (5) LFT elevation Status: Acute Assessment & Plan: A liver ultrasound was unremarkable. (6) DVT (deep venous thrombosis) Status: Chronic Assessment & Plan: Continue chronic Lovenox. 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 Bustamante and Anna. [facility] is aware that she is in the hospital. Exam Sepsis Risk: No Definite Risk HARRELL MARK BRANCH DO Apr 15, 2018 12:19
[2018-04-15] MEDS: ENOXAPARIN 100 MG/ML SYR SC SCH (20:46)
[2018-04-16] MEDS: KCL/D1/2NS 20 MEQ 1000 ML 1,000 ML IV PRN (03:41)
[2018-04-16 03:42] VITALS: BP 104/71
[2018-04-16] MEDS: THIAMINE HCL 200 MG/2 ML INJ IVP SCH ×2 (06:20→15:40)
[2018-04-16 06:52] VITALS: BP 99/74
[2018-04-16] MEDS: PANTOPRAZOLE SOD 40 MG IV VIAL IVP SCH ×2 (09:36→21:27)
[2018-04-16] MEDS: MULTIVITAMINS IV SCH (12:36)
[2018-04-16] MEDS: [UNRECOGNIZED DRUG - OTHER] IV SCH (12:36)
[2018-04-16] MEDS: FAMOTIDINE IV SCH (12:36)
--- NOTE | 2018-04-16 13:04 | Medical Nutrition Therapy ---
Nutrition Anthropometrics Height (Inches): 63.00 Height (Calculated Centimeters: 160.418819 Weight (Pounds): 135 Weight (Calculated Kilograms): 61.462 BMI: 24 Hx Weight Loss: Yes (162# 03/05/18) Guille Nutrition Score: Very Poor Guille Nutrition Risk Score: 16 Dietary Referral Nutrition Risk Factors: Unplanned Loss >10lbs Nutrition Risk Comment: chemo, rad Physical Findings Physical Appearance: WNR Skin Appearance Skin Appearance: Edema Edema Location Modifier: Both Edema Location: Ankle Type of Edema: Degree of Edema: Gastrointestinal Symptoms GI Symtoms: Nausea Tube Present: Bowel Sounds: Recent Bowel Pattern: Stool Characteristics: Nutrition/Food History Decreased Appetite, N/V, Difficulty Swallowing Poor Nutritional Diagnosis Nutritional Risk Acuity 1: Malnutrition Nutritional Risk Acuity 2: Unintended Wt Loss >5%/mo, Pr Appetite > 3d Nutritional Risk Acuity 3: Nausea Past Medical History: Hx of mucositis and squamous cell carcinoma of tonsils Nutritional Acuity: 1-High Nutrition Diagnosis: Involuntary Wt. Loss Nutrition Etiology: Physiological Causes Nutrition Problem/Etiology/Sym: AEB 17% wt loss/ 1 month Energy Requirement: 2288 (M- St J X 1.4 SF) Protein Requirement: 90 (1.5 gm/kg) Fluid Requirement: 1830 (30ml/kg) Diet Type: Calorie Count, Dietary, Clear Liquids Nutrition Intervention: Incr diet as tolerated Additional Diet Restrictions: PROVIDE CLEAR LIQUID NUTR SUPPLMENT Diet Comment To RSA: SOFTER TEXTURES MAY BE EASIER FOR PT TO EAT Nutritional Support Current Enteral / Parental: PPN Tube Feeding Formulas: Specialty Formula (ProcalAmine 3%) Rate: ProcalAmine 3% @ 75mL/hr Current Calories: 234 Current Protein: 52 Total Current Calories: 442 Nutrition Monitoring & Eval RD Patient Assessment Time: [address] Assessment Type: RD Re-Assessment Patient Nutrition Acuity: 2-Moderate Follow Up Date: Apr 17, 2018 Nutritional Comment: 04/13 Pt admitted with dx malnutriton with N/V, poor intake > 3 day, and 17% wt loss/1 month. Pt is 1 month s/p chemo tx for Ca of tonsils. Alb 3.1, hgb 11.3, Hct 33. K+ 3.6. Will provide clear liquid nutr supplment while on clears. Cont to monitor. BK 04/14 Pt cont on clear liquid diet but has only taken a few bites of jellow and sips of juice. Provided Ensure clear and encouraged pt to try. Pt took a few sips and will see if she can tolerate it. Pt states last month "was rough". Pt states softer textures may be easier swallowed. Pt couldn't identify any specific foods that are easy for her to eat. Pt may need nutrtion support to meet nutritional needs. Cont to monitor and encourage intake. BK 04/16 Alb 2.9. Pt continues to consume small amounts of clear liquid diet. Start Calorie Count as per MD order at lunch 04/16/18. Receiving ProcalAmine 3% which provides 52 g of protein and 234 nonprotein calories. This meets 19% of Kcal needs and 58% of protein needs. Doubt oral intake will provide additional nutrients to meet needs and recommend considering nutrition support. If nutrition support is instituted, need to monitor for refeeding syndrome. Follow with Calorie Count data, encourage intake, etc. -OLVIN CARROLL Apr 16, 2018 13:04
--- NOTE | 2018-04-16 13:38 | Hospitalist Progress Note ---
Subjective Progress Notes Subjective She reports persistent sensation of irritation/mucous in oropharynx/laryngeal/esophageal areas. Nausea may be slightly improved. Oral intake has been minimal. Physical Exam Vital Signs Date Time Temp Pulse Resp B/P (MAP) Pulse Ox O2 Delivery O2 Flow Rate FiO2 04/16/18 06:52 98.0 95 99/74 (82) 97 04/16/18 03:42 16 Room Air Intake and Output 04/16/18 06:59 Intake Total 1000 ml Balance 1000 ml IV Total 1000 ml # Voids 4 General Appearance: Alert, Awake, Other (she speaks slowly and answers all questions) ENT: Oropharynx Clear (no lesions noted at present) Cardiovascular: Regular Rate and Rhythm Respiratory: Clear to Auscultation GI: Soft and Non-Tender Extremities: Warm Result Diagram: 04/15/18 0515 04/16/18 0600 Assessment and Plan Problems: (1) Nausea & vomiting Status: Acute Assessment & Plan: Long standing issue since being on chemotherapy/radiation. However, her last treatment appears to have been over 3 weeks ago. It is unclear why she continues to have problems. Liver US unremarkable. MRI shows possible Wernicke's encephalopathy (malnutrition) vs. chemotherapy side effects. Question if there may be some psychogenic overlay as well. May need to consider evaluation with psychiatry if not improving soon. Will start PPN for now. We also discussed PEG tube placement if she is not able to take in enough calories/protein. Will start calorie count. (2) Malnutrition Assessment & Plan: Secondary to poor intake. This has been ongoing problem and does not appear to be significantly improving. Altered mucosa and taste may be side effects lasting for several months following radiation. May need to consider PEG-tube to provide sufficient nutrition over the next few months. It does appear she may have possibly developed Wernicke's encephalopathy (vs. chemo-related) changes on MRI. We did initiate thiamine supplementation and this continues. She will have PPN started now as well. (3) Hypokalemia Status: Acute Assessment & Plan: Resolve with IV potassium supplements. (4) ECG abnormality Status: Acute Assessment & Plan: She did have ST-T abnormalities and QTc prolongation. These have improved with replacement of her potassium. Monitor. (5) LFT elevation Status: Acute Assessment & Plan: Improved. Liver ultrasound was unremarkable. (6) DVT (deep venous thrombosis) Status: Chronic Assessment & Plan: Continue chronic Lovenox. 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 Bustamante and Anna. Exam Sepsis Risk: No Definite Risk OSWALDO SCHMIDT MD Apr 16, 2018 13:38
[2018-04-16 15:40] VITALS: BP 97/59
[2018-04-16 19:38] VITALS: BP 113/82
[2018-04-16] MEDS: ENOXAPARIN 100 MG/ML SYR SC SCH (21:27)
[2018-04-16 21:44] VITALS: BP 115/71
[2018-04-17] MEDS: FAMOTIDINE IV SCH ×2 (01:52→15:48)
[2018-04-17] MEDS: [UNRECOGNIZED DRUG - OTHER] IV SCH ×2 (01:52→15:48)
[2018-04-17] MEDS: MULTIVITAMINS IV SCH ×2 (01:52→15:48)
[2018-04-17 05:11] VITALS: BP 98/65
[2018-04-17 06:09] LABS: PLATELET COUNT, AUTOMATED 164 K/uL (150-450)
[2018-04-17 09:00] VITALS: BP 102/79
[2018-04-17] MEDS: PANTOPRAZOLE SOD 40 MG IV VIAL IVP SCH (09:00)
--- NOTE | 2018-04-17 10:23 | Hospitalist Progress Note ---
Subjective Progress Notes Subjective This patient was admitted for nausea and electrolytes abnormalities. She had no acute events overnight. Patient Complains of: Cardiovascular: No: Chest Pain Respiratory: No: Shortness of Breath Physical Exam Vital Signs Date Time Temp Pulse Resp B/P (MAP) Pulse Ox O2 Delivery O2 Flow Rate FiO2 04/17/18 09:00 97.7 86 102/79 (87) 98 Room Air 04/17/18 05:11 12 Intake and Output 04/17/18 07:00 Intake Total 580 ml Balance 580 ml Intake Oral 580 ml # Voids 3 Neuro: No Gross deficits Cardiovascular: Regular Rate and Rhythm Respiratory: Clear to Auscultation Result Diagram: 04/17/18 0530 04/17/18 0530 Assessment and Plan Problems: (1) Nausea & vomiting Status: Acute Assessment & Plan: This is a long standing issue since being on chemotherapy/radiation. She reports her symptoms are improving over the last 48hrs, and has not vomited during that time. (2) Malnutrition Assessment & Plan: Secondary to poor intake. She is now receiving TPN. Lemon drops have also helped improve her swallowing. She has tolerated ensure and water over the last 24hrs. (3) Hypokalemia Status: Acute Assessment & Plan: Resolved with IV potassium supplements. (4) ECG abnormality Status: Acute Assessment & Plan: She did have ST-T abnormalities and QTc prolongation. These have improved with replacement of her potassium. (5) Folate deficiency Assessment & Plan: She was found to have macrocytosis and her folate levels were low. She has been started on folate supplements. (6) Wernicke encephalopathy Assessment & Plan: She was having increased confusion and an MRI showed findings that were concerning for Wernicke's syndrome. She has been improving with thiamine supplements. (7) LFT elevation Status: Acute Assessment & Plan: Improved. Liver ultrasound was unremarkable. (8) DVT (deep venous thrombosis) Status: Chronic Assessment & Plan: She is on chronic treatment with Lovenox. (9) Squamous cell carcinoma of tonsil Status: Chronic Assessment & Plan: Followed by Drs. Bustamante and Anna. Exam Sepsis Risk: Sepsis Risk BAILEY FRANCO DO Apr 17, 2018 10:23
[2018-04-17] MEDS: FOLIC ACID 1 MG TAB PO SCH (10:28)
[2018-04-17] MEDS: THIAMINE HCL 100 MG TAB PO SCH (10:29)
[2018-04-17 12:34] VITALS: BP 100/67
[2018-04-17 15:38] VITALS: BP 114/81
--- NOTE | 2018-04-17 15:51 | Medical Nutrition Therapy ---
Nutritional Diagnosis Nutritional Risk Acuity 1: Malnutrition Nutritional Risk Acuity 2: Unintended Wt Loss >5%/mo, Pr Appetite > 3d Nutritional Risk Acuity 3: Nausea Past Medical History: Hx of mucositis and squamous cell carcinoma of tonsils Nutritional Acuity: 1-High Nutrition Diagnosis: Involuntary Wt. Loss Nutrition Etiology: Physiological Causes Nutrition Problem/Etiology/Sym: AEB 17% wt loss/ 1 month Energy Requirement: 2288 (M- St J X 1.4 SF) Protein Requirement: 90 (1.5 gm/kg) Fluid Requirement: 1830 (30ml/kg) Diet Type: Calorie Count, Dietary, Clear Liquids Nutrition Intervention: Calorie count, Incr diet as tolerated Calorie Count: 470 Calorie/Protein Count Date: Apr 16, 2018 Protien: 10 Additional Diet Restrictions: PROVIDE CLEAR LIQUID NUTR SUPPLMENT Diet Comment To RSA: SOFTER TEXTURES MAY BE EASIER FOR PT TO EAT Nutritional Support Current Enteral / Parental: PPN Tube Feeding Formulas: Specialty Formula (ProcalAmine 3%) Rate: ProcalAmine 3% @ 75mL/hr Current Calories: 234 Current Protein: 52 Total Current Calories: 442 Nutrition Monitoring & Eval RD Patient Assessment Time: [address] Assessment Type: RD Re-Assessment Patient Nutrition Acuity: 2-Moderate Follow Up Date: Apr 18, 2018 Nutritional Comment: 04/13 Pt admitted with dx malnutriton with N/V, poor intake > 3 day, and 17% wt loss/1 month. Pt is 1 month s/p chemo tx for Ca of tonsils. Alb 3.1, hgb 11.3, Hct 33. K+ 3.6. Will provide clear liquid nutr supplment while on clears. Cont to monitor. BK 04/14 Pt cont on clear liquid diet but has only taken a few bites of jellow and sips of juice. Provided Ensure clear and encouraged pt to try. Pt took a few sips and will see if she can tolerate it. Pt states last month "was rough". Pt states softer textures may be easier swallowed. Pt couldn't identify any specific foods that are easy for her to eat. Pt may need nutrtion support to meet nutritional needs. Cont to monitor and encourage intake. BK 04/16 Alb 2.9. Pt continues to consume small amounts of clear liquid diet. Start Calorie Count as per MD order at lunch 04/16/18. Receiving ProcalAmine 3% which provides 52 g of protein and 234 nonprotein calories. This meets 19% of Kcal needs and 58% of protein needs. Doubt oral intake will provide additional nutrients to meet needs and recommend considering nutrition support. If nutrition support is instituted, need to monitor for refeeding syndrome. Follow with Calorie Count data, encourage intake, etc. -MAURIZIO 04/17 Calorie Count for 04/16/18: approximately 470 Kcals and 10 grams protein through oral intake. Difficult to ascertain more concrete calorie/protein info as pt usually keeps meal trays and continues to slowly eat throughout the day. Pt also receiving additional Kcal/Pro from ProcalAmine. -OLVIN CARROLL Apr 17, 2018 15:51
[2018-04-17] MEDS ORDERED: ZOLPIDEM TARTRATE 5 MG TAB PO PRN (20:20)
[2018-04-17 20:45] VITALS: BP 110/78
[2018-04-17] MEDS: ENOXAPARIN 100 MG/ML SYR SC SCH (21:00)
[2018-04-17] MEDS: PANTOPRAZOLE SOD 40 MG TABEC PO SCH (22:08)
[2018-04-18 03:32] VITALS: BP 116/72
[2018-04-18] MEDS: FAMOTIDINE IV SCH (04:22)
[2018-04-18] MEDS: [UNRECOGNIZED DRUG - OTHER] IV SCH (04:22)
[2018-04-18] MEDS: MULTIVITAMINS IV SCH (04:22)
[2018-04-18] MEDS: LORazepam 1 MG TAB PO PRN (04:48)
[2018-04-18 06:15] LABS: PLATELET COUNT, AUTOMATED 177 K/uL (150-450)
[2018-04-18 06:48] VITALS: BP 112/74
[2018-04-18] MEDS: PANTOPRAZOLE SOD 40 MG TABEC PO SCH ×2 (09:28→21:00)
[2018-04-18] MEDS: FOLIC ACID 1 MG TAB PO SCH (09:28)
[2018-04-18] MEDS: THIAMINE HCL 100 MG TAB PO SCH (09:28)
[2018-04-18] MEDS: PYRIDOXINE HCL 50 MG TAB PO SCH (12:17)
--- NOTE | 2018-04-18 14:50 | Hospitalist Progress Note ---
Subjective Progress Notes Subjective Last night the patient got very anxious because her son and went back home. She admitted to staff that she has a persistent belief that someone is trying to poison her and/or compromise her care. She notices that when she is about to fall asleep that she notices the presence of that person. Her has noticed that whenever people are in her room (e.g. medical staff, dietary, etc), she gets anxious and wants to vomit. Physical Exam Vital Signs Date Time Temp Pulse Resp B/P (MAP) Pulse Ox O2 Delivery O2 Flow Rate FiO2 04/18/18 06:48 98.0 97 20 112/74 (87) 98 Room Air Intake and Output 04/18/18 07:00 Caloric Intake Amount 470 # Voids 2 # Bowel Movements 1 # [place] 1 General Appearance: Alert, Awake, No Acute Distress Neuro: No Gross deficits Result Diagram: 04/18/1850 04/18/18549 Assessment and Plan Problems: (1) Nausea & vomiting Status: Acute Assessment & Plan: Long standing issue since being on chemo/radiation. However, her last treatment appears to have been 02/21. It is unclear why she continues to have problems. Liver US was unremarkable. Her is concerned that there is large anxiety component. Will have a PICC line placed and get an Upper GI study. (2) Malnutrition Assessment & Plan: Secondary to poor intake. Prealbumin a bit low, Folate low and MRI concerning for Wernicke's encephalopathy. Will restart TPN, follow Mg/Phos for refeeding syndrome, continue folate (IV treatment for 5 more days), start B6. (3) Altered mental state Status: Acute Assessment & Plan: The has noted that she has progressively grown more anxious over a number of weeks. Last night, the patient admitted that she has had persistent thoughts about someone poisoning her and/or compromising her care. She admitted that she wasn't taking her medications at home. I spoke to Dr. Quinn about her anxiety issues earlier and he recommended Mirtazapine. I am waiting to talk to him about the paranoia concerns. The patient has MRI findings concerning for Wernicke's encephalopathy vs drug reaction to chemo vs autoimmune encephalitis. Dr. Castillo is aware of the findings. Also, the patient is folate deficient, which could be the major cause or a contributor. (4) Folate deficiency Assessment & Plan: She was found to have macrocytosis and her folate levels were low. She has been started on folate supplements. Changing to IV form to ensure that she is getting it. (5) Wernicke encephalopathy Assessment & Plan: She was having increased confusion and an MRI showed findings that were concerning for Wernicke's syndrome. See above. (6) LFT elevation Status: Acute Assessment & Plan: Improved. Liver ultrasound was unremarkable. (7) DVT (deep venous thrombosis) Status: Chronic Assessment & Plan: She is on chronic treatment with Lovenox. 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 Bustamante and Anna. (9) Hypokalemia Status: Acute Assessment & Plan: Resolved with IV potassium supplements. (10) ECG abnormality Status: Acute Assessment & Plan: She did have ST-T abnormalities and QTc prolongation. These have improved with replacement of her potassium. Exam Sepsis Risk: No Definite Risk STEFFEN SQUIRES MD Apr 18, 2018 14:50
[2018-04-18] MEDS ORDERED: INSULIN HUM REG 100 UN/ML 3 ML 10 UNIT, MULTIVITAMINS(*) 10 ML VIAL 10 ML, TRACE METALS... IV ONE (16:00)
--- NOTE | 2018-04-18 17:15 | RADIOLOGY IMAGING REPORT ---
FACILITY: [facility] PATIENT NAME: Beba Plascencia : 1980 MR: [id number] V: [id number] EXAM DATE: ORDERING PHYSICIAN: STEFFEN SQUIRES TECHNOLOGIST: Location: [facility] [place] Patient: Beba Plascencia : 1980 Visit/Account:[id number] Date of Sevice: 04/18/2018 PICC LINE INSERTION, PICC LINE PLACEMENT Exam: PICC line placement with ultrasound and fluoroscopic guidance. Indication: iv access, TPN Radiation dose: DAP 22.41 mGycm2; AK 0.60 mGy Findings: Prior to the exam, the risks and benefits of a PICC line were discussed with the patient an d informed consent was obtained. The patient was placed supine on the fluoroscopy table and the left arm was prepped and draped in normal sterile fashion. 1% buffered lidocaine was locally injected fo r analgesia. Next, using ultrasound guidance, a micropuncture needle was used to access the basilic vein. An ultrasound image was saved for the patient's permanent record in PACS. Ultrasound demonstr ated that the basilic vein was patent. An 018 guidewire was advanced, and then measurement was made to the high right atrium. A dual-lumen power PICC was then placed via a 5 Georgian peel-away sheath. The PICC was then secured at the skin. Impression: Successful placement of a dual lumen 5 Georgian power PICC in the left basilic vein. The c atheter is ready for use. Report Dictated By: Indra Spaulding at 04/18/2018 4:57 PM Report E-Signed By: Indra Spaulding at 04/18/2018 5:11 PM WSN:[email or web address]
--- NOTE | 2018-04-18 17:16 | RADIOLOGY IMAGING REPORT ---
FACILITY: [facility] - [place] PATIENT NAME: Beba Plascencia : 1980 MR: [id number] V: [id number] EXAM DATE: ORDERING PHYSICIAN: STEFFEN SQUIRES TECHNOLOGIST: Location: Patient: Beba Placsencia : 1980 Visit/Account:[id number] Date of Sevice: 04/18/2018 PICC LINE INSERTION, PICC LINE PLACEMENT Exam: PICC line placement with ultrasound and fluoroscopic guidance. Indication: iv access, TPN Radiation dose: DAP 22.41 mGycm2; AK 0.60 mGy Findings: Prior to the exam, the risks and benefits of a PICC line were discussed with the patient an d informed consent was obtained. The patient was placed supine on the fluoroscopy table and the left arm was prepped and draped in normal sterile fashion. 1% buffered lidocaine was locally injected fo r analgesia. Next, using ultrasound guidance, a micropuncture needle was used to access the basilic vein. An ultrasound image was saved for the patient's permanent record in PACS. Ultrasound demonstr ated that the basilic vein was patent. An 018 guidewire was advanced, and then measurement was made to the high right atrium. A dual-lumen power PICC was then placed via a 5 Turkish peel-away sheath. The PICC was then secured at the skin. Impression: Successful placement of a dual lumen 5 Turkish power PICC in the left basilic vein. The c atheter is ready for use. Report Dictated By: Indra Spaulding at 04/18/2018 4:57 PM Report E-Signed By: Indra Spaulding at 04/18/2018 5:11 PM WSN:[email or web address]
--- NOTE | 2018-04-18 17:25 | Medical Nutrition Therapy ---
Nutrition Anthropometrics Height (Inches): 63.00 Height (Calculated Centimeters: 160.430584 Weight (Pounds): 135 Weight (Calculated Kilograms): 61.462 BMI: 24 Hx Weight Loss: Yes (162# 03/05/18) Guille Nutrition Score: Very Poor Guille Nutrition Risk Score: 16 Dietary Referral Nutrition Risk Factors: Unplanned Loss >10lbs Nutrition Risk Comment: chemo, rad Physical Findings Physical Appearance: WNR Skin Appearance Skin Appearance: Edema Edema Location Modifier: Both Edema Location: Ankle Type of Edema: Degree of Edema: Gastrointestinal Symptoms GI Symtoms: Appetite Changes Tube Present: Bowel Sounds: Recent Bowel Pattern: Stool Characteristics: Nutrition/Food History Decreased Appetite, > 10 lb Wt Loss/1 Month Poor Nutritional Diagnosis Nutritional Risk Acuity 1: Malnutrition Nutritional Risk Acuity 2: Unintended Wt Loss >5%/mo, Pr Appetite > 3d Nutritional Risk Acuity 3: Nausea Past Medical History: Hx of mucositis and squamous cell carcinoma of tonsils Nutritional Acuity: 1-High Nutrition Diagnosis: Involuntary Wt. Loss Nutrition Etiology: Physiological Causes Nutrition Problem/Etiology/Sym: AEB 17% wt loss/ 1 month Energy Requirement: 2288 (M- St J X 1.4 SF) Protein Requirement: 90 (1.5 gm/kg) Fluid Requirement: 1830 (30ml/kg) Diet Type: Calorie Count, Dietary, Clear Liquids Nutrition Intervention: Calorie count, Incr diet as tolerated Calorie Count: 0 (No intake reported for 04/17- pt kept trays in room.) Calorie/Protein Count Date: Apr 17, 2018 Additional Diet Restrictions: PROVIDE CLEAR LIQUID NUTR SUPPLMENT Diet Comment To RSA: SOFTER TEXTURES MAY BE EASIER FOR PT TO EAT Nutritional Support Current Enteral / Parental: TPN Current Tube Feeding Formula C: 42ml/hr Rate: ProcalAmine 3% @ 75mL/hr Current Calories: 880 Current Protein: 42 Recommended Tube Feeding Formu: Jevity 1cal/ml-Standard Recommended Tube Feeding Formu: start @ 20ml/hr increase 10ml Q 4 hr to final rate 50ml/hr Nutrition Monitoring & Eval Nutrition Follow-Up: Poor Intake RD Patient Assessment Time: [address] Assessment Type: RD Re-Assessment Patient Nutrition Acuity: 2-Moderate Follow Up Date: Apr 19, 2018 Nutritional Comment: 04/13 Pt admitted with dx malnutriton with N/V, poor intake > 3 day, and 17% wt loss/1 month. Pt is 1 month s/p chemo tx for Ca of tonsils. Alb 3.1, hgb 11.3, Hct 33. K+ 3.6. Will provide clear liquid nutr supplment while on clears. Cont to monitor. BK 04/14 Pt cont on clear liquid diet but has only taken a few bites of jellow and sips of juice. Provided Ensure clear and encouraged pt to try. Pt took a few sips and will see if she can tolerate it. Pt states last month "was rough". Pt states softer textures may be easier swallowed. Pt couldn't identify any specific foods that are easy for her to eat. Pt may need nutrtion support to meet nutritional needs. Cont to monitor and encourage intake. BK 04/16 Alb 2.9. Pt continues to consume small amounts of clear liquid diet. Start Calorie Count as per MD order at lunch 04/16/18. Receiving ProcalAmine 3% which provides 52 g of protein and 234 nonprotein calories. This meets 19% of Kcal needs and 58% of protein needs. Doubt oral intake will provide additional nutrients to meet needs and recommend considering nutrition support. If nutrition support is instituted, need to monitor for refeeding syndrome. Follow with Calorie Count data, encourage intake, etc. -DRT 04/17 Calorie Count for 04/16/18: approximately 470 Kcals and 10 grams protein through oral intake. Difficult to ascertain more concrete calorie/protein info as pt usually keeps meal trays and continues to slowly eat throughout the day. Pt also receiving additional Kcal/Pro from ProcalAmine. -DRT 04/18 Pt cont on calorie count and ELEAZAR. Pt had no reported intake yesterday on clear liquid. Today ate bites of scrambled egg and cream of wheat and a 170 kcal supplment brought from home. Provided Sabrina plus for pt to drink but she hadn't eaten it as of 13:00. Pt started on TPN which is meeting 39% est kcal, 47% est protein needs. Recommend cont at this rate and monitor Mg and Phos to ensure no refeeding issues. Will cont to monitor. WENDY BARRERA Apr 18, 2018 10:35
[2018-04-18 18:03] VITALS: BP 115/91
[2018-04-18 19:32] VITALS: BP 115/60
[2018-04-18] MEDS: MIRTAZAPINE 15 MG TAB PO SCH (21:00)
[2018-04-18] MEDS ORDERED: FOLIC ACID 50 MG/10 ML 1ML INJ IV SCH (21:00)
[2018-04-18] MEDS: QUEtiapine FUM 25 MG TAB PO SCH (21:00)
[2018-04-18] MEDS: THIAMINE HCL 200 MG/2 ML INJ IVP SCH (22:12)
[2018-04-18] MEDS: ENOXAPARIN 100 MG/ML SYR SC SCH (22:12)
[2018-04-18] MEDS ORDERED: NS(*) 0.9% 250 ML BAG 250 ML ONE (22:33)
[2018-04-18] MEDS: FOLIC ACID(*) 50 MG/10 ML INJ 1 MG in NS(*) 0.9% 50 ML BAG 50 ML IV SCH (22:42)
[2018-04-19] MEDS: MIRTAZAPINE 15 MG TAB PO SCH ×2 (00:12→21:45)
[2018-04-19 00:17] VITALS: BP 118/80
[2018-04-19 05:50] LABS: PLATELET COUNT, AUTOMATED 184 K/uL (150-450)
[2018-04-19] MEDS ORDERED: BARIUM SULFATE 176 GM BTL PO ONE (10:52)
[2018-04-19] MEDS ORDERED: BARIUM SULFATE 340 GM POWD ONE (10:52)
--- NOTE | 2018-04-19 11:47 | Hospitalist Progress Note ---
Subjective Progress Notes Subjective She is more animated. She reports eating/swallowing better. Physical Exam Vital Signs Date Time Temp Pulse Resp B/P (MAP) Pulse Ox O2 Delivery O2 Flow Rate FiO2 04/19/18 00:17 98.0 89 14 118/80 (93) 99 Room Air Intake and Output 04/19/18 06:59 Output Total 250 ml Balance -250 ml Output Emesis 250 ml Caloric Intake Amount 0 # Voids 2 # Emeses 1 General Appearance: Alert, Awake Psych: Alert & Oriented X3 Result Diagram: 04/19/1852504/19/18525 Assessment and Plan Problems: (1) Nausea & vomiting Status: Acute Assessment & Plan: Long standing issue since being on chemo/radiation. H leny, her last treatment was in early-mid February. It is unclear why she continues to have problems. Liver US was unremarkable. Her is concerned that there is large anxiety component. She had a PICC line placed for ongoing TPN. She will have an Upper GI study to see if any anatomic a bnormalities. (2) Malnutrition Assessment & Plan: Secondary to poor intake. Prealbumin a bit low, Folate low and MRI concerning for Wernicke's encephalopathy. We have restarted TPN, follow Mg/Phos for refeeding syndrome, continue folate (IV treatment for 5 more days), started B6. Follow calorie count. As she is starting to eat better, may be able to stop the TPN if she can reliably take in more than 8234-4382 calories a day. (3) Altered mental state Status: Acute Assessment & Plan: The has noted that she has progressively grown more anxious over a number of weeks. The patient has admitted that she has had persistent thoughts about someone poisoning her and/or compromising her care. She admitted that she wasn't taking her medications at home. Dr. Ortiz spoke to Dr. Quinn about her anxiety issues earlier and he recommended Mirtazapine and Seroquel. The patient has MRI findings concerning for Wernicke's encephalopathy vs. drug reaction to chemo vs. autoimmune encephalitis. Dr. Sarahi Box is aware of the findings. (4) Folate deficiency Assessment & Plan: She was found to have macrocytosis and her folate levels we re low. She has been started on folate supplements. Currently receiving IV form to ensure that she is getting it. (5) Wernicke encephalopathy Assessment & Plan: She was having increased confusion and an MRI showed findings that were concerning for Wernicke's syndrome. See above. (6) LFT elevation Status: Acute Assessment & Plan: Improved. Liver ultrasound was unremarkable. (7) DVT (deep venous thrombosis) Status: Chronic Assessment & Plan: She is on chronic treatment with Lovenox. 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 Bustamante and Anna. (9) Hypokalemia Status: Acute Assessment & Plan: Resolved with IV potassium supplements. (10) ECG abnormality Status: Acute Assessment & Plan: She did have ST-T abnormalities and QTc prolongation. These have improved with replacement of her potassium. Exam Sepsis Risk: No Definite Risk OSWALDO SCHMIDT MD Apr 19, 2018 11:47
[2018-04-19 11:59] VITALS: BP 107/83
[2018-04-19] MEDS: PANTOPRAZOLE SOD 40 MG TABEC PO SCH ×2 (12:01→21:45)
[2018-04-19] MEDS: LORazepam 1 MG TAB PO PRN ×2 (12:01→20:56)
[2018-04-19] MEDS: PYRIDOXINE HCL 50 MG TAB PO SCH (12:02)
--- NOTE | 2018-04-19 12:15 | RADIOLOGY IMAGING REPORT ---
FACILITY: [facility] PATIENT NAME: Beba Plascencia : 1980 MR: [id number] V: [id number] EXAM DATE: ORDERING PHYSICIAN: STEFFEN SQUIRES TECHNOLOGIST: [facility] Patient: Beba Plascencia : 1980 Visit/Account:[id number] Date of Sevice: 04/18/2018 UPPER GI SERIES W/O AIR HISTORY: Persistent nausea and vomiting. Recently completed a rounded chemotherapy and neck radiati on, history of right tonsillar cancer and right cervical lymphadenopathy. COMPARISON: None. TECHNIQUE: Modified single contrast upper GI was performed. A single and double contrast/complete u pper GI was initially attempted but the patient could only stand for a few seconds before becoming to o dizzy and nausea's to continue. Therefore the esophagram portion of the study was performed in an AP position while sitting in a chair. Single contrast images of the stomach were obtained with the p atient lying in an AP supine and right lateral decubitus position to facilitate gastric emptying. FINDINGS: LABORER CARPENTRY DOCK: Mule Driver radiograph of the abdomen is unremarkable for normal bowel gas pattern and cholecystect meliza clips in the right upper quadrant. There are no visible bone lesions. There is equivocal facet hypertrophy on the left at L4-L5. ESOPHAGUS: Normal caliber, contour and position of the cervical and thoracic esophagus. No signific ant contrast evidence of a filling defect/mass. No pathological areas of narrowing/stricture. Hypop harynx is unremarkable. On lateral views of the neck, a trace amount of thin barium was noted lining the laryngeal vestibule, reaching the level of the vocal cords consistent with deep laryngeal penetr ation. No aspiration was seen. GE JUNCTION: Normal position of the GE junction without evidence for hiatal hernia on today's exam. ESOPHAGEAL MOTILITY: Grossly normal in the AP seated position. GE REFLUX: No spontaneous reflux was identified in the AP seated position or AP supine position. STOMACH: Normal single contrast appearance. Limited double contrast images of the proximal and dist al stomach are unremarkable. These images were obtained with incidental gas in the stomach. An effe rvescent agent was not given. There is little to no gastric motility and there is delayed gastric em ptying with only a small amount of gastric emptying noted even after prolonged right lateral decubitu s positioning. There is no evidence of gastric outlet narrowing. DUODENUM: Only a small amount of contrast reached the first, second and proximal third duodenum osvaldo use of delayed gastric emptying. Normal appearance. No ulceration or diverticulum. OTHER: Negative. FLUOROSCOPY TIME: 2.6 minutes DOSE: DAP was 537.77 microGy*m2. IMPRESSION: 1. Modified single contrast upper GI was performed because of significant patient nausea and weaknes s resulting in inability to stand. Esophagram was performed in an AP seated position. Assessment of the stomach and duodenum were performed while lying on the fluoroscopy table. 2. Delayed gastric emptying without evidence of gastric narrowing or mass. Only a small amount of c ontrast eventually reached the duodenum after several minutes of lying in a right lateral decubitus p osition. 3. Deep laryngeal penetration of thin barium. No aspiration. 4. Otherwise unremarkable single contrast upper GI. Report Dictated By: Marcial Chan at 04/19/2018 11:56 AM Report E-Signed By: Marcial Chan at 04/19/2018 12:11 PM RADHAN:AMICIVAlvin
[2018-04-19 16:26] VITALS: BP 109/80
--- NOTE | 2018-04-19 16:26 | Medical Nutrition Therapy ---
Nutrition Anthropometrics Height (Inches): 63.00 Height (Calculated Centimeters: 160.464000 Weight (Pounds): 135 Weight (Calculated Kilograms): 61.462 BMI: 24 Hx Weight Loss: Yes (162# 03/05/18) Guille Nutrition Score: Very Poor Guille Nutrition Risk Score: 16 Dietary Referral Nutrition Risk Factors: Unplanned Loss >10lbs Nutrition Risk Comment: chemo, rad Physical Findings Physical Appearance: WNR Skin Appearance Skin Appearance: Edema Edema Location Modifier: Both Edema Location: Ankle Type of Edema: Degree of Edema: Gastrointestinal Symptoms GI Symtoms: n/v Appetite Changes: Nothing is tasting good to pt Tube Present: Bowel Sounds: Recent Bowel Pattern: Stool Characteristics: Nutritional Diagnosis Nutritional Risk Acuity 1: Malnutrition Nutritional Risk Acuity 2: Unintended Wt Loss >5%/mo, Pr Appetite > 3d, Diet < 1000 Kcal Nutritional Risk Acuity 3: Nausea Past Medical History: Hx of mucositis and squamous cell carcinoma of tonsils Nutritional Acuity: 1-High Nutrition Diagnosis: Involuntary Wt. Loss Nutrition Etiology: Physiological Causes Nutrition Problem/Etiology/Sym: AEB 17% wt loss/ 1 month Energy Requirement: 2288 (M- St J X 1.4 SF) Protein Requirement: 90 (1.5 gm/kg) Fluid Requirement: 1830 (30ml/kg) Diet Type: Calorie Count, Dietary, Clear Liquids Nutrition Intervention: Calorie count, Incr diet as tolerated Calorie Count: 160 (Bites of cream of wheat, hashbrowns, eggs. Sips of water and protein drink.) Calorie/Protein Count Date: Apr 18, 2018 Protien: 6 Additional Diet Restrictions: PROVIDE CLEAR LIQUID NUTR SUPPLMENT Diet Comment To RSA: SOFTER TEXTURES MAY BE EASIER FOR PT TO EAT Nutritional Support Current Enteral / Parental: TPN Current Tube Feeding Formula C: 42ml/hr Rate: ProcalAmine 3% @ 75mL/hr Current Calories: 880 Current Protein: 42 Recommended Enteral / Parental: TPN Recommended Rate: 83mL/hr TPN + lipids Recommended Duration: 24 Recommended Calories: 1753 Recommended Protein: 100 Recommended Lipids Calories: 500 Total Recommended Calories: 2253 Nutrition Monitoring & Eval Nutrition Goals: Eat 50-100% Meal, Drink > 1200 cc/day Nutrition Follow-Up: Poor Intake RD Patient Assessment Time: [address] Assessment Type: RD Re-Assessment Patient Nutrition Acuity: 1-High Follow Up Date: Apr 21, 2018 Nutritional Comment: 04/13 Pt admitted with dx malnutriton with N/V, poor intake > 3 day, and 17% wt loss/1 month. Pt is 1 month s/p chemo tx for Ca of tonsils. Alb 3.1, hgb 11.3, Hct 33. K+ 3.6. Will provide clear liquid nutr supplment while on clears. Cont to monitor. BK 04/14 Pt cont on clear liquid diet but has only taken a few bites of jellow and sips of juice. Provided Ensure clear and encouraged pt to try. Pt took a few sips and will see if she can tolerate it. Pt states last month "was rough". Pt states softer textures may be easier swallowed. Pt couldn't identify any specific foods that are easy for her to eat. Pt may need nutrtion support to meet nutritional needs. Cont to monitor and encourage intake. BK 04/16 Alb 2.9. Pt continues to consume small amounts of clear liquid diet. Start Calorie Count as per MD order at lunch 04/16/18. Receiving ProcalAmine 3% which provides 52 g of protein and 234 nonprotein calories. This meets 19% of Kcal needs and 58% of protein needs. Doubt oral intake will provide additional nutrients to meet needs and recommend considering nutrition support. If nutrition support is instituted, need to monitor for refeeding syndrome. Follow with Calorie Count data, encourage intake, etc. -DRT 04/17 Calorie Count for 04/16/18: approximately 470 Kcals and 10 grams protein through oral intake. Difficult to ascertain more concrete calorie/protein info as pt usually keeps meal trays and continues to slowly eat throughout the day. Pt also receiving additional Kcal/Pro from ProcalAmine. -DRT 04/18 Pt cont on calorie count and ELEAZAR. Pt had no reported intake yesterday on clear liquid. Today ate bites of scrambled egg and cream of wheat and a 170 kcal supplment brought from home. Provided Sabrina plus for pt to drink but she hadn't eaten it as of 13:00. Pt started on TPN which is meeting 39% est kcal, 47% est protein needs. Recommend cont at this rate and monitor Mg and Phos to ensure no refeeding issues. Will cont to monitor. BK 04/19 3 day calorie count completed. Reported that pt cosumed 75% of breakfast this morning. Pt's reported pt got stressed and vomitted. Phos and Mag within goal ranges, recommend increasing TPN and add lipids. TPN + lipids at 83mL/hr will meet 98% of calorie needs and 100% of protein. SAMUEL BORREGO Apr 19, 2018 16:05
[2018-04-19] MEDS: INS HUM REG* 100 U/ML(ER ONLY) 20 UNIT, MULTIVITAMINS(*) 10 ML VIAL 10 ML, TRACE METALS... IV SCH (21:03)
[2018-04-19] MEDS: ENOXAPARIN 100 MG/ML SYR SC SCH (21:12)
[2018-04-19] MEDS: THIAMINE HCL 200 MG/2 ML INJ IVP SCH (21:12)
[2018-04-19] MEDS: FOLIC ACID(*) 50 MG/10 ML INJ 1 MG in NS(*) 0.9% 50 ML BAG 50 ML IV SCH (21:12)
[2018-04-19] MEDS: QUEtiapine FUM 25 MG TAB PO SCH (21:45)
[2018-04-19 22:43] VITALS: BP 96/73
[2018-04-20 03:12] VITALS: BP 107/62
[2018-04-20 07:12] LABS: PLATELET COUNT, AUTOMATED 174 K/uL (150-450)
[2018-04-20 07:33] VITALS: BP 92/69
--- NOTE | 2018-04-20 08:31 | Medical Nutrition Therapy ---
Nutrition Anthropometrics Height (Inches): 63.00 Height (Calculated Centimeters: 160.802274 Weight (Pounds): 137 Weight (Calculated Kilograms): 62.142 BMI: 24 Hx Weight Loss: Yes (162# 03/05/18) Guille Nutrition Score: Very Poor Guille Nutrition Risk Score: 16 Dietary Referral Nutrition Risk Factors: Unplanned Loss >10lbs Nutrition Risk Comment: chemo, rad Nutritional Diagnosis Nutritional Risk Acuity 1: Malnutrition Nutritional Risk Acuity 2: Unintended Wt Loss >5%/mo, Pr Appetite > 3d, Diet < 1000 Kcal Nutritional Risk Acuity 3: Nausea Past Medical History: Hx of mucositis and squamous cell carcinoma of tonsils Nutritional Acuity: 1-High Nutrition Diagnosis: Involuntary Wt. Loss Nutrition Etiology: Physiological Causes Nutrition Problem/Etiology/Sym: AEB 17% wt loss/ 1 month Energy Requirement: 2288 (M- St J X 1.4 SF) Protein Requirement: 90 (1.5 gm/kg) Fluid Requirement: 1830 (30ml/kg) Diet Type: Diet as Tolerated ELEAZAR/REG Nutrition Intervention: Cont diet as ordered, Encourage intake, Between meal supplement Calorie Count: 160 (Bites of cream of wheat, hashbrowns, eggs. Sips of water and protein drink.) Calorie/Protein Count Date: Apr 18, 2018 Protien: 6 Additional Diet Restrictions: PROVIDE NUTR SUPPLMENT Diet Comment To RSA: SOFTER TEXTURES MAY BE EASIER FOR PT TO EAT Nutritional Support Current Enteral / Parental: TPN Current Tube Feeding Formula C: 42ml/hr Rate: ProcalAmine 3% @ 75mL/hr Current Duration: 24 Current Calories: 1753 Current Protein: 100 Recommended Rate: 83mL/hr TPN + lipids Nutrition Monitoring & Eval Nutrition Goals: Eat 50-100% Meal RD Patient Assessment Time: [address] Assessment Type: RD Re-Assessment Patient Nutrition Acuity: 1-High Follow Up Date: Apr 23, 2018 Nutritional Comment: 04/13 Pt admitted with dx malnutriton with N/V, poor intake > 3 day, and 17% wt loss/1 month. Pt is 1 month s/p chemo tx for Ca of tonsils. Alb 3.1, hgb 11.3, Hct 33. K+ 3.6. Will provide clear liquid nutr supplment while on clears. Cont to monitor. BK 04/14 Pt cont on clear liquid diet but has only taken a few bites of jellow and sips of juice. Provided Ensure clear and encouraged pt to try. Pt took a few sips and will see if she can tolerate it. Pt states last month "was rough". Pt states softer textures may be easier swallowed. Pt couldn't identify any specific foods that are easy for her to eat. Pt may need nutrtion support to meet nutritional needs. Cont to monitor and encourage intake. BK 04/16 Alb 2.9. Pt continues to consume small amounts of clear liquid diet. Start Calorie Count as per MD order at lunch 04/16/18. Receiving ProcalAmine 3% which provides 52 g of protein and 234 nonprotein calories. This meets 19% of Kcal needs and 58% of protein needs. Doubt oral intake will provide additional nutrients to meet needs and recommend considering nutrition support. If nutrition support is instituted, need to monitor for refeeding syndrome. Follow with Calorie Count data, encourage intake, etc. -DRT 04/17 Calorie Count for 04/16/18: approximately 470 Kcals and 10 grams protein through oral intake. Difficult to ascertain more concrete calorie/protein info as pt usually keeps meal trays and continues to slowly eat throughout the day. Pt also receiving additional Kcal/Pro from ProcalAmine. -DRT 04/18 Pt cont on calorie count and ELEAZAR. Pt had no reported intake yesterday on clear liquid. Today ate bites of scrambled egg and cream of wheat and a 170 kcal supplment brought from home. Provided Sabrina plus for pt to drink but she hadn't eaten it as of 13:00. Pt started on TPN which is meeting 39% est kcal, 47% est protein needs. Recommend cont at this rate and monitor Mg and Phos to ensure no refeeding issues. Will cont to monitor. BK 04/19 3 day calorie count completed. Reported that pt cosumed 75% of breakfast this morning. Pt's reported pt got stressed and vomitted. Phos and Mag within goal ranges, recommend increasing TPN and add lipids. TPN + lipids at 83mL/hr will meet 98% of calorie needs and 100% of protein. TB 04/20 Diet back to ELEAZAR. Pt eating bites but stated she would try to eat more. TPN increased to 83ml/hr which is meeting 77% est kcal and 110% est protein needs. Will cont to monitor. WENDY BARRERA Apr 20, 2018 08:31
[2018-04-20] MEDS ORDERED: LORazepam 1 MG TAB PO PRN (08:40)
[2018-04-20] MEDS: PYRIDOXINE HCL 50 MG TAB PO SCH (09:15)
[2018-04-20] MEDS: PANTOPRAZOLE SOD 40 MG TABEC PO SCH ×2 (09:15→21:57)
[2018-04-20 11:35] VITALS: BP 94/68
--- NOTE | 2018-04-20 11:40 | Hospitalist Progress Note ---
Subjective Progress Notes Subjective 38F admitted for nausea/vomiting. CHRIS overnight, still minimal PO intake. Patient Complains of: Gastrointestinal: Nausea Physical Exam Vital Signs Date Time Temp Pulse Resp B/P (MAP) Pulse Ox O2 Delivery O2 Flow Rate FiO2 04/20/18 11:09 Room Air 04/20/18 07:33 97.4 104 12 92/69 (77) 04/20/18 03:12 96 Intake and Output 04/20/18 07:00 Intake Total 270.4 ml Balance 270.4 ml Intake Oral 220 ml IV Total 50.4 ml Caloric Intake Amount 160 # Voids 1 General Appearance: Alert, Awake, No Acute Distress Neuro: No Gross deficits Eyes: PERRLA ENT: Normal Neck: No Masses Cardiovascular: Normal Rhythm & Peripheral Pulses Respiratory: No Respiratory Distress GI: Soft and Non-Tender Extremities: Soft and Non Tender, Warm; No Edema Integumentary: Skin Intact without Lesion / Mass Result Diagram: 04/20/1870204/20/18 0703 Assessment and Plan Problems: (1) Nausea & vomiting Status: Acute Assessment & Plan: Long standing issue since being on chemo/radiation. Grant virk, her last treatment was in early-mid February. It is unclear why she continues to have problems. Liver US was unremarkable. Her is concerned that there is large anxiety component. She had a PICC line placed for ongoing TPN. She will have an Upper GI study to see if any anatomic abnorm alities. Started on olanzapine to help with anxiety as well as nausea. If < [address] DHT to attempt tube feed. (2) Malnutrition Assessment & Plan: Secondary to poor intake. Prealbumin a bit low, Folate low and MRI concerning for Wernicke's encephalopathy. We have restarted TPN, follow Mg/Phos for refeeding syndrome, continue folate (IV treatment for 5 more days), started B6. Follow calorie count. As she is starting to eat better, may be able to stop the TPN if she can reliably take in more than 5809-2796 calories a day. (3) Altered mental state Status: Acute Assessment & Plan: The has noted that she has progressively grown more anxious over a number of weeks. The patient has admitted that she has had persistent thoughts about someone poisoning her and/or compromising her care. She admitted that she wasn't taking her medications at home. Dr. Ortiz spoke to Dr. Quinn about her anxiety issues earlier and he recommended Mirtazapine and Seroquel. The patient has MRI findings concerning for Wernicke's encephalopathy vs. drug reaction to chemo vs. autoimmune encephalitis. Dr. Sarahi Box is aware of the findings. Changed Seroquel to Zyprexa to attempt to alleviate some n/v. (4) Folate deficiency Assessment & Plan: She was found to have macrocytosis and her folate levels were low. She has been started on folate supplements. Currently receiving IV form to ensure that she is getting it. (5) Wernicke encephalopathy Assessment & Plan: She was having increased confusion and an MRI showed findings that were concerning for Wernicke's syndrome. See above. (6) LFT elevation Status: Acute Assessment & Plan: Improved. Liver ultrasound was unremarkable. (7) DVT (deep venous thrombosis) Status: Chronic Assessment & Plan: She is on chronic treatment with Lovenox. 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 Bustamante and Anna. (9) Hypokalemia Status: Acute Assessment & Plan: Resolved with IV potassium supplements. (10) ECG abnormality Status: Acute Assessment & Plan: She did have ST-T abnormalities and QTc prolongation. These have improved with replacement of her potassium. Exam Sepsis Risk: No Definite Risk HARRELL MARK BRANCH DO Apr 20, 2018 11:40
[2018-04-20 15:10] VITALS: BP 105/87
[2018-04-20 19:01] VITALS: BP 103/62
[2018-04-20] MEDS: OLANZapine 5 MG TAB PO SCH (21:57)
[2018-04-20] MEDS: MIRTAZAPINE 15 MG TAB PO SCH (21:57)
[2018-04-20] MEDS: THIAMINE HCL 200 MG/2 ML INJ IVP SCH (21:57)
[2018-04-20] MEDS: FOLIC ACID(*) 50 MG/10 ML INJ 1 MG in NS(*) 0.9% 50 ML BAG 50 ML IV SCH (21:58)
[2018-04-20] MEDS: INS HUM REG* 100 U/ML(ER ONLY) 20 UNIT, MULTIVITAMINS(*) 10 ML VIAL 10 ML, TRACE METALS... IV SCH (22:00)
[2018-04-20] MEDS ORDERED: NS(*) 0.9% 250 ML BAG 250 ML ONE (22:17)
[2018-04-20] MEDS: ENOXAPARIN 100 MG/ML SYR SC SCH (22:27)
[2018-04-20 23:21] VITALS: BP 110/72
[2018-04-21 03:03] VITALS: BP 99/60
[2018-04-21 07:34] VITALS: BP 97/65
[2018-04-21] MEDS: PYRIDOXINE HCL 50 MG TAB PO SCH (09:27)
[2018-04-21] MEDS: PANTOPRAZOLE SOD 40 MG TABEC PO SCH ×2 (09:27→20:30)
--- NOTE | 2018-04-21 10:30 | Hospitalist Progress Note ---
Subjective Progress Notes Subjective This patient was admitted for malnutrition. She was able to tolerate some oral intake yesterday. Patient Complains of: Cardiovascular: No: Chest Pain Respiratory: No: Shortness of Breath Physical Exam Vital Signs Date Time Temp Pulse Resp B/P (MAP) Pulse Ox O2 Delivery O2 Flow Rate FiO2 04/21/18 07:34 98.0 95 16 97/65 (76) 98 Room Air Intake and Output 04/21/18 07:00 Intake Total 2667.2 ml Output Total 200 ml Balance 2467.2 ml Intake Oral 584 ml IV Total 2083.2 ml Output Urine Total 200 ml # Voids 2 Cardiovascular: Regular Rate and Rhythm Respiratory: Clear to Auscultation Result Diagram: 04/20/1870204/20/18702 Assessment and Plan Problems: (1) Nausea & vomiting Status: Acute Assessment & Plan: This is a long standing issue since being on chemo/radiation. However, her last treatment was in early-mid February. It is unclear why she continues to have problems. Liver US was unremarkable. Her is concerned that there is large anxiety component. She had a PICC line placed for ongoing TPN. An upper gi series did show delayed gastric emptying. (2) Malnutrition Assessment & Plan: Secondary to poor intake. Prealbumin a bit low, Folate low and MRI concerning for Wernicke's encephalopathy. We have restarted TPN, follow Mg/Phos for refeeding syndrome, continue folate (IV treatment for 5 more days), started B6. Follow calorie count. As she is starting to eat better, may be able to stop the TPN if she can reliably take in more than 1729-7883 calories a day. She was able to tolerate slightly more intake yesterday. We are hopeful that she can at least double her intake today, but we plan to place an NG tube and start tube feeds if she is not able to increase her intake. (3) Altered mental state Status: Acute Assessment & Plan: The has noted that she has progressively grown more anxious over a number of weeks. The patient has admitted that she has had persistent thoughts about someone poisoning her and/or compromising her care. She admitted that she wasn't taking her medications at home. Dr. Ortiz spoke to Dr. Quinn about her anxiety issues earlier and he recommended Mirtazapine and Seroquel. The patient has MRI findings concerning for Wernicke's encephalopathy vs. drug reaction to chemo vs. autoimmune encephalitis. Dr. Sarahi Box is aware of the findings. Changed Seroquel to Zyprexa to attempt to alleviate some n/v. (4) Folate deficiency Assessment & Plan: She was found to have macrocytosis and her folate levels were low. She has been started on folate supplements. Currently receiving IV form to ensure that she is getting it. (5) Wernicke encephalopathy Assessment & Plan: She was having increased confusion and an MRI showed findings that were concerning for Wernicke's syndrome. See above. (6) LFT elevation Status: Acute Assessment & Plan: Improved. Liver ultrasound was unremarkable. (7) DVT (deep venous thrombosis) Status: Chronic Assessment & Plan: She is on chronic treatment with Lovenox. 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 Bustamante and Anna. (9) Hypokalemia Status: Acute Assessment & Plan: Resolved with IV potassium supplements. (10) ECG abnormality Status: Acute Assessment & Plan: She did have ST-T abnormalities and QTc prolongation. These have improved with replacement of her potassium. Exam Sepsis Risk: No Definite Risk BAILEY FRANCO DO Apr 21, 2018 10:30
[2018-04-21 11:22] VITALS: BP 101/69
[2018-04-21 16:06] VITALS: BP 112/67
[2018-04-21] MEDS ORDERED: BENZOCAINE/TETRACAINE/BUTAMBEN TOP ONE (16:20)
[2018-04-21] MEDS: NYSTATIN 5 ML UDCUP PO SCH ×2 (16:49→20:30)
[2018-04-21 19:14] VITALS: BP 108/69
[2018-04-21] MEDS: INS HUM REG* 100 U/ML(ER ONLY) 20 UNIT, MULTIVITAMINS(*) 10 ML VIAL 10 ML, TRACE METALS... IV SCH (20:28)
[2018-04-21] MEDS: THIAMINE HCL 200 MG/2 ML INJ IVP SCH (20:29)
[2018-04-21] MEDS: FOLIC ACID(*) 50 MG/10 ML INJ 1 MG in NS(*) 0.9% 50 ML BAG 50 ML IV SCH (20:29)
[2018-04-21] MEDS: ENOXAPARIN 100 MG/ML SYR SC SCH (20:29)
[2018-04-21] MEDS: OLANZapine 5 MG TAB PO SCH (20:30)
[2018-04-21] MEDS: MIRTAZAPINE 15 MG TAB PO SCH (20:30)
[2018-04-21 23:30] VITALS: BP 97/63
[2018-04-22 03:02] VITALS: BP 99/63
[2018-04-22 07:41] LABS: PLATELET COUNT, AUTOMATED 163 K/uL (150-450)
[2018-04-22 09:04] VITALS: BP 91/69
[2018-04-22] MEDS: NYSTATIN 5 ML UDCUP PO SCH ×4 (09:43→21:34)
[2018-04-22] MEDS: PANTOPRAZOLE SOD 40 MG TABEC PO SCH ×2 (09:43→21:34)
[2018-04-22] MEDS: PYRIDOXINE HCL 50 MG TAB PO SCH (09:43)
--- NOTE | 2018-04-22 10:25 | Medical Nutrition Therapy ---
Nutrition Anthropometrics Height (Inches): 63.00 Height (Calculated Centimeters: 160.133970 Weight (Pounds): 144 Weight (Calculated Kilograms): 65.317 BMI: 24 Hx Weight Loss: Yes (162# 03/05/18) Guille Nutrition Score: Very Poor Guille Nutrition Risk Score: 16 Dietary Referral Nutrition Risk Factors: Unplanned Loss >10lbs Nutrition Risk Comment: chemo, rad Physical Findings Physical Appearance: WNR- fluid adding wt. Skin Appearance Skin Appearance: Edema Edema Location Modifier: Both Edema Location: Ankle Type of Edema: Degree of Edema: Gastrointestinal Symptoms GI Symtoms: Nausea, Appetite Changes Tube Present: Bowel Sounds: Recent Bowel Pattern: Stool Characteristics: Nutritional Diagnosis Nutritional Risk Acuity 1: Malnutrition Nutritional Risk Acuity 2: Unintended Wt Loss >5%/mo, Pr Appetite > 3d, Diet < 1000 Kcal Nutritional Risk Acuity 3: Nausea Past Medical History: Hx of mucositis and squamous cell carcinoma of tonsils Nutritional Acuity: 1-High Nutrition Diagnosis: Inadequate Food Intake, Involuntary Wt. Loss Nutrition Etiology: Physiological Causes Nutrition Problem/Etiology/Sym: Malnutrition r/t physiological causes AEB 17% wt loss/ 1 month, muscle wasting via nutrition physical assessment, diet < 1000, pr appetite > 3d, and n/v. Energy Requirement: 2288 (M- St J X 1.4 SF) Protein Requirement: 90 (1.5 gm/kg) Fluid Requirement: 1830 (30ml/kg) Diet Type: Diet as Tolerated ELEAZAR/REG Nutrition Intervention: Cont diet as ordered, Encourage intake, Between meal supplement Calorie Count: 250 (juice and protein shake made) Calorie/Protein Count Date: Apr 21, 2018 Protien: 13 Food Likes: Mix ensure clear to all juices ordered, add Boost plus to hot chocolate Food Dislikes: Pasta Additional Diet Restrictions: PROVIDE NUTR SUPPLMENT Diet Comment To RSA: SOFTER TEXTURES MAY BE EASIER FOR PT TO EAT Nutritional Support Current Enteral / Parental: TPN Current Tube Feeding Formula C: 42ml/hr Rate: ProcalAmine 3% @ 75mL/hr Current Duration: 24 Current Calories: 1753 Current Protein: 100 Recommended Tube Feeding Formu: Osmolite 1.5cal/ml-Hi Hao Tube Feeding Supplement Streng: Full Recommended Rate: Initiate @ 30ml/hr, increase 10ml every 4hrs to final rate Recommended Goal Rate: 60ml/hr Recommended Duration: 24 Recommended Calories: 2160 (60ml*1.5kcal*24hr) Recommended Protein: 90 (62.7g/L *1.44) Total Recommended Calories: 2160 Nutrition Monitoring & Eval Nutrition Goals: Eat 50-100% Meal, Drink > 1500 cc/day Nutrition Follow-Up: Poor Intake RD Patient Assessment Time: [address] Assessment Type: RD Re-Assessment Patient Nutrition Acuity: 1-High Follow Up Date: Apr 24, 2018 Nutritional Comment: 04/13 Pt admitted with dx malnutriton with N/V, poor intake > 3 day, and 17% wt loss/1 month. Pt is 1 month s/p chemo tx for Ca of tonsils. Alb 3.1, hgb 11.3, Hct 33. K+ 3.6. Will provide clear liquid nutr supplment while on clears. Cont to monitor. BK 04/14 Pt cont on clear liquid diet but has only taken a few bites of jellow and sips of juice. Provided Ensure clear and encouraged pt to try. Pt took a few sips and will see if she can tolerate it. Pt states last month "was rough". Pt states softer textures may be easier swallowed. Pt couldn't identify any specific foods that are easy for her to eat. Pt may need nutrtion support to meet nutritional needs. Cont to monitor and encourage intake. BK 04/16 Alb 2.9. Pt continues to consume small amounts of clear liquid diet. Start Calorie Count as per MD order at lunch 04/16/18. Receiving ProcalAmine 3% which provides 52 g of protein and 234 nonprotein calories. This meets 19% of Kcal needs and 58% of protein needs. Doubt oral intake will provide additional nutrients to meet needs and recommend considering nutrition support. If nutrition support is instituted, need to monitor for refeeding syndrome. Follow with Calorie Count data, encourage intake, etc. -DRT 04/17 Calorie Count for 04/16/18: approximately 470 Kcals and 10 grams protein through oral intake. Difficult to ascertain more concrete calorie/protein info as pt usually keeps meal trays and continues to slowly eat throughout the day. Pt also receiving additional Kcal/Pro from ProcalAmine. -DRT 04/18 Pt cont on calorie count and ELEAZAR. Pt had no reported intake yesterday on clear liquid. Today ate bites of scrambled egg and cream of wheat and a 170 kcal supplment brought from home. Provided Sabrina plus for pt to drink but she hadn't eaten it as of 13:00. Pt started on TPN which is meeting 39% est kcal, 47% est protein needs. Recommend cont at this rate and monitor Mg and Phos to ensure no refeeding issues. Will cont to monitor. BK 04/19 3 day calorie count completed. Reported that pt cosumed 75% of breakfast this morning. Pt's reported pt got stressed and vomitted. Phos and Mag within goal ranges, recommend increasing TPN and add lipids. TPN + lipids at 83mL/hr will meet 98% of calorie needs and 100% of protein. TB 04/20 Diet back to ELEAZAR. Pt eating bites but stated she would try to eat more. TPN increased to 83ml/hr which is meeting 77% est kcal and 110% est protein needs. Will cont to monitor. BK 04/22 ELEAZAR + TPN. Calorie Count for 04/21 was 250 (juice and protein shake that made). If moved to tube feeding, recommend Osmolite 1.5 at 60ml/hr to meet 95% of calorie needs and 100% of protein needs. Pt given 50/50 hot chocolate and boost plus this morning, however has not cosumed it yet. Pt did eat 1 egg and 2 pieces of soni this morning. Will cont calorie count. Pt phos at 3.9 and Mg at 2.1, within goal ranges. Cont to monitor for refeeding. SAMUEL BORREGO Apr 22, 2018 09:40
--- NOTE | 2018-04-22 10:32 | Hospitalist Progress Note ---
Subjective Progress Notes Subjective Oral intake has been minimal. Attempt at NG feeding tube placement was unsuccessful yesterday. She still has occasional nausea. Reports most difficulty trying to take solids "because they're too dry". Physical Exam Vital Signs Date Time Temp Pulse Resp B/P (MAP) Pulse Ox O2 Delivery O2 Flow Rate FiO2 04/22/18 09:04 97.8 92 18 91/69 (76) 100 Room Air Intake and Output 04/22/18 07:00 Intake Total 155 ml Balance 155 ml Intake Oral 100 ml IV Total 55 ml # Voids 2 General Appearance: Alert, Awake ENT: Other (oral mucosa appears moist/no obvious lesions noted) Cardiovascular: Regular Rate and Rhythm Respiratory: Clear to Auscultation Result Diagram: 04/22/18 0550 04/20/18 0703 Assessment and Plan Problems: (1) Nausea & vomiting Status: Acute Assessment & Plan: This is a long standing issue since being on chemo/radiation. However, her last treatment was in early-mid February. It is unclear why she continues to have problems. Liver US was unremarkable. Her is concerned that there is large anxiety component. She had a PICC line placed for ongoing TPN. An upper GI series did show some delayed gastric emptying, but no esophageal abnormalities/strictures. (2) Malnutrition Assessment & Plan: Secondary to poor intake. Prealbumin a bit low, Folate low and MRI concerning for Wernicke's encephalopathy. We have restarted TPN, following Mg/Phos for refeeding syndrome, continue folate, started pyridoxine. Following calorie count. If she would start to eat better, we could possibly stop the TPN if she can reliably take in more than 6017-7175 calories a day. No changes at this time. (3) Altered mental state Status: Acute Assessment & Plan: The has noted that she has progressively grown more anxious over a number of weeks. The patient has admitted that she has had persistent thoughts about someone poisoning her and/or compromising her care. She admitted that she wasn't taking her medications at home. Dr. Ortiz spoke to Dr. Quinn about her anxiety issues earlier and he recommended Mirtazapine and Seroquel. The patient has MRI findings concerning for Wernicke's encephalopathy vs. drug reaction to chemo vs. autoimmune encephalitis. Dr. Sarahi Box is aware of the findings. Changed Seroquel to Zyprexa to attempt to alleviate some of the N/V. (4) Folate deficiency Assessment & Plan: She was found to have macrocytosis and her folate levels were low. She has been started on folate supplements. Currently receiving IV form to ensure that she is getting it. (5) Wernicke encephalopathy Assessment & Plan: She was having increased confusion and an MRI showed findings that were concerning for Wernicke's syndrome. See above. (6) LFT elevation Status: Acute Assessment & Plan: Improved. Liver ultrasound was unremarkable. (7) DVT (deep venous thrombosis) Status: Chronic Assessment & Plan: She is on chronic treatment with Lovenox. 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 Bustamante and Anna. (9) Hypokalemia Status: Acute Assessment & Plan: Resolved with IV potassium supplements. (10) ECG abnormality Status: Acute Assessment & Plan: She did have ST-T abnormalities and QTc prolongation. These have improved with replacement of her potassium. Exam Sepsis Risk: No Definite Risk OSWALDO SCHMIDT MD Apr 22, 2018 10:32
--- NOTE | 2018-04-22 11:02 | Medical Nutrition Therapy ---
Nutrition Monitoring & Eval Patient Nutrition Acuity: 1-High Follow Up Date: Apr 23, 2018 Nutritional Comment: 04/13 Pt admitted with dx malnutriton with N/V, poor intake > 3 day, and 17% wt loss/1 month. Pt is 1 month s/p chemo tx for Ca of tonsils. Alb 3.1, hgb 11.3, Hct 33. K+ 3.6. Will provide clear liquid nutr supplment while on clears. Cont to monitor. BK 04/14 Pt cont on clear liquid diet but has only taken a few bites of jellow and sips of juice. Provided Ensure clear and encouraged pt to try. Pt took a few sips and will see if she can tolerate it. Pt states last month "was rough". Pt states softer textures may be easier swallowed. Pt couldn't identify any specific foods that are easy for her to eat. Pt may need nutrtion support to meet nutritional needs. Cont to monitor and encourage intake. BK 04/16 Alb 2.9. Pt continues to consume small amounts of clear liquid diet. Start Calorie Count as per MD order at lunch 04/16/18. Receiving ProcalAmine 3% which provides 52 g of protein and 234 nonprotein calories. This meets 19% of Kcal needs and 58% of protein needs. Doubt oral intake will provide additional nutrients to meet needs and recommend considering nutrition support. If nutrition support is instituted, need to monitor for refeeding syndrome. Follow with Calorie Count data, encourage intake, etc. -DRT 04/17 Calorie Count for 04/16/18: approximately 470 Kcals and 10 grams protein through oral intake. Difficult to ascertain more concrete calorie/protein info as pt usually keeps meal trays and continues to slowly eat throughout the day. Pt also receiving additional Kcal/Pro from ProcalAmine. -DRT 04/18 Pt cont on calorie count and ELEAZAR. Pt had no reported intake yesterday on clear liquid. Today ate bites of scrambled egg and cream of wheat and a 170 kcal supplment brought from home. Provided Sabrina plus for pt to drink but she hadn't eaten it as of 13:00. Pt started on TPN which is meeting 39% est kcal, 47% est protein needs. Recommend cont at this rate and monitor Mg and Phos to ensure no refeeding issues. Will cont to monitor. BK 04/19 3 day calorie count completed. Reported that pt cosumed 75% of breakfast this morning. Pt's reported pt got stressed and vomitted. Phos and Mag within goal ranges, recommend increasing TPN and add lipids. TPN + lipids at 83mL/hr will meet 98% of calorie needs and 100% of protein. TB 04/20 Diet back to ELEAZAR. Pt eating bites but stated she would try to eat more. TPN increased to 83ml/hr which is meeting 77% est kcal and 110% est protein needs. Will cont to monitor. BK 04/22 ELEAZAR + TPN. Calorie Count for 04/21 was 250 (juice and protein shake that made). If moved to tube feeding, recommend Osmolite 1.5 at 60ml/hr to meet 95% of calorie needs and 100% of protein needs. Pt given 50/50 hot chocolate and boost plus this morning, however has not cosumed it yet. Pt did eat 1 egg and 2 pieces of soni this morning. Will cont calorie count. Pt phos at 3.9 and Mg at 2.1, within goal ranges. Cont to monitor for refeeding. TB WENDY SALMON Apr 22, 2018 11:02
[2018-04-22 13:15] VITALS: BP 98/72
[2018-04-22] MEDS ORDERED: [UNRECOGNIZED DRUG - OTHER] TP PRN (14:00)
[2018-04-22] MEDS ORDERED: ZINC TP PRN (14:00)
[2018-04-22] MEDS ORDERED: CALAMINE LOTION 120 ML BTL TP PRN (14:10)
[2018-04-22 15:40] VITALS: BP 100/72
[2018-04-22 19:05] VITALS: BP 102/63
[2018-04-22] MEDS: INS HUM REG* 100 U/ML(ER ONLY) 20 UNIT, MULTIVITAMINS(*) 10 ML VIAL 10 ML, TRACE METALS... IV SCH (20:11)
[2018-04-22] MEDS: MAGIC MOUTHWASH PO PRN (20:11)
[2018-04-22] MEDS: FOLIC ACID(*) 50 MG/10 ML INJ 1 MG in NS(*) 0.9% 50 ML BAG 50 ML IV SCH (21:33)
[2018-04-22] MEDS: OLANZapine 5 MG TAB PO SCH (21:34)
[2018-04-22] MEDS: ENOXAPARIN 100 MG/ML SYR SC SCH (21:34)
[2018-04-22] MEDS: MIRTAZAPINE 15 MG TAB PO SCH (21:35)
[2018-04-22] MEDS: THIAMINE HCL 200 MG/2 ML INJ IVP SCH (21:35)
[2018-04-22 23:20] VITALS: BP 89/54
[2018-04-23 03:22] VITALS: BP 90/54
[2018-04-23 05:41] LABS: PLATELET COUNT, AUTOMATED 163 K/uL (150-450)
[2018-04-23 08:19] VITALS: BP 92/62
[2018-04-23] MEDS: NYSTATIN 5 ML UDCUP PO SCH ×4 (09:00→21:35)
[2018-04-23] MEDS: MAGIC MOUTHWASH PO PRN (09:00)
[2018-04-23 12:11] VITALS: BP 99/68
--- NOTE | 2018-04-23 12:23 | Medical Nutrition Therapy ---
Nutrition Anthropometrics Height (Inches): 63.00 Height (Calculated Centimeters: 160.532734 Weight (Pounds): 144 Weight (Calculated Kilograms): 65.317 BMI: 24 Hx Weight Loss: Yes (162# 03/05/18) Guille Nutrition Score: Very Poor Guille Nutrition Risk Score: 15 Dietary Referral Nutrition Risk Factors: Unplanned Loss >10lbs Nutrition Risk Comment: chemo, rad Physical Findings Physical Appearance: WNR- fluid adding wt. Skin Appearance Skin Appearance: Edema Edema Location Modifier: Both Edema Location: Ankle Type of Edema: Degree of Edema: Gastrointestinal Symptoms GI Symtoms: Appetite Changes Tube Present: Bowel Sounds: Recent Bowel Pattern: Stool Characteristics: Nutritional Diagnosis Nutritional Risk Acuity 1: Malnutrition Nutritional Risk Acuity 2: Unintended Wt Loss >5%/mo, Pr Appetite > 3d, Diet < 1000 Kcal Nutritional Risk Acuity 3: Nausea Past Medical History: Hx of mucositis and squamous cell carcinoma of tonsils Nutritional Acuity: 1-High Nutrition Diagnosis: Inadequate Food Intake, Involuntary Wt. Loss Nutrition Etiology: Physiological Causes Nutrition Problem/Etiology/Sym: Malnutrition r/t physiological causes AEB 17% wt loss/ 1 month, muscle wasting via nutrition physical assessment, diet < 1000, pr appetite > 3d, and n/v. Energy Requirement: 2288 (M- St J X 1.4 SF) Protein Requirement: 90 (1.5 gm/kg) Fluid Requirement: 1830 (30ml/kg) Diet Type: Diet as Tolerated ELEAZAR/REG Nutrition Intervention: Cont diet as ordered, Encourage intake, Between meal supplement Calorie Count: 865 (1 egg, 2 soni, 3 grape juice, 1 Boost, 1/2 scoop protein powder, bites of broccoli, ribs, potato/gravy) Calorie/Protein Count Date: Apr 22, 2018 Protien: 28 Food Likes: Mix ensure clear to all juices ordered, add Boost plus to hot chocolate Food Dislikes: Pasta Additional Diet Restrictions: PROVIDE NUTR SUPPLMENT Diet Comment To RSA: SOFTER TEXTURES MAY BE EASIER FOR PT TO EAT Nutritional Support Current Enteral / Parental: TPN Current Tube Feeding Formula C: 42ml/hr Rate: ProcalAmine 3% @ 75mL/hr Current Duration: 24 Current Calories: 1753 Current Protein: 100 Recommended Tube Feeding Formu: Osmolite 1.5cal/ml-Hi Hao Tube Feeding Supplement Streng: Full Recommended Rate: Initiate @ 30ml/hr, increase 10ml every 4hrs to final rate Recommended Goal Rate: 60ml/hr Recommended Duration: 24 Recommended Calories: 2160 (60ml*1.5kcal*24hr) Recommended Protein: 90 (62.7g/L *1.44) Total Recommended Calories: 2160 Nutrition Monitoring & Eval RD Patient Assessment Time: 30 minutes Patient Nutrition Acuity: 1-High Follow Up Date: Apr 24, 2018 Nutritional Comment: 04/13 Pt admitted with dx malnutriton with N/V, poor intake > 3 day, and 17% wt loss/1 month. Pt is 1 month s/p chemo tx for Ca of tonsils. Alb 3.1, hgb 11.3, Hct 33. K+ 3.6. Will provide clear liquid nutr supplment while on clears. Cont to monitor. BK 04/14 Pt cont on clear liquid diet but has only taken a few bites of jellow and sips of juice. Provided Ensure clear and encouraged pt to try. Pt took a few sips and will see if she can tolerate it. Pt states last month "was rough". Pt states softer textures may be easier swallowed. Pt couldn't identify any specific foods that are easy for her to eat. Pt may need nutrtion support to meet nutritional needs. Cont to monitor and encourage intake. BK 04/16 Alb 2.9. Pt continues to consume small amounts of clear liquid diet. Start Calorie Count as per MD order at lunch 04/16/18. Receiving ProcalAmine 3% which provides 52 g of protein and 234 nonprotein calories. This meets 19% of Kcal needs and 58% of protein needs. Doubt oral intake will provide additional nutrients to meet needs and recommend considering nutrition support. If nutrition support is instituted, need to monitor for refeeding syndrome. Follow with Calorie Count data, encourage intake, etc. -DRT 04/17 Calorie Count for 04/16/18: approximately 470 Kcals and 10 grams protein through oral intake. Difficult to ascertain more concrete calorie/protein info as pt usually keeps meal trays and continues to slowly eat throughout the day. Pt also receiving additional Kcal/Pro from ProcalAmine. -DRT 04/18 Pt cont on calorie count and ELEAZAR. Pt had no reported intake yesterday on clear liquid. Today ate bites of scrambled egg and cream of wheat and a 170 kcal supplment brought from home. Provided Sabrina plus for pt to drink but she hadn't eaten it as of 13:00. Pt started on TPN which is meeting 39% est kcal, 47% est protein needs. Recommend cont at this rate and monitor Mg and Phos to ensure no refeeding issues. Will cont to monitor. BK 04/19 3 day calorie count completed. Reported that pt cosumed 75% of breakfast this morning. Pt's reported pt got stressed and vomitted. Phos and Mag within goal ranges, recommend increasing TPN and add lipids. TPN + lipids at 83mL/hr will meet 98% of calorie needs and 100% of protein. TB 04/20 Diet back to ELEAZAR. Pt eating bites but stated she would try to eat more. TPN increased to 83ml/hr which is meeting 77% est kcal and 110% est protein needs. Will cont to monitor. BK 04/22 ELEAZAR + TPN. Calorie Count for 04/21 was 250 (juice and protein shake that made). If moved to tube feeding, recommend Osmolite 1.5 at 60ml/hr to meet 95% of calorie needs and 100% of protein needs. Pt given 50/50 hot chocolate and boost plus this morning, however has not cosumed it yet. Pt did eat 1 egg and 2 pieces of soni this morning. Will cont calorie count. Pt phos at 3.9 and Mg at 2.1, within goal ranges. Cont to monitor for refeeding. TB 04/23/18 Calorie count of PO intake for 04/22/18: approximately 865 Kcal and 28 grams protein. Pts states they are using numbing mouthwash to help increase intake. Also adding protein powder to add Kcal/protein. Most foods consumed on 04/22 were liquids, i.e. juices, Boost. Continue Calorie count. -OLVIN CARROLL Apr 23, 2018 12:23
[2018-04-23] MEDS: PYRIDOXINE HCL 50 MG TAB PO SCH (13:03)
[2018-04-23] MEDS: PANTOPRAZOLE SOD 40 MG TABEC PO SCH ×2 (13:03→21:35)
--- NOTE | 2018-04-23 13:22 | Hospitalist Progress Note ---
Subjective Progress Notes Subjective The patient states she is eating better. No new complaints. Physical Exam Vital Signs Date Time Temp Pulse Resp B/P (MAP) Pulse Ox O2 Delivery O2 Flow Rate FiO2 04/23/18 12:11 97.8 113 16 99/68 (78) 95 Room Air Intake and Output 04/23/18 06:59 Intake Total 1776 ml Balance 1776 ml Intake Oral 786 ml IV Total 990 ml Caloric Intake Amount 250 # Voids 3 General Appearance: Alert, Awake, No Acute Distress, Afebrile Neuro: Other (Some short term memory difficulties.) Eyes: PERRLA Cardiovascular: Regular Rate and Rhythm Respiratory: Clear to Auscultation GI: Soft and Non-Tender Extremities: Warm, Perfused Psych: Appropriate Mood & Affect Result Diagram: 04/23/1853304/23/18533 Assessment and Plan Problems: (1) Nausea & vomiting Status: Acute Assessment & Plan: This is a long standing issue since being on chemo/radiation. However, her last treatment was in early-mid February. It is unclear why she continues to have problems. Liver US was unremarkable. Her is concerned that there is large anxiety component. She had a PICC line placed for ongoing TPN. An upper GI series did show some delayed gastric emptying, but no esophageal abnormalities/strictures. She has improved since starting Nystatin for thrush and is eating better. (2) Malnutrition Assessment & Plan: Secondary to poor intake. Prealbumin a bit low, Folate low and MRI concerning for Wernicke's encephalopathy. We have restarted TPN, following Mg/Phos for refeeding syndrome, continue folate, started pyridoxine. Following calorie count. If she would start to eat better, we could possibly stop the TPN if she can reliably take in more than 6394-8087 calories a day. No changes at this time. (3) Altered mental state Status: Acute Assessment & Plan: The has noted that she has progressively grown more anxious over a number of weeks. The patient has admitted that she has had persistent thoughts about someone poisoning her and/or compromising her care. She admitted that she wasn't taking her medications at home. Dr. Ortiz spoke to Dr. Quinn about her anxiety issues earlier and he recommended Mirtazapine and Seroquel. The patient has MRI findings concerning for Wernicke's encephalopathy vs. drug reaction to chemo vs. autoimmune encephalitis. Dr. Sarahi Box is aware of the findings. Changed Seroquel to Zyprexa to attempt to alleviate some of the N/V. (4) Folate deficiency Assessment & Plan: She was found to have macrocytosis and her folate levels were low. She has been started on folate supplements. Currently receiving IV form to ensure that she is getting it. (5) Wernicke encephalopathy Assessment & Plan: She was having increased confusion and an MRI showed findings that were concerning for Wernicke's syndrome. See above. (6) LFT elevation Status: Acute Assessment & Plan: Improved. Liver ultrasound was unremarkable. (7) DVT (deep venous thrombosis) Status: Chronic Assessment & Plan: She is on chronic treatment with Lovenox. 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 Bustamante and Anna. (9) Hypokalemia Status: Acute Assessment & Plan: Resolved with IV potassium supplements. (10) ECG abnormality Status: Acute Assessment & Plan: She did have ST-T abnormalities and QTc prolongation. These have improved with replacement of her potassium. Time Spent on Plan of Care: < 30 min Exam Sepsis Risk: No Definite Risk MARLA SCHMIDT MD Apr 23, 2018 13:22
[2018-04-23 15:52] VITALS: BP 110/75
[2018-04-23] MEDS: INS HUM REG* 100 U/ML(ER ONLY) 20 UNIT, MULTIVITAMINS(*) 10 ML VIAL 10 ML, TRACE METALS... IV SCH (17:40)
[2018-04-23 19:00] VITALS: BP 111/72
[2018-04-23] MEDS: FOLIC ACID(*) 50 MG/10 ML INJ 1 MG in NS(*) 0.9% 50 ML BAG 50 ML IV SCH (21:34)
[2018-04-23] MEDS: OLANZapine 5 MG TAB PO SCH (21:35)
[2018-04-23] MEDS: MIRTAZAPINE 15 MG TAB PO SCH (21:35)
[2018-04-23] MEDS: ENOXAPARIN 100 MG/ML SYR SC SCH (21:35)
[2018-04-24] MEDS ORDERED: HEPARIN FLSH (PORT) 500 UN/5ML ONE (04:52)
[2018-04-24 05:24] VITALS: BP 89/61
[2018-04-24 06:07] LABS: PLATELET COUNT, AUTOMATED 64 K/uL (150-450)
[2018-04-24 08:49] VITALS: BP 96/68
[2018-04-24] MEDS: PANTOPRAZOLE SOD 40 MG TABEC PO SCH (08:53)
[2018-04-24] MEDS: PYRIDOXINE HCL 50 MG TAB PO SCH (08:53)
[2018-04-24] MEDS: NYSTATIN 5 ML UDCUP PO SCH ×2 (08:53→13:54)
[2018-04-24 11:24] VITALS: BP 102/63
--- NOTE | 2018-04-24 12:21 | Medical Nutrition Therapy ---
Nutrition Anthropometrics Height (Inches): 63.00 Height (Calculated Centimeters: 160.581411 Weight (Pounds): 145 Weight (Calculated Kilograms): 65.771 BMI: 24 Hx Weight Loss: Yes (162# 03/05/18) Guille Nutrition Score: Probably Inadequate Guille Nutrition Risk Score: 16 Dietary Referral Nutrition Risk Factors: Unplanned Loss >10lbs Nutrition Risk Comment: chemo, rad Physical Findings Physical Appearance: WNR- fluid adding wt. Skin Appearance Skin Appearance: Edema Edema Location Modifier: Both Edema Location: Ankle Type of Edema: Degree of Edema: Gastrointestinal Symptoms GI Symtoms: Appetite Changes Tube Present: Bowel Sounds: Recent Bowel Pattern: Stool Characteristics: Nutritional Diagnosis Nutritional Risk Acuity 1: Malnutrition Nutritional Risk Acuity 2: Unintended Wt Loss >5%/mo, Pr Appetite > 3d, Diet < 1000 Kcal Nutritional Risk Acuity 3: Nausea Past Medical History: Hx of mucositis and squamous cell carcinoma of tonsils Nutritional Acuity: 1-High Nutrition Diagnosis: Inadequate Food Intake, Involuntary Wt. Loss Nutrition Etiology: Physiological Causes Nutrition Problem/Etiology/Sym: Malnutrition r/t physiological causes AEB 17% wt loss/ 1 month, muscle wasting via nutrition physical assessment, diet < 1000, pr appetite > 3d, and n/v. Energy Requirement: 2288 (M- St J X 1.4 SF) Protein Requirement: 90 (1.5 gm/kg) Fluid Requirement: 1830 (30ml/kg) Diet Type: Diet as Tolerated ELEAZAR/REG Nutrition Intervention: Cont diet as ordered, Encourage intake, Between meal supplement Calorie Count: 1155 Calorie/Protein Count Date: Apr 23, 2018 Protien: 60 Food Likes: Mix ensure clear to all juices ordered, add Boost plus to hot chocolate Food Dislikes: Pasta Additional Diet Restrictions: PROVIDE NUTR SUPPLMENT Diet Comment To RSA: SOFTER TEXTURES MAY BE EASIER FOR PT TO EAT Nutrition Monitoring & Eval RD Patient Assessment Time: 30 minutes Patient Nutrition Acuity: 1-High Follow Up Date: Apr 24, 2018 Nutritional Comment: 04/13 Pt admitted with dx malnutriton with N/V, poor intake > 3 day, and 17% wt loss/1 month. Pt is 1 month s/p chemo tx for Ca of tonsils. Alb 3.1, hgb 11.3, Hct 33. K+ 3.6. Will provide clear liquid nutr supplment while on clears. Cont to monitor. BK 04/14 Pt cont on clear liquid diet but has only taken a few bites of jellow and sips of juice. Provided Ensure clear and encouraged pt to try. Pt took a few sips and will see if she can tolerate it. Pt states last month "was rough". Pt states softer textures may be easier swallowed. Pt couldn't identify any specific foods that are easy for her to eat. Pt may need nutrtion support to meet nutritional needs. Cont to monitor and encourage intake. BK 04/16 Alb 2.9. Pt continues to consume small amounts of clear liquid diet. Start Calorie Count as per MD order at lunch 04/16/18. Receiving ProcalAmine 3% which provides 52 g of protein and 234 nonprotein calories. This meets 19% of Kcal needs and 58% of protein needs. Doubt oral intake will provide additional nutrients to meet needs and recommend considering nutrition support. If nutrition support is instituted, need to monitor for refeeding syndrome. Follow with Calorie Count data, encourage intake, etc. -DRT 04/17 Calorie Count for 04/16/18: approximately 470 Kcals and 10 grams protein through oral intake. Difficult to ascertain more concrete calorie/protein info as pt usually keeps meal trays and continues to slowly eat throughout the day. Pt also receiving additional Kcal/Pro from ProcalAmine. -DRT 04/18 Pt cont on calorie count and ELEAZAR. Pt had no reported intake yesterday on clear liquid. Today ate bites of scrambled egg and cream of wheat and a 170 kcal supplment brought from home. Provided Sabrina plus for pt to drink but she hadn't eaten it as of 13:00. Pt started on TPN which is meeting 39% est kcal, 47% est protein needs. Recommend cont at this rate and monitor Mg and Phos to ensure no refeeding issues. Will cont to monitor. BK 04/19 3 day calorie count completed. Reported that pt cosumed 75% of breakfast this morning. Pt's reported pt got stressed and vomitted. Phos and Mag within goal ranges, recommend increasing TPN and add lipids. TPN + lipids at 83mL/hr will meet 98% of calorie needs and 100% of protein. TB 04/20 Diet back to ELEAZAR. Pt eating bites but stated she would try to eat more. TPN increased to 83ml/hr which is meeting 77% est kcal and 110% est protein needs. Will cont to monitor. BK 04/22 ELEAZAR + TPN. Calorie Count for 04/21 was 250 (juice and protein shake that made). If moved to tube feeding, recommend Osmolite 1.5 at 60ml/hr to meet 95% of calorie needs and 100% of protein needs. Pt given 50/50 hot chocolate and boost plus this morning, however has not cosumed it yet. Pt did eat 1 egg and 2 pieces of soni this morning. Will cont calorie count. Pt phos at 3.9 and Mg at 2.1, within goal ranges. Cont to monitor for refeeding. TB 04/23/18 Calorie count of PO intake for 04/22/18: approximately 865 Kcal and 28 grams protein. Pts states they are using numbing mouthwash to help increase intake. Also adding protein powder to add Kcal/protein. Most foods consumed on 04/22 were liquids, i.e. juices, Boost. Continue Calorie count. -DRT 04/24/18 Calorie count of PO intake for 04/23/18: approximately 1155 Kcal and 60 grams protein. -OLVIN CARROLL Apr 24, 2018 12:21
[2018-04-24] MEDS ORDERED: ENOX30DI4 SQ ×2 (12:42→13:10)
[2018-04-24] MEDS ORDERED: ACET-1718 PO (12:42)
[2018-04-24] MEDS ORDERED: SUCR1TAB51 PO (12:42)
[2018-04-24] MEDS ORDERED: FLUC200T56 PO ×2 (12:42→13:47)
[2018-04-24] MEDS ORDERED: POTA20TA94 PO (12:42)
[2018-04-24] MEDS ORDERED: DEX4 PO (12:42)
[2018-04-24] MEDS ORDERED: VITA-131 PO (12:42)
[2018-04-24] MEDS ORDERED: ACET12.53 PO (12:42)
[2018-04-24] MEDS ORDERED: PROC-5 PO (12:42)
[2018-04-24] MEDS ORDERED: SUCR1ORA17 PO (12:42)
[2018-04-24] MEDS ORDERED: FENT-17 TD (12:42)
[2018-04-24] MEDS ORDERED: OLAN5TAB27 PO (13:10)
[2018-04-24] MEDS ORDERED: Nystatin 5 Ml Udcup PO (13:10)
[2018-04-24] MEDS ORDERED: MIRT-22 PO (13:10)
[2018-04-24] MEDS ORDERED: FOLI-68 PO (13:10)
[2018-04-24] MEDS ORDERED: ENOX120D7 SQ (13:46)
--- NOTE | 2018-04-24 13:59 | Hospitalist Depart ---
Discharge Summary Reason for Hosp/Final Diag: (1) Thrush of mouth and esophagus Hospital Course & Plan: Contributing to n/v. Began on nystatin swish/swallow. They have fluconazole tablets already. Will change to Fluconazole 400mg for 21 days. Likely limited to oropharyngeal but given pancytopenia will treat with higher longer dosing for esophageal. (2) Nausea & vomiting Status: Acute Hospital Course & Plan: Imporved. This is a long standing issue since being on chemo/radiation. However, her last treatment was in early-mid February. It is unclear why she continues to have problems. Liver US was unremarkable. Her is concerned that there is large anxiety component. She had a PICC line placed for ongoing TPN. An upper GI series did show some delayed gastric emptying, but no esophageal abnormalities/strictures. She has improved since starting Nystatin for thrush and is eating better. Tolerating PO calorie counts > 1000 (3) Malnutrition Hospital Course & Plan: Secondary to poor intake. Prealbumin a bit low, Folate low and MRI concerning for Wernicke's encephalopathy. We started TPN, which is now stopped. Continue folate, started pyridoxine.Currently tolerating PO intake 4573-7526 calories a day. (4) Pancytopenia Hospital Course & Plan: Originally from chemotherapy now likely prolonged by severe malnutrition. Should improve with better nutrition. Given order for CBC this coming week and if still below 2 WBC would recommend follow up with oncology to discuss. (5) Altered mental state Status: Acute Hospital Course & Plan: Improved. The has noted that she has progressively grown more anxious over a number of weeks. The patient has admitted that she has had persistent thoughts about someone poisoning her and/or compromising her care. She admitted that she wasn't taking her medications at home. Dr. Squires spoke to Dr. Quinn about her anxiety issues earlier and he recommended Mirtazapine and Seroquel. The patient has MRI findings concerning for Wernicke's encephalopathy vs. drug reaction to chemo vs. autoimmune encephalitis. Dr. Galdamez is aware of the findings. Changed Seroquel to Zyprexa to attempt to alleviate some of the N/V, will continue these outpatient as she is feeling well with no adverse reactions. (6) Folate deficiency Hospital Course & Plan: She was found to have macrocytosis and her folate levels were low. She has been started on folate supplements. (7) Wernicke encephalopathy Hospital Course & Plan: She was having increased confusion and an MRI showed findings that were concerning for Wernicke's syndrome. See above. (8) LFT elevation Status: Acute Hospital Course & Plan: Improved. Liver ultrasound was unremarkable. (9) DVT (deep venous thrombosis) Status: Chronic Hospital Course & Plan: She is on chronic treatment with Lovenox. (10) Squamous cell carcinoma of tonsil Status: Chronic Hospital Course & Plan: Followed by Drs. Bustamante and Anna. (11) Hypokalemia Status: Acute Hospital Course & Plan: Resolved with IV potassium supplements. (12) ECG abnormality Status: Acute Hospital Course & Plan: She did have ST-T abnormalities and QTc prolongation. These have improved with replacement of her potassium. Departure Weight (Pounds): 145 Weight (Ounces): 8.0 Result Diagram: 04/24/1853404/24/18534 Condition: Improved Discharge: Home Discharge Instructions Home Meds Active Scripts Fluconazole (FLUCONAZOLE) 200 Mg Tablet, 400 MG PO QDAY for 21 Days, #42 TAB Prov:MARK JUDD DO 04/24/18 Enoxaparin Sodium (ENOXAPARIN SODIUM) 120 Mg/0.8 Ml Disp.syrin, 120 MG SQ DAILY for 30 Days, SYR Prov:MARK JUDD 04/24/18 Folic Acid (FOLIC ACID) 1 Mg Tablet, 1 MG PO QDAY for 30 Days, #30 TAB Prov:MARK JUDD 04/24/18 Olanzapine (OLANZAPINE) 5 Mg Tablet, 5 MG PO QHS for 30 Days, #30 TAB Prov:MARK JUDD 04/24/18 Mirtazapine (MIRTAZAPINE) 15 Mg Tablet, 15 MG PO QHS for 30 Days, #30 TAB Prov:MARK JUDD 04/24/18 Lorazepam (ATIVAN) 0.5 Mg Tablet, 1-2 TAB PO Q6H PRN for nausea, #30 TAB Prov:STEFFEN SQUIRES MD 03/22/18 Reported Medications Vitamin B Complex (VITAMIN B COMPLEX) 1 Each Tablet, 1 EACH PO TID 04/24/18 Prochlorperazine Maleate (PROCHLORPERAZINE MALEATE) 10 Mg Tablet, 10 MG PO Q8H PRN for NAUSEA, TAB 04/24/18 Dexamethasone 4 Mg Tab (DEXAMETHASONE 4 MG TAB) 4 Mg Tab, 1 TAB PO Q4H PRN for NAUSEA, TAB 04/24/18 Sucralfate (SUCRALFATE) 1 Gm Tablet, 1 GM PO ACHS 04/24/18 Acetaminophen With Codeine # 3 (ACETAMINOPHEN-COD #3 TABLET) 1 Each Tablet, 1 EACH PO Q6H PRN for PAIN, TAB 04/24/18 Acetaminophen with Codeine (Acetamin-Codein 300-30 mg/12.5) 12.5 Ml Solution, 2- 5 ML PO Q6H PRN for PAIN 04/24/18 Esomeprazole Magnesium (NEXIUM) 40 Mg Capsule.dr, 1 CAP PO QDAY, CAP 03/22/18 Docusate Sodium (COLACE) 100 Mg Capsule, 100 MG PO DAILY PRN for CONSTIPATION, CAPSULE 03/05/18 Discontinued Reported Medications Enoxaparin Sodium (LOVENOX) 30 Mg/0.3 Ml Disp.syrin, 30 MG SQ DAILY 04/24/18 Fentanyl 25 Mcg Patch (FENTANYL 25 MCG PATCH) 1 Each Patch.td72, 1 EACH TD Q72H, PATCH.72H 04/24/18 Potassium Chloride (POTASSIUM CHLORIDE) 20 Meq Tab.er.prt, 20 MEQ PO BID 04/24/18 Fluconazole (FLUCONAZOLE) 200 Mg Tablet, 400 MG PO BID 04/24/18 Sucralfate (CARAFATE) 1 Gm/10 Ml Oral.susp, 10 ML PO ACHS 04/24/18 Prochlorperazine Maleate (Compazine) 10 Mg Tablet, 0.5-1 TAB PO Q8H PRN for nausea 03/21/18 Discontinued Scripts Enoxaparin Sodium (LOVENOX) 120 Mg/0.8 Ml Disp.syrin, 120 MG SQ DAILY for 14 Days, #14 SYR Prov:MARK JUDD DO 02/15/18 Diet: Regular Activity: As Tolerated Copies to: SHIV GALDAMEZ MD ; Venous Thromboembolism Antithrombotics Is Pt On Any Antithrombotics?: Yes MARK JUDD DO Apr 24, 2018 13:59
== END 2018-04-24 16:40 | disposition home or self-care (01) | DRG 640 ==
LOC: ER 13:40 → MED 16:12
PROVIDERS: ADMIT Internal Medicine; ATTEND Internal Medicine
PROC: 02H633Z Insertion of Infusion Device into Right Atrium, Percutaneous Approach (ICD-10-PCS; principal; 2018-04-18)
PROC: B214YZZ Fluoroscopy of Right Heart using Other Contrast (ICD-10-PCS; 2018-04-18)
DX: E51.2 Wernicke's encephalopathy (principal); E43 Unspecified severe protein-calorie malnutrition; D61.818 Other pancytopenia; B37.0 Candidal stomatitis; B37.81 Candidal esophagitis; I82.509 Chronic embolism and thrombosis of unspecified deep veins of unspecified lower extremity; E86.0 Dehydration; E87.6 Hypokalemia; C09.9 Malignant neoplasm of tonsil, unspecified; R11.2 Nausea with vomiting, unspecified; R41.82 Altered mental status, unspecified; F41.9 Anxiety disorder, unspecified; E53.8 Deficiency of other specified B group vitamins; R94.5 Abnormal results of liver function studies; R94.31 Abnormal electrocardiogram [ECG] [EKG]; Z88.1 Allergy status to other antibiotic agents; Z87.891 Personal history of nicotine dependence; Z92.21 Personal history of antineoplastic chemotherapy; Z92.3 Personal history of irradiation; Z79.01 Long term (current) use of anticoagulants; F22 Delusional disorders; T45.1X5A Adverse effect of antineoplastic and immunosuppressive drugs, initial encounter; Z91.14 Patient's other noncompliance with medication regimen; T50.905A Adverse effect of unspecified drugs, medicaments and biological substances, initial encounter; D72.819 Decreased white blood cell count, unspecified; D53.1 Other megaloblastic anemias, not elsewhere classified
CPT/HCPCS: 36415; 36416; 36569; 70450; 70551; 71045; 74240; 76705; 76937; 80320; 81001; 82040; 82140; 82247; 82310; 82330; 82374; 82375; 82435; 82565; 82607; 82746; 82947; 82948; 83690; 83735; 84075; 84100; 84132; 84134; 84155; 84295; 84443; 84450; 84460; 84484; 84520; 84703; 85025; 93005; 96360; 97163; 97165; 99285; C1751; C9113; J1642; J1650; J1815; J2550; J3411; J3420; J3480; J7030; J7050; S0028

== ENCOUNTER 2018-05-17 09:13 | Outpatient (RCR) | payer SELFPAY ==
[2018-01-27 08:31] VITALS: BP 124/80
[2018-04-13 14:25] VITALS: BMI 23.9
[~2018-05-17 09:13] MED LIST changes: +ACET-1718 PO; +ENOX120D7 SQ; +ENOX30DI4 SQ; +FENT-17 TD; +FOLI-68 PO; +MIRT-22 PO; +Nystatin 5 Ml Udcup PO; +OLAN5TAB27 PO; +PROC-5 PO; +SUCR1ORA17 PO; +VITA-131 PO
--- NOTE | 2018-05-17 22:45 | ONCOLOGY FOLLOW UP NOTE ---
EVENT DATE: May 17, 2018 CHIEF COMPLAINT Followup for squamous cell carcinoma of the right tonsil. HISTORY OF PRESENT ILLNESS Patient is a 38-year-old female who was seen today in followup. She completed her chemoradiation with weekly cisplatin on 02/25/18. She was then hospitalized in March for hypokalemia, dehydration, and malnutrition. MRI of the brain on 04/14/18 showed possible Wernicke encephalopathy. She began treatment with IV thiamine with B12 and folic acid. She was also seen by Psych and started on antidepressants and antipsychotics. Today, she presents and is markedly improved. She feels she is "almost back to normal," but still struggles with some short- and long-term memory issues. She has dry mouth, but no further thrush. Her left leg is swollen after extensive left upper leg DVT, and she continues on Lovenox. Her weight has improved, and her CBC is also improving. Most recent CT of the neck and chest on 04/29/18 was negative for recurrence. ONCOLOGY HISTORY Patient was diagnosed with a squamous cell carcinoma of the right tonsil, status post right tonsillectomy and selective lymph node excision on 12/16/17. Tumor was 1.3 cm with perineural invasion. Also underwent simultaneous excision of a large soft tissue mass from the right neck measuring 2.4 x 1.4 x 1 cm with pathologic evidence of squamous cell carcinoma replacing the lymph node, stage ALEJA (T1 N2b M0). PET CT was negative for distant metastatic disease. Completed concurrent chemoradiation with weekly cisplatin from 01/10/18 through 02/25/18. PAST MEDICAL HISTORY 1. Right tonsillar carcinoma, December 2017. 2. Left upper leg DVT, February 15, 2018. PAST SURGICAL HISTORY 2. Bilateral tonsillectomy with excisional biopsy of deep neck mass, December 16, 2017. 3. Cholecystectomy. 4. Tubal ligation. FAMILY HISTORY Mother had uterine cancer. Maternal great-grandmother had ovarian cancer. SOCIAL HISTORY The patient is . She has three children. Her youngest son is 14. She is not working. She seldom drinks alcohol. Questionable use of marijuana. CURRENT MEDICATIONS 1. Lovenox 120 mg subcutaneous daily. 2. Folic acid 1 mg daily. 3. Olanzapine 5 mg at bedtime. 4. Mirtazapine 15 mg at bedtime. 5. Vitamin B complex. ALLERGIES HYDROCODONE. REVIEW OF SYSTEMS A 12-point review of systems is performed and is negative except as stated above. PHYSICAL EXAMINATION VITAL SIGNS: Weight 71.2 kg, increased from 65.77 kg in April. BP 121/86, P 88, R 16, temp 98, O2 sat 99%. GENERAL: Patient is a well-developed, well-nourished female in no acute distress. Affect is much brighter. HEAD: Normocephalic, atraumatic. EYES: Sclerae anicteric. MOUTH: Slightly dry mucous membranes. No evidence of thrush. No lesions noted in the mouth. NECK: Supple. No palpable adenopathy. LUNGS: Clear bilaterally. CARDIOVASCULAR: Heart rate regular, 88 per minute, without murmur, S3, or S4. ABDOMEN: Soft, nontender, with active bowel sounds. No organomegaly. EXTREMITIES: 1+ pretibial edema on the left with compression stocking in place. NEUROLOGICAL: Nonfocal. LABORATORIES CBC today reveals a WBC of 2.5, ANC of 1.7, hemoglobin 12.4, hematocrit 36.8, platelets 226,000. CMP was within normal limits except for potassium 3.4 and magnesium 1.6. IMPRESSION AND PLAN The patient is a 38-year-old female who completed treatment with weekly cisplatin and external beam radiation from January 10, 2018, through February 25, 2018. Admitted on April 12, 2018, for failure to thrive with severe malnutrition and confusion. 1. Head and neck cancer. No signs or symptoms of disease recurrence. CTs of the neck and chest on 04/29/18 were both negative for any recurrent disease. 2. Neutropenia. Slowly improving. ANC today is 1.7. She has had no issues with infection. Remainder of CBC was within normal limits, improved over labs in April. 3. Left upper leg deep venous thrombosis. She will continue Lovenox, which she began on 02/15/18. This will be reevaluated with Doppler. She sees Dr. Sarahi Box in the next few weeks. She is wearing a compression stocking on that side. 4. Malnutrition. Weight has improved. She states she is eating well without any difficulty. She will continue on B complex and folic acid. 5. Psychiatric. Markedly improved on mirtazapine and olanzapine. She is now off the lorazepam and is hopeful she can get off the mirtazapine and olanzapine in the future. 6. Follow up with Dr. Castillo on 05/27/18. 7. Follow up with Dr. Bustamante in three months. He will perform a scope at that time. NOMAN
== END 2018-07-18 08:35 | disposition home or self-care (01) ==
LOC: RAON 09:13
PROVIDERS: ATTEND Radiology Radiation Oncology
DX: Z51.0 Encounter for antineoplastic radiation therapy (principal); C09.9 Malignant neoplasm of tonsil, unspecified; R59.0 Localized enlarged lymph nodes; Z87.891 Personal history of nicotine dependence; I82.422 Acute embolism and thrombosis of left iliac vein; Z79.01 Long term (current) use of anticoagulants; Z92.3 Personal history of irradiation; Z92.21 Personal history of antineoplastic chemotherapy; D70.9 Neutropenia, unspecified; E46 Unspecified protein-calorie malnutrition
CPT/HCPCS: 99212

== ENCOUNTER 2018-05-27 08:48 | Outpatient (RCR) | payer SELFPAY ==
[2018-03-29 10:31] VITALS: BP 125/78
[2018-03-29 10:52] LABS: PLATELET COUNT, AUTOMATED 419 K/uL (150-450)
[2018-04-04 10:17] VITALS: BP 100/76
[2018-04-04 10:35] LABS: PLATELET COUNT, AUTOMATED 381 K/uL (150-450)
--- NOTE | 2018-04-08 08:28 | NUR ---
SW tried to get in touch with the patient again (second time) regarding completing the [facility] application for assistance for the PET scan. STAN left another message requesting call back.
[2018-04-13 14:25] VITALS: Wt 71.0 kg
--- NOTE | 2018-04-15 12:27 | PROGRESS NOTE ---
DATE: April 15, 2018 HOSPITAL COURSE Patient was seen today at [facility]. 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 She underwent bilateral tonsillectomy and right neck dissection. She completed a course of weekly cisplatin and external beam radiation from January 10, 2018 through February 25, 2018. Patient was admitted to [facility] on April 12, 2018 for failure to thrive. She had been dehydrated with nausea, vomiting and resultant hypokalemia. Since admission she became increasingly confused. MRI of the brain on April 14, 2018 showed flare hyperintensity in the periaqueductal koenig matter and bilateral posterior medial thalamus, suspicious for Wernicke encephalopathy. Alternatively, this could be a drug reaction related to chemotherapy or autoimmune encephalitis given the history of cancer. For this reason and the fact that she has had issues with anorexia, nausea and vomiting with resultant malnutrition, she was started on IV thiamine every eight hours with B12. When seen today, she appeared somewhat clearer, although was still intermittently confused. She appeared more alert. She has been in bed since admission and we discussed the importance of trying to get out of bed and more active. Physical therapy may be ordered. She will continue with IV vitamin therapy for the next few days and be reevaluated after that. I spoke with Dr. Jeyson Silverio regarding the patient and current plan. She will continue in-hospital care. Thiamine, B12 and folate levels are pending. A total of 30 minutes was spent with the patient and hospital staff for coordination of care. NOMAN
[2018-04-27 13:36] VITALS: BP 110/74
[2018-04-27 13:57] LABS: PLATELET COUNT, AUTOMATED 221 K/uL (150-450)
--- NOTE | 2018-04-27 15:08 | NUR ---
STAN conducted follow up MoCA assessment. Pt's original score at the beginning of her hospital admission on 03/3018 was 8/30. Today the patient scored 25/30, which is very close to the normal range.
--- NOTE | 2018-04-29 10:16 | RADIOLOGY IMAGING REPORT ---
[place] [facility] [place] Beba Plascencia : 1980 MR: [id number] V: [id number] EXAM DATE: ORDERING PHYSICIAN: SHIV GALDAMEZ TECHNOLOGIST: Location: [facility] - [place] Patient: Beba Plascencia : 1980 Visit/Account:[id number] Date of Sevice: 04/29/2018 Study: CT scan of the neck with intravenous contrast Indication: Squamous cell carcinoma Contrast utilized:80 mL Isovue 370 Technique: Multiple axial images were obtained through the neck following the intravenous administrat ion of iodinated contrast. Coronal and sagittal two-dimensional reconstructions were made from the original data set. One of the following dose optimization techniques was utilized in the performance of this exam: Autom ated exposure control; adjustment of the mA and/or kV according to the patient's size; or use of an i terative reconstruction technique. Specific details can be referenced in the facility's radiology C T exam operational policy. 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 There is no evidence of significant right-sided adenopathy. There is soft tissue present within the r ight neck at the level of the angle of the mandible. This has decreased in prominence as compared to the previous study. There is no evidence of right-sided level 3 or 5 adenopathy. There is no evidence of left-sided adenopathy. The tongue base and floor of mouth are unremarkable. The submandibular and parotid glands are unremar kable. The thyroid gland is unremarkable. The visualized mediastinum and lung apices are unremarkable. IMPRESSION: Interval resolution of right-sided adenopathy. There is soft tissue density material pres ent within the right level II region at the level of the angle of the mandible. This is decreased in conspicuity significantly as compared to the previous study. Report Dictated By: Jason Suh at 04/29/2018 10:04 AM Report E-Signed By: Jason Suh at 04/29/2018 10:11 AM WSN:[email or web address]
--- NOTE | 2018-04-29 15:47 | RADIOLOGY IMAGING REPORT ---
[place] [facility] [place]: Beba Plascencia : 1980 MR: [id number] V: [id number] EXAM DATE: ORDERING PHYSICIAN: SHIV GALDAMEZ TECHNOLOGIST: Location: [facility] Patient: Beba Plascencia : 1980 Visit/Account:[id number] Date of Sevice: 04/29/2018 CT chest with IV contrast History: Malignant neoplasm of tonsil. COMPARISON STUDIES: CT chest 12/30/2017. TECHNIQUE: Axial CT images were obtained through the chest during the administration of nonionic io dinated IV contrast. Reformatted coronal and sagittal images were also obtained. Contrast used: Isovue 370, 75 ml One of the following dose optimization techniques was utilized in the performance of this exam: Autom ated exposure control; adjustment of the mA and/or kV according to the patient's size; or use of an i terative reconstruction technique. Specific details can be referenced in the facility's radiology C T exam operational policy. FINDINGS: CT Chest- Lower neck: Negative Lungs and pleura: Negative Mediastinum and safia: Thymic tissue in the anterior mediastinum is reduced compared to the prior rafat dy. Heart, aorta, and great vessels: negative Bones: Negative Chest wall: Negative Chest lymph node assessment: Negative Upper abdomen: Cholecystectomy. Focal fatty infiltration of the liver near the falciform ligament i s unchanged. IMPRESSION: No evidence of metastatic disease in the chest. Report Dictated By: Lucy Riddle MD at 04/29/2018 3:20 PM Report E-Signed By: Lucy Riddle MD at 04/29/2018 3:41 PM WSN:[email or web address]
--- NOTE | 2018-04-30 11:10 | ONCOLOGY FOLLOW UP NOTE ---
EVENT DATE: April 27, 2018 CHIEF COMPLAINT Followup for recent hospitalization. HISTORY OF PRESENT ILLNESS Patient is a 38-year-old female who is seen today in followup after recent hospitalization. She was admitted on April 12, 2018 for hypokalemia and dehydration and discharged home on April 24, 2018. During that hospitalization, she was found to be profoundly malnourished. MRI of the brain on April 14, 2018 showed flare hyperintensity in the periaqueductal koenig matter and bilateral posterior medial fat thalamus, suspicious for Wernicke encephalopathy. She was started on IV Thiamine with B12 and folic acid. She also was seen by psych and started on antidepressants and antipsychotics. Mental status improved significantly. Towards the end of her stay she was noted to have thrush as well as neutropenia, likely due to malnutrition. She was prescribed fluconazole. She is now eating well and feels back to baseline. She continues on lovenox for left upper leg DVT. She otherwise denies any new complaints. PAST MEDICAL HISTORY 1. Right tonsillar carcinoma, December 2017. 2. Left upper leg DVT, February 15, 2018. PAST SURGICAL HISTORY 2. Bilateral tonsillectomy with excisional biopsy of deep neck mass, December 16, 2017. 3. Cholecystectomy. 4. Tubal ligation. FAMILY HISTORY Mother had uterine cancer. Maternal great grandmother had ovarian cancer. SOCIAL HISTORY The patient is . She has three children. Her youngest son is 14. She is not working. She seldom drinks alcohol. Questionable use of marijuana. CURRENT MEDICATIONS 1. Fluconazole 200 mg daily for 21 days. 2. Lovenox 120 mg subcutaneous daily. 3. Folic acid 1 mg daily. 4. Olanzapine 5 mg at bedtime. 5. Mirtazapine 15 mg at bedtime. 6. Vitamin B complex. 7. Lorazepam p.r.n. ALLERGIES HYDROCODONE. PHYSICAL EXAMINATION VITAL SIGNS: Weight 65.77 kg. BP 102/63, P 100, R 20, temperature 97.5, O2 sat 99%. GENERAL: Patient is a well-developed, well-nourished female in no acute distress. Affect is much improved. HEAD: Normocephalic, atraumatic. EYES: Sclerae anicteric. MOUTH: Slightly dry mucous membranes. No evidence of thrush. NECK: Supple. No JVD. No adenopathy. CARDIOVASCULAR: Heart rate regular with mild tachycardia. LUNGS: Clear bilaterally. ABDOMEN: Soft and nontender with no organomegaly. EXTREMITIES: Trace pretibial edema on the left. NEUROLOGICAL: Nonfocal. PSYCHIATRIC: Affect is much improved. She does have occasional issues with word finding but overall markedly better. LABS CBC today reveals a WBC of 2.0, ANC of 1.4, hemoglobin 10.1, hematocrit 30.3, platelets 221,000. CMP is pending. IMPRESSION AND PLAN The patient is a 38-year-old female who completed treatment with weekly cisplatin and external beam radiation from January 10, 2018 through February 25, 2018. Admitted on April 12, 2018 for failure to thrive with severe malnutrition and confusion. 1. Head and neck cancer. No signs of symptoms or disease recurrence. She is due for a CT of the neck, which is ordered today. 2. Neutropenia, mild but slowly improving. She previously had significant neutropenia but WBC today is 2.0 with an ANC of 1.4. We reviewed neutropenia precautions. 3. Thrush, now resolved. She will continue fluconazole as ordered. 4. Left upper leg DVT. Continue Lovenox. She began this on February 15, 2018. We will re-evaluate with Doppler. 5. Malnutrition. Continue B complex and folic acid. She is much improved and now eating well. 6. Psych. Much better on mirtazapine and olanzapine. Our social science research assistant performed another mini-mental status exam today. This was still not completely normal but much improved over previous. 7. Lower extremity swelling. Recommended compression stockings and monitoring salt intake. 8. Follow up with Dr. Bustamante on May 17, 2018. 9. Follow up with Dr. Castillo on May 27, 2018. . MTDD
--- NOTE | 2018-05-10 07:38 | NUR ---
yesterday STAN rec'd a phone call from pt who was needing the bill from [facility] for her previous two inpatient hospitalizations. STAN faxed the line item bills to the number provided. Pt also called to see if she could call [place] [facility] to get refills on her scripts with them. STAN informed the pt that she could and provided the number to call. Addendum: 05/10/18 at 0740 by ANGELES SPEARS LCSW LCSW pt indicated claim # on the fax should be [id number]
[2018-05-17 08:59] VITALS: BP 121/86
[2018-05-17 09:17] LABS: PLATELET COUNT, AUTOMATED 226 K/uL (150-450)
[~2018-05-27 08:48] MED LIST changes: +DEXTROSE 5%(*) 100 ML BAG 100 ML IVPB PRN; +IOPAMIDOL 76% 75 ML INFUS BTL 75 ML ONE; +LIDOCAINE/SOD BICARB 8.4% SYR ID PRN; +NS(*) 0.9% 100 ML BAG 100 ML IVPB PRN
[2018-05-27 09:02] VITALS: BP 128/85
--- NOTE | 2018-05-27 10:21 | EL-TAR[facility] ONCOLOGY NOTE ---
EVENT DATE: May 27, 2018 DIAGNOSIS Right tonsillar squamous cell carcinoma. CHIEF COMPLAINT The patient is here today for her right tonsillar squamous cell carcinoma after finishing her chemoradiation. ONCOLOGY HISTORY Patient is a 37-year-old female who presented in 2014 with right cervical adenopathy, treated with steroid at that time with improvement. For the last few months lately, she presented again with hard right neck mass which was tender and hard in consistency. The patient was found to have asymmetry of the right tonsil. She had excisional biopsy of the deep neck mass and bilateral tonsillectomy done on December 16, 2017, by Dr. Smith. Pathology from surgery came back positive for invasive squamous cell carcinoma present in the edge of the specimen from the right neck mass. 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 There was perineural invasion present. Bilateral soft tissue neck was negative for malignancy, and the left tonsil was also negative for carcinoma. Tumor size was 1.3 cm. Lymph node invasion not identified. The tumor was staged as bT1. According to the pathologist, the soft tissue mass was not clear if those are replaced lymph nodes or not because they are entirely placed. The patient had CT of neck done on November 26, 2017, which showed multiple enlarged, right-sided level 2 and level 3 lymph nodes which could be reactive. There was mild symmetric enlargement of the palatine tonsils without evidence of intratonsillar or peritonsillar abscess. PET CT scan done on January 07, 2018 did reveal abnormal metabolic uptake in the right lingual tonsil, right cervical chain lymph nodes, and soft tissue posterior to the angle of the mandible on the right side, consistent with her squamous cell carcinoma. No evidence of metastasis in the chest, abdomen, and pelvis. Normal appearance of the left side of the neck. Patient started the chemoradiation on January 10, 2018 with weekly cisplatin therapy. Patient received eight cycles of weekly cisplatin, completed in February 2018. HISTORY OF PRESENT ILLNESS Patient is here today for followup of her right tonsillar squamous cell carcinoma after she finished her chemoradiation. Her treatment had some side effects from the medication she was using. She developed Wernicke's encephalopathy with vitamin B1 deficiency and patient had some depression also but she is doing better currently with vitamin supplement and antidepressant. She also developed DVT of the left lower extremity, currently on Lovenox. She developed extensive DVT of the left lower extremity. She is complaining currently of chills but she is eating better. She has nasal discharge. She has dry mouth. She has edema of the left lower extremity, especially by the end of the day. She has also pain in the right shoulder. PAST MEDICAL HISTORY Insignificant. PAST SURGICAL HISTORY 1. Cholecystectomy. 2. Tubal ligation. FAMILY HISTORY Mother had uterine cancer. Maternal great grandmother had ovarian cancer. SOCIAL HISTORY The patient is with three children. She works in an office for a store. She quit smoking in 2002 after half to one pack a day for six years. She seldom drinks alcohol. No abuse of illicit drugs. CURRENT MEDICATIONS 1. Ibuprofen. 2. Aleve. ALLERGIES HYDROCODONE causes nausea and vomiting. REVIEW OF SYSTEMS CONSTITUTIONAL: She has chills and she is starting to eat better. HEENT: Ears: No tinnitus or hearing problem. Nose: She has nasal discharge. Throat: She has dry mouth. Eyes: No diplopia or visual changes. RESPIRATORY: No shortness of breath. She has cough with mucoid sputum. CARDIOVASCULAR: She has edema of the left lower extremity. GASTROINTESTINAL: She continues to have significant vomiting. GENITOURINARY: Patient has had heavy periods for years, and she has been seen by a wild life manager, and she was offered uterine ablation, but the patient refused the procedure. As per patient, she has had heavy periods for a total of seven days every month. MUSCULOSKELETAL: She has pain in the right shoulder. NEUROLOGICAL: No tingling or numbness in the hands or feet. She has occasional headache. No convulsions. HEMATOLOGIC/LYMPHATIC: She bruises easily. She is weak, tired, and fatigued. SKIN: No skin rash or lumps. PSYCHIATRIC: No anxiety or depression. PHYSICAL EXAMINATION GENERAL: Looks stable. Well developed, well nourished, and in no acute distress. VITAL SIGNS: Blood pressure 128/85, pulse 81 per minute, respirations 16 per minute, temperature 98, pulse ox 98% on room air. HEENT: Head: Atraumatic. No sinus tenderness to palpation. Eyes: No icterus or conjunctivitis. Mouth and Throat: No oral thrush or mucositis. NECK: Right cervical lymphadenopathy is noted and is getting better. LUNGS: Clear to auscultation and percussion bilaterally. HEART: Regular rate and rhythm. No gallops, murmurs, clicks, or rubs. ABDOMEN: Soft and lax. No tenderness. No hepatosplenomegaly. No masses. EXTREMITIES: There is mild edema of the left lower extremity. LYMPHATICS: No peripheral lymphadenopathy. NEUROLOGICAL: Conscious, alert, and oriented times three. No focal motor or sensory deficits. PSYCHIATRIC: Mood and affect appear normal. SKIN: No skin rash, bruise, or purpuric eruption. DIAGNOSTIC DATA CT chest done on April 2018 with no evidence of metastatic disease. CT soft tissue of the neck on April 29, 2018 showed resolution of the right sided adenopathy. There is soft tissue density present within the right level 2 region at the level of the angle of the mandible. This is decreased in conspicuity significantly as compared with previous study. CBC showed white count 2.5, hemoglobin 12.4, hematocrit 36.8, platelets 226,000. Chem panel showed potassium 3.4, chloride 111, carbon dioxide 21, magnesium 1.6. Vitamin B1 was 29. ASSESSMENT 1. Right tonsillar squamous cell carcinoma, human papillomavirus-mediated, with right neck adenopathy, status post excisional biopsy of the soft tissue mass and bilateral tonsillectomy done December 16, 2017. PET/CT scan done on January 07, 2018 did reveal abnormal metabolic uptake in the right lingual tonsil, right cervical chain lymph nodes and soft tissue posterior to the angle of the mandible on the right side. There is no evidence of systemic metastasis with normal appearance of the left side of the neck. Patient started chemoradiation with cisplatin weekly together with radiation therapy on January 10, 2018. She finished eight cycles of weekly cisplatin in February 2018. She finished that on February 28, 2018. Her treatment was complicated with Wernicke's encephalopathy due to Thiamine deficiency and DVT of the left lower extremity, stomatitis, electrolyte disturbances and significant nausea and vomiting. She is doing much better currently after vitamin supplement and antidepressant. I am planning to see her again in two months with CBC, chem panel and magnesium level. 2. Deep venous thrombosis, left lower extremity. She is currently about 2-1/2 to 3 months of anticoagulation with Lovenox. I am planning to check her Doppler ultrasound as patient has some postphlebitic symptoms with congestion and swelling of the left lower extremity. 3. Wernicke's encephalopathy/depression. Patient will be referred to a psychiatrist for followup of her antidepressant treatment. PLAN 1. Doppler ultrasound, left lower extremity. 2. Patient to return in two months with CBC, chem panel and magnesium level. 3. Referral to a psychiatrist 4. Patient to contact us for any new concerns or complaints. NOMAN
--- NOTE | 2018-05-31 15:53 | RADIOLOGY IMAGING REPORT ---
FACILITY: [facility] PATIENT NAME: Beba Plascencia : 1980 MR: [id number] V: [id number] EXAM DATE: ORDERING PHYSICIAN: JEREMÍAS RUTLEDGE TECHNOLOGIST: Location: [facility] [place] Patient: Beba Plascencia : 1980 Visit/Account:[id number] Date of Sevice: 05/31/2018 Exam type: VENOUS DOPP LOW LEFT EXTREMITY History: History of DVT Comparison: February 15, 2018. Findings: There is a small amount of residual nonocclusive thrombus in the left common femoral vein. The left greater saphenous vein at the junction of the common femoral vein, the superficial femoral vein, popl iteal vein, posterior tibial vein, peroneal vein anterior tibial veins are patent without evidence of thrombus demonstrated augmentation. Incidentally noted are four fatty replaced lymph nodes in the l eft groin largest measuring 1.1 x 0.9 x 0.4 cm IMPRESSION: 1. Only a tiny amount of residual nonocclusive thrombus remains in the left common femoral vein Report Dictated By: Corinna Arizmendi MD at 05/31/2018 3:13 PM Report E-Signed By: Corinna Arizmendi MD at 05/31/2018 3:48 PM WSN:NICK
== END 2018-06-26 ==
LOC: ONC 08:48
PROVIDERS: ATTEND Radiology Radiation Oncology
DX: C09.9 Malignant neoplasm of tonsil, unspecified (principal); D70.9 Neutropenia, unspecified; I82.91 Chronic embolism and thrombosis of unspecified vein; E43 Unspecified severe protein-calorie malnutrition; F32.9 Major depressive disorder, single episode, unspecified; Z79.01 Long term (current) use of anticoagulants; E51.2 Wernicke's encephalopathy
CPT/HCPCS: 36415; 70491; 71260; 82746; 83735; 84100; 84425; 85025; 93971; 99212; Q9967; 82040; 82247; 82310; 82374; 82435; 82565; 82947; 84075; 84132; 84155; 84295; 84450; 84460; 84520

== ENCOUNTER 2018-08-30 11:33 | Outpatient (RCR) | payer SELFPAY ==
[2018-04-13 14:25] VITALS: Wt 65.5 kg
[~2018-08-30 11:33] MED LIST changes: -DEXTROSE 5%(*) 100 ML BAG 100 ML IVPB PRN; +DRON5CAP14 PO; -IOPAMIDOL 76% 75 ML INFUS BTL 75 ML ONE; -LIDOCAINE/SOD BICARB 8.4% SYR ID PRN; -NS(*) 0.9% 100 ML BAG 100 ML IVPB PRN
[2018-08-30 11:37] VITALS: BP 102/63
--- NOTE | 2018-08-30 17:40 | ONCOLOGY FOLLOW UP NOTE ---
EVENT DATE: August 30, 2018 CHIEF COMPLAINT/REASON FOR VISIT Oncology surveillance, known history of squamous cell carcinoma of the right tonsil. ONCOLOGY HISTORY 1. Bilateral tonsillectomy and resection of lymph node mass in the right neck by Dr. Smith 12/16/17, diagnostic of squamous cell carcinoma. Tumor appeared to be HPV mediated. Tumor size 1.3 cm. 2. PET/CT scan dated 01/08/18 revealed uptake in the right lingual tonsil, right cervical lymph nodes, and the soft tissues posterior to the angle of the mandible on the right side, consistent with active malignancy. No evidence of metastatic disease. 3. Patient was treated with concurrent external beam radiation therapy and weekly cisplatin. She finished eight cycles of cisplatin chemotherapy. Radiation course, completed full dose in 02/2018. INTERVAL HISTORY Patient was seen with her for a followup appointment. She is asking if she can go back to work at this time. She had a CBC prior to this appointment this morning, and WBC count essentially normal at 3.4 with hemoglobin 3.0, platelets 202. Patient denies any throat pain or difficulty with swallowing. Minor xerostomia overall. PAST MEDICAL HISTORY 1. Squamous cell carcinoma of the tonsil. 2. History of depression/Wernicke encephalopathy. 3. History of DVT. MEDICATIONS 1. Ibuprofen p.r.n. 2. Mushroom supplement. ALLERGIES HYDROCODONE (nausea, vomiting). SOCIAL HISTORY Patient is with three children. 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 Quit smoking in 2002. Prior to that, she was a half pack a day smoker for six years. Rare alcohol use. COMPREHENSIVE REVIEW OF SYSTEMS Notable for slightly altered metallic taste at times. Otherwise unremarkable. PHYSICAL EXAMINATION VITAL SIGNS: BP 102/63, respirations 16, temperature 97.4, O2 sat 99% on room air. Weight 144. NECK: No palpable lymphadenopathy in the neck. LUNGS: Clear bilaterally. HEART: Sounds regular. HEENT: Intraoral inspection reveals reasonably good moisture with no suspicious abnormalities. No signs of tumor recurrence in the posterior oropharynx. Exam was performed with direct inspection of the nasopharynx, posterior oropharynx, and supraglottic larynx. All structures were smooth with no signs of tumor recurrence or any secondary malignancies. IMPRESSION No evidence of active malignancy on clinical exam. PLAN Patient will follow up with Dr. Castillo in three months and return here in six months. I would like her to have a CBC, CMP, and TSH prior to her next appointment. NOMAN
[2018-10-13] MEDS ORDERED: MULT-1335 PO (12:31)
[2018-10-13] MEDS ORDERED: LACT1CAP6 PO (12:31)
== END 2018-10-21 12:59 | disposition home or self-care (01) ==
LOC: RAON 11:33
PROVIDERS: ATTEND Radiology Radiation Oncology
DX: Z85.89 Personal history of malignant neoplasm of other organs and systems (principal); Z92.21 Personal history of antineoplastic chemotherapy; Z92.3 Personal history of irradiation; Z87.891 Personal history of nicotine dependence

== ENCOUNTER 2018-10-13 11:20 | Outpatient (RCR) | payer SELFPAY ==
[2018-04-13 14:25] VITALS: Wt 68.4 kg
[2018-07-20 09:22] VITALS: BP 132/92
[2018-07-20 09:38] LABS: PLATELET COUNT, AUTOMATED 198 K/uL (150-450)
--- NOTE | 2018-07-20 11:47 | ONCOLOGY FOLLOW UP NOTE ---
EVENT DATE: July 20, 2018 CHIEF COMPLAINT Followup for head and neck cancer. HISTORY OF PRESENT ILLNESS Patient is a 38-year-old female who was seen today as a work-in. She and her are concerned that she may have recurrent thrush. Her appetite has decreased and she has a bad taste in her mouth. She has lost 4 kg in the past 6 weeks. She also describes some intermittent right shoulder pain. She continues on Lovenox for her extensive DVT and still has some mild swelling in the left leg but nothing is worsening. She has been referred to a psychiatrist to manage the olanzapine and mirtazapine but has not been able to make this appointment as of yet. They have chosen to decrease her olanzapine from 5 mg to 2.5 mg at bedtime and mirtazapine from 15 mg to 7.5 mg at bedtime. She otherwise denies any new complaints. ONCOLOGY HISTORY Patient was diagnosed with a squamous cell carcinoma of the right tonsil, status post right tonsillectomy and selective lymph node excision on 12/16/17. Tumor was 1.3 cm with perineural invasion. Also underwent simultaneous excision of a large soft tissue mass from the right neck measuring 2.4 x 1.4 x 1 cm with pathologic evidence of squamous cell carcinoma replacing the lymph node, stage ALEJA (T1 N2b M0). PET CT was negative for distant metastatic disease. Completed concurrent chemoradiation with weekly cisplatin from 01/10/18 through 02/25/18. PAST MEDICAL HISTORY 1. Right tonsillar carcinoma, December 2017. 2. Left upper leg DVT, February 15, 2018. PAST SURGICAL HISTORY 2. Bilateral tonsillectomy with excisional biopsy of deep neck mass, December 16, 2017. 3. Cholecystectomy. 4. Tubal ligation. FAMILY HISTORY Mother had uterine cancer. Maternal great-grandmother had ovarian cancer. SOCIAL HISTORY The patient is . She has three children. Her youngest son is 14. She is not working. She seldom drinks alcohol. Questionable use of marijuana. CURRENT MEDICATIONS 1. Lovenox 120 mg subcutaneous daily. 2. Folic acid 1 mg daily. 3. Olanzapine 5 mg at bedtime. 4. Mirtazapine 15 mg at bedtime. 5. Vitamin B complex. ALLERGIES HYDROCODONE. REVIEW OF SYSTEMS A 12-point review of systems is performed and is negative except as stated above. PHYSICAL EXAMINATION VITAL SIGNS: Weight 66.5 kg, BP 131/82, P 86, R 16, temp 98.6, O2 sat 95%. GENERAL: Patient is a well-developed, well-nourished female in no acute distress. HEAD: Normocephalic, atraumatic. EYES: Sclerae anicteric. MOUTH: Dry mucous membranes. Prominent taste buds. No evidence of candidiasis. NECK: Supple. No palpable adenopathy. LUNGS: Clear bilaterally. CARDIOVASCULAR: Heart rate regular, 86 per minute, without murmur, S3, or S4. EXTREMITIES: Trace pedal edema in the left lower extremity. NEUROLOGICAL: Nonfocal. LABORATORIES CBC today reveals a WBC of 1.8, ANC of 1.1, hemoglobin 13.3, hematocrit 39.5, platelets 198,000. CMP is within normal limits. TSH and magnesium are pending. IMPRESSION AND PLAN The patient is a 38-year-old female who completed treatment with weekly cisplatin and external beam radiation from January 10, 2018, through February 25, 2018. Admitted in March 2018 for failure to thrive with severe malnutrition and confusion, diagnosed with Wernicke encephalopathy with vitamin deficiency. 1. Head and neck cancer. No signs or symptoms of disease recurrence. CT of the neck and chest in April 2018 showed no evidence of recurrent disease. 2. Neutropenia, ongoing. She has had no intercurrent infection. We discussed the importance of hand washing and avoidance of crowds or sick people. 3. Left leg deep venous thrombosis. Continues on Lovenox. Ultrasound done on May 31, 2018, showed only a tiny amount of residual nonocclusive thrombus in the left common femoral vein. She will meet with Dr. Castillo next week and discuss possible discontinuation of Lovenox. 4. Psychiatric. Continues on vitamin B complex. She has been on olanzapine and mirtazapine. She and her have cut her doses in half. She seems to be managing well. She has been referred for psych evaluation. 5. Dry mouth, ongoing. She has prominence taste buds but no evidence of candidiasis. She is drinking water throughout the day and uses Biotin products, which has been somewhat helpful. 6. Weight loss. Patient has lost 4 kg in the past 6 weeks. We reviewed the need for small, high protein, high calorie foods and she will work on this. 6. Follow up with Dr. Castillo on July 28, 2018 for continued care. [facility]
[2018-07-29 13:24] VITALS: BP 109/77
[2018-07-29 13:24] LABS: PLATELET COUNT, AUTOMATED 196 K/uL (150-450)
--- NOTE | 2018-07-29 23:25 | EL-TARAB[facility] ONCOLOGY NOTE ---
EVENT DATE: July 29, 2018 DIAGNOSIS Right tonsillar squamous cell carcinoma. CHIEF COMPLAINT Patient is here today for followup of her right tonsillar squamous cell carcinoma. ONCOLOGY HISTORY Patient is a 38-year-old female who presented in 2014 with right cervical adenopathy, treated with steroid at that time with improvement. For the last few months lately, she presented again with hard right neck mass which was tender and hard in consistency. The patient was found to have asymmetry of the right tonsil. She had excisional biopsy of the deep neck mass and bilateral tonsillectomy done on December 16, 2017, by Dr. Smith. Pathology from surgery came back positive for invasive squamous cell carcinoma present in the edge of the specimen from the right neck mass. 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 There was perineural invasion present. Bilateral soft tissue neck was negative for malignancy, and the left tonsil was also negative for carcinoma. Tumor size was 1.3 cm. Lymph node invasion not identified. The tumor was staged as pT1. According to the pathologist, the soft tissue mass was not clear if those are replaced lymph nodes or not because they are entirely placed. The patient had CT of neck done on November 26, 2017, which showed multiple enlarged, right-sided level 2 and level 3 lymph nodes which could be reactive. There was mild symmetric enlargement of the palatine tonsils without evidence of intratonsillar or peritonsillar abscess. PET/CT scan done on January 07, 2018, did reveal abnormal metabolic uptake in the right lingual tonsil, right cervical chain lymph nodes, and soft tissue posterior to the angle of the mandible on the right side, consistent with her squamous cell carcinoma. No evidence of metastasis in the chest, abdomen, and pelvis. Normal appearance of the left side of the neck. Patient started the chemoradiation on January 10, 2018, with weekly cisplatin therapy. Patient received eight cycles of weekly cisplatin, completed in February 2018. HISTORY OF PRESENT ILLNESS Patient is here today for followup of her squamous cell carcinoma of the right tonsil. She is complaining of loss of appetite and weight. She has occasional diarrhea. She has pain in her right arm and shoulder. Other than that, she is really doing fine. Her main complaint is actually loss of appetite. PAST MEDICAL HISTORY Insignificant. PAST SURGICAL HISTORY 1. Cholecystectomy. 2. Tubal ligation. FAMILY HISTORY Mother had uterine cancer. Maternal great-grandmother had ovarian cancer. SOCIAL HISTORY The patient is with three children. She works in an office for a store. She quit smoking in 2002 after half to one pack a day for six years. She seldom drinks alcohol. No abuse of illicit drugs. CURRENT MEDICATIONS 1. Ibuprofen. 2. Aleve. ALLERGIES HYDROCODONE causes nausea and vomiting. REVIEW OF SYSTEMS CONSTITUTIONAL: She has loss of appetite and weight change. No fever, chills, or sweating. No recent infection. HEENT: Ears: No tinnitus or hearing problem. Nose: No nasal discharge or epistaxis. Throat: No sore throat or mouth ulcers. Eyes: No diplopia or visual changes. RESPIRATORY: No shortness of breath. No cough, expectoration, or hemoptysis. CARDIOVASCULAR: No chest pain, orthopnea, or paroxysmal nocturnal dyspnea (PND). No edema. No palpitations. GASTROINTESTINAL: No nausea or vomiting. She has occasional diarrhea. No constipation. No change in bowel movements. No heartburn or swallowing difficulties. No abdominal pain. No jaundice. No hematemesis, melena, or rectal bleeding. GENITOURINARY: No hematuria or dysuria. MUSCULOSKELETAL: She has pain in her right arm and shoulder. NEUROLOGICAL: No tingling or numbness in the hands or feet. No headaches or convulsions. HEMATOLOGIC/LYMPHATIC: No bleeding or easy bruising. No weakness or fatigue. No enlarged lymph nodes. SKIN: No skin rash or lumps. PSYCHIATRIC: No anxiety or depression. PHYSICAL EXAMINATION GENERAL: Looks stable. Well developed, well nourished, and in no acute distress. VITAL SIGNS: Blood pressure 109/77, pulse 76 per minute, respirations 16 per minute, temperature 98.2, pulse oximetry 95% on room air. HEENT: Head: Atraumatic. No sinus tenderness to palpation. Eyes: No icterus or conjunctivitis. Mouth and throat: No oral thrush or mucositis. NECK: Supple. No cervical or supraclavicular lymphadenopathy. LUNGS: Clear to auscultation and percussion bilaterally. HEART: Regular rate and rhythm. No gallops, murmurs, clicks, or rubs. ABDOMEN: Soft and lax. No tenderness. No hepatosplenomegaly. No masses. EXTREMITIES: No cyanosis, clubbing, or edema. LYMPHATICS: No peripheral lymphadenopathy. NEUROLOGICAL: Conscious, alert, and oriented times three. No focal motor or sensory deficits. PSYCHIATRIC: Mood and affect appear normal. SKIN: No skin rash, bruise, or purpuric eruption. DIAGNOSTIC DATA CBC showed white count 2.7, hemoglobin 12.3, hematocrit 36.7, platelets 196,000. ANC is 1.6. Chem panel totally normal except chloride 116, carbon dioxide 19, and her magnesium is normal at 2.1. Her Doppler ultrasound done on the May showed a tiny residual nonocclusive thrombus in the left common femoral vein. ASSESSMENT 1. Right tonsillar squamous cell carcinoma, human papillomavirus-mediated, with right neck adenopathy, status post excisional biopsy of the soft tissue mass and bilateral tonsillectomy done December 16, 2017. PET/CT scan done on January 07, 2018, did reveal abnormal metabolic uptake in the right lingual tonsil, right cervical chain lymph nodes, and soft tissue posterior to the angle of the mandible on the right side. There was no evidence of systemic metastasis with normal appearance of the left side of the neck. Patient received chemoradiation with cisplatin weekly together with radiation therapy between January 10, 2018, through February 2018, and the patient received eight cycles of weekly cisplatin during this time. She finished her radiation therapy on the February. Her treatment was complicated with Wernicke encephalopathy due to thiamine deficiency and deep venous thrombosis of the left lower extremity, stomatitis, electrolyte disturbance, and significant nausea and vomiting. She is doing much better currently on antidepressant and vitamin supplement, and her main complaint currently is loss of appetite. I am planning to continue followup. I will see her again in three months with CBC, chemistry panel, and magnesium level. 2. Loss of appetite. I am planning to try Marinol 5 mg twice daily. 3. Deep vein thrombosis, left lower extremity. She is receiving Lovenox now for about four and a half to five months. I am planning to continue six months of anticoagulation, and I will stop anticoagulation after that. Her Doppler ultrasound done on the May showed tiny residual nonocclusive thrombus in the left common femoral vein. 4. Wernicke encephalopathy/depression. Patient is followed by a psychiatrist, but she is doing much better currently. PLAN 1. Continue followup. 2. Continue blood thinner for a total of six months. 3. Patient to return in three months with CBC, chem panel. 4. Patient to contact us for any new concern or complaints. MTDD
--- NOTE | 2018-08-05 13:15 | NUR ---
STAN rec'd request from patient indicating that she needed a letter stating she was attending her follow up appointments. STAN completed the letter and sent in an email back to the patient.
[2018-08-30 11:06] VITALS: BP 115/75
[2018-08-30 11:11] LABS: PLATELET COUNT, AUTOMATED 202 K/uL (150-450)
[~2018-10-13 11:20] MED LIST changes: +PHENYLEPHRINE 0.5% 15 ML BTL ONE
[2018-10-13 11:38] VITALS: BP 116/74
[2018-10-13 11:48] LABS: PLATELET COUNT, AUTOMATED 220 K/uL (150-450)
[2018-10-13] MEDS ORDERED: LACT1CAP6 PO (12:31)
[2018-10-13] MEDS ORDERED: MULT-1335 PO (12:31)
--- NOTE | 2018-10-13 14:29 | [facility] ONCOLOGY NOTE ---
EVENT DATE: October 13, 2018 DIAGNOSIS Right tonsillar squamous cell carcinoma. CHIEF COMPLAINT Patient is here today for followup of her right tonsillar squamous cell carcinoma. ONCOLOGY HISTORY Patient is a 38-year-old female who presented in 2014 with right cervical adenopathy, treated with steroid at that time with improvement. For the last few months lately, she presented again with hard right neck mass which was tender and hard in consistency. The patient was found to have asymmetry of the right tonsil. She had excisional biopsy of the deep neck mass and bilateral tonsillectomy done on December 16, 2017, by Dr. Smith. Pathology from surgery came back positive for invasive squamous cell carcinoma present in the edge of the specimen from the right neck mass. 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 There was perineural invasion present. Bilateral soft tissue neck was negative for malignancy, and the left tonsil was also negative for carcinoma. Tumor size was 1.3 cm. Lymph node invasion not identified. The tumor was staged as pT1. According to the pathologist, the soft tissue mass was not clear if those are replaced lymph nodes or not because they are entirely placed. The patient had CT of neck done on November 26, 2017, which showed multiple enlarged, right-sided level 2 and level 3 lymph nodes which could be reactive. There was mild symmetric enlargement of the palatine tonsils without evidence of intratonsillar or peritonsillar abscess. PET/CT scan done on January 07, 2018, did reveal abnormal metabolic uptake in the right lingual tonsil, right cervical chain lymph nodes, and soft tissue posterior to the angle of the mandible on the right side, consistent with her squamous cell carcinoma. No evidence of metastasis in the chest, abdomen, and pelvis. Normal appearance of the left side of the neck. Patient started the chemoradiation on January 10, 2018, with weekly cisplatin therapy. Patient received eight cycles of weekly cisplatin, completed in February 2018. HISTORY OF PRESENT ILLNESS Patient is here today for followup of her squamous cell carcinoma of the right tonsil, status post chemoradiation. She is complaining of generalized joint pain sometimes. She tried to increase her intake of food and she is a little bit better than before. Other than that, she is really doing very well. Patient is going to see Dr. Smith, her ENT doctor, within a month from now. PAST MEDICAL HISTORY Insignificant. PAST SURGICAL HISTORY 1. Cholecystectomy. 2. Tubal ligation. FAMILY HISTORY Mother had uterine cancer. Maternal great-grandmother had ovarian cancer. SOCIAL HISTORY The patient is with three children. She works in an office for a store. She quit smoking in 2002 after half to one pack a day for six years. She seldom drinks alcohol. No abuse of illicit drugs. CURRENT MEDICATIONS 1. Ibuprofen. 2. Aleve. ALLERGIES HYDROCODONE causes nausea and vomiting. REVIEW OF SYSTEMS CONSTITUTIONAL: She has loss of appetite and weight change. No fever, chills, or sweating. No recent infection. HEENT: Ears: No tinnitus or hearing problem. Nose: No nasal discharge or epistaxis. Throat: No sore throat or mouth ulcers. Eyes: No diplopia or visual changes. RESPIRATORY: No shortness of breath. No cough, expectoration, or hemoptysis. CARDIOVASCULAR: No chest pain, orthopnea, or paroxysmal nocturnal dyspnea (PND). No edema. No palpitations. GASTROINTESTINAL: No nausea or vomiting. She has occasional diarrhea. No constipation. No change in bowel movements. No heartburn or swallowing difficulties. No abdominal pain. No jaundice. No hematemesis, melena, or rectal bleeding. GENITOURINARY: No hematuria or dysuria. MUSCULOSKELETAL: Patient has generalized joint pain. NEUROLOGICAL: No tingling or numbness in the hands or feet. No headaches or convulsions. HEMATOLOGIC/LYMPHATIC: No bleeding or easy bruising. No weakness or fatigue. No enlarged lymph nodes. SKIN: No skin rash or lumps. PSYCHIATRIC: No anxiety or depression. PHYSICAL EXAMINATION GENERAL: Looks stable. Well developed, well nourished, and in no acute distress. VITAL SIGNS: Blood pressure 116/74, pulse 77 per minute, respirations 16 per minute, temperature 99, pulse oximetry 96% on room air. HEENT: Head: Atraumatic. No sinus tenderness to palpation. Eyes: No icterus or conjunctivitis. Mouth and throat: No oral thrush or mucositis. NECK: Supple. No cervical or supraclavicular lymphadenopathy. LUNGS: Clear to auscultation and percussion bilaterally. HEART: Regular rate and rhythm. No gallops, murmurs, clicks, or rubs. ABDOMEN: Soft and lax. No tenderness. No hepatosplenomegaly. No masses. EXTREMITIES: No cyanosis, clubbing, or edema. LYMPHATICS: No peripheral lymphadenopathy. NEUROLOGICAL: Conscious, alert, and oriented times three. No focal motor or sensory deficits. PSYCHIATRIC: Mood and affect appear normal. SKIN: No skin rash, bruise, or purpuric eruption. DIAGNOSTIC DATA CBC showed white count 3.1, hemoglobin 13.1, hematocrit 38.5, platelets 220,000. Chem panel totally normal. TSH is normal at 3.64. ASSESSMENT 1. Right tonsillar squamous cell carcinoma, human papillomavirus-mediated, with right neck adenopathy, status post excisional biopsy of the soft tissue mass and bilateral tonsillectomy done December 16, 2017. PET/CT scan done on January 07, 2018, did reveal abnormal metabolic uptake in the right lingual tonsil, right cervical chain lymph nodes, and soft tissue posterior to the angle of the mandible on the right side. There was no evidence of systemic metastasis with normal appearance of the left side of the neck. Patient received chemoradiation with cisplatin weekly together with radiation therapy between January 10, 2018, through February 2018, and the patient received eight cycles of weekly cisplatin during this time. She finished her radiation therapy on February 28, 2018. Her treatment was complicated with Wernicke encephalopathy due to thiamine deficiency and deep venous thrombosis of the left lower extremity, stomatitis, electrolyte disturbance and significant nausea and vomiting. She is doing much better currently after she was put on antidepressant and vitamin supplement for Wernicke encephalopathy. Patient was advised to see her ENT doctor and she is going to see Dr. Smith within a month from now. I am planning to continue her followup. I will see her again in three months with CBC and chem panel. 2. Deep vein thrombosis, left lower extremity. Patient received Lovenox and she did fine. Her Doppler ultrasound on May 31, 2018, showed tiny residual nonocclusive thrombus in the left common femoral vein. 3. Wernicke encephalopathy/depression, much better with vitamin supplement. Patient has been seen by a psychiatrist at that time. PLAN 1. Continue followup. 2. Patient to return in three months with CBC, chem panel. 3. Patient to contact us for any new concern or complaints. [facility]
== END 2018-10-18 ==
LOC: SPU 11:20
PROVIDERS: ATTEND Internal Medicine Hematology
DX: C09.9 Malignant neoplasm of tonsil, unspecified (principal); I82.402 Acute embolism and thrombosis of unspecified deep veins of left lower extremity; E51.2 Wernicke's encephalopathy; D70.9 Neutropenia, unspecified; I82.91 Chronic embolism and thrombosis of unspecified vein; E43 Unspecified severe protein-calorie malnutrition; F32.9 Major depressive disorder, single episode, unspecified; Z79.01 Long term (current) use of anticoagulants; Z92.21 Personal history of antineoplastic chemotherapy; Z92.3 Personal history of irradiation; Z87.891 Personal history of nicotine dependence
CPT/HCPCS: 36415; 82040; 82247; 82310; 82374; 82435; 82565; 82947; 83735; 84075; 84132; 84155; 84295; 84443; 84450; 84460; 84520; 85025; 99212

== ENCOUNTER 2019-01-24 11:25 | Emergency (ER) | payer SELFPAY ==
[2018-04-13 14:25] VITALS: Wt 59.0 kg
[~2019-01-24 11:25] MED LIST changes: +LACT1CAP6 PO; +MULT-1335 PO; -PHENYLEPHRINE 0.5% 15 ML BTL ONE
--- NOTE | 2019-01-24 11:27 | ER Report ---
History and Physical Time Seen By MD: 11:23 HPI/ROS CHIEF COMPLAINT: Sore throat, cough HISTORY OF PRESENT ILLNESS: Patient is a 39-year-old female here with complaints of sore throat, cough, dysphagia, odynophagia which started yesterday. Patient does have a history of squamous cell carcinoma status post treatment of the neck. Patient also reports cough productive of sputum initially clear yesterday and now yellow and green. Patient is afebrile, hemodynamically stable at time of evaluation. REVIEW OF SYSTEMS: Constitutional: No fever, no chills. Eyes: No discharge. ENT: + sore throat. Cardiovascular: No chest pain, no palpitations. Respiratory: + productive cough, no shortness of breath. Gastrointestinal: No abdominal pain, no vomiting. Genitourinary: No hematuria. Musculoskeletal: No back pain. Skin: No rashes. Neurological: No headache. Allergies: Coded Allergies: hydrocodone (Verified Allergy, Intermediate, MIGRAINE HEADACHES, 01/24/19) Home Meds Reported Medications Lactobacillus Combination No.4 (PROBIOTIC) 1 Each Capsule, 1 EACH PO DAILY, CAPSULE 10/13/18 Multivitamin With Minerals (MULTIPLE VITAMIN) 1 Each Tablet, 1 EACH PO DAILY, TAB 10/13/18 Vitamin B Complex (VITAMIN B COMPLEX) 1 Each Tablet, 1 EACH PO TID 04/24/18 Hx Smoking: Yes Smoking Status: Former Smoker Hx Substance Use Disorder: No Hx Alcohol Use: No Constitutional Vital Sign - Last 24 Hours 01/24/19 01/24/19 01/24/19 01/24/19 11:48 11:55 12:00 12:12 Temp 98.5 Pulse 98 94 Resp 20 B/P (MAP) 122/92 (102) 122/92 Pulse Ox 96 95 98 O2 Delivery Room Air Room Air 01/24/19 01/24/19 01/24/19 01/24/19 12:12 12:20 13:00 13:10 Pulse 94 98 102 91 Resp 18 18 18 Pulse Ox 92 01/24/19 01/24/19 01/24/19 01/24/19 13:10 13:22 13:30 14:00 Pulse 112 127 119 Resp 18 Pulse Ox 95 94 95 O2 Delivery Room Air Physical Exam General Appearance: The patient is alert, has no immediate need for airway protection and no signs of toxicity. Uncomfortable appearing Eyes: Pupils equal and round no pallor or injection. ENT, Mouth: Mucous membranes are moist. + Mild erythema posterior oropharynx, tender cervical lymphadenopathy Respiratory: There are no retractions, lungs are clear to auscultation. + cough Cardiovascular: Regular rate and rhythm. Gastrointestinal: Abdomen is soft and non tender, no masses, bowel sounds normal. Neurological: No focal neurological deficits Skin: Warm and dry, no rashes. Musculoskeletal: Neck is supple non tender. Extremities are nontender, nonswollen and have full range of motion. DIFFERENTIAL DIAGNOSIS: After history and physical exam differential diagnosis was considered for shortness of breath including but not limited to pulmonary infectious process, COPD, asthma, pulmonary embolus and congestive heart failure, strep pharyngitis, malignancy recurrence Medical Decision Making Data Points Result Diagram: 01/24/19 1208 01/24/19 1208 Laboratory Hematology Test 01/24/19 12:08 White Blood Count 7.2 k/uL (4.5-11.0) Red Blood Count 4.50 M/uL (4.17-5.56) Hemoglobin 14.9 g/dL (12.0-16.0) Hematocrit 42.7 % (34.0-47.0) Mean Corpuscular Volume 94.8 fL (80.0-96.0) Mean Corpuscular Hemoglobin 33.1 pg (26.0-33.0) H Mean Corpuscular Hemoglobin Concent 34.9 g/dL (32.0-36.0) Red Cell Distribution Width 13.6 % (11.5-14.5) Platelet Count 182 K/uL (150-450) Mean Platelet Volume 9.7 fL (7.2-11.1) Neutrophils (%) (Auto) 83.5 % (39.4-72.5) H Lymphocytes (%) (Auto) 8.5 % (17.6-49.6) L Monocytes (%) (Auto) 7.6 % (4.1-12.4) Eosinophils (%) (Auto) 0.0 % (0.4-6.7) L Basophils (%) (Auto) 0.4 % (0.3-1.4) Nucleated RBC Relative Count (auto) 0.0 /100WBC Neutrophils # (Auto) 6.0 K/uL (2.0-7.4) Lymphocytes # (Auto) 0.6 K/uL (1.3-3.6) L Monocytes # (Auto) 0.5 K/uL (0.3-1.0) Eosinophils # (Auto) 0.0 K/uL (0.0-0.5) Basophils # (Auto) 0.0 K/uL (0.0-0.1) Nucleated RBC Absolute Count (auto) 0.00 K/uL Chemistry Test 01/24/19 12:08 Sodium Level 137 mmol/L (137-145) Potassium Level 3.9 mmol/L (3.5-5.0) Chloride Level 104 mmol/L (98-107) Carbon Dioxide Level 19 mmol/L (22-31) Blood Urea Nitrogen 12 mg/dl (7-18) Creatinine 0.70 mg/dl (0.52-1.04) Glomerular Filtration Rate Calc > 60.0 Random Glucose 83 mg/dl (75-110) Calcium Level 9.6 mg/dl (8.4-10.2) Total Bilirubin 1.7 mg/dl (0.2-1.3) Aspartate Amino Transf (AST/SGOT) 26 U/L (0-35) Alanine Aminotransferase (ALT/SGPT) 36 U/L (0-56) Alkaline Phosphatase 78 U/L (0-126) Total Protein 8.0 g/dl (6.3-8.2) Albumin 4.6 g/dl (3.5-5.0) Serology Test 01/24/19 11:53 Group A Streptococcus (PCR) Negative (NEGATIVE) EKG/Imaging Imaging FACILITY: [facility] PATIENT NAME: Beba Plascencia : 1980 MR: [id number] V: [id number] EXAM DATE: ORDERING PHYSICIAN: FRANKIE CHEW TECHNOLOGIST: Location[place] [facility] [place]: Beba Plascencia : 1980 Visit/Account:[id number] Date of Sevice: 01/24/2019 CT SOFT TISSUE NECK W/CONTRAST HISTORY: dysphagia, tonsillar cancer, on chemotherapy TECHNIQUE: Spiral scan was obtained from the hard palate through the upper chest with intravenous contrast. One of the following dose optimization techniques was utilized in the performance of this exam: Automated exposure control; adjustment of the mA and/or kV according to the patient's size; or use of an iterative reconstruction technique. Specific details can be referenced in the facility's radiology CT exam operational policy. Contrast: 75 cc of Isovue-370 COMPARISON STUDIES: 04/29/2018 FINDINGS: Vessels: The right internal jugular vein is occluded in the neck which is chronic. Suprahyoid neck: Nasopharynx is normal. Oropharynx is normal. Parapharyngeal space is normal. Retropharyngeal space is normal. Infrahyoid neck: Notable for edema of the epiglottis and larynx presumably posttreatment change. Salivary glands: Normal Lymph nodes: Small right level 3 lymph nodes are partially calcified grossly unchanged in size from prior. Test And Balance Engineer right level 3 lymph node image 261 measures 6 x 4 mm. Thyroid gland: Negative Visualized orbits: Negative Sinuses and mastoids: Negative Visualized brain: Negative Upper chest: Negative Musculoskeletal / Body wall: Negative IMPRESSION: 1. Edema of the larynx and epiglottis presumably postoperative in change. 2. Treated small right level 3 lymph nodes are partially calcified, unchanged in size. 3. 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 Report Dictated By: Juan Alberto Thapa MD at 01/24/2019 1:32 PM Report E-Signed By: Juan Alberto Thapa MD at 01/24/2019 1:53 PM WSN:[id number] FACILITY: [facility] PATIENT NAME: Beba Plascencia : 1980 MR: [id number] V: [id number] EXAM DATE: ORDERING PHYSICIAN: FRANKIE CHEW TECHNOLOGIST: [place] [facility] [place] Patient: Beba Plascencia : 1980 Visit/Account:[id number] Date of Sevice: 01/24/2019 CT CHEST (CONTRAST) History: dysphagia, cough and sore throat x2 days, on chemotherapy TECHNIQUE: Contiguous axial images were performed through the chest to the level of the adrenal glands following the administration of IV contrast. Coronal and sagittal reformatting was also performed.Dose Lowering Technique One of the following dose optimization techniques was utilized in the performance of this exam: Automated exposure control; adjustment of the mA and/or kV according to the patient's size; or use of an iterative reconstruction technique. Specific details can be referenced in the facility's radiology CT exam operational policy. Contrast: 75 mL Isovue-370 COMPARISON STUDIES: April 29, 2018. Lungs / Pleura: There is an 8 mm spiculation in the posterior lateral aspect right upper lobe best appreciated on image 136 of series 4. This was not apparent on the prior study subtle groundglass opacities are identified in the posterior segment of the right upper lobe There is a partially solid 7 mm nodule in the medial left lower lobe is appreciated on image 179 is an additional 5 mm partially solid nodule medial aspect of the left lower lobe best appreciated on image 218. There are reticular nodular changes scattered throughout the left lower lobe. There is no evidence of pleural effusion Mediastinum/nodes: negative. Heart and vessels: negative. Musculoskeletal / Body wall: negative. Upper abdomen: Visualized abdominal viscera negative. IMPRESSION: Is an 8 mm spiculation in the posterior lateral aspect the right upper lobe in addition to subtle groundglass opacities in the posterior segment of the right upper lobe. There is a partially solid 7 mm nodule in the medial left lower lobe and additional 5 mm partially solid nodule medial aspect the left lower lobe. Reticular nodular changes are also scattered throughout the left lower lobe. These are all new findings when compared the prior study and may be related to an acute infectious/inflammatory process. Given the clinical history however short-term interval follow-up recommended Report Dictated By: Corinna Arizmendi MD at 01/24/2019 1:33 PM Report E-Signed By: Corinna Arizmendi MD at 01/24/2019 1:42 PM WSN:[email or web address] ED Course/Re-evaluation ED Course Patient is a 39-year-old female with a prior history of malignancy here with complaints of throat swelling, cough. Labs were unremarkable. Patient was given a dose of methylprednisolone, DuoNeb with moderate relief of symptoms. Due to the patient's history of malignancy, CT imaging of the neck and chest were completed demonstrating a spiculated mass in the right upper lobe as well as ground glass opacities in the bases as well as inflamed lymphadenopathy. At this time patient will be treated with a Z-Jose, burst therapy of steroids. I discussed these findings with the patient and she voiced understanding and will follow-up with oncology for further evaluation and care. Patient was hemodynamically stable throughout the course. Return precautions were provided. Close follow-up recommended. Decision to Disposition Date: Jan 24, 2019 Decision to Disposition Time: 14:09 Depart Departure Latest Vital Signs Vital Signs Date Time Temp Pulse Resp B/P (MAP) Pulse Ox O2 Delivery O2 Flow Rate FiO2 01/24/19 14:00 119 95 01/24/19 13:22 18 01/24/19 13:10 Room Air 01/24/19 11:55 98.5 122/92 Impression: Primary Impression: Cough Additional Impression: Odynophagia Condition: Improved Disposition: HOME OR SELF-CARE Referrals: MINERVA GARCIA MD (PCP) New Scripts Prednisone (PREDNISONE) 50 Mg Tablet 50 MG PO QDAY for 4 Days, #4 TAB Prov: CHEWFRANKIE DO 01/24/19 Azithromycin (Z-PACK) 250 Mg Tablet 0 PO QDAY, #6 DOSE-PACK Prov: FRANKIE CHEW DO 01/24/19 Patient Instructions: Acute Cough (GEN) Additional Instructions: Please follow up closely with oncology for further evaluation and care due to concerning findings on your CT scan. Please take azithromycin or Z-Jose as directed. Please take prednisone 1 tab daily for 4 days for treatment of inflammation. Please immediately return to the emergency department if you develop difficulty swallowing, difficulty breathing, worsening pain, fevers. PATIENT NAME: Beba Plascencia : 1980 MR: [id number] V: [id number] EXAM DATE: ORDERING PHYSICIAN: FRANKIE CHEW TECHNOLOGIST: Location: [place] [facility] [place] Patient: Beba Plascencia : 1980 Visit/Account:[id number] Date of Sevice: 01/24/2019 CT CHEST (CONTRAST) History: dysphagia, cough and sore throat x2 days, on chemotherapy TECHNIQUE: Contiguous axial images were performed through the chest to the level of the adrenal glands following the administration of IV contrast. Coronal and sagittal reformatting was also performed.Dose Lowering Technique One of the following dose optimization techniques was utilized in the perform ance of this exam: Automated exposure control; adjustment of the mA and/or kV according to the patient's size; or use of an iterative reconstruction technique. Specific details can be referenced in the facility's radiology CT exam operational policy. Contrast: 75 mL Isovue-370 COMPARISON STUDIES: April 29, 2018. Lungs / Pleura: There is an 8 mm spiculation in the posterior lateral aspect right upper lobe best appreciated on image 136 of series 4. This was not apparent on the prior study subtle groundglass opacities are identified in the posterior segment of the right upper lobe There is a partially solid 7 mm nodule in the medial left lower lobe is appreciated on image 179 is an additional 5 mm partially solid nodule medial aspect of the left lower lobe best appreciated on image 218. There are reticular nodular changes scattered throughout the left lower lobe. There is no evidence of pleural effusion Mediastinum/nodes: negative. Heart and vessels: negative. Musculoskeletal / Body wall: negative. Upper abdomen: Visualized abdominal viscera negative. IMPRESSION: Is an 8 mm spiculation in the posterior lateral aspect the right upper lobe in addition to subtle groundglass opacities in the posterior segment of the right upper lobe. There is a partially solid 7 mm nodule in the medial left lower lobe and additional 5 mm partially solid nodule medial aspect the left lower lobe. Reticular nodular changes are also scattered throughout the left lower lobe. These are all new findings when compared the prior study and may be related to an acute infectious/inflammatory process. Given the clinical history however short-term interval follow-up recommended Report Dictated By: Corinna Arizmendi MD at 01/24/2019 1:33 PM Report E-Signed By: Corinna Arizmendi MD at 01/24/2019 1:42 PM WSN:[email or web address] PATIENT NAME: Beba Plascencia : 1980 MR: [id number] V: [id number] EXAM DATE: ORDERING PHYSICIAN: FRANKIE CHEW TECHNOLOGIST: Location: [place] [facility] [place] Patient: Beba Plascencia : 1980 Visit/Account:[id number] Date of Sevice: 01/24/2019 CT SOFT TISSUE NECK W/CONTRAST HISTORY: dysphagia, tonsillar cancer, on chemotherapy TECHNIQUE: Spiral scan was obtained from the hard palate through the upper chest with intravenous contrast. One of the following dose optimization techniques was utilized in the performance of this exam: Automated exposure control; adjustment of the mA and/or kV according to the patient's size; or use of an iterative reconstru ction technique. Specific details can be referenced in the facility's radiology CT exam operational policy. Contrast: 75 cc of Isovue-370 COMPARISON STUDIES: 04/29/2018 FINDINGS: Vessels: The right internal jugular vein is occluded in the neck which is chronic. Suprahyoid neck: Nasopharynx is normal. Oropharynx is normal. Parapharyngeal space is normal. Retropharyngeal space is normal. Infrahyoid neck: Notable for edema of the epiglottis and larynx presumably posttreatment change. Salivary glands: Normal Lymph nodes: Small right level 3 lymph nodes are partially calcified grossly unchanged in size from prior. Test And Balance Engineer right level 3 lymph node image 261 measures 6 x 4 mm. Thyroid gland: Negative Visualized orbits: Negative Sinuses and mastoids: Negative Visualized brain: Negative Upper chest: Negative Musculoskeletal / Body wall: Negative IMPRESSION: 1. Edema of the larynx and epiglottis presumably postoperative in change. 2. Treated small right level 3 lymph nodes are partially calcified, unchanged in size. 3. 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 Report Dictated By: Juan Alberto Thapa MD at 01/24/2019 1:32 PM Report E-Signed By: Juan Alberto Thapa MD at 01/24/2019 1:53 PM WSN:[id number] Problem Qualifiers FRANKIE CHEW DO Jan 24, 2019 11:27
[2019-01-24 11:55] VITALS: BP 122/92
[2019-01-24] MEDS ORDERED: methylPREDNIS SUCC 125 MG/2ML IVP ONE (12:00)
[2019-01-24] MEDS: ALBUTEROL/IPRATROPIUM 3 ML NEB NEB SCH ×2 (12:15→13:07)
[2019-01-24 12:37] LABS: PLATELET COUNT, AUTOMATED 182 K/uL (150-450)
[2019-01-24] MEDS ORDERED: IOPAMIDOL 76% 100 ML INFUS BTL 100 ML ONE (12:39)
--- NOTE | 2019-01-24 13:50 | RADIOLOGY IMAGING REPORT ---
FACILITY: [facility] - [place] PATIENT NAME: Beba Plascencia : 1980 MR: [id number] V: [id number] EXAM DATE: ORDERING PHYSICIAN: FRANKIE CHEW TECHNOLOGIST: Location: [facility] Patient: Beba Plascencia : 1980 Visit/Account:[id number] Date of Sevice: 01/24/2019 CT CHEST (CONTRAST) History: dysphagia, cough and sore throat x2 days, on chemotherapy TECHNIQUE: Contiguous axial images were performed through the chest to the level of the adrenal gla nds following the administration of IV contrast. Coronal and sagittal reformatting was also perform ed.Dose Lowering Technique One of the following dose optimization techniques was utilized in the performance of this exam: Autom ated exposure control; adjustment of the mA and/or kV according to the patient's size; or use of an i terative reconstruction technique. Specific details can be referenced in the facility's radiology C T exam operational policy. Contrast: 75 mL Isovue-370 COMPARISON STUDIES: April 29, 2018. Lungs / Pleura: There is an 8 mm spiculation in the posterior lateral aspect right upper lobe best appreciated on image 136 of series 4. This was not apparent on the prior study subtle groundglass op acities are identified in the posterior segment of the right upper lobe There is a partially solid 7 mm nodule in the medial left lower lobe is appreciated on image 179 is a n additional 5 mm partially solid nodule medial aspect of the left lower lobe best appreciated on uriah ge 218. There are reticular nodular changes scattered throughout the left lower lobe. There is no e vidence of pleural effusion Mediastinum/nodes: negative. Heart and vessels: negative. Musculoskeletal / Body wall: negative. Upper abdomen: Visualized abdominal viscera negative. IMPRESSION: Is an 8 mm spiculation in the posterior lateral aspect the right upper lobe in addition to subtle whitney undglass opacities in the posterior segment of the right upper lobe. There is a partially solid 7 mm nodule in the medial left lower lobe and additional 5 mm partially so lid nodule medial aspect the left lower lobe. Reticular nodular changes are also scattered throughou t the left lower lobe. These are all new findings when compared the prior study and may be related t o an acute infectious/inflammatory process. Given the clinical history however short-term interval f ollow-up recommended Report Dictated By: Corinna Arizmendi MD at 01/24/2019 1:33 PM Report E-Signed By: Corinna Arizmendi MD at 01/24/2019 1:42 PM RADHAN:NICK
--- NOTE | 2019-01-24 14:01 | RADIOLOGY IMAGING REPORT ---
FACILITY: [facility] - [place] PATIENT NAME: Beba Plascencia : 1980 MR: [id number] V: [id number] EXAM DATE: ORDERING PHYSICIAN: FRANKIE CHEW TECHNOLOGIST: Location: [facility] - [place] Patient: Beba Plascencia : 1980 Visit/Account:[id number] Date of Sevice: 01/24/2019 CT SOFT TISSUE NECK W/CONTRAST HISTORY: dysphagia, tonsillar cancer, on chemotherapy TECHNIQUE: Spiral scan was obtained from the hard palate through the upper chest with intravenous con trast. One of the following dose optimization techniques was utilized in the performance of this exam: Autom ated exposure control; adjustment of the mA and/or kV according to the patient's size; or use of an i terative reconstruction technique. Specific details can be referenced in the facility's radiology C T exam operational policy. Contrast: 75 cc of Isovue-370 COMPARISON STUDIES: 04/29/2018 FINDINGS: Vessels: The right internal jugular vein is occluded in the neck which is chronic. Suprahyoid neck: Nasopharynx is normal. Oropharynx is normal. Parapharyngeal space is normal. Retro pharyngeal space is normal. Infrahyoid neck: Notable for edema of the epiglottis and larynx presumably posttreatment change. Salivary glands: Normal Lymph nodes: Small right level 3 lymph nodes are partially calcified grossly unchanged in size from prior. [place]ulker right level 3 lymph node image 261 measures 6 x 4 mm. Thyroid gland: Negative Visualized orbits: Negative Sinuses and mastoids: Negative Visualized brain: Negative Upper chest: Negative Musculoskeletal / Body wall: Negative IMPRESSION: 1. Edema of the larynx and epiglottis presumably postoperative in change. 2. Treated small right level 3 lymph nodes are partially calcified, unchanged in size. 3. 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 Report Dictated By: Juan Alberto Thapa MD at 01/24/2019 1:32 PM Report E-Signed By: Juan Alberto Thapa MD at 01/24/2019 1:53 PM WSN:[id number]
[2019-01-24] MEDS ORDERED: AZIT-17 PO (14:18)
[2019-01-24] MEDS ORDERED: PRED50TA22 PO (14:18)
== END 2019-01-24 14:33 | disposition home or self-care (01) ==
LOC: ER 11:25
DX: R05 Cough (principal); R13.10 Dysphagia, unspecified
CPT/HCPCS: 70491; 71260; 85025; 87653; 94640; 96374; 99284; J2930; J7620; Q9967; 82040; 82247; 82310; 82374; 82435; 82565; 82947; 84075; 84132; 84155; 84295; 84450; 84460; 84520